=== PATIENT | female | born 1935 | race Caucasian/White ===

== ENCOUNTER 2016-04-11 17:29 | Emergency (ER) | payer OTHER ==
[~2016-04-11] VITALS: Ht 160 cm; Wt 100.0 kg
[~2016-04-11 17:29] MED LIST: DIGO0.122 PO; INSUINJ4 SQ; METO50TA7 PO; ONDA4TAB10 SL; PENI500T2 PO; PRAM0.256 PO; PRD150 PO; PREG100C PO; PRLSR20 PO; ROPI0.25 PO; SERT50TA PO; ZAFI1TAB10 PO
[2016-04-11 17:45] VITALS: TEMP 36.4; Ht 160 cm; Wt 100.0 kg
--- NOTE | 2016-04-11 18:15 | EMERGENCY ROOM VISIT NOTE ---
History Report prepared by Ji: Maverick Skinner Under the Supervision of: Dr. Jerry Vences M.D. First contact with patient: 17:52 Chief Complaint: ILLNESS Stated Complaint: SICK TO STOMACH History of Present Illness The patient is a 80 year old female who presents to the Emergency Room with complaints of diarrhea that she has been experiencing intermittently for the past several months. The patient states that she first began to experience her nausea and diarrhea in December. Her primary care physician gave her Zofran for this initial episode. She continued to use the Zofran for subsequent episodes and recently ran out of this prescription. The patient is also complaining of lower abdominal pain, but denies any vomiting secondary to her nausea. She has had a cough for the past week, and did note some burning with urination recently. Source of History: patient Onset: Several months [employer] Position: other (Gastrointestinal) Quality: other (Diarrhea) Timing: intermittent Associated Symptoms: + abdominal pain, + cough, + nausea, + urinary symptoms , No vomiting Review of Systems All systems have been listed, reviewed, and are negative other than those previously mentioned. Please see Additional Medical History Sheet. 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 (13) Nausea (14) Osteomyelitis (15) Pericardial effusion (16) Sciatica (17) Symptomatic anemia Family History Cancer Diabetes mellitus Gallbladder disease Hypertension Seizures Social History Smoking Status: Former Smoker Alcohol Use: none Drug Use: none Marital Status: Housing Status: lives alone Occupation Status: retired Current/Historical Medications Scheduled Dabigatran Elexilate (Pradaxa), 150 MG PO BID Digoxin (Digoxin), 0.125 MG PO DAILY Furosemide (Lasix), 40 MG PO DAILY Insulin Aspart (Novolog Flexpen), 35 UNITS SC AC Insulin Degludec (Tresiba Flextouch), 90 UNITS SC DAILY Metoprolol Succinate (Metoprolol Succinate ER), 100 MG PO DAILY Omeprazole (Prilosec), 20 MG PO QAM Penicillin V Potassium (Veetids), 500 MG PO TID Pramipexole Dihydrochloride (Pramipexole Dihydrochlori), 0.125 MG PO HS Pregabalin (Lyrica), 100 MG PO BID Sertraline (Zoloft), 50 MG PO DAILY Zafirlukast (Accolate), 20 MG PO BID Scheduled PRN Tramadol (Ultram), 50 MG PO Q6 PRN for Pain Allergies Coded Allergies: Carbamazepine (Verified Allergy, Intermediate, HIVES, 04/11/16) Physical Exam Vital Signs Date Time Temp Pulse Resp B/P Pulse Ox O2 Delivery O2 Flow Rate FiO2 04/11/16 21:13 101 18 159/90 94 Room Air 04/11/16 20:09 95 16 100/67 97 Room Air 04/11/16 19:15 90 04/11/16 19:08 96 16 149/98 94 Room Air 04/11/16 18:28 Room Air 04/11/16 17:45 36.4 101 18 145/80 97 Room Air Physical Exam GENERAL: Patient awake but disoriented to time. Oriented to person and place. Patient follows commands. Patient does not appear toxic. Patient is adequately hydrated and well-nourished. SKIN: No erythema, pallor, cyanosis or rash HEENT: Normal head, pupils equal, reactive to light and accommodation. Ears normal. Oral cavity and posterior pharynx appear normal. Neck: Without adenopathy, no neck vein distention. LUNGS: Clear to auscultation. No wheezes, no rales, no rhonchi. HEART: No murmurs. No gallops. No rubs ABDOMEN: Obese abdomen. Midline suprapubic scar. No masses, no rebound, no hepatomegaly or splenomegaly. EXTREMITIES: There is a 4 cm ulcer on the top of the right ankle. No signs of trauma. No pedal or pretibial edema. No calf or thigh tenderness. NEUROLOGIC: Cranial nerves II-XII within normal limits. No gross motor sensory function deficits. Medical Decision & Procedures ER Provider Diagnostic Interpretation: X ray results are stated below per my interpretation and the radiologist's interpretation. CHEST ONE VIEW PORTABLE CLINICAL HISTORY: fever cough dyspnea COMPARISON STUDY: 12/27/2015 FINDINGS: Moderate stable cardia megaly. Lungs are clear. Chronic elevation right hemidiaphragm. IMPRESSION: Moderate stable cardia megaly. The lungs are clear. Electronically signed by: Kirit Leblanc M.D. 04/11/2016 6:34 PM Dictated Date/Time: 04/11/2016 6:33 P Laboratory Results 04/11/16 18:40 Red Blood Count 3.92, Mean Corpuscular Volume 89.0, Mean Corpuscular Hemoglobin 30.1, Mean Corpuscular Hemoglobin Concent 33.8, Mean Platelet Volume 11.1, Neutrophils (%) (Auto) 74.1, Lymphocytes (%) (Auto) 14.6, Monocytes (%) (Auto) 8.7, Eosinophils (%) (Auto) 1.8, Basophils (%) (Auto) 0.3, Neutrophils # (Auto) 4.94, Lymphocytes # (Auto) 0.97, Monocytes # (Auto) 0.58, Eosinophils # (Auto) 0.12, Basophils # (Auto) 0.02 04/11/16 18:40 Test 04/11/16 18:30 04/11/16 18:40 Urine Color DK YELLOW Urine Appearance CLEAR (CLEAR) Urine pH 6.0 (4.5-7.5) Urine Specific [place] 1.021 (1.000-1.030) Urine Protein NEG (NEG) Urine Glucose (UA) 3+ (NEG) Urine Ketones TRACE (NEG) Urine Occult Blood NEG (NEG) Urine Nitrite NEG (NEG) Urine Bilirubin NEG (NEG) Urine Urobilinogen NEG (NEG) Urine Leukocyte Esterase NEG (NEG) White Blood Count 6.66 K/uL (4.8-10.8) Red Blood Count 3.92 M/uL (4.2-5.4) Hemoglobin 11.8 g/dL (12.0-16.0) Hematocrit 34.9 % (37-47) Mean Corpuscular Volume 89.0 fL (80-100) Mean Corpuscular Hemoglobin 30.1 pg (25-34) Mean Corpuscular Hemoglobin Concent 33.8 g/dl (32-36) Platelet Count 176 K/uL (130-400) Mean Platelet Volume 11.1 fL (7.4-10.4) Neutrophils (%) (Auto) 74.1 % Lymphocytes (%) (Auto) 14.6 % Monocytes (%) (Auto) 8.7 % Eosinophils (%) (Auto) 1.8 % Basophils (%) (Auto) 0.3 % Neutrophils # (Auto) 4.94 K/uL (1.4-6.5) Lymphocytes # (Auto) 0.97 K/uL (1.2-3.4) Monocytes # (Auto) 0.58 K/uL (0.11-0.59) Eosinophils # (Auto) 0.12 K/uL (0-0.5) Basophils # (Auto) 0.02 K/uL (0-0.2) RDW Standard Deviation 49.7 fL (36.4-46.3) RDW Coefficient of Variation 15.3 % (11.5-14.5) Immature Granulocyte % (Auto) 0.5 % Immature Granulocyte # (Auto) 0.03 K/uL (0.00-0.02) Prothrombin Time 11.7 SECONDS (9.0-12.0) Prothromb Time International Ratio 1.1 (0.9-1.1) Activated Partial Thromboplast Time 29.1 SECONDS (21.0-31.0) Partial Thromboplastin Ratio 1.1 Anion Gap 15.0 mmol/L (3-11) Est Creatinine Clear Calc Drug Dose 37.3 ml/min Estimated GFR () 41.6 Estimated GFR (Non- 35.9 BUN/Creatinine Ratio 15.6 (10-20) Calcium Level 9.6 mg/dl (8.5-10.1) Total Bilirubin 0.7 mg/dl (0.2-1) Aspartate Amino Transf (AST/SGOT) 48 U/L (15-37) Alanine Aminotransferase (ALT/SGPT) 43 U/L (12-78) Alkaline Phosphatase 81 U/L (45-117) Troponin I < 0.015 ng/ml (0-0.045) Total Protein 7.8 gm/dl (6.4-8.2) Albumin 3.7 gm/dl (3.4-5.0) Globulin 4.1 gm/dl (2.5-4.0) Albumin/Globulin Ratio 0.9 (0.9-2) Beta-Hydroxybutyric Acid 0.92 mg/dL (0.2-2.81) Laboratory results as stated above per my review. ECG Indication: chest pain, nausea Rate (beats per minute): 90 Rhythm: atrial fibrillation Findings: no acute ischemic change, other (Normal [place] ) Comparison ECG Date: 12/27/2015 Change: no significant change ED Course 1752: Past medical records reviewed. The patient was evaluated in room C11. A complete history and physical examination was performed. 1911: I checked on the patient at this time. Her nausea is improving. 2048: Upon reevaluation, the patient appeared to have improvement of her symptoms. I discussed today's findings with he. She verbalized agreement of the treatment plan. The patient was discharged home. Medical Decision Differential diagnosis: Etiologies such as urinary tract infection, pneumonia, altered mental status, metabolic disturbance, cardiac ischemia, aortic dissection, pulmonary embolism, pneumonia, pneumothorax, musculoskeletal, infections, pericarditis, myocarditis , esophageal rupture, gastrointestinal, as well as others were entertained. Multiple labs, EKG and imaging were obtained. Please see above. The patient was reevaluated. She no longer has any chest pain. Chest x-ray does not reveal failure. She does have chronic cardiomegaly. She has no EKG changes. Troponin is not elevated. Blood sugar is slightly elevated but she has high blood sugars in the past. White count is not elevated. The patient does not appear to have a urinary tract infection. The patient may have a viral infection. This point I do not believe she requires antibiotics or hospitalization. The patient is to follow-up at the diabetic clinic tomorrow. Impression Primary Impression: Viral illness Scribe Attestation The scribe's documentation has been prepared under my direction and personally reviewed by me in its entirety. I confirm that the note above accurately reflects all work, treatment, procedures, and medical decision making performed by me. Departure Information Dispostion Home / Self-Care Referrals No Doctor, Assigned (PCP) Patient Instructions My [facility] Additional Instructions Continue all of your current medications as prescribed. REST Drink extra liquids. Follow-up at the diabetic clinic tomorrow.
--- NOTE | 2016-04-11 18:35 | DIAGNOSTIC IMAGING REPORT ---
CHEST ONE VIEW PORTABLE CLINICAL HISTORY: fever cough dyspnea COMPARISON STUDY: 12/27/2015 FINDINGS: Moderate stable cardia megaly. Lungs are clear. Chronic elevation right hemidiaphragm. IMPRESSION: Moderate stable cardia megaly. The lungs are clear. Electronically signed by: Kirit Leblanc M.D. 04/11/2016 6:34 PM Dictated Date/Time: 04/11/2016 6:33 PM
[2016-04-11] MEDS ORDERED: LNX125 PO (18:39)
[2016-04-11] MEDS ORDERED: TPRSR/100 PO (18:39)
[2016-04-11] MEDS ORDERED: FRS/40 PO (18:39)
[2016-04-11] MEDS ORDERED: TRAM-10 PO (18:43)
[2016-04-11] MEDS ORDERED: INSDGIPEN SC (18:43)
[2016-04-11] MEDS ORDERED: INSU1INJ33 SC (18:43)
[2016-04-11] MEDS ORDERED: NVLGIPEN SC (18:43)
[2016-04-11 18:47] LABS: URINE APPEARANCE CLEAR (CLEAR); URINE BILIRUBIN NEG (NEG); URINE COLOR DK YELLOW; URINE NITRITE NEG (NEG); URINE SPECIFIC GRAVITY 1.021 (1.000-1.030); UROBILINOGEN NEG (NEG); ZZURINE CULT IF INDIC CATH NO
[2016-04-11 18:49] LABS: MANUAL MICROSCOPIC REQUIRED? NO; REVIEW REQ? NO
[2016-04-11 18:53] LABS: BASO % 0.3 %; BASO ABS # 0.02 K/uL (0-0.2); COMPLETE YES; EOS % 1.8 %; HEMATOCRIT 34.9 % (37-47); IG% 0.5 %; LYMPH % 14.6 %; LYMPH ABS # 0.97 K/uL (1.2-3.4); MEAN CORPUSCULAR HEMOGLOBIN 30.1 pg (25-34); MEAN CORPUSCULAR HGB CONC 33.8 g/dl (32-36); MEAN PLATELET VOLUME 11.1 fL (7.4-10.4); MONO % 8.7 %; NEUT % 74.1 %; PLATELET COUNT 176 K/uL (130-400); RED BLOOD COUNT 3.92 M/uL (4.2-5.4); WHITE BLOOD COUNT 6.66 K/uL (4.8-10.8)
[2016-04-11] MEDS ORDERED: PRAM0.129 PO (18:53)
[2016-04-11] MEDS ORDERED: PENI-82 PO ×2 (18:53→18:55)
[2016-04-11 19:04] LABS: INR 1.1 (0.9-1.1); PARTIAL THROMBOPLASTIN RATIO 1.1; PROTHROMBIN TIME (PATIENT) 11.7 SECONDS (9.0-12.0)
[2016-04-11 19:11] LABS: ALT/SGPT 43 U/L (12-78); BLOOD UREA NITROGEN 22 mg/dl (7-18); BUN/CREATININE RATIO 15.6 (10-20); CALCIUM 9.6 mg/dl (8.5-10.1); CARBON DIOXIDE 25 mmol/L (21-32); CHLORIDE 96 mmol/L (98-107); GLUCOSE 302 mg/dl (70-99); POTASSIUM 4.4 mmol/L (3.5-5.1); SODIUM 136 mmol/L (136-145)
[2016-04-11 19:14] LABS: ALB/GLOB RATIO 0.9 (0.9-2); AST/SGOT 48 U/L (15-37)
[2016-04-11 19:21] LABS: ALKALINE PHOSPHATASE 81 U/L (45-117); BETA-HYDROXYBUTYRATE 0.92 mg/dL (0.2-2.81)
[2016-04-11] MEDS ORDERED: OXYC-57 PO (21:09)
[2016-04-11 21:13] VITALS: BP 159/90; PULSE 101; O2SAT 94
[2016-06-26] MEDS ORDERED: AMOX500C3 PO (10:50)
[2016-09-13] MEDS ORDERED: FRS/40 PO (16:01)
== END 2016-04-11 21:13 | disposition home or self-care (01) ==
LOC: C.EDB 17:30 → C.EDC 21:13
DX: B34.9 Viral infection, unspecified (principal); D64.9 Anemia, unspecified; J45.909 Unspecified asthma, uncomplicated; I48.91 Unspecified atrial fibrillation; I10 Essential (primary) hypertension; F32.9 Major depressive disorder, single episode, unspecified; E11.9 Type 2 diabetes mellitus without complications; K21.9 Gastro-esophageal reflux disease without esophagitis; Z87.891 Personal history of nicotine dependence; Z90.710 Acquired absence of both cervix and uterus; Z79.4 Long term (current) use of insulin; Z83.3 Family history of diabetes mellitus; Z82.49 Family history of ischemic heart disease and other diseases of the circulatory system; Z82.0 Family history of epilepsy and other diseases of the nervous system; I51.7 Cardiomegaly

== ENCOUNTER → 2016-05-10 | Outpatient (CLI) | payer OTHER ==
[~2016-05-10] MED LIST changes: +AMOX500C3 PO; +CLB/200 PO; -DIGO0.122 PO; +DXY/100 PO; +FRS/40 PO; +INSDGIPEN SC; +INSU1INJ33 SC; -INSUINJ4 SQ; +LNX125 PO; -METO50TA7 PO; +NVLGIPEN SC; -ONDA4TAB10 SL; -PENI500T2 PO; -ROPI0.25 PO; +TPRSR/100 PO; +TRAM-10 PO
[2016-05-10 17:23] LABS: BASO % 0.5 %; BASO ABS # 0.04 K/uL (0-0.2); COMPLETE YES; EOS % 2.2 %; HEMATOCRIT 36.6 % (37-47); IG% 0.5 %; LYMPH % 13.9 %; LYMPH ABS # 1.08 K/uL (1.2-3.4); MEAN CELL VOLUME 93.1 fL (80-100); MEAN CORPUSCULAR HEMOGLOBIN 29.8 pg (25-34); MEAN PLATELET VOLUME 12.1 fL (7.4-10.4); MONO % 7.9 %; PLATELET COUNT 225 K/uL (130-400); RED BLOOD COUNT 3.93 M/uL (4.2-5.4); WHITE BLOOD COUNT 7.76 K/uL (4.8-10.8)
[2016-05-10 17:34] LABS: BLOOD UREA NITROGEN 21 mg/dl (7-18); BUN/CREATININE RATIO 15.1 (10-20); CALCIUM 9.4 mg/dl (8.5-10.1); CARBON DIOXIDE 28 mmol/L (21-32); CHLORIDE 101 mmol/L (98-107); GLUCOSE 209 mg/dl (70-99); MAGNESIUM 1.5 mg/dl (1.8-2.4); POTASSIUM 4.1 mmol/L (3.5-5.1); SODIUM 139 mmol/L (136-145)
[2016-05-10 17:38] LABS: FERRITIN 107.8 ng/ml (8.0-388.0); PHOSPHORUS 3.3 mg/dl (2.5-4.9); TOTAL IRON BINDING CAPACITY 434 mcg/dl (250-450)
[2016-05-10 17:41] LABS: URINE APPEARANCE CLEAR (CLEAR); URINE BILIRUBIN NEG (NEG); URINE COLOR YELLOW; URINE EPITHELIAL CELL AUTO >30 /lpf (0-5); URINE NITRITE NEG (NEG); URINE SPECIFIC GRAVITY 1.009 (1.000-1.030); UROBILINOGEN NEG (NEG); ZZUR CULT IF INDIC CLEAN CATCH NO
[2016-05-10 17:43] LABS: URINE PROTIEN/CREAT RATIO 0.3 (0-0.2); URINE TOTAL PROTEIN 5.9 mg/dl (0-11.9)
[2016-05-10 17:48] LABS: MANUAL MICROSCOPIC REQUIRED? NO; REVIEW REQ? NO
== END | disposition home or self-care (01) ==
LOC: C.LABBFT 14:10
PROVIDERS: ATTEND Internal Medicine Nephrology
DX: I50.32 Chronic diastolic (congestive) heart failure (principal); N18.3 Chronic kidney disease, stage 3 (moderate); E55.9 Vitamin D deficiency, unspecified; D64.9 Anemia, unspecified

== ENCOUNTER → 2016-07-08 | Outpatient (CLI) | payer OTHER ==
[2016-07-08 10:20] LABS: URINE APPEARANCE CLOUDY (CLEAR); URINE COLOR DK YELLOW; URINE EPITHELIAL CELL AUTO >30 /lpf (0-5); URINE NITRITE NEG (NEG); URINE SPECIFIC GRAVITY 1.023 (1.000-1.030); UROBILINOGEN NEG (NEG)
[2016-07-08 10:32] LABS: MANUAL MICROSCOPIC REQUIRED? NO; REVIEW REQ? YES; URINE BILIRUBIN NEG (NEG)
== END | disposition home or self-care (01) ==
LOC: C.LABSPEC 09:26
PROVIDERS: ATTEND Physician Assistant Medical
DX: N39.0 Urinary tract infection, site not specified (principal)

== ENCOUNTER → 2016-08-02 | Outpatient (CLI) | payer OTHER ==
--- NOTE | 2016-08-02 14:27 | DIAGNOSTIC IMAGING REPORT ---
NUCLEAR GASTRIC EMPTYING STUDY CLINICAL HISTORY: Diabetes. Gastroparesis. COMPARISON STUDY: Abdominal CT dated 12/01/2015. TECHNIQUE: Following the oral administration of 1.0 mCi of technetium 99m sulfur colloid in egg sandwich and 8 ounces of water, static abdominal images are obtained anteriorly and posteriorly at 0 minutes, 1 hour, 2 hour, and 4 hour time intervals. Gastric emptying was calculated utilizing the geometric mean method. FINDINGS: There is approximately 86% activity remaining at the 1 hour time interval, 63% remaining at the 2 hour time interval (normal is less than 60%), and 28% activity remaining at the 4 hour time interval (normal is less than 10%). IMPRESSION: Findings are consistent with delayed gastric emptying for solids. Electronically signed by: Espinoza Silverman M.D. 08/02/2016 2:26 PM Dictated Date/Time: 08/02/2016 2:25 PM
== END | disposition home or self-care (01) ==
LOC: C.NUCL 09:14
PROVIDERS: ATTEND Internal Medicine
DX: E11.49 Type 2 diabetes mellitus with other diabetic neurological complication (principal); E11.65 Type 2 diabetes mellitus with hyperglycemia; R11.0 Nausea

== ENCOUNTER → 2016-08-16 | Outpatient (CLI) | payer OTHER ==
--- NOTE | 2016-08-16 15:23 | DIAGNOSTIC IMAGING REPORT ---
RIGHT FOOT MIN 3 VIEWS ROUTINE CLINICAL HISTORY: 80 years-old Female presenting with PAIN, SWELLING, HISTORY OF OSTEOMYELYTIS Right. TECHNIQUE: Frontal, oblique, and lateral views of the right foot were obtained. COMPARISON: 03/31/2014. FINDINGS: Osteopenia. Heterogeneity of midfoot ossification with loss of joint space definition in the intertarsal midfoot articulations. An old screw track is noted through the calcaneus. No acute fracture. Lateral deviation of the second through fifth proximal phalanges may be positional. Scattered degenerative changes noted. Fusion of the ankle joints and hindfoot partially visualized and better seen on ankle radiographs. Diffuse soft tissue thickening. IMPRESSION: 1. Osteopenia with partial fusion of intertarsal mid foot articulations, which could be posttraumatic or postinfectious. Electronically signed by: Austin Almaraz M.D. 08/16/2016 3:22 PM Dictated Date/Time: 08/16/2016 3:15 PM
--- NOTE | 2016-08-16 18:27 | DIAGNOSTIC IMAGING REPORT ---
RIGHT ANKLE MIN 3 VIEWS ROUTINE CLINICAL HISTORY: 80 years-old Female presenting with PAIN, SWELLING, HISTORY OF OSTEOMYELYTIS Right. TECHNIQUE: Frontal, oblique, and lateral views of the right ankle were obtained. COMPARISON: CT from 06/10/2012. FINDINGS: Extensive deformity of the right ankle, at least in part posttraumatic. Multiple old screw tracks are evident. Osseous fusion of the tibiofibular articulation and across the ankle mortise. A single metallic fixation device remains in the hindfoot. A greater degree of thick periosteal reaction along the distal fibula and tibia is noted than expected for posttraumatic deformity. Osteopenia noted. Prominent bone spur at the inferior calcaneus. Osseous fragment superficial to the posterior malleolus may be a loose body or be contiguous ossification. No evidence of acute fracture. Diffuse thickening of superficial soft tissues. IMPRESSION: 1. Findings consistent with posttraumatic deformity with superimposed changes of chronic osteomyelitis. Osteopenia can be seen in the setting of acute osteomyelitis, which cannot be excluded. No acute osseous injury. Electronically signed by: Austin Almaraz M.D. 08/16/2016 6:26 PM Dictated Date/Time: 08/16/2016 3:11 PM
== END | disposition home or self-care (01) ==
LOC: C.RAD 14:46
PROVIDERS: ATTEND Emergency Medicine
DX: M79.671 Pain in right foot (principal); M79.89 Other specified soft tissue disorders

== ENCOUNTER 2016-09-10 21:31 | Inpatient (IN) | payer OTHER ==
[~2016-09-10] VITALS: Ht 165.1 cm; Wt 111.4 kg
[~2016-09-10 21:31] MED LIST changes: -CLB/200 PO; -DXY/100 PO; -INSDGIPEN SC
[2016-09-10] MEDS ORDERED: DXY/100 PO (21:50)
[2016-09-10] MEDS ORDERED: INSDGIPEN SC (21:50)
[2016-09-10] MEDS ORDERED: CLB/200 PO (21:50)
[2016-09-10 22:07] LABS: BASO % 0.2 %; BASO ABS # 0.01 K/uL (0-0.2); COMPLETE YES; EOS % 0.6 %; HEMATOCRIT 28.5 % (37-47); IG% 0.6 %; LYMPH % 7.8 %; LYMPH ABS # 0.49 K/uL (1.2-3.4); MEAN CORPUSCULAR HEMOGLOBIN 30.3 pg (25-34); MEAN CORPUSCULAR HGB CONC 31.6 g/dl (32-36); MEAN PLATELET VOLUME 11.6 fL (7.4-10.4); MONO % 8.5 %; NEUT % 82.3 %; PLATELET COUNT 123 K/uL (130-400); RED BLOOD COUNT 2.97 M/uL (4.2-5.4); WHITE BLOOD COUNT 6.27 K/uL (4.8-10.8)
[2016-09-10 22:30] LABS: BUN/CREATININE RATIO 13.7 (10-20); CREATININE 1.1 mg/dl (0.60-1.20); POTASSIUM 3.5 mmol/L (3.5-5.1)
[2016-09-10] MEDS ORDERED: MoRPHine SULFATE 4 MG/ML 1 ML CARP\\VIAL IV PRN (22:30)
[2016-09-10] MEDS ORDERED: MoRPHine SULFATE 2 MG/ML CARP ONE (22:35)
[2016-09-10] MEDS: ONDANSETRON INJ 2 MG/ML 2 ML VIAL IV PRN (22:36)
[2016-09-10 23:15] LABS: URINE APPEARANCE CLOUDY (CLEAR); URINE COLOR DK YELLOW; URINE EPITHELIAL CELL AUTO >30 /lpf (0-5); URINE NITRITE NEG (NEG); URINE SPECIFIC GRAVITY 1.024 (1.000-1.030); UROBILINOGEN NEG (NEG); ZZURINE CULT IF INDIC CATH YES
[2016-09-10 23:21] LABS: MANUAL MICROSCOPIC REQUIRED? NO; REVIEW REQ? NO
[2016-09-10 23:24] LABS: URINE BILIRUBIN NEG (NEG)
[2016-09-11] VITALS (9 sets, daily range): BP systolic 116–149; BP diastolic 57–78; PULSE 66–94; TEMP 36.4–36.8; O2SAT 92–96; BMI 41.1
[2016-09-11] MEDS ORDERED: FUROSEMIDE 40 MG/4 ML VIAL IV STA (00:06)
--- NOTE | 2016-09-11 00:17 | EMERGENCY ROOM VISIT NOTE ---
History Report prepared by Ji: Ginny Mitchell Under the Supervision of: Dr. Jerry Vences M.D. First contact with patient: 22:16 Chief Complaint: ABDOMINAL PAIN Stated Complaint: ABD PAIN Nursing Triage Summary: clifton schmid with resp, states "normal for her" c/o resp difficulty, had a [facility] prehospital, ems report pt hyperventilating, hx asthma, was not moving air on scene, rr 16-22 etco2 30-35 History of Present Illness The patient is a 80 year old female who presents to the Emergency Room with complaints of an episode of abdominal pain starting yesterday. The patient notes that she was diagnosed with gastric paresis and is on a diet to accommodate. The patient currently rates her pain as a 10/10 in severity. She complains of nausea, lack of appetite, and shortness of breath. She states it is very difficult to take a deep breath. The patient denies vomiting and being on O2 at home. She notes that she has a history of atrial fibrillation and CHF. She states that she didn't take her Lasix this morning. She notes she is on Pradaxa. Source of History: patient Onset: yesterday Position: abdomen Symptom Intensity: 10/10 Timing: other (episode) Modifying Factors (Worsening): breathing Associated Symptoms: + SOB, + nausea, No vomiting Note: The patient complains of lack of appetite. The patient denies being on O2 at home. Review of Systems All systems have been listed, reviewed, and are negative other than those previously mentioned. Please see Additional Medical History Sheet. 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 (19) Nausea (20) Osteomyelitis (21) Pericardial effusion (22) Sciatica (23) Shortness of breath (24) Symptomatic anemia Family History Cancer Diabetes mellitus Gallbladder disease Hypertension Seizures Social History Smoking Status: Former Smoker Alcohol Use: none Drug Use: none Marital Status: Housing Status: lives alone Occupation Status: retired Current/Historical Medications Scheduled Celecoxib (CeleBREX), 200 MG PO DAILY Dabigatran Elexilate (Pradaxa), 150 MG PO BID Doxycycline Hyclate (Doxycycline Hyclate), 100 MG PO BID Furosemide (Lasix), 40 MG PO DAILY Insulin Aspart (Novolog Flexpen), 56-60 UNITS SC DAILY Insulin Glargine (Lantus Solostar), 32-35 UNITS SC HS Metoprolol Succinate (Metoprolol Succinate ER), 100 MG PO DAILY Omeprazole (Prilosec), 20 MG PO QAM Pramipexole Dihydrochloride (Pramipexole Dihydrochlori), 0.125 MG PO HS Pregabalin (Lyrica), 100 MG PO BID Sertraline (Zoloft), 25 MG PO DAILY Zafirlukast (Accolate), 20 MG PO BID Allergies Coded Allergies: Carbamazepine (Verified Allergy, Intermediate, HIVES, 04/11/16) Physical Exam Vital Signs Date Time Temp Pulse Resp B/P (MAP) Pulse Ox O2 Delivery O2 Flow Rate FiO2 09/11/16 01:56 98 22 156/78 95 Room Air 09/11/16 01:05 92 09/11/16 00:00 89 22 134/58 94 Nasal Cannula 2.0 09/10/16 23:40 83 20 123/78 95 Nasal Cannula 2.0 09/10/16 22:37 90 16 181/81 96 Nasal Cannula 2.0 09/10/16 22:32 97 Nasal Cannula 2.0 09/10/16 22:12 22 128/56 97 Nasal Cannula 2.0 09/10/16 22:01 92 13 09/10/16 21:52 98 09/10/16 21:48 97 Nasal Cannula 09/10/16 21:48 97 Nasal Cannula 2.0 09/10/16 21:41 36.8 95 18 157/72 89 Room Air 09/10/16 21:40 22 157/72 96 Nasal Cannula 2.0 Physical Exam GENERAL: Patient awake, alert, oriented x 3. Patient follows commands. Patient does not appear toxic. Patient is adequately hydrated and well- nourished. SKIN: No erythema, pallor, cyanosis or rash HEENT: Normal head, pupils equal, reactive to light and accommodation. LUNGS: Clear to auscultation. No wheezes, no rales, no rhonchi. HEART: Irregularly irregular. No murmurs. No gallops. No rubs ABDOMEN: Has multiple ecchymosis areas from injections. Bowel sounds are present. No masses, no rebound, no hepatomegaly or splenomegaly. EXTREMITIES: Ulcer at the base of right leg. No acute edema. No signs of trauma. No pedal or pretibial edema. No calf or thigh tenderness. NEUROLOGIC: Cranial nerves II-XII within normal limits. No gross motor sensory function deficits. Medical Decision & Procedures ER Provider Diagnostic Interpretation: CHEST/ ABDOMEN Z-RAY: Findings: The results were interpreted by me. Cardiomegaly. Congestive heart failure. Nonspecific bowel gas patterns. Possible ileus. Laboratory Results Test 09/10/16 22:00 09/10/16 23:00 Immature Granulocyte % (Auto) 0.6 % White Blood Count 6.27 K/uL (4.8-10.8) Red Blood Count 2.97 M/uL (4.2-5.4) Hemoglobin 9.0 g/dL (12.0-16.0) Hematocrit 28.5 % (37-47) Mean Corpuscular Volume 96.0 fL (80-100) Mean Corpuscular Hemoglobin 30.3 pg (25-34) Mean Corpuscular Hemoglobin Concent 31.6 g/dl (32-36) Platelet Count 123 K/uL (130-400) Mean Platelet Volume 11.6 fL (7.4-10.4) Neutrophils (%) (Auto) 82.3 % Lymphocytes (%) (Auto) 7.8 % Monocytes (%) (Auto) 8.5 % Eosinophils (%) (Auto) 0.6 % Basophils (%) (Auto) 0.2 % Neutrophils # (Auto) 5.16 K/uL (1.4-6.5) Lymphocytes # (Auto) 0.49 K/uL (1.2-3.4) Monocytes # (Auto) 0.53 K/uL (0.11-0.59) Eosinophils # (Auto) 0.04 K/uL (0-0.5) Basophils # (Auto) 0.01 K/uL (0-0.2) Immature Granulocyte # (Auto) 0.04 K/uL (0.00-0.02) Total Bilirubin 1.1 mg/dl (0.2-1) Aspartate Amino Transf (AST/SGOT) 30 U/L (15-37) Alanine Aminotransferase (ALT/SGPT) 34 U/L (12-78) Alkaline Phosphatase 63 U/L (45-117) Total Protein 6.1 gm/dl (6.4-8.2) Albumin 3.0 gm/dl (3.4-5.0) Globulin 3.1 gm/dl (2.5-4.0) Albumin/Globulin Ratio 1.0 (0.9-2) Lipase 47 U/L (73-393) Urine Color DK YELLOW Urine Appearance CLOUDY (CLEAR) Urine pH 6.0 (4.5-7.5) Urine Specific [place] 1.024 (1.000-1.030) Urine Protein 1+ (NEG) Urine Glucose (UA) 1+ (NEG) Urine Ketones TRACE (NEG) Urine Occult Blood NEG (NEG) Urine Nitrite NEG (NEG) Urine Bilirubin NEG (NEG) Urine Urobilinogen NEG (NEG) Urine Leukocyte Esterase SMALL (NEG) Urine WBC (Auto) 10-30 /hpf (0-5) Urine RBC (Auto) 0-4 /hpf (0-4) Urine Hyaline Casts (Auto) 1-5 /lpf (0-5) Urine Epithelial Cells (Auto) >30 /lpf (0-5) Urine Bacteria (Auto) 2+ (NEG) Date/Time Source Procedure Growth Status 09/10/16 23:00 Urine,Catheterized Urine Culture - Final MORE THAN THREE TYPES OF ORGANISMS CO... Complete Laboratory results as stated above per my review. Medications Administered Medications (Trade) Dose Ordered Sig/Trista Route Start Time Stop Time Status Last Admin Dose Admin Ondansetron HCl (Zofran Inj) 4 mg Q1HWA PRN IV 09/10/16 22:30 09/12/16 07:30 DC 09/11/16 07:31 4 MG Morphine Sulfate (MoRPHine SULFATE INJ) 2 mg STK-MED ONCE .ROUTE 09/10/16 22:35 09/10/16 22:36 DC 09/10/16 22:37 2 MG Furosemide (Lasix Inj) 40 mg NOW STAT IV 09/11/16 00:06 09/11/16 00:11 DC 09/11/16 00:29 40 MG ECG Indication: abdominal pain Rate (beats per minute): 95 Rhythm: atrial fibrillation Findings: no acute ischemic change, other (normal axis, baseline artifact) ED Course 221: Past medical records reviewed. The patient was evaluated in room B11. A complete history and physical examination was performed. 2230: Ordered Zofran Inj 4 mg PRN IV nausea, Morphine Sulfate 2 mg PRN IV pain. 0006: Ordered Lasix Inj 40 mg IV. 0122: I reevaluated the patient and she states she feels fine. She states that she has no pain now and she is just waiting for CT. 0217: I reevaluated the patient. i turned her O2 off. She maintained O2 stats between 92% and 93%. 0220: Patient got up to go the bathroom and became very short of breath. Medical Decision Differential diagnoses include gastroparesis, gastritis, gastroenteritis, bowel obstruction, diverticulitis, pancreatitis. Multiple labs, EKG and imaging were obtained. Please see above. The patient remains in atrial fibrillation. Initial x-rays reveal congestive failure and increased upper abdominal gas and possible ileus. The patient was given 40 mg of IV Lasix which improved her breathing. CT was ordered to follow. The patient's pain in her abdomen decreased markedly. The patient developed some diarrhea while awaiting her CT. She became more short of breath when she got up. In light of her drop in hemoglobin compared to her last hemoglobin, atrial fibrillation and congestive failure. I believe she needs further evaluation in the hospital. CT is pending at the time of this dictation. I did discussed care with the patient, another family member and the hospitalist. Medication Reconcilliation Current Medication List: was personally reviewed by me Blood Pressure Screening Patient's blood pressure: Normal blood pressure Blood pressure disposition: Did not require urgent referral Impression Primary Impression: CHF (congestive heart failure) Additional Impressions: Abdominal pain Anemia Scribe Attestation The scribe's documentation has been prepared under my direction and personally reviewed by me in its entirety. I confirm that the note above accurately reflects all work, treatment, procedures, and medical decision making performed by me. Departure Information Prescriptions Furosemide (Lasix) 40 Mg Tab 40 MG PO DAILY, #5 TAB Prov: Marvin Szymanski D.O. 09/13/16 Referrals Uri Plascencia M.D. (PCP) Patient Instructions My [facility] Problem Qualifiers
[2016-09-11] MEDS ORDERED: OPTIRAY 320 IV PRN (00:30)
--- NOTE | 2016-09-11 02:59 | History and Physical ---
History & Physical Date & Time of Service: Sep 11, 2016 at 02:56 Chief Complaint: Abd Pain Primary Care Physician: Uri Plascencia M.D. History of Present Illness Source: patient, family Mrs Arnold is a 80 yo F with CHF (last EF 12/2015 55-60%), Atrial fibrillation (on Pradaxa), and T2DM who presents with altered mental status and feeling unwell. Hx primarily obtained from daughter, who reports she went to go check on her mom today and found her to be very confused. She asked her mom to check her blood sugar and she couldn't use the machine properly. Her breathing also seemed to have worsened, which concerned her daughter, who called the ambulance. The pt has a hx of diabetic gastroparesis and the daughter was concerned she may have a recurrence of that. The pt lives alone in [place] and her daughter is 30 minutes away. Past Medical/Surgical History Medical Problems: (1) Anemia Status: Resolved (2) Asthma Status: Chronic (3) Atrial fibrillation Status: Chronic (4) Benign hypertension Status: Chronic (5) Depression Status: Chronic (6) Diabetes mellitus type 2 Status: Chronic (7) Gastroesophageal reflux disease Status: Chronic (8) Hemorrhoidectomy Status: Resolved (9) Hysterectomy Status: Resolved (10) Osteomyelitis Status: Chronic (11) Sciatica Status: Chronic Family History Cancer Diabetes mellitus Gallbladder disease Hypertension Seizures Social History Smoking Status: Former Smoker Drug Use: none Marital Status: Housing status: lives alone Occupational Status: retired Immunizations History of Influenza Vaccine: N/A Influenza Vaccine Date: Nov 25, 2011 History of Tetanus Vaccine?: unknown History of Pneumococcal: Unknown Pneumococcal Date: June 24, 2008 History of Hepatitis B Vaccine: Unknown Multi-Drug Resistant Organisms History of MDRO: No Allergies Coded Allergies: Carbamazepine (Verified Allergy, Intermediate, HIVES, 04/11/16) Home Medications Scheduled Celecoxib (CeleBREX), 200 MG PO DAILY Dabigatran Elexilate (Pradaxa), 150 MG PO BID Doxycycline Hyclate (Doxycycline Hyclate), 100 MG PO BID Insulin Aspart (Novolog Flexpen), 56-60 UNITS SC DAILY Insulin Glargine (Lantus Solostar), 32-35 UNITS SC HS Metoprolol Succinate (Metoprolol Succinate ER), 100 MG PO DAILY Omeprazole (Prilosec), 20 MG PO QAM Pramipexole Dihydrochloride (Pramipexole Dihydrochlori), 0.125 MG PO HS Pregabalin (Lyrica), 100 MG PO BID Sertraline (Zoloft), 25 MG PO DAILY Zafirlukast (Accolate), 20 MG PO BID Review of Systems See HPI for pertinent positives & negatives. A total of 10 systems reviewed and were otherwise negative. Physical Exam Vital Signs Date Time Temp Pulse Resp B/P (MAP) Pulse Ox O2 Delivery O2 Flow Rate FiO2 09/11/16 01:56 98 22 156/78 95 Room Air 09/11/16 01:05 92 09/11/16 00:00 89 22 134/58 94 Nasal Cannula 2.0 09/10/16 23:40 83 20 123/78 95 Nasal Cannula 2.0 09/10/16 22:37 90 16 181/81 96 Nasal Cannula 2.0 09/10/16 22:32 97 Nasal Cannula 2.0 09/10/16 22:12 22 128/56 97 Nasal Cannula 2.0 09/10/16 22:01 92 13 09/10/16 21:52 98 09/10/16 21:48 97 Nasal Cannula 09/10/16 21:48 97 Nasal Cannula 2.0 09/10/16 21:41 36.8 95 18 157/72 89 Room Air 09/10/16 21:40 22 157/72 96 Nasal Cannula 2.0 General Appearance: WD/WN, + mild distress, + obese Head: normocephalic, atraumatic Eyes: normal inspection ENT: hearing grossly normal Neck: supple, no JVD Respiratory/Chest: lungs clear, normal breath sounds, no respiratory distress Cardiovascular: regular rate, rhythm, no murmur, normal peripheral pulses Abdomen/GI: soft, + tenderness (epigastric tenderness) Back: no CVA tenderness, no muscle spasm Extremities/Musculoskelatal: no calf tenderness, no pedal edema Neurologic/Psych: alert, normal mood/affect, oriented x 3 Skin: no rash Diagnostics Laboratory Results Results Past 24 Hours Test 09/10/16 22:00 09/10/16 23:00 Range/Units White Blood Count 6.27 4.8-10.8 K/uL Red Blood Count 2.97 4.2-5.4 M/uL Hemoglobin 9.0 12.0-16.0 g/dL Hematocrit 28.5 37-47 % Mean Corpuscular Volume 96.0 80-100 fL Mean Corpuscular Hemoglobin 30.3 25-34 pg Mean Corpuscular Hemoglobin Concent 31.6 32-36 g/dl Platelet Count 123 130-400 K/uL Mean Platelet Volume 11.6 7.4-10.4 fL Neutrophils (%) (Auto) 82.3 % Lymphocytes (%) (Auto) 7.8 % Monocytes (%) (Auto) 8.5 % Eosinophils (%) (Auto) 0.6 % Basophils (%) (Auto) 0.2 % Neutrophils # (Auto) 5.16 1.4-6.5 K/uL Lymphocytes # (Auto) 0.49 1.2-3.4 K/uL Monocytes # (Auto) 0.53 0.11-0.59 K/uL Eosinophils # (Auto) 0.04 0-0.5 K/uL Basophils # (Auto) 0.01 0-0.2 K/uL RDW Standard Deviation 56.1 36.4-46.3 fL RDW Coefficient of Variation 16.2 11.5-14.5 % Immature Granulocyte % (Auto) 0.6 % Immature Granulocyte # (Auto) 0.04 0.00-0.02 K/uL Sodium Level 144 136-145 mmol/L Potassium Level 3.5 3.5-5.1 mmol/L Chloride Level 110 98-107 mmol/L Carbon Dioxide Level 26 21-32 mmol/L Anion Gap 8.0 3-11 mmol/L Blood Urea Nitrogen 15 7-18 mg/dl Creatinine 1.10 0.60-1.20 mg/dl Est Creatinine Clear Calc Drug Dose 54.4 ml/min Estimated GFR () 55.7 Estimated GFR (Non- 48.1 BUN/Creatinine Ratio 13.7 10-20 Random Glucose 234 70-99 mg/dl Calcium Level 8.0 8.5-10.1 mg/dl Total Bilirubin 1.1 0.2-1 mg/dl Aspartate Amino Transf (AST/SGOT) 30 15-37 U/L Alanine Aminotransferase (ALT/SGPT) 34 12-78 U/L Alkaline Phosphatase 63 45-117 U/L Total Protein 6.1 6.4-8.2 gm/dl Albumin 3.0 3.4-5.0 gm/dl Globulin 3.1 2.5-4.0 gm/dl Albumin/Globulin Ratio 1.0 0.9-2 Lipase 47 73-393 U/L Urine Color DK YELLOW Urine Appearance CLOUDY CLEAR Urine pH 6.0 4.5-7.5 Urine Specific [place] 1.024 1.000-1.030 Urine Protein 1+ NEG Urine Glucose (UA) 1+ NEG Urine Ketones TRACE NEG Urine Occult Blood NEG NEG Urine Nitrite NEG NEG Urine Bilirubin NEG NEG Urine Urobilinogen NEG NEG Urine Leukocyte Esterase SMALL NEG Urine WBC (Auto) 10-30 0-5 /hpf Urine RBC (Auto) 0-4 0-4 /hpf Urine Hyaline Casts (Auto) 1-5 0-5 /lpf Urine Epithelial Cells (Auto) >30 0-5 /lpf Urine Bacteria (Auto) 2+ NEG Microbiology Results 09/10/16 Urine Culture, Received Pending CXR normal Normal EKG, No change from prior EKG Impression Assessment and Plan 80 yo F with CHF, Atrial fibrillation, and T2DM, found to have persistent shortness of breath despite lasix, and a new anemia (from 11 to 9.0 in 4 months) . Normocytic anemia - Will recheck another CBC in the AM - No indication for transfusion at this time - Will check iron / b12 levels Atrial fibrillation, rate controlled - Continue home Pradaxa and Toprol XL 100mg Shortness of breath w/background of CHF - Received Lasix in ED - Track I&Os - Daily weights Type 2 DM - Recheck A1c - Continue home Lantus dose, 32 units qHS - Novolog sliding scale with goal 140-180 Chronic foot ulcer - Continue doxycycline CODE STATUS: Level III (Does not want ventilation) VTE: Heparin DISPO: Tele Resident Physician Supervision Note: I was present with Dr. Garcia during the history and exam. I discussed the case with the resident and agree with the findings and plan as documented in the note. Any exceptions or clarifications are listed here: 80 y/o F DM, HTN, AF, foot wound, anemia - presenting with SOB and abdominal pain Pleural effusion and CHF present on initial imaging - no specific finding on abdominal imaging - pt has worsening anemia OE AAO x 3 S1,2 R Reduced air at bases Diffuse tender abdomen - guarding present No CCE P: Provided with lasix in ER - breathing improving - May need thora if SOB persists Narcotics provided for abd pain - ischemia suspected as this has occurred prior and no clear etiology determined - GI consulted Will trend Hb - has needed transfusions in past although Hb has been lower than current Above discussed with pt and resident Documented By: Michael Yo Level of Care Telemetry Resident Tracking Resident Involvement: Resident Care Provided Care Provided: Adult Hospital Medicine
[2016-09-11] MEDS ORDERED: MAGNESIUM HYDROXIDE SUSP 30 ML UDC PO PRN (03:00)
[2016-09-11] MEDS ORDERED: GLUCAGON FOR INJ 1 MG VIAL SQ PRN (03:00)
[2016-09-11] MEDS ORDERED: GLUCOSE 10 TABS/TUBE PO PRN (03:00)
[2016-09-11] MEDS ORDERED: DEXTROSE 50% 50 ML SYR IV PRN (03:00)
[2016-09-11] MEDS ORDERED: ACETAMINOPHEN 325 MG TAB PO PRN (03:00)
[2016-09-11] MEDS ORDERED: GLUCOSE 40% GEL 15 GM TUBE PO PRN (03:00)
[2016-09-11] MEDS ORDERED: NITROGLYCERIN 0.4 MG SL PER TAB CHARGE SL PRN (03:00)
[2016-09-11] MEDS ORDERED: ALUMINUM/MAGNESIUM/SIMETH (MAALOX MAX) 30 ML UDC PO PRN (03:00)
[2016-09-11] MEDS ORDERED: ONDANSETRON INJ 2 MG/ML 2 ML VIAL IV PRN (03:00)
[2016-09-11] MEDS ORDERED: HYDROmorphone INJ 0.5 MG/0.5 ML SYR IV STA (03:39)
[2016-09-11] MEDS ORDERED: HYDROmorphone INJ 0.5 MG/0.5 ML SYR IV PRN (03:45)
[2016-09-11] MEDS ORDERED: HEPARIN SOD 5000 UNIT/0.5 ML CARP SQ SCH (06:00)
--- NOTE | 2016-09-11 06:41 | DIAGNOSTIC IMAGING REPORT ---
ABDOMEN 2VIEW W/PA CHEST RTN HISTORY: 80 years-old Female abd pain COMPARISON: Chest radiograph 04/11/2016 TECHNIQUE: Frontal view of the chest with erect and supine views of the abdomen FINDINGS: Cardiac silhouette is again enlarged. There is no pneumothorax. There is blunting of bilateral costophrenic angles with mild pulmonary vascular congestion and hazy bibasilar opacities. Moderate degenerative changes are seen about the left shoulder. No pneumoperitoneum identified. There is minimal air-fluid level in within small bowel loops of the left mid abdomen. Mildly dilated air-filled loops of small bowel are seen within the midabdomen measuring up to 3.0 cm. No urolith or fracture is seen. Severe degenerative changes are noted within the right hip with subcortical cystic changes and/or AVN. IMPRESSION: 1. Mildly dilated air-filled loops of small bowel in the midabdomen with associated air-fluid levels may reflect enteritis or ileus, however a developing obstruction may have a similar appearance. Follow-up is recommended. 2. Cardiomegaly with mild pulmonary vascular congestion, trace pleural effusions and probable bibasilar atelectasis. The above report was generated using voice recognition software. It may contain grammatical, syntax or spelling errors. Electronically signed by: Fausto Hutson M.D. 09/11/2016 6:40 AM Dictated Date/Time: 09/11/2016 6:37 AM
--- NOTE | 2016-09-11 07:11 | DIAGNOSTIC IMAGING REPORT ---
CT OF THE ABDOMEN AND PELVIS WITH CONTRAST CLINICAL HISTORY: Abdominal pain. Abnormal abdominal radiographs. COMPARISON STUDY: CT of the abdomen and pelvis December 01, 2015 abdominal ultrasound December 28, 2015 and abdominal series September 10, 2016 TECHNIQUE: Following IV administration of 91 mL of Optiray-320, axial images of the abdomen and pelvis were obtained from the lung bases to the proximal femurs. Images were reviewed in the axial, sagittal, and coronal planes. IV contrast was administered without complication. A dose lowering technique was utilized adhering to the principles of ALARA. Oral contrast was administered. CT DOSE: 1434.23 mGy.cm FINDINGS: Small right and trace left pleural effusions are noted. There is a small pericardial effusion which is similar to CT of December 01, 2015. Fatty infiltration of the liver is noted. The spleen, adrenal glands and pancreas are unremarkable. There are are a few subcentimeter renal lesions which are too small to characterize. There is no hydronephrosis. There are several parapelvic cysts. There is no evidence for a bowel obstruction. Note is made of sigmoid diverticulosis without evidence for acute diver colitis. The appendix is not visualized but there is no right lower quadrant inflammation. There is no ascites. There is mild anasarca. Severe osteoarthritis of the right hip is noted. No peripancreatic or pericholecystic infiltration is present. IMPRESSION: 1. No acute process within the abdomen or pelvis. No bowel obstruction. 2. Small right and trace left pleural effusions which are new since CT of December 01, 2015. 3. Small pericardial effusion which is unchanged since prior exam of December 01, 2015. 4. Fatty liver. Electronically signed by: Asif Ballard M.D. 09/11/2016 7:10 AM Dictated Date/Time: 09/11/2016 7:02 AM
[2016-09-11] MEDS: ONDANSETRON INJ 2 MG/ML 2 ML VIAL IV PRN (07:31)
[2016-09-11] MEDS: PREGABALIN 100 MG CAP PO SCH ×2 (09:00→21:57)
--- NOTE | 2016-09-11 09:16 | DIAGNOSTIC IMAGING REPORT ---
CHEST 2 VIEWS ROUTINE CLINICAL HISTORY: Congestive heart failure. COMPARISON STUDY: Chest radiograph September 10, 2016. FINDINGS: Enlargement of the cardiac silhouette is unchanged. Small bilateral pleural effusions are noted. There is no pneumothorax. Interstitial thickening suggests mild pulmonary edema. IMPRESSION: 1. Mild pulmonary edema and small bilateral pleural effusions. 2. Stable enlargement of the cardiac silhouette. Electronically signed by: Asif Ballard M.D. 09/11/2016 9:15 AM Dictated Date/Time: 09/11/2016 9:13 AM
[2016-09-11] MEDS: INSULIN ASPART 100 UNITS/ML 3 ML PEN SC SCH ×4 (09:27→21:00)
[2016-09-11] MEDS: DABIGATRAN ELEXILATE 75 MG CAP PO SCH ×2 (12:29→22:00)
[2016-09-11] MEDS: SERTRALINE HCL 50 MG TAB PO SCH (12:30)
[2016-09-11] MEDS: CeleBREX 200 MG CAP PO SCH (12:31)
[2016-09-11] MEDS: DOXYCYCLINE HYCLATE 100 MG CAP PO SCH ×2 (12:31→22:01)
[2016-09-11] MEDS: PANTOprazole SOD 40 MG TAB PO SCH (12:31)
[2016-09-11] MEDS: METOPROLOL SUCC 50MG EXT REL TAB PO SCH (12:32)
[2016-09-11] MEDS ORDERED: GI COCKTAIL PO PRN (15:30)
[2016-09-11] MEDS ORDERED: ALUMINUM/MAGNESIUM SUSP 72 ML, LIDOCAINE HCL 2% VISCOUS SOLN 24 ML, BARCODE IDENTIFIER ... PO PRN ×2 (16:00)
[2016-09-11] MEDS: FAMOTIDINE IV INJ 20 MG in DEXTROSE 5% 100ML 100 ML IV SCH ×2 (17:53→19:22)
--- NOTE | 2016-09-11 18:20 | Family Medicine Progress Note ---
Progress Note Date of Service Sep 11, 2016. Subjective Pt evaluation today including: conversation w/ patient, physical exam, chart review, lab review Pt reports feeling unwell, and particularly in her abdomen. Pt reports 5/10 pain in epigastric area, and reports she has felt this way for a couple of weeks. Pt reports that nothing makes the pain better or worse, and is not associated with meals. Pt denies vomiting, but complains of nausea and decreased appetite. Pt reports that she has had a colonoscopy recently and that it was normal. Nurse reports that pt is incontinent of stool, and that the stool is brown in color. Constitutional: + sweats, No fever, No chills Respiratory: No cough, No sputum, No shortness of breath Abdomen: + pain, + nausea, + diarrhea, No vomiting Female : + dysuria Objective Physical Exam General Appearance: WD/WN, + obese Eyes: normal inspection, PERRL, EOMI Respiratory/Chest: chest non-tender, lungs clear, normal breath sounds Cardiovascular: regular rate, rhythm, no gallop, no JVD, + normal peripheral pulses Abdomen: normal bowel sounds, no organomegaly, + tenderness (exquisitely tender in epigastric area) Neurologic/Psychiatric: normal mood/affect, + pertinent finding (oriented to person and place, but not time. Pt has difficulty forming the words she wants to say, but says this is baseline for her.) Skin: normal color, warm/dry, no rash Assessment and Plan 80 yo F with CHF (last EF 12/2015 55-60%), Atrial fibrillation (on Pradaxa), and T2DM who presents with altered mental status and feeling unwell Altered Mental Status - pt brought to hospital by daughter who believed pt to be more confused than is normal - on interview, pt finds it hard to think of the words she would like to say, and her speech is somewhat slowed. Pt states that this is baseline for her. - will continue to monitor Abdominal pain - ?gastroenteritis vs PUD vs gastroparesis vs gut edema? - pt complains of achy pain in her epigastrium, 5/10 in severity, that has been going on for about 2 weeks now - pt denies vomiting, but complains of diarrhea that is brown in color. Pt denies association with meals. Nurse reports that pt is incontinent of stool. - CT negative - no acute process or bowel obstruction. Fatty liver noted. - pt states she had a colonoscopy recently and that it was normal. - Have ordered Pepcid and GI cocktail and clear liquid diet. If shows no improvement, will consult with GI for possibility of gastroparesis (which pt has history of). Normocytic anemia - Hgb was 11 in May, on admission is 9. - No indication for transfusion at this time - Will check iron / b12 levels Atrial fibrillation, rate controlled - Continue home Pradaxa and Toprol XL 100mg Shortness of breath w/background of CHF - Received Lasix in ED - Track I&Os - Daily weights Type 2 DM - Recheck A1c - Continue home Lantus dose, 32 units qHS - Novolog sliding scale with goal 140-180 Chronic foot ulcer - Continue doxycycline CODE STATUS: Level III (Does not want ventilation) VTE: Heparin DISPO: Tele Resident Physician Supervision Note: I interviewed and examined the patient. Discussed with Dr. Rahman and agree with findings and plan as documented in the note. Any exceptions or clarifications are listed here: None Documented By: Marvin Szymanski feeling 5/10 predominantly epigastric abdominal pain ongoing slwoly worsening for a few weeks. some sweats no f/c. nausea not really much vomiting. fecal incontinence at times seems random. pain/nausea don't seem affected by eating but she's also not been eating. notes w/u for gastroparesis and this feels vaguely like that but that was also months ago vitals noted fatigued nad breathing unlabored abd soft mod distended epigastric ttp diffuse elsewhere tender without guarding or rebound abdominal pain - PUD spectrum vs gastroparesis vs gastroenteritis - trial of H2 and GI cocktail to look for response, eval prior gastroparesis w/u, late finding of diarrhea begs question enteritis - Cdiff/WBC to be done. whole picture would fit w constipation but none noted even on review of CT
[2016-09-11] MEDS: PRAMIPEXOLE DIHYDROCHLORIDE 0.25MG TAB PO SCH (21:58)
[2016-09-11] MEDS: INSULIN GLARGINE SOLOSTAR 100 UNITS/ML 3 ML PEN SC SCH (22:01)
[2016-09-12] VITALS (14 sets, daily range): BP systolic 112–155; BP diastolic 59–82; PULSE 52–73; TEMP 36.3–36.7; O2SAT 88–96
[2016-09-12] MEDS: FAMOTIDINE IV INJ 20 MG in DEXTROSE 5% 100ML 100 ML IV SCH ×2 (06:30→17:52)
[2016-09-12] MEDS ORDERED: ALUMINUM/MAGNESIUM/SIMETH (MAALOX MAX) 30 ML UDC PO ONE (07:30)
--- NOTE | 2016-09-12 07:43 | Clinical Documentation Query ---
EUGENIE White : CLINICAL DOCUMENTATION QUERIES QUERY 1 OF 3 Patient is a 80 year old female admitted for evaluation and treatment of abdominal pain and shortness of breath. Documentation includes CHF, not otherwise specified. Last echocardiogram noted an LVEF of 55-60%. This cannot be assumed to be normal/not systolic HF by the professional psychology intern. As appropriate, consider clarification as suggested below. Thank you. In your clinical opinion is this patient being managed for: ( ) Acute on chronic diastolic/preserved EF heart failure ( ) Other explanation of clinical findings (Please Explain) ( ) Unable to determine (Please Define) ( ) Need to Discuss ( ) Not Agree The medical record reflects the following clinical findings, treatment, and risk factors. Clinical Indicators: As above Treatment: Telemetry, I/O, Lasix, daily weights Risk Factors: Age, hypertension, atrial fibrillation QUERY 2 OF 3 Estimated GFR range dating back to December 2015 of 36-48 ml/min. Historical EMR documentation includes a diagnosis of CKD stage 3. As appropriate, consider documentation as suggested below as their are significant DRG assignment implications serving to enhance severity of illness and predictors concerning risk of mortality. In your clinical opinion is this patient being managed for: ( ) Chronic kidney disease, stage 3 ( ) Other explanation of clinical findings (Please Explain) ( ) Unable to determine (Please Define) ( ) Need to Discuss ( ) Not Agree The medical record reflects the following clinical findings, treatment, and risk factors. Clinical Indicators: As above Treatment: Serial chemistries Risk Factors: Age, DM, hypertension, atrial fibrillation, medications QUERY 3 OF 3 H&P notes a "chronic foot ulcer" for which she is maintained on Doxycycline. As appropriate, please specify both the type/etiology of the ulcer and the laterality. Wound center progress notes from 08/21 included a diagnosis of diabetic ulcer of the right ankle in the setting of DM and associated neuropathy. In your clinical opinion is this patient being managed for: ( ) Diabetic ulcer of the right ankle ( ) Other explanation of clinical findings (Please Explain) ( ) Unable to determine (Please Define) ( ) Need to Discuss ( ) Not Agree The medical record reflects the following clinical findings, treatment, and risk factors. Clinical Indicators: As above Treatment: Doxycyline, orthotics Risk Factors: DM Please clarify and document your clinical opinion in the progress notes and discharge summary. Terms such as "probable", "suspected", "likely", "questionable", "possible", or "still to be ruled out" are acceptable. IF IN AGREEMENT, YOU MUST DOCUMENT ABOVE DIAGNOSTIC STATEMENT IN DAILY PROGRESS NOTES AND DISCHARGE SUMMARY. This document is not part of the patient's record. Thank You, Chris Milton RN [phone]
--- NOTE | 2016-09-12 07:48 | Clinical Documentation Query ---
STEPHEN Mcmanus : CLINICAL DOCUMENTATION QUERIES QUERY 1 OF 3 Patient is a 80 year old female admitted for evaluation and treatment of abdominal pain and shortness of breath. Documentation includes CHF, not otherwise specified. Last echocardiogram noted an LVEF of 55-60%. This cannot be assumed to be normal/not systolic HF by the professional alternative financing specialist. As appropriate, consider clarification as suggested below. Thank you. In your clinical opinion is this patient being managed for: ( X ) Acute on chronic diastolic/preserved EF heart failure ( ) Other explanation of clinical findings (Please Explain) ( ) Unable to determine (Please Define) ( ) Need to Discuss ( ) Not Agree The medical record reflects the following clinical findings, treatment, and risk factors. Clinical Indicators: As above Treatment: Telemetry, I/O, Lasix, daily weights Risk Factors: Age, hypertension, atrial fibrillation QUERY 2 OF 3 Estimated GFR range dating back to December 2015 of 36-48 ml/min. Historical EMR documentation includes a diagnosis of CKD stage 3. As appropriate, consider documentation as suggested below as their are significant DRG assignment implications serving to enhance severity of illness and predictors concerning risk of mortality. In your clinical opinion is this patient being managed for: (X ) Chronic kidney disease, stage 3 ( ) Other explanation of clinical findings (Please Explain) ( ) Unable to determine (Please Define) ( ) Need to Discuss ( ) Not Agree The medical record reflects the following clinical findings, treatment, and risk factors. Clinical Indicators: As above Treatment: Serial chemistries Risk Factors: Age, DM, hypertension, atrial fibrillation, medications QUERY 3 OF 3 H&P notes a "chronic foot ulcer" for which she is maintained on Doxycycline. As appropriate, please specify both the type/etiology of the ulcer and the laterality. Wound center progress notes from 08/21 included a diagnosis of diabetic ulcer of the right ankle in the setting of DM and associated neuropathy. In your clinical opinion is this patient being managed for: ( x ) Diabetic ulcer of the right ankle ( ) Other explanation of clinical findings (Please Explain) ( ) Unable to determine (Please Define) ( ) Need to Discuss ( ) Not Agree The medical record reflects the following clinical findings, treatment, and risk factors. Clinical Indicators: As above Treatment: Doxycyline, orthotics Risk Factors: DM Please clarify and document your clinical opinion in the progress notes and discharge summary. Terms such as "probable", "suspected", "likely", "questionable", "possible", or "still to be ruled out" are acceptable. IF IN AGREEMENT, YOU MUST DOCUMENT ABOVE DIAGNOSTIC STATEMENT IN DAILY PROGRESS NOTES AND DISCHARGE SUMMARY. This document is not part of the patient's record. Thank You, Chris Milton, SOLE [phone]
[2016-09-12] MEDS: CeleBREX 200 MG CAP PO SCH (08:08)
[2016-09-12] MEDS: PANTOprazole SOD 40 MG TAB PO SCH (08:08)
[2016-09-12] MEDS: DOXYCYCLINE HYCLATE 100 MG CAP PO SCH ×2 (08:08→21:11)
[2016-09-12] MEDS: METOPROLOL SUCC 50MG EXT REL TAB PO SCH (08:09)
[2016-09-12] MEDS: SERTRALINE HCL 50 MG TAB PO SCH (08:09)
[2016-09-12] MEDS: DABIGATRAN ELEXILATE 75 MG CAP PO SCH ×2 (08:09→21:11)
[2016-09-12 08:10] LABS: BUN/CREATININE RATIO 12.2 (10-20); CALCIUM 8.5 mg/dl (8.5-10.1); CREATININE 1.4 mg/dl (0.60-1.20); POTASSIUM 3.4 mmol/L (3.5-5.1)
[2016-09-12 08:13] LABS: CHOLESTEROL/HDL RATIO 3.2
[2016-09-12] MEDS: INSULIN ASPART 100 UNITS/ML 3 ML PEN SC SCH ×4 (08:14→21:15)
[2016-09-12] MEDS: PREGABALIN 100 MG CAP PO SCH ×2 (08:15→21:09)
[2016-09-12 08:30] LABS: HEMATOCRIT 29.3 % (37-47); MEAN CELL VOLUME 96.7 fL (80-100); MEAN CORPUSCULAR HGB CONC 31.1 g/dl (32-36); MEAN PLATELET VOLUME 11.8 fL (7.4-10.4); PLATELET COUNT 120 K/uL (130-400); RED BLOOD COUNT 3.03 M/uL (4.2-5.4); WHITE BLOOD COUNT 6.25 K/uL (4.8-10.8)
[2016-09-12 10:51] LABS: ESTIMATED AVERAGE GLUCOSE 220 mg/dl; HA1C FLAG Normal (Normal)
[2016-09-12] MEDS ORDERED: FUROSEMIDE 40 MG/4 ML VIAL IV STA (14:12)
[2016-09-12] MEDS ORDERED: FUROSEMIDE INJ 40 MG in SYRINGE 0 ML IV ONE (15:00)
--- NOTE | 2016-09-12 20:16 | Family Medicine Progress Note ---
Progress Note Date of Service Sep 12, 2016. Subjective Pt evaluation today including: conversation w/ patient, physical exam, chart review, lab review, review of studies Voiding: mills catheter in place Pt resting comfortably in chair. Pt is more alert today and is able to speak more clearly without so many pauses. Pt reports sleeping "like a baby" and less abdominal pain today. Pt says she does not have an appetite, but denies nausea. Pt states she is breathing better. Per nurse, pt was incontinent of stool once overnight. Constitutional: No fever, No chills Respiratory: + shortness of breath, + dyspnea on exertion Cardiovascular: + orthopnea, + edema, No chest pain Abdomen: + pain, No nausea, No vomiting, No constipation Objective Physical Exam General Appearance: WD/WN, no apparent distress Eyes: normal inspection, PERRL, EOMI Neck: supple, no JVD, trachea midline Respiratory/Chest: chest non-tender, no respiratory distress, + crackles Cardiovascular: no JVD, no murmur Abdomen: normal bowel sounds, soft, + tenderness (tender in epigastrium) Neurologic/Psychiatric: alert, normal mood/affect Skin: normal color, warm/dry, no rash Assessment and Plan 80 yo F with CHF (last EF 12/2015 55-60%), Atrial fibrillation (on Pradaxa), and T2DM who presents with altered mental status and feeling unwell Altered Mental Status - pt brought to hospital by daughter who believed pt to be more confused than is normal - mental status is improving. Will continue to monitor Abdominal pain - ?gastroenteritis vs PUD vs gastroparesis vs gut edema? - epigastric pain improving - only 1 loose stool overnight - CT negative - no acute process or bowel obstruction. Fatty liver noted. - pt states she had a colonoscopy recently and that it was normal. - Pt improved with Pepcid and GI cocktail and clear liquid diet. Normocytic anemia - Hgb was 11 in May, on admission is 9. - Vit B12 wnl 591. - No indication for transfusion at this time - Retic count elevated (4.4) pointing towards hemolytic anemia - will continue to monitor Atrial fibrillation, rate controlled - Continue home Pradaxa and Toprol XL 100mg Shortness of breath w/background of CHF - 93 on RA, 95 on 2L NC. Still dependent on supp O2. - Gave Lasix 40mg once today - Track I&Os - Daily weights Type 2 DM - Continue home Lantus dose, 32 units qHS - Novolog sliding scale with goal 140-180 - A1c 9.3. Will need re-check 3 months post DC. Chronic foot ulcer - Continue doxycycline CODE STATUS: Level III (Does not want ventilation) VTE: Heparin DISPO: Tele. Dr. Szymanski updated pt's son with pt's permission 09/12/16. Resident Physician Supervision Note: I interviewed and examined the patient. Discussed with Dr. Rahman and agree with findings and plan as documented in the note. Any exceptions or clarifications are listed here: None Documented By: Marvin Szymanski sob, bloating remain. notes that actually with hindsight this and the nausea alll came together. swelling worse too. not normally on O2 vitals noted nad breathing unlabored but has diminished bibasilar sob/nausea/hypoxia -likely all acute on chronic diastolic CHF w gut edema -trial of lasix -followup likely will need rehab Continued [facility] stay due to: voiding difficulties, multiple IV medications needed, home environment unsafe for pt Discharge planning: home with home health Resident Tracking Resident Involvement: Resident Care Provided Care Provided: Adult Hospital Medicine
[2016-09-12] MEDS: PRAMIPEXOLE DIHYDROCHLORIDE 0.25MG TAB PO SCH (21:10)
[2016-09-12] MEDS: INSULIN GLARGINE SOLOSTAR 100 UNITS/ML 3 ML PEN SC SCH (21:16)
[2016-09-13] VITALS (8 sets, daily range): BP systolic 111–127; BP diastolic 49–74; PULSE 54–86; TEMP 36.4–36.7; O2SAT 96–99; Ht 165.1 cm; Wt 111.4 kg
[2016-09-13] MEDS: FAMOTIDINE IV INJ 20 MG in DEXTROSE 5% 100ML 100 ML IV SCH ×2 (05:55→17:48)
--- NOTE | 2016-09-13 06:49 | Family Medicine Progress Note ---
Progress Note Date of Service Sep 13, 2016. Subjective Pt evaluation today including: conversation w/ patient, physical exam, chart review, lab review Voiding: mills catheter in place Assessment and Plan 80 yo F with CHF (last EF 12/2015 55-60%), Atrial fibrillation (on Pradaxa), and T2DM who presents with altered mental status and feeling unwell Altered Mental Status - pt brought to hospital by daughter who believed pt to be more confused than is normal - mental status is improving. Will continue to monitor Abdominal pain - ?gastroenteritis vs PUD vs gastroparesis vs gut edema? - epigastric pain improving - only 1 loose stool overnight - CT negative - no acute process or bowel obstruction. Fatty liver noted. - pt states she had a colonoscopy recently and that it was normal. - Pt improved with Pepcid and GI cocktail and clear liquid diet. Normocytic anemia - Hgb was 11 in May, on admission is 9. - Vit B12 wnl 591. - No indication for transfusion at this time - Retic count elevated (4.4) pointing towards hemolytic anemia - will continue to monitor Atrial fibrillation, rate controlled - Continue home Pradaxa and Toprol XL 100mg Shortness of breath w/background of CHF - 93 on RA, 95 on 2L NC. Still dependent on supp O2. - Gave Lasix 40mg once today - Track I&Os - Daily weights Type 2 DM - Continue home Lantus dose, 32 units qHS - Novolog sliding scale with goal 140-180 - A1c 9.3. Will need re-check 3 months post DC. Chronic foot ulcer - Continue doxycycline CODE STATUS: Level III (Does not want ventilation) VTE: Heparin DISPO: Tele. Dr. Szymanski updated pt's son with pt's permission 09/12/16. Resident Tracking Resident Involvement: Resident Care Provided Care Provided: Adult Hospital Medicine
[2016-09-13 07:01] LABS: HEMATOCRIT 29.8 % (37-47); MEAN CELL VOLUME 95.8 fL (80-100); MEAN CORPUSCULAR HEMOGLOBIN 29.6 pg (25-34); MEAN CORPUSCULAR HGB CONC 30.9 g/dl (32-36); PLATELET COUNT 126 K/uL (130-400); RED BLOOD COUNT 3.11 M/uL (4.2-5.4); WHITE BLOOD COUNT 5.83 K/uL (4.8-10.8)
[2016-09-13 07:27] LABS: BUN/CREATININE RATIO 12.6 (10-20); CALCIUM 8.2 mg/dl (8.5-10.1); CREATININE 1.6 mg/dl (0.60-1.20); POTASSIUM 3.3 mmol/L (3.5-5.1)
[2016-09-13] MEDS: METOPROLOL SUCC 50MG EXT REL TAB PO SCH (08:17)
[2016-09-13] MEDS: PANTOprazole SOD 40 MG TAB PO SCH (08:17)
[2016-09-13] MEDS: SERTRALINE HCL 50 MG TAB PO SCH (08:17)
[2016-09-13] MEDS: DABIGATRAN ELEXILATE 75 MG CAP PO SCH (08:18)
[2016-09-13] MEDS: CeleBREX 200 MG CAP PO SCH (08:18)
[2016-09-13] MEDS: INSULIN ASPART 100 UNITS/ML 3 ML PEN SC SCH ×3 (08:20→17:26)
[2016-09-13] MEDS: PREGABALIN 100 MG CAP PO SCH (08:21)
[2016-09-13] MEDS ORDERED: FUROSEMIDE 40 MG TAB PO ONE (11:45)
[2016-09-13] MEDS ORDERED: FRS/40 PO (16:01)
--- NOTE | 2016-09-13 16:07 | Discharge Instructions ---
Discharge Instructions Date of Service Sep 13, 2016. Admission Reason for Admission: Altered Mental Status,Anemia,Shortness Of Breath Discharge Discharge Diagnosis / Problem: acute on chronic diastolic CHF causing gut edema leading to nausea Discharge Goals Goal(s): Improve disease control, Diagnostic testing, Therapeutic intervention Activity Recommendations Activity Level: Assistance Required Therapies: Physical Therapy, Occupational Therapy . Additional Information Patient informed of condition: Yes Advance Directives: Yes DNR: No (full code except do not intubate) Level of Care: Acute Rehab Communicable Disease: No Prognosis: Improving Instructions / Follow-Up Instructions / Follow-Up CHF -presenting symptoms were both nausea and shortness of breath, making her initial situation diagnostically difficult - but after diuresis for the CHF she also showed improvement in her nausea and abdominal bloating making CHF w gut edema very likely as main dx -lasix 40mg daily for another 3-5 days based on breathing, weight, edema, nausea and BMP; after that fluid management hopefully just by sodium restriction , but ongoing lasix as clinically warranted -follow BMP every other day x 3 then as clinically warranted -continue to educate on low sodium diet (less than 2000mg daily, less than 400mg in any given serving) -required O2 until today - appearing predominantly stable on room air now, but may need 2L with exertion or possibly HS/etc - please continue to follow closely , low threshold to resume 2L and slowly wean Current Hospital Diet Patient's current hospital diet: AHA Diet (Heart Healthy), Diabetes Type 2 Diet , Clear Liquid Diet Discharge Diet Recommended Diet: Low Sodium Diet (2gm Na), Diabetes Type 2 Diet Pending Studies Studies pending at discharge: no Laboratory Results Hemoglobin A1c Test 09/12/16 07:12 Range/Units Estimated Average Glucose 220 mg/dl Hemoglobin A1c 9.3 H 4.5-5.6 % Lipid Panel Test 09/12/16 07:12 Range/Units Triglycerides Level 97 0-150 mg/dl Cholesterol Level 123 0-200 mg/dl HDL Cholesterol 39 mg/dl Cholesterol/HDL Ratio 3.2 LDL Cholesterol, Calculated 65 mg/dl Medical Emergencies . Who to Call and When: Medical Emergencies: If at any time you feel your situation is an emergency, please call 911 immediately. . Non-Emergent Contact Non-Emergency issues call your: Primary Care Provider . . "Provider Documentation" section prepared by Marvin Szymanski. . Core Measure Problem Core Measures: None
--- NOTE | 2016-09-13 16:08 | Discharge Instructions ---
Discharge Instructions Date of Service Sep 13, 2016. Admission Reason for Admission: Altered Mental Status,Anemia,Shortness Of Breath Discharge Discharge Diagnosis / Problem: acute on chronic diastolic CHF Discharge Goals Goal(s): Diagnostic testing, Therapeutic intervention Activity Recommendations Activity Limitations: as noted below (PT/OT as guided at [facility]) . Instructions / Follow-Up Instructions / Follow-Up Call your Primary Care doctor if any of the following symptoms or problems start or get worse: * Shortness of breath or difficulty breathing * Wake up at night short of breath * Chest pain * Cough * Swelling of your hands, feet, or legs * More fatigued or tired with your normal activity * Palpitations - sudden fast heart beats WEIGHT * Weigh yourself every morning after using the bathroom. * Use the same scale. * Wear the same amount of clothing. * Write your weight down on a chart. * Call your Primary Care doctor if you gain more than 2-3 pounds in 1-2 days. MEDICATIONS * Use this discharge instruction sheet for medication instructions. * Take your medications at the time your doctor ordered. * Do not skip a dose of your medicines. * If you miss a dose of medicine, take it as soon as possible, but DO NOT DOUBLE A DOSE. * Read your medicine information when you get home. * Know all of the side effects of your medicine. If in doubt, ask your pharmacist * Call your Primary Care doctor's office if you have any side effects. * Be sure all of your doctors know what medicine and herbs you take (including cold, flu, and herbal medicine). Take the following with you to your follow-up doctor appointments: * Weight Chart * Medication List * List of questions Do not drink excessive alcohol, beer or wine. Current Hospital Diet Patient's current hospital diet: AHA Diet (Heart Healthy), Diabetes Type 2 Diet , Clear Liquid Diet Discharge Diet Recommended Diet: Low Sodium Diet (2gm Na), Diabetes Type 2 Diet Pending Studies Studies pending at discharge: no Laboratory Results Hemoglobin A1c Test 09/12/16 07:12 Range/Units Estimated Average Glucose 220 mg/dl Hemoglobin A1c 9.3 H 4.5-5.6 % Lipid Panel Test 09/12/16 07:12 Range/Units Triglycerides Level 97 0-150 mg/dl Cholesterol Level 123 0-200 mg/dl HDL Cholesterol 39 mg/dl Cholesterol/HDL Ratio 3.2 LDL Cholesterol, Calculated 65 mg/dl Medical Emergencies . Who to Call and When: Call 911 or go to the Emergency Room if: * If at any time you feel your situation is an emergency * You have tightness or pain in your chest that does not go away with rest or Nitroglycerin * You are very short of breath even with rest . Non-Emergent Contact Non-Emergency issues call your: Primary Care Provider . . "Provider Documentation" section prepared by Marvin Szymanski. . VTE Core Measure Inpt VTE Proph given/why not?: Other Anticoagulation (pradaxa (chronic))
--- NOTE | 2016-09-13 18:08 | Discharge Summary ---
Discharge Summary Date of Service Sep 13, 2016. Discharge Summary Admission Date: Sep 11, 2016 at 03:05 Discharge Date: Sep 13, 2016 Discharge Disposition: Rehab Principal Diagnosis: Acute on chronic diastolic CHF Immunizations: Have You Had Influenza Vaccine: N/A Influenza Vaccine Date: Nov 25, 2011 History of Tetanus Vaccine?: unknown History of Pneumococcal: Unknown Pneumococcal Date: June 24, 2008 History of Hepatitis B Vaccine: Unknown Discharge Exam Review of Systems: Constitutional: No fever, No chills, No sweats Respiratory: No cough, No sputum, No wheezing Cardiovascular: + orthopnea, No chest pain, No palpitations Abdomen: No pain, No nausea, No vomiting, No constipation Genitourinary - Female: No dysuria, No urinary frequency, No urinary urgency Physical Exam: General Appearance: WD/WN, no apparent distress Eyes: normal inspection, PERRL, EOMI Neck: supple, no JVD, trachea midline Respiratory/Chest: chest non-tender, lungs clear, normal breath sounds, no respiratory distress Cardiovascular: regular rate, rhythm, no JVD, normal peripheral pulses Abdomen / GI: normal bowel sounds, soft, + tenderness (LUQ and epigastrium. Improved since admission.) Skin: normal color, warm/dry, no rash, + pertinent finding (chronic diabetic ulcer present on RLL. Bandage.) Hospital Course 80 yo F with chronic diastolic CHF (last EF 12/2015 55-60%), Atrial fibrillation (on Pradaxa), and T2DM who presented with altered mental status and feeling unwell Acute on chronic diastolic CHF - Shortness of breath w/background of CHF - 93 on RA, 95 on 2L NC. - Lasix 40 mg improved symptoms, likely due to gut edema - Tracked I&Os, mills was in place until day of DC. - Daily weights taken. Altered Mental Status/ metabolic encephalopathy - Pt brought to hospital by daughter who believed pt to be more confused than normal - Mental status improved with treatment of likely underlying causes (acute on chronic diastolic CHF). Abdominal pain - Vague presentation, with CT negative for acute process or bowel obstruction - Pt was incontinent of stool, loose x1 per day during stay. - Pt states she had a colonoscopy recently and that it was normal. - Improved with Pepcid and GI cocktail and clear liquid diet and Lasix. Likely gut edema. Normocytic anemia - Hgb was 11 in May, on admission is 9. - Vit B12 wnl 591. Retic count elevated (4.4) - Transfusion was not indicated. Recommend repeat CBC in 1 month. Atrial fibrillation, rate controlled - Continue home Pradaxa and Toprol XL 100mg Type 2 DM - Continue home Lantus dose, 32 units qHS - Administered Novolog sliding scale with goal BS of 140-180 - A1c 9.3. Recommend re-check 3 months post DC. Chronic Kidney Disease, stage 3 - maintained adequate hydration and dosing. 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 Discharge Instructions Please refer to the electronic Patient Visit Report (Discharge Instructions) for additional information. Resident Tracking Resident Involvement: Resident Care Provided Care Provided: Adult Hospital Medicine
[2016-09-14] MEDS ORDERED: FUROSEMIDE 40 MG TAB PO SCH (09:00)
== END 2016-09-13 18:48 | DRG 291 ==
LOC: EDBD 21:31 → C.EDB 21:32 → C.MED 09-11 03:05 → ENRESERV 09-11 03:32
PROVIDERS: ADMIT Internal Medicine; ATTEND Family Medicine
DX: I13.0 Hypertensive heart and chronic kidney disease with heart failure and stage 1 through stage 4 chronic kidney disease, or unspecified chronic kidney disease (principal); I50.33 Acute on chronic diastolic (congestive) heart failure; L97.319 Non-pressure chronic ulcer of right ankle with unspecified severity; I48.91 Unspecified atrial fibrillation; N18.3 Chronic kidney disease, stage 3 (moderate); D64.9 Anemia, unspecified; E11.9 Type 2 diabetes mellitus without complications; K21.9 Gastro-esophageal reflux disease without esophagitis; Z90.710 Acquired absence of both cervix and uterus; Z87.891 Personal history of nicotine dependence; Z80.9 Family history of malignant neoplasm, unspecified; Z83.3 Family history of diabetes mellitus; Z82.49 Family history of ischemic heart disease and other diseases of the circulatory system; Z82.0 Family history of epilepsy and other diseases of the nervous system; Z79.4 Long term (current) use of insulin

== ENCOUNTER → 2016-10-13 | Outpatient (CLI) | payer OTHER ==
[~2016-10-13] MED LIST changes: -AMOX500C3 PO; +CLB/200 PO; +DXY/100 PO; +INSDGIPEN SC; -INSU1INJ33 SC; -LNX125 PO; -TRAM-10 PO
[2016-10-13 19:50] LABS: BASO % 0.3 %; BASO ABS # 0.02 K/uL (0-0.2); COMPLETE YES; EOS % 2.9 %; IG% 0.5 %; LYMPH % 16.3 %; MEAN CELL VOLUME 94.4 fL (80-100); MEAN CORPUSCULAR HEMOGLOBIN 30.4 pg (25-34); MEAN CORPUSCULAR HGB CONC 32.2 g/dl (32-36); MEAN PLATELET VOLUME 11.6 fL (7.4-10.4); MONO % 8.8 %; NEUT % 71.2 %; PLATELET COUNT 148 K/uL (130-400); RED BLOOD COUNT 3.39 M/uL (4.2-5.4); WHITE BLOOD COUNT 6.15 K/uL (4.8-10.8)
[2016-10-13 20:09] LABS: BLOOD UREA NITROGEN 25 mg/dl (7-18); BUN/CREATININE RATIO 19.5 (10-20); CARBON DIOXIDE 29 mmol/L (21-32); CHLORIDE 107 mmol/L (98-107); GLUCOSE 99 mg/dl (70-99); SODIUM 142 mmol/L (136-145)
== END | disposition home or self-care (01) ==
LOC: C.LABSPEC 12:35
PROVIDERS: ATTEND Internal Medicine
DX: I50.32 Chronic diastolic (congestive) heart failure (principal)

== ENCOUNTER → 2016-11-08 | Outpatient (CLI) | payer OTHER ==
[2016-11-08 17:35] LABS: BASO % 0.4 %; BASO ABS # 0.02 K/uL (0-0.2); COMPLETE YES; HEMATOCRIT 29.5 % (37-47); IG% 0.6 %; LYMPH % 12.3 %; LYMPH ABS # 0.65 K/uL (1.2-3.4); MEAN CELL VOLUME 95.5 fL (80-100); MEAN CORPUSCULAR HEMOGLOBIN 29.8 pg (25-34); MEAN CORPUSCULAR HGB CONC 31.2 g/dl (32-36); MEAN PLATELET VOLUME 11.7 fL (7.4-10.4); NEUT % 75.7 %; PLATELET COUNT 147 K/uL (130-400); RED BLOOD COUNT 3.09 M/uL (4.2-5.4); WHITE BLOOD COUNT 5.27 K/uL (4.8-10.8)
[2016-11-08 17:44] LABS: URINE APPEARANCE CLEAR (CLEAR); URINE BILIRUBIN NEG (NEG); URINE COLOR YELLOW; URINE EPITHELIAL CELL AUTO 20-30 /lpf (0-5); URINE NITRITE NEG (NEG); URINE SPECIFIC GRAVITY 1.013 (1.000-1.030); UROBILINOGEN NEG (NEG); ZZUR CULT IF INDIC CLEAN CATCH NO
[2016-11-08 17:52] LABS: FERRITIN 54.1 ng/ml (8.0-388.0); MAGNESIUM 1.7 mg/dl (1.8-2.4); THYROID STIMULATING HORMONE 5.73 uIu/ml (0.300-4.500)
[2016-11-08 17:55] LABS: MANUAL MICROSCOPIC REQUIRED? NO; REVIEW REQ? NO
[2016-11-08 18:10] LABS: URINE TOTAL PROTEIN < 5.0 mg/dl (0-11.9)
[2016-11-09 13:56] LABS: BLOOD UREA NITROGEN 39 mg/dl (7-18); BUN/CREATININE RATIO 24.4 (10-20); CALCIUM 8.9 mg/dl (8.5-10.1); CHLORIDE 106 mmol/L (98-107); GLUCOSE 219 mg/dl (70-99); POTASSIUM 4.4 mmol/L (3.5-5.1); SODIUM 143 mmol/L (136-145)
== END | disposition home or self-care (01) ==
LOC: C.LABBFT 13:57
PROVIDERS: ATTEND Physician Assistant
DX: N18.3 Chronic kidney disease, stage 3 (moderate) (principal); E11.9 Type 2 diabetes mellitus without complications; D64.9 Anemia, unspecified

== ENCOUNTER → 2016-11-22 | Outpatient (CLI) | payer OTHER ==
[2016-11-22 16:01] LABS: BLOOD UREA NITROGEN 38 mg/dl (7-18); BUN/CREATININE RATIO 25.8 (10-20); CALCIUM 8.2 mg/dl (8.5-10.1); CARBON DIOXIDE 28 mmol/L (21-32); CHLORIDE 108 mmol/L (98-107); CREATININE 1.49 mg/dl (0.60-1.20); GLUCOSE 174 mg/dl (70-99); POTASSIUM 4.4 mmol/L (3.5-5.1); SODIUM 143 mmol/L (136-145)
[2016-11-22 16:12] LABS: PHOSPHORUS 2.9 mg/dl (2.5-4.9)
[2016-11-24 14:08] LABS: MICROSOMAL AB <1 IU/ML (<9)
== END | disposition home or self-care (01) ==
LOC: C.LAB1850 14:20
PROVIDERS: ATTEND Internal Medicine Nephrology
DX: R94.6 Abnormal results of thyroid function studies (principal); N18.3 Chronic kidney disease, stage 3 (moderate)

== ENCOUNTER → 2017-01-15 | Outpatient (CLI) | payer OTHER ==
[2017-01-15 17:50] LABS: BLOOD UREA NITROGEN 28 mg/dl (7-18); BUN/CREATININE RATIO 18.9 (10-20); CALCIUM 9.4 mg/dl (8.5-10.1); CARBON DIOXIDE 31 mmol/L (21-32); CHLORIDE 100 mmol/L (98-107); CREATININE 1.46 mg/dl (0.60-1.20); GLUCOSE 217 mg/dl (70-99); MAGNESIUM 1.7 mg/dl (1.8-2.4); POTASSIUM 4.1 mmol/L (3.5-5.1); SODIUM 136 mmol/L (136-145)
[2017-01-15 18:01] LABS: PHOSPHORUS 3.4 mg/dl (2.5-4.9)
== END | disposition home or self-care (01) ==
LOC: C.LABBFT 14:36
PROVIDERS: ATTEND Internal Medicine Nephrology
DX: E03.9 Hypothyroidism, unspecified (principal); N18.3 Chronic kidney disease, stage 3 (moderate)

== ENCOUNTER → 2017-03-19 | Outpatient (CLI) | payer OTHER ==
[~2017-03-19] MED LIST changes: +DABI150C3 PO; -DXY/100 PO; -FRS/40 PO; +LEVO100T PO; -PRAM0.256 PO; +PRAM0.259 PO; -PRD150 PO
[2017-03-19 17:56] LABS: ALBUMIN 3.5 gm/dl (3.4-5.0); BLOOD UREA NITROGEN 36 mg/dl (7-18); CALCIUM 8.8 mg/dl (8.5-10.1); CARBON DIOXIDE 30 mmol/L (21-32); CHOLESTEROL 140 mg/dl (0-200); CREATININE 1.72 mg/dl (0.60-1.20); GLUCOSE 131 mg/dl (70-99); POTASSIUM 3.6 mmol/L (3.5-5.1); SODIUM 137 mmol/L (136-145)
[2017-03-19 18:07] LABS: LDL CHOLESTEROL CALCULATED 65 mg/dl; PHOSPHORUS 3.9 mg/dl (2.5-4.9)
[2017-03-20 06:11] LABS: HEMOGLOBIN A1C 8.3 % (4.5-5.6)
== END | disposition home or self-care (01) ==
LOC: C.LABBFT 14:59
PROVIDERS: ATTEND Physician Assistant
DX: E11.22 Type 2 diabetes mellitus with diabetic chronic kidney disease (principal); N18.3 Chronic kidney disease, stage 3 (moderate); E78.5 Hyperlipidemia, unspecified; E03.9 Hypothyroidism, unspecified

== ENCOUNTER → 2017-05-09 | Outpatient (CLI) | payer OTHER ==
[~2017-05-09] MED LIST changes: +AMOX250C3 PO; +APIX1TAB PO; -DABI150C3 PO; +NF1420 PO
[2017-05-09 17:12] LABS: ALBUMIN 3.4 gm/dl (3.4-5.0); BLOOD UREA NITROGEN 32 mg/dl (7-18); CALCIUM 8.5 mg/dl (8.5-10.1); CARBON DIOXIDE 29 mmol/L (21-32); CREATININE 1.83 mg/dl (0.60-1.20); GLUCOSE 224 mg/dl (70-99); PHOSPHORUS 3.2 mg/dl (2.5-4.9); SODIUM 140 mmol/L (136-145)
== END | disposition home or self-care (01) ==
LOC: C.LABBFT 13:18
PROVIDERS: ATTEND Internal Medicine Nephrology
DX: E83.42 Hypomagnesemia (principal)

== ENCOUNTER → 2017-09-14 | Outpatient (CLI) | payer OTHER ==
[~2017-09-14] MED LIST changes: -AMOX250C3 PO; +AMOX875T PO; +CIPR-255 PO; -NF1420 PO
[2017-09-14 17:51] LABS: ALBUMIN 3.4 gm/dl (3.4-5.0); BLOOD UREA NITROGEN 48 mg/dl (7-18); CALCIUM 8.1 mg/dl (8.5-10.1); CARBON DIOXIDE 29 mmol/L (21-32); CREATININE 1.86 mg/dl (0.60-1.20); GLUCOSE 153 mg/dl (70-99); PHOSPHORUS 4.3 mg/dl (2.5-4.9); POTASSIUM 4.2 mmol/L (3.5-5.1); SODIUM 138 mmol/L (136-145)
== END | disposition home or self-care (01) ==
LOC: C.LABBFT 15:00
PROVIDERS: ATTEND Internal Medicine Nephrology
DX: E03.9 Hypothyroidism, unspecified (principal); N18.3 Chronic kidney disease, stage 3 (moderate)

== ENCOUNTER 2017-09-19 17:26 | Emergency (ER) | payer OTHER ==
[2017-09-19 17:32] VITALS: TEMP 36.9
--- NOTE | 2017-09-19 17:59 | EMERGENCY ROOM VISIT NOTE ---
History Report prepared by Ji: Mildred Post Under the Supervision of: Dr. Huber Dent M.D. First contact with patient: 17:48 Chief Complaint: ILLNESS Stated Complaint: ILLNESS, NAUSEA, WEAKNESS History of Present Illness The patient is a 81 year old white male with a past medical history of DM, gastroparesis, and CHF, who presents to the ED with a cc of waxing and waning nausea beginning yesterday. Positive diarrhea, dry cough, shortness of breath. Negative vomiting. She states that she has been on antibiotics for an open sore on her foot. She denies recent travel, tick bites, or being around anyone sick. The patient states that she normally does not wear Oxygen at home. She denies recent weight gain. She reports that her last bowel movement was this afternoon. Source of History: patient Onset: yesterday Position: abdomen Quality: other (nausea) Timing: waxes/wanes Associated Symptoms: + cough, + SOB, + diarrhea, No vomiting Review of Systems See HPI for pertinent positives and negatives. A total of ten systems were reviewed and were otherwise negative. 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 (19) Nausea (20) Osteomyelitis (21) Pericardial effusion (22) Sciatica (23) Shortness of breath (24) Symptomatic anemia Family History Cancer Diabetes mellitus Gallbladder disease Hypertension Seizures Social History Smoking Status: Former Smoker Alcohol Use: none Drug Use: none Marital Status: Housing Status: lives alone Occupation Status: retired Current/Historical Medications Scheduled Amoxicillin & Pot Clavulanate (Augmentin 875-125 mg), 875 MG PO BID Apixaban (Eliquis), 2.5 MG PO BID Celecoxib (CeleBREX), 200 MG PO DAILY Ciprofloxacin Hcl (Cipro), 500 MG PO BID Insulin Aspart (Novolog Flexpen), 56-60 UNITS SC DAILY Insulin Glargine (Lantus Solostar), 32-35 UNITS SC HS Levothyroxine Sodium (Synthroid), 1 TAB PO DAILY Metoprolol Succinate (Metoprolol Succinate ER), 100 MG PO DAILY Omeprazole (Prilosec), 20 MG PO QAM Pramipexole Dihydrochloride (Pramipexole Dihydrochlori), 0.125 MG PO HS Pregabalin (Lyrica), 100 MG PO BID Sertraline (Zoloft), 25 MG PO DAILY Zafirlukast (Accolate), 20 MG PO BID Allergies Coded Allergies: Carbamazepine (Verified Allergy, Intermediate, HIVES, 04/11/16) Physical Exam Vital Signs Date Time Temp Pulse Resp B/P (MAP) Pulse Ox O2 Delivery O2 Flow Rate FiO2 09/19/17 21:07 134/93 09/19/17 20:57 90 18 94 Room Air 09/19/17 20:20 116 118/75 09/19/17 20:20 108 18 118/75 91 Room Air 09/19/17 17:49 115 96 Nasal Cannula 2.0 09/19/17 17:32 36.9 118 20 145/61 92 Room Air Physical Exam GENERAL: Awake, alert, well-appearing, NAD, nasal cannula in place, wearing glasses HENT: Normocephalic, atraumatic. EYES: Normal conjunctiva. Sclera non-icteric. PERRL. No anisocoria. NECK: Supple. No nuchal rigidity. FROM. RESPIRATORY: CTAB, no rhonchi, wheezing, crackles CARDIAC: tachycardic, regular rhythm, no MRG ABDOMEN: Soft, positive right lower quadrant abdominal pain, ND, BS+ MSK: No chest wall TTP, no LE edema, bandage over right anterior ankle, incisional scar over right knee NEURO: GCS 15, CN 2-12 intact, moves all 4s on command SKIN: No rash or jaundice noted. Medical Decision & Procedures ER Provider Diagnostic Interpretation: Radiology results as stated below per my review and radiologist interpretation: CT OF THE ABDOMEN AND PELVIS WITH CONTRAST CLINICAL HISTORY: Right lower quadrant pain, nausea and vomiting. COMPARISON STUDY: CT of the abdomen and pelvis September 11, 2016 per TECHNIQUE: Following IV administration of 115 mL of Optiray-320, axial images of the abdomen and pelvis were obtained from the lung bases to the proximal femurs. Images were reviewed in the axial, sagittal, and coronal planes. IV contrast was administered without complication. A dose lowering technique was utilized adhering to the principles of ALARA. CT DOSE: 1522.68 mGy.cm FINDINGS: Heart is moderately enlarged. No pneumatosis, free air or portal venous gas is present. Fatty infiltration of the liver is noted. There is subtle nodularity of the liver surface. Borderline splenomegaly is noted. The adrenal glands and pancreas are normal. Subcentimeter bilateral renal lesions likely reflect cysts. There is no hydronephrosis. The appendix is not visualized. There is sigmoid diverticulosis without evidence for acute diverticulitis. Prominent bilateral iliac lymph nodes are unchanged and contain fatty hilum. These are benign. There is no evidence for a bowel obstruction. No suspicious osseous lesions are present. End-stage osteoarthritis of the right hip is noted. IMPRESSION: 1. No acute process within the abdomen or pelvis. 2. No bowel obstruction. 3. Fatty liver. Slight nodularity of the liver surface raises the possibility of early cirrhosis. 4. Sigmoid diverticulosis without evidence for acute diverticulitis. Electronically signed by: Asif Ballard M.D. 09/19/2017 7:58 PM Dictated Date/Time: 09/19/2017 7:46 PM Laboratory Results 09/19/17 18:18 Red Blood Count 3.69, Mean Corpuscular Volume 91.1, Mean Corpuscular Hemoglobin 29.3, Mean Corpuscular Hemoglobin Concent 32.1, Mean Platelet Volume 11.6, Neutrophils (%) (Auto) 69.3, Lymphocytes (%) (Auto) 20.5, Monocytes (%) (Auto) 7.7, Eosinophils (%) (Auto) 2.0, Basophils (%) (Auto) 0.2, Neutrophils # (Auto) 4.12, Lymphocytes # (Auto) 1.22, Monocytes # (Auto) 0.46, Eosinophils # (Auto) 0.12, Basophils # (Auto) 0.01 09/19/17 18:18 Test 09/19/17 18:18 09/19/17 18:24 White Blood Count 5.95 K/uL (4.8-10.8) Red Blood Count 3.69 M/uL (4.2-5.4) Hemoglobin 10.8 g/dL (12.0-16.0) Hematocrit 33.6 % (37-47) Mean Corpuscular Volume 91.1 fL (80-100) Mean Corpuscular Hemoglobin 29.3 pg (25-34) Mean Corpuscular Hemoglobin Concent 32.1 g/dl (32-36) Platelet Count 159 K/uL (130-400) Mean Platelet Volume 11.6 fL (7.4-10.4) Neutrophils (%) (Auto) 69.3 % Lymphocytes (%) (Auto) 20.5 % Monocytes (%) (Auto) 7.7 % Eosinophils (%) (Auto) 2.0 % Basophils (%) (Auto) 0.2 % Neutrophils # (Auto) 4.12 K/uL (1.4-6.5) Lymphocytes # (Auto) 1.22 K/uL (1.2-3.4) Monocytes # (Auto) 0.46 K/uL (0.11-0.59) Eosinophils # (Auto) 0.12 K/uL (0-0.5) Basophils # (Auto) 0.01 K/uL (0-0.2) RDW Standard Deviation 50.4 fL (36.4-46.3) RDW Coefficient of Variation 15.0 % (11.5-14.5) Immature Granulocyte % (Auto) 0.3 % Immature Granulocyte # (Auto) 0.02 K/uL (0.00-0.02) Estimated GFR () 39.3 Estimated GFR (Non- 33.9 BUN/Creatinine Ratio 15.4 (10-20) Calcium Level 9.1 mg/dl (8.5-10.1) Total Bilirubin 0.3 mg/dl (0.2-1) Direct Bilirubin 0.1 mg/dl (0-0.2) Aspartate Amino Transf (AST/SGOT) 27 U/L (15-37) Alanine Aminotransferase (ALT/SGPT) 29 U/L (12-78) Alkaline Phosphatase 81 U/L (45-117) Troponin I < 0.015 ng/ml (0-0.045) Pro-B-Type Natriuretic Peptide 2070 pg/ml (0-1800) Total Protein 7.2 gm/dl (6.4-8.2) Albumin 3.4 gm/dl (3.4-5.0) Lipase 180 U/L (73-393) Bedside Hemoglobin 10.9 g/dl (12.0-16.0) Bedside Hematocrit 32 % (37-47) Bedside Sodium 142 mEq/L (135-144) Bedside Potassium 3.9 mEq/L (3.3-5.0) Bedside Chloride 101 mEq/L (101-112) Bedside Total CO2 29 mEq/l (24-31) Anion Gap 17.0 mmol/L (16-25) Bedside Blood Urea Nitrogen 23 mg/dl (7-18) Bedside Creatinine 1.4 mg/dl (0.6-1.3) Bedside Glucose (other) 242 mg/dl (70-99) Bedside Ionized Calcium (Randell) 1.15 mmol/l (1.12-1.32) Laboratory results reviewed by me Medications Administered Medications (Trade) Dose Ordered Sig/Trista Route Start Time Stop Time Status Last Admin Dose Admin Sodium Chloride 500 ml @ 500 mls/hr Q1H STAT IV 09/19/17 18:03 09/19/17 19:02 DC 09/19/17 18:33 500 MLS/HR Morphine Sulfate (MoRPHine SULFATE INJ) 4 mg NOW STAT IV 09/19/17 18:03 09/19/17 18:06 DC 09/19/17 18:33 4 MG Metoclopramide HCl (Reglan Inj) 10 mg NOW STAT IV. 09/19/17 18:03 09/19/17 18:06 DC 09/19/17 18:33 10 MG Metoprolol Tartrate (Lopressor Iv) 5 mg NOW STAT IV 09/19/17 19:51 09/19/17 19:52 DC 09/19/17 20:20 5 MG Metoprolol Tartrate (Lopressor Tab) 25 mg ONE STAT PO 09/19/17 19:51 09/19/17 19:52 DC 09/19/17 20:38 25 MG ECG Per My Interpretation Indication: weakness Rate (beats per minute): 116 Rhythm: atrial fibrillation Findings: other (t-wave flattening in V2) Comparison ECG Date: same rhythm, rate changed, is now more tachycardic compared to 09/21 ED Course 1751: The patient was evaluated in room B5. A complete history and physical exam was performed. 1944: I checked on the patient. We took off her Oxygen and she feels fine. Medical Decision The patient is a 81 year old white male with a past medical history of DM, gastroparesis, and CHF, who presents to the ED with a cc of waxing and waning nausea beginning yesterday. Nursing notes reviewed. Ancillary studies and prior records reviewed. Differential diagnosis: Etiologies such as appendicitis, diverticulitis, PUD, biliary pathology, UTI, pancreatitis, obstruction, mesenteric ischemia, aortic pathology, infections, inflammatory bowel disease, renal colic, as well as others were entertained. Patient was seen and evaluated the bedside. Patient is complaining some abdominal discomfort does have some right lower quadrant discomfort at the bedside. The patient is tachycardic and does have a known history of A. fib and is already on anticoagulant Patient did blood work completed along with a CT abdomen pelvis IV fluids and medications for symptom control. Upon reassessment the patient was feeling improved. Patient was still somewhat tachycardic so the patient was given some IV and p.o. beta-luh as she does take Toprol-XL at home 100 mg daily. The patient was intermittently borderline hypoxic I believe this is somewhat related to obesity hypoventilation as well as atelectasis. When I would have the patient does take big deep breaths the patient was satting quite well without any acute issues. Patient CT the abdomen pelvis did show that she has diverticulosis. Did show that she had some liver nodularity but no other acute issues. The patient has a normal white blood cell count normal LFTs lipase and improved kidney function. Patient does have a known history of CKD. Patient's BNP is mildly elevated however her CT abdomen pelvis does not show large pleural effusions in her bases. Patient clinically does not look very volume overloaded. Patient's EKG is nonischemic but did show A. fib and again this may be related somewhat to rate control probably improved after she was given both IV and p.o. medications. Patient does not have an elevated troponin. The patient is looking and feeling well I did discuss follow-up and return precautions with the patient. I did monitor her oxygen status and she did not have any acute issues. I did arrange for a follow-up call tomorrow to assess how the patient was doing. Of note the patient does have a follow-up appointment on Sunday with her primary care physician. Patient was given strict follow-up, discharge , and return precautions. All questions were answered. Patient was deemed suitable for outpatient follow-up at this time. Patient agreed with the plan of care and was safely discharged home. Medication Reconcilliation Current Medication List: was personally reviewed by me Blood Pressure Screening Patient's blood pressure: Elevated blood pressure Blood pressure disposition: Referred to PCP Impression Primary Impression: Abdominal pain Additional Impressions: Anemia Chronic shortness of breath Atrial fibrillation with RVR Critical Care I have personally spent greater than 35 minutes of critical care time in the direct management of this patient. This includes bedside care, interpretation of diagnostic studies, and testing, discussion with consultants, patient, and family members, and other required patient management activities. This 35 minutes is in excess of all separately billable procedures. Scribe Attestation The scribe's documentation has been prepared under my direction and personally reviewed by me in its entirety. I confirm that the note above accurately reflects all work, treatment, procedures, and medical decision making performed by me. Departure Information Dispostion Home / Self-Care Referrals Uri Plascencia M.D. (PCP) Patient Instructions Abdominal Pain, Atrial Fibrillation Id, [facility] Additional Instructions Please return to the emergency department if you have worsening or recurrent symptoms not amenable to at-home treatment. Please call for a follow-up appointment with her primary care physician. Please take your medications as prescribed. If you have other concerns and/or complaints please feel free to also call your primary care physician's office or return the ED for further evaluation, management, and treatment. You were found to have an elevated blood pressure today (>120 sytolic or >90 diastolic). Per medicare guidelines, you need to follow up with this blood pressure screening with your Primary Care Physician (PCP). For a new PCP call [phone]. You received narcotic or benzodiazepene medication while in the emergency room today. This is an addictive medication that may cause drowziness as well as constipation. Do not drive, operate heavy machinery, or drink alcohol under the influence of this medication. Take your medications as prescribed. Your liver did have some nodularity. Please follow-up with your primary care as an outpatient for further evaluation and treatment. You have been examined and treated today on an emergency basis only. This is not a substitute for, or an effort to provide, complete comprehensive medical care. It is impossible to recognize and treat all injuries or illnesses in a single emergency department visit. It is therefore important that you follow up closely with [facility], your PCP, and/or your specialist(s). Call as soon as possible for an appointment. Thank you for your time and consideration. I look forward to speaking with you again soon. Please don't hesitate to call us if you have any questions. Problem Qualifiers Primary Impression: Abdominal pain Abdominal location: right lower quadrant Qualified Codes: R10.31 - Right lower quadrant pain Additional Impressions: Anemia Anemia type: unspecified type Qualified Codes: D64.9 - Anemia, unspecified
[2017-09-19] MEDS ORDERED: METOCLOPRAMIDE HCL INJ 5 MG/ML 2 ML VIAL IV. STA (18:03)
[2017-09-19] MEDS ORDERED: MoRPHine SULFATE 4 MG/ML 1 ML CARP\\VIAL IV STA (18:03)
[2017-09-19] MEDS ORDERED: SODIUM CHLORIDE 0.9% 500ML 500 ML IV STA (18:03)
[2017-09-19] MEDS ORDERED: OPTIRAY 320 IV PRN (18:15)
[2017-09-19 18:37] LABS: ISTAT CREATININE 1.4 mg/dl (0.6-1.3); ISTAT IONIZED CALCIUM 1.15 mmol/l (1.12-1.32); ISTAT POTASSIUM 3.9 mEq/L (3.3-5.0)
[2017-09-19 18:39] LABS: BASO % 0.2 %; BASO ABS # 0.01 K/uL (0-0.2); EOS ABS # 0.12 K/uL (0-0.5); HEMATOCRIT 33.6 % (37-47); HEMOGLOBIN 10.8 g/dL (12.0-16.0); IG# 0.02 K/uL (0.00-0.02); LYMPH % 20.5 %; LYMPH ABS # 1.22 K/uL (1.2-3.4); MEAN CELL VOLUME 91.1 fL (80-100); MEAN CORPUSCULAR HEMOGLOBIN 29.3 pg (25-34); MEAN CORPUSCULAR HGB CONC 32.1 g/dl (32-36); MEAN PLATELET VOLUME 11.6 fL (7.4-10.4); MONO % 7.7 %; MONO ABS # 0.46 K/uL (0.11-0.59); NEUT % 69.3 %; NEUT ABS # 4.12 K/uL (1.4-6.5); PLATELET COUNT 159 K/uL (130-400); RED CELL DISTRIBUTION WIDTH SD 50.4 fL (36.4-46.3); WHITE BLOOD COUNT 5.95 K/uL (4.8-10.8)
[2017-09-19 19:03] LABS: ALBUMIN 3.4 gm/dl (3.4-5.0); ALKALINE PHOSPHATASE 81 U/L (45-117); ALT/SGPT 29 U/L (12-78); AST/SGOT 27 U/L (15-37); BLOOD UREA NITROGEN 23 mg/dl (7-18); CALCIUM 9.1 mg/dl (8.5-10.1); CARBON DIOXIDE 29 mmol/L (21-32); CREATININE 1.46 mg/dl (0.60-1.20); GLUCOSE 223 mg/dl (70-99); LIPASE 180 U/L (73-393); POTASSIUM 3.9 mmol/L (3.5-5.1); SODIUM 141 mmol/L (136-145); TOTAL PROTEIN 7.2 gm/dl (6.4-8.2)
[2017-09-19] MEDS ORDERED: METOPROLOL TARTRATE 25 MG TAB PO STA (19:51)
[2017-09-19] MEDS ORDERED: METOPROLOL TARTRATE 1 MG/ML VIAL IV STA (19:51)
--- NOTE | 2017-09-19 20:00 | DIAGNOSTIC IMAGING REPORT ---
CT OF THE ABDOMEN AND PELVIS WITH CONTRAST CLINICAL HISTORY: Right lower quadrant pain, nausea and vomiting. COMPARISON STUDY: CT of the abdomen and pelvis September 11, 2016 per TECHNIQUE: Following IV administration of 115 mL of Optiray-320, axial images of the abdomen and pelvis were obtained from the lung bases to the proximal femurs. Images were reviewed in the axial, sagittal, and coronal planes. IV contrast was administered without complication. A dose lowering technique was utilized adhering to the principles of ALARA. CT DOSE: 1522.68 mGy.cm FINDINGS: Heart is moderately enlarged. No pneumatosis, free air or portal venous gas is present. Fatty infiltration of the liver is noted. There is subtle nodularity of the liver surface. Borderline splenomegaly is noted. The adrenal glands and pancreas are normal. Subcentimeter bilateral renal lesions likely reflect cysts. There is no hydronephrosis. The appendix is not visualized. There is sigmoid diverticulosis without evidence for acute diverticulitis. Prominent bilateral iliac lymph nodes are unchanged and contain fatty hilum. These are benign. There is no evidence for a bowel obstruction. No suspicious osseous lesions are present. End-stage osteoarthritis of the right hip is noted. IMPRESSION: 1. No acute process within the abdomen or pelvis. 2. No bowel obstruction. 3. Fatty liver. Slight nodularity of the liver surface raises the possibility of early cirrhosis. 4. Sigmoid diverticulosis without evidence for acute diverticulitis. Electronically signed by: Asif Ballard M.D. 09/19/2017 7:58 PM Dictated Date/Time: 09/19/2017 7:46 PM
[2017-09-19] MEDS ORDERED: METOPROLOL SUCC 50MG EXT REL TAB ONE (20:27)
[2017-09-19 20:57] VITALS: PULSE 90; O2SAT 94
[2017-09-19 21:07] VITALS: BP 134/93
== END 2017-09-19 21:08 | disposition home or self-care (01) ==
LOC: C.EDB 17:29
DX: R10.31 Right lower quadrant pain (principal); R06.02 Shortness of breath; D64.9 Anemia, unspecified; I48.91 Unspecified atrial fibrillation; K76.89 Other specified diseases of liver; I10 Essential (primary) hypertension; Z79.02 Long term (current) use of antithrombotics/antiplatelets; E11.40 Type 2 diabetes mellitus with diabetic neuropathy, unspecified; E11.69 Type 2 diabetes mellitus with other specified complication; M86.9 Osteomyelitis, unspecified; Z79.4 Long term (current) use of insulin; K21.9 Gastro-esophageal reflux disease without esophagitis; F32.9 Major depressive disorder, single episode, unspecified; J45.909 Unspecified asthma, uncomplicated; Z87.891 Personal history of nicotine dependence; Z87.448 Personal history of other diseases of urinary system

== ENCOUNTER 2018-02-07 13:39 | Inpatient (IN) ==
[2018-02-07 16:48] LABS: Base Excess VBG 4.1 mEq/L; HCO3 VBG 29 mmol/L; PCO2 VBG 45 mmHg (38-50); PO2 VBG 32 mmHg; pH VBG 7.43 (7.36-7.41)
[2018-02-07 16:48] LABS: Influenza A virus by PCR Neg for Influ A (Neg); Influenza B virus by PCR Neg for Influ B (Neg)
[2018-02-07 16:49] LABS: Basophils # (auto) 0.01 K/uL (0-0.2); Basophils % (auto) 0.2 %; Eosinophils # (auto) 0.12 K/uL (0-0.5); Eosinophils % (auto) 2.1 %; Hematocrit (blood only) 31.6 % (37-47); Hemoglobin 9.6 g/dL (12.0-16.0); Immature Granulocytes # (auto) 0.03 K/uL (0.00-0.02); Immature Granulocytes % (auto) 0.5 %; Lymphocytes # (auto) 0.89 K/uL (1.2-3.4); Lymphocytes % (auto) 15.5 %; Mean Corpuscular Hgb Conc 30.4 g/dL (32-36); Mean Corpuscular Volume 93.2 fL (80-100); Mean Platelet Volume 10.8 fL (7.4-10.4); Monocytes # (auto) 0.37 K/uL (0.11-0.59); Monocytes % (auto) 6.4 %; Neutrophils # (auto) 4.32 K/uL (1.4-6.5); Neutrophils % (auto) 75.3 %; Platelet Count 144 K/uL (130-400); RDW Coefficient of Variation 16.7 % (11.5-14.5); RDW Standard Deviation 56.1 fL (36.4-46.3); Red Blood Count 3.39 M/uL (4.2-5.4); White Blood Count 5.74 K/uL (4.8-10.8)
[2018-02-07 17:00] LABS: Oxygen Saturation VBG < 60.0 %
[2018-02-07 17:02] LABS: INR 1.1 (0.9-1.1); Partial Thromboplastin Time 25.7 Seconds (21.0-31.0); Prothrombin Time 10.8 Seconds (9.0-12.0)
[2018-02-07 17:05] LABS: Alanine Aminotransferase 34 U/L (12-78); Albumin Level 3.8 gm/dl (3.4-5.0); Aspartate Aminotransferase 31 U/L (15-37); BUN Creatinine Ratio 7.4 (10-20); Blood Urea Nitrogen 10 mg/dl (7-18); Calcium 9.2 mg/dl (8.5-10.1); Carbon Dioxide 27 mmol/L (21-32); Chloride 103 mmol/L (98-107); Est GFR (African American) 44.5; Est GFR (Non-African American) 38.4; Glucose 167 mg/dl (70-99); Magnesium 1.8 mg/dl (1.8-2.4); Potassium 3.7 mmol/L (3.5-5.1); Sodium 139 mmol/L (136-145)
[2018-02-07 17:10] LABS: Albumin Globulin Ratio 1.1 (0.9-2); Alkaline Phosphatase 93 U/L (45-117); Bilirubin,Total 0.9 mg/dl (0.2-1); Globulin 3.5 gm/dl (2.5-4.0); NT Pro B Type Natriuretic Pept 2497 pg/ml (0-1800); Total Protein 7.3 gm/dl (6.4-8.2); Troponin I < 0.015 ng/ml (0-0.045)
--- NOTE | 2018-02-07 17:10 | CT Scan Report ---
CT head/brain wo con CT DOSE: 1809.73 mGycm HISTORY: Mental status change ams TECHNIQUE: Multiaxial CT images of the head were performed without the use of intravenous contrast. A dose lowering technique was utilized adhering to the principles of ALARA. Comparison: 07/06/2015 Findings: The paranasal sinuses and mastoid air cells are clear. The calvarium and skull base are int act. The ventricles and sulci are within normal limits. There is no mass, hematoma, midline shift, or acute infarct. Impression: No acute intracranial abnormality. The above report was generated using voice recognition software. It may contain grammatical, syntax or spelling errors. Electronically signed by: Kirit Leblanc M.D. 02/07/2018 5:09 PM
[2018-02-07 17:53] LABS: Appearance Urine Clear (Clear); Color Urine Yellow; Glucose Urine UA Negative (Negative); Ketones Urine Negative (Negative); Leukocyte Esterase Urine Trace (Negative); Nitrite Urine Negative (Negative); Urobilinogen Urine Negative (Negative); pH Urine 7.5 (4.5-7.5)
[2018-02-07 17:56] LABS: Protein Urine 1+ (Negative)
[2018-02-07 17:57] LABS: Bilirubin Urine Negative (Negative); Ictotest Urine Negative (Negative)
--- NOTE | 2018-02-07 18:11 | XRay Report ---
XR abdomen 2V w PA chest CLINICAL HISTORY: nausea COMPARISON STUDY: 09/10/2016 FINDINGS: Moderate cardiomegaly. Prominent pulmonary vasculature. Diaphragms are smooth. IMPRESSION: Mild congestive heart failure. The above report was generated using voice recognition software. It may contain grammatical, syntax or spelling errors. Electronically signed by: Kirit eLblanc M.D. 02/07/2018 6:09 PM
[2018-02-07] MEDS ORDERED: FUROSEMIDE 40 MG/4 ML VIAL IV STA (18:13)
[2018-02-07 18:14] LABS: Bacteria Urine Negative (Negative); RBC Urine 0-4 /hpf (0-4)
--- NOTE | 2018-02-07 19:35 | History & Physical Report ---
Date of Service February 07, 2018 Assessment & Plan (1) CHF exacerbation: 82 y/o F Hx diastolic CHF, DM II, chronic AF - Apixaban, chronic anemia, morbid obesity, CKD III. Pt presents with progressive SOB since 2 days prior as a primary complaint. She also developed nausea and had an episode of vomiting today. Family had reported episodes of disorientation or confusion, although she is fully oriented on admission. She denies a productive cough, CP or fevers. It is noted that she was admitted with identical cpmlp Additionally, the pt has a nonhealing ulcer on the dorsum of her R foot which has been present for 8 years. There was some concern on a recent visit to her wound clinic that this was worsening as she was told that there was a foul odor emanating from it. 1) Acute CHF exacerbation - placed on IV Lasix - 40mg TID, I/O daily weight, 02 , KCL. 2) Nausea and vomiting - improved - occurred with last admission for CHF - would consider additional workup if recurs - full liquid diet. 3) Dm II - placed on a SS 4) AF - rate control with Metoprolol, anticoag with Apixaban - she is mildly tachy, although this is likely compensatory and we will avoid additional rate meds until she is diuresed. 5) CKD III - baseline 6) Anemia - Hb at baseline Full code - Apixaban prophylaxis Total time for this admit including review of labs, meds, imaging, records - discussion with pt and ER attending - 38 min Present on Admission?: Yes History of Present Illness Chief Complaint: Short of breath, N/V, confusion reported at home Primary Care Provider: Uri Plascencia III, 82 y/o F Hx diastolic CHF, DM II, chronic AF - Apixaban, chronic anemia, morbid obesity, CKD III. Pt presents with progressive SOB since 2 days prior as a primary complaint. She also developed nausea and had an episode of vomiting today. Family had reported episodes of disorientation or confusion, although she is fully oriented on admission. She denies a productive cough, CP or fevers. It is noted that she was admitted with identical cpmlp Additionally, the pt has a nonhealing ulcer on the dorsum of her R foot which has been present for 8 years. There was some concern on a recent visit to her wound clinic that this was worsening as she was told that there was a foul odor emanating from it. PMH: 1) Nonhealing ulcer on dorsum of R foot x 8 years - follows at wound clinic regularly. She states this occured after surgery on the R foot which required hardware placement. 2) Chronic, diastolic CHF 3) DM II 4) Morbidly obese 5) CKD III 6) Chronic AF 7) R pleural effusion - resolved 8) Chronic anemia - baseline Hb 9-10 Surgical: 1) surgery on R foot with hardware placement 2) Appendectomy 3) Hysterectomy Family: Mother - breast CA Father - CHF Social: Quit smoking 1980s Does not drink alcohol Maintains independence Allergies Allergy/AdvReac Type Severity Reaction Status Date / Time carbamazepine Allergy Intermediate HIVES Verified 01/21/18 11:23 external allergies Allergy Unknown Uncoded 01/21/18 11:23 Home Medications Home Medications Medication Instructions Recorded Confirmed Type celecoxib 200 mg capsule 200 mg PO BID 10/05/17 02/07/18 History insulin aspart U-100 100 unit/mL See Label Instructions SQ DAILY ml 10/05/17 02/07/18 History subcutaneous pen metoprolol succinate ER 100 mg 100 mg PO DAILY 10/05/17 02/07/18 History capsule sprinkle, ext. release 24 hr pramipexole 0.125 mg tablet 0.125 mg PO .q hs tab 10/05/17 02/07/18 History pregabalin 100 mg capsule 100 mg PO BID 10/05/17 02/07/18 History zafirlukast 20 mg tablet 20 mg PO BID tab 10/05/17 02/07/18 History ondansetron HCl 4 mg tablet 4 mg PO QID PRN 10/12/17 02/07/18 History apixaban [Eliquis] 5 mg PO BID 02/07/18 02/07/18 History docusate sodium 100 mg PO BID 02/07/18 02/07/18 History ergocalciferol (vitamin D2) 50,000 unit PO WK 02/07/18 02/07/18 History [Vitamin D2] furosemide [Lasix] 40 mg PO BID 02/07/18 02/07/18 History insulin degludec [Tresiba 150 unit SUBCUT DAILY 02/07/18 02/07/18 History FlexTouch U-200] levothyroxine [Synthroid] 50 mcg PO DAILY 02/07/18 02/07/18 History omeprazole 20 mg PO DAILY 02/07/18 02/07/18 History sertraline [Zoloft] 50 mg PO DAILY 02/07/18 02/07/18 History tramadol 50 mg PO Q6H PRN 02/07/18 02/07/18 History Past Med/Surg History Medical History Surgical wound, non healing (Acute) Confusion and disorientation Memory loss due to medical condition Symptomatic anemia Hemorrhoidectomy (Resolved 06/06/12) Osteomyelitis (Chronic 06/06/12) CHF (congestive heart failure) Anemia (Resolved) Diarrhea Nausea Pericardial effusion Loss of sensation Diabetic foot ulcer Diabetic peripheral neuropathy associated with type 2 diabetes mellitus Altered mental status Shortness of breath Gastroparesis Altered mental status (Chronic) Asthma (Chronic) Atrial fibrillation, chronic (Chronic) Benign hypertension (Chronic) CHF (congestive heart failure) (Chronic) DM II (diabetes mellitus, type II), controlled (Chronic) Depression (Chronic) Diabetic foot ulcer (Chronic) Diabetic peripheral neuropathy (Chronic) Diarrhea (Chronic) GERD (gastroesophageal reflux disease) (Chronic) Loss of sensation (Chronic) 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) Nausea (Chronic) Osteomyelitis (Chronic) Pericardial effusion (Chronic) Sciatica (Chronic) Shortness of breath (Chronic) Symptomatic anemia (Chronic) Family History Other Family history non-contributory Social History marital status: / current occupational status: retired Feels Safe at Home: Yes Smoking Status: Former smoker Preferred Language: German Review of Systems General: Denies fevers, night sweats, weight loss, weight gain ENT: Denies throat pain, nasal congestion Eyes: Denies acute visual impairment, eye pain Cardiovascular: Denies CP, palpitations - orthopnea is present Respiratory: Progressive SOB as above GI: Nausea an vomiting x 1 day : Denies dysuria, hesitancy, frequency, hematuria Neuro: Denies headache, lightheadedness, syncope, unilateral weakness, acute loss of balance, memory loss Endocrine: Denies polydypsia, polyuria Heme: Denies unexplained bruising Skin: Chronic ulcer which may be worsening Physical Exam 2 Vital Signs (Past 24 Hours): Last Vital Signs Temp 37.1 C 02/07/18 14:11 Pulse 107 H 02/07/18 18:28 Resp 22 02/07/18 18:28 BP 157/102 H 02/07/18 18:28 Pulse Ox 93 02/07/18 18:28 Physical Exam: General: Very pleasant, overweight eldelry F, AAO x 3, no distress ENT: No erythema or exudates, no thrush Eyes: LUZ MARINA, EOMI Head and neck: Normocephalic, atraumatic - cannot assess JVD Chest/heart: Nontender, S1,2, RRR, no murmurs, no gallops Lungs: Poor air movement - reduced air entry L base - no clear crackles Abdomen: Nontender, nondistended, BS+ Neuro: AAO x 3, speech is clear, no unilateral weakness or loss of sensation, coordination intact Musculoskeletal: Edema of the RLE Skin: Stage 3-4 ulcer on R foot dorsally, clean margins, exudate present, foul odor, 1-2cm Extremities: No clubbing, cyanosis - + edema R > L - chronic per pt Results & Data Diagnostic Findings CXR: Mild congestive heart failure. EKG: AF - borderline tachy @ 100, low voltage, flattened Ts anterior leads - no significant change from a prior EKG _ (1) CHF exacerbation Heart failure type: unspecified Qualified Code(s): I50.9 - Heart failure, unspecified
--- NOTE | 2018-02-07 20:22 | Emergency Department Note ---
Entered by Ginny Mitchell acting as a scribe for Brandon Sanchez History of Present Illness General Chief complaint: GI Assessment Stated complaint: NAUSEA,BREATHING Time Seen by Provider: 02/07/18 15:44 Source: patient History of Present Illness Onset (ago): day(s) 3 Location: abdomen Pain Consistency: + other (persistent) Quality: + other (nausea) Associated symptoms: + denies other symptoms (dysuria), + confusion, + shortness of breath and + other (diarrhea); no chest pain and no nausea/ vomiting (vomiting) The patient is an 82 year old female who presents to the Emergency Room with complaints of persistent nausea starting 3 days ago. The patient�s daughter in law states that she has a history of gastroaparesis. She states that when it acts up she gets nauseous, has diarrhea, and tends to become confused. The patient complains of intermittent shortness of breath that is worse when lying flat. She notes that she thinks she has pink eye. The patient�s daughter in law states that the patient was at the PCP this morning and they recommended she come to the ED. The patient denies vomiting, chest pain, and dysuria. Home Medications Home Medications Medication Instructions Recorded Confirmed Type celecoxib 200 mg capsule 200 mg PO BID 10/05/17 02/07/18 History insulin aspart U-100 100 unit/mL See Label Instructions SQ DAILY ml 10/05/17 02/07/18 History subcutaneous pen metoprolol succinate ER 100 mg 100 mg PO DAILY 10/05/17 02/07/18 History capsule sprinkle, ext. release 24 hr pramipexole 0.125 mg tablet 0.125 mg PO .q hs tab 10/05/17 02/07/18 History pregabalin 100 mg capsule 100 mg PO BID 10/05/17 02/07/18 History zafirlukast 20 mg tablet 20 mg PO BID tab 10/05/17 02/07/18 History ondansetron HCl 4 mg tablet 4 mg PO QID PRN 10/12/17 02/07/18 History apixaban [Eliquis] 5 mg PO BID 02/07/18 02/07/18 History docusate sodium 100 mg PO BID 02/07/18 02/07/18 History ergocalciferol (vitamin D2) 50,000 unit PO WK 02/07/18 02/07/18 History [Vitamin D2] furosemide [Lasix] 40 mg PO BID 02/07/18 02/07/18 History insulin degludec [Tresiba 150 unit SUBCUT DAILY 02/07/18 02/07/18 History FlexTouch U-200] levothyroxine [Synthroid] 50 mcg PO DAILY 02/07/18 02/07/18 History omeprazole 20 mg PO DAILY 02/07/18 02/07/18 History sertraline [Zoloft] 50 mg PO DAILY 02/07/18 02/07/18 History tramadol 50 mg PO Q6H PRN 02/07/18 02/07/18 History Allergies Allergy/AdvReac Type Severity Reaction Status Date / Time carbamazepine Allergy Intermediate HIVES Verified 01/21/18 11:23 external allergies Allergy Unknown Uncoded 01/21/18 11:23 Past Med/Surg History Medical History Surgical wound, non healing (Acute) Confusion and disorientation Memory loss due to medical condition Symptomatic anemia Hemorrhoidectomy (Resolved 06/06/12) Osteomyelitis (Chronic 06/06/12) CHF (congestive heart failure) Anemia (Resolved) Diarrhea Nausea Pericardial effusion Loss of sensation Diabetic foot ulcer Diabetic peripheral neuropathy associated with type 2 diabetes mellitus Altered mental status Shortness of breath Gastroparesis Altered mental status (Chronic) Asthma (Chronic) Atrial fibrillation, chronic (Chronic) Benign hypertension (Chronic) CHF (congestive heart failure) (Chronic) DM II (diabetes mellitus, type II), controlled (Chronic) Depression (Chronic) Diabetic foot ulcer (Chronic) Diabetic peripheral neuropathy (Chronic) Diarrhea (Chronic) GERD (gastroesophageal reflux disease) (Chronic) Loss of sensation (Chronic) 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 and A total of 10 systems reviewed and were otherwise negative Physical Exam Vital Signs Vital Signs - 24 hr 02/07/18 14:11 02/07/18 16:03 02/07/18 16:22 Temperature 37.1 C Temperature Source Oral Sepsis Recent Fever Within 48 Hours No Sepsis New/Unexplained Change in Mental Status No Sepsis Action Taken by Nursing No Action Required Pulse Rate 109 H Pulse Rate [Apical] 104 H Respiratory Rate 22 22 Respiratory Effort / Characteristics Non-Labored Spontaneous Respiratory Depth Normal Respiratory Pattern Regular Blood Pressure [Left Arm] 170/75 H Blood Pressure Mean [Left Arm] 106 Pulse Oximetry 96 94 Oxygen Delivery Method Room Air Room Air Room Air 02/07/18 18:28 Temperature Temperature Source Sepsis Recent Fever Within 48 Hours Sepsis New/Unexplained Change in Mental Status Sepsis Action Taken by Nursing Pulse Rate Pulse Rate [Apical] 107 H Respiratory Rate 22 Respiratory Effort / Characteristics Respiratory Depth Respiratory Pattern Blood Pressure [Left Arm] 157/102 H Blood Pressure Mean [Left Arm] 120 Pulse Oximetry 93 Oxygen Delivery Method Room Air Physical Exam GENERAL: She is oriented to person, place, and time. She appears well- developed and well-nourished. She does not appear distressed. HENT: Exam performed. -Head: Normocephalic and atraumatic. -Right Ear: External ear normal. No mastoid tenderness. -Left Ear: External ear normal. No mastoid tenderness. -Mouth/Throat: The oropharynx is clear and moist. No trismus in the jaw. No dental abscesses or uvula swelling. No oropharyngeal exudate or tonsillar abscesses. EYES: Conjunctivae and EOM are normal. Pupils are equal, round, and reactive to light. Right eye exhibits no discharge. Left eye exhibits no discharge. No scleral icterus. NECK: Normal range of motion. Neck supple. No JVD present. No spinous process tenderness present. No carotid bruit present. No rigidity. No tracheal deviation and normal range of motion present. No Brudzinski's sign and no Kernig 's sign noted. CV: Regular rate, irregular rhythm, normal heart sounds and intact distal pulses. There is 1+ pitting edema of the bilateral lower extremity. Palpable radial pulses bue. PULM/CHEST: Rales at the bases bilaterally. -Chest Wall: She exhibits no tenderness. ABD: The abdomen is soft and obese. Bowel sounds are normal. She has no distension. No mass is present. There is no tenderness. There is no rebound, no guarding, no Velez's sign and no tenderness at McBurney's point. Rovsig negative MUSC/SKEL: Normal range of motion. There is 1+ pitting edema of the bilateral lower extremity. There is no tenderness or deformity. LYMPH: No cervical adenopathy. NEURO: She is alert and oriented x2. She has normal strength. No cranial nerve deficit or sensory deficit. Coordination and gait normal. GCS eye subscore is 4. GCS verbal subscore is 5. GCS motor subscore is 6. Cerebellar tests wnl. SKIN: Skin is warm and dry. She is not diaphoretic. PSYCH: She has a normal mood and affect. Behavior is normal. Judgment and thought content normal. Course 1545: Past medical records reviewed. The patient was evaluated in room A9B, and a complete history and physical examination were performed. 1816: I reevaluated the patient and her vital signs are stable. Her chest x-ray shows cardiomegaly with cephalization. Her Pro BNP is elevated. The patient's family states that the patient is not usually this confused or short of breath. I discussed the patient's case with Dr. Pappas. She agrees to further evaluate the patient. The patient will receive 40 mg of Lasix IV. Consultations Consultation #1: I discussed the patient's case with Dr. Pappas. She agrees to further evaluate the patient. Time: 18:17 Administered Medications Discontinued Medications Furosemide (Lasix) 40 mg IV NOW STA Stop: 02/07/18 18:14 Last Admin: 02/07/18 18:29 Dose: 40 mg Medical Decision Making Medical Records Attestation: I reviewed the patient's medical records. Home Medications Current Medication List: was personally reviewed by me Laboratory Data Attestation: I reviewed the patient's lab results. Result diagrams: 02/07/18 16:20 02/07/18 16:20 Lab Results 02/07/18 02/07/18 02/07/18 Range/Units 16:00 16:20 16:20 WBC 5.74 (4.8-10.8) K/uL RBC 3.39 L (4.2-5.4) M/uL Hgb 9.6 L (12.0-16.0) g/dL Hct 31.6 L (37-47) % MCV 93.2 (80-100) fL MCH 28.3 (25-34) pg MCHC 30.4 L (32-36) g/dL RDW Std Deviation 56.1 H (36.4-46.3) fL RDW Coeff of Quirino 16.7 H (11.5-14.5) % Plt Count 144 (130-400) K/uL MPV 10.8 H (7.4-10.4) fL Immature Gran % (Auto) 0.5 % Neut % (Auto) 75.3 % Lymph % (Auto) 15.5 % Hill % (Auto) 6.4 % Eos % (Auto) 2.1 % Baso % (Auto) 0.2 % Immature Gran # (Auto) 0.03 H (0.00-0.02) K/uL Neut # (Auto) 4.32 (1.4-6.5) K/uL Lymph # (Auto) 0.89 L (1.2-3.4) K/uL Hill # (Auto) 0.37 (0.11-0.59) K/uL Eos # (Auto) 0.12 (0-0.5) K/uL Baso # (Auto) 0.01 (0-0.2) K/uL PT (9.0-12.0) Seconds INR (0.9-1.1) APTT (21.0-31.0) Seconds PTT Ratio VBG pH (7.36-7.41) VBG pCO2 (38-50) mmHg VBG pO2 mmHg VBG HCO3 mmol/L VBG O2 Saturation % VBG Base Excess mEq/L Barometric Pressure mm/Hg Sodium (136-145) mmol/L Potassium (3.5-5.1) mmol/L Chloride (98-107) mmol/L Carbon Dioxide (21-32) mmol/L Anion Gap (3-11) BUN (7-18) mg/dl Creatinine (0.6-1.2) mg/dl Est Cr Clr Drug Dosing Est GFR ( Amer) Est GFR (Non-Af Amer) BUN/Creatinine Ratio (10-20) Glucose (70-99) mg/dl Lactate (0.4-2.0) mmol/L Calcium (8.5-10.1) mg/dl Magnesium (1.8-2.4) mg/dl Total Bilirubin (0.2-1) mg/dl AST (15-37) U/L ALT (12-78) U/L Alkaline Phosphatase (45-117) U/L Ammonia < 10.0 L (11-32) umol/L Troponin I (0-0.045) ng/ml NT-Pro-B Natriuret Pep (0-1800) pg/ml Total Protein (6.4-8.2) gm/dl Albumin (3.4-5.0) gm/dl Globulin (2.5-4.0) gm/dl Albumin/Globulin Ratio (0.9-2) Lipase (73-393) U/L Urine Color Urine Appearance (Clear) Urine pH (4.5-7.5) Ur Specific [place] (1.000-1.030) Urine Protein (Negative) Urine Glucose (UA) (Negative) Urine Ketones (Negative) Urine Blood (Negative) Urine Nitrite (Negative) Urine Bilirubin (Negative) Urine Urobilinogen (Negative) Ur Leukocyte Esterase (Negative) Urine RBC (0-4) /hpf Urine WBC (0-5) /hpf Ur Epithelial Cells (0-5) /lpf Urine Bacteria (Negative) Influenza Type A (PCR) Neg for Influ A (Neg) Influenza Type B (PCR) Neg for Influ B (Neg) 02/07/18 02/07/18 02/07/18 Range/Units 16:20 16:20 16:20 WBC (4.8-10.8) K/uL RBC (4.2-5.4) M/uL Hgb (12.0-16.0) g/dL Hct (37-47) % MCV (80-100) fL MCH (25-34) pg MCHC (32-36) g/dL RDW Std Deviation (36.4-46.3) fL RDW Coeff of Quirino (11.5-14.5) % Plt Count (130-400) K/uL MPV (7.4-10.4) fL Immature Gran % (Auto) % Neut % (Auto) % Lymph % (Auto) % Hill % (Auto) % Eos % (Auto) % Baso % (Auto) % Immature Gran # (Auto) (0.00-0.02) K/uL Neut # (Auto) (1.4-6.5) K/uL Lymph # (Auto) (1.2-3.4) K/uL Hill # (Auto) (0.11-0.59) K/uL Eos # (Auto) (0-0.5) K/uL Baso # (Auto) (0-0.2) K/uL PT 10.8 (9.0-12.0) Seconds INR 1.1 (0.9-1.1) APTT 25.7 (21.0-31.0) Seconds PTT Ratio 1.0 VBG pH (7.36-7.41) VBG pCO2 (38-50) mmHg VBG pO2 mmHg VBG HCO3 mmol/L VBG O2 Saturation % VBG Base Excess mEq/L Barometric Pressure mm/Hg Sodium 139 (136-145) mmol/L Potassium 3.7 (3.5-5.1) mmol/L Chloride 103 (98-107) mmol/L Carbon Dioxide 27 (21-32) mmol/L Anion Gap 9.0 (3-11) BUN 10 (7-18) mg/dl Creatinine 1.31 H (0.6-1.2) mg/dl Est Cr Clr Drug Dosing Not Reportable Est GFR ( Amer) 44.5 Est GFR (Non-Af Amer) 38.4 BUN/Creatinine Ratio 7.4 L (10-20) Glucose 167 H (70-99) mg/dl Lactate 1.2 (0.4-2.0) mmol/L Calcium 9.2 (8.5-10.1) mg/dl Magnesium 1.8 (1.8-2.4) mg/dl Total Bilirubin 0.9 (0.2-1) mg/dl AST 31 (15-37) U/L ALT 34 (12-78) U/L Alkaline Phosphatase 93 (45-117) U/L Ammonia (11-32) umol/L Troponin I < 0.015 (0-0.045) ng/ml NT-Pro-B Natriuret Pep 2497 H (0-1800) pg/ml Total Protein 7.3 (6.4-8.2) gm/dl Albumin 3.8 (3.4-5.0) gm/dl Globulin 3.5 (2.5-4.0) gm/dl Albumin/Globulin Ratio 1.1 (0.9-2) Lipase 51 L (73-393) U/L Urine Color Urine Appearance (Clear) Urine pH (4.5-7.5) Ur Specific [place] (1.000-1.030) Urine Protein (Negative) Urine Glucose (UA) (Negative) Urine Ketones (Negative) Urine Blood (Negative) Urine Nitrite (Negative) Urine Bilirubin (Negative) Urine Urobilinogen (Negative) Ur Leukocyte Esterase (Negative) Urine RBC (0-4) /hpf Urine WBC (0-5) /hpf Ur Epithelial Cells (0-5) /lpf Urine Bacteria (Negative) Influenza Type A (PCR) (Neg) Influenza Type B (PCR) (Neg) 02/07/18 02/07/18 Range/Units 16:26 17:41 WBC (4.8-10.8) K/uL RBC (4.2-5.4) M/uL Hgb (12.0-16.0) g/dL Hct (37-47) % MCV (80-100) fL MCH (25-34) pg MCHC (32-36) g/dL RDW Std Deviation (36.4-46.3) fL RDW Coeff of Quirino (11.5-14.5) % Plt Count (130-400) K/uL MPV (7.4-10.4) fL Immature Gran % (Auto) % Neut % (Auto) % Lymph % (Auto) % Hill % (Auto) % Eos % (Auto) % Baso % (Auto) % Immature Gran # (Auto) (0.00-0.02) K/uL Neut # (Auto) (1.4-6.5) K/uL Lymph # (Auto) (1.2-3.4) K/uL Hill # (Auto) (0.11-0.59) K/uL Eos # (Auto) (0-0.5) K/uL Baso # (Auto) (0-0.2) K/uL PT (9.0-12.0) Seconds INR (0.9-1.1) APTT (21.0-31.0) Seconds PTT Ratio VBG pH 7.43 H (7.36-7.41) VBG pCO2 45 (38-50) mmHg VBG pO2 32 mmHg VBG HCO3 29 mmol/L VBG O2 Saturation < 60.0 % VBG Base Excess 4.1 mEq/L Barometric Pressure 731.4 mm/Hg Sodium (136-145) mmol/L Potassium (3.5-5.1) mmol/L Chloride (98-107) mmol/L Carbon Dioxide (21-32) mmol/L Anion Gap (3-11) BUN (7-18) mg/dl Creatinine (0.6-1.2) mg/dl Est Cr Clr Drug Dosing Est GFR ( Amer) Est GFR (Non-Af Amer) BUN/Creatinine Ratio (10-20) Glucose (70-99) mg/dl Lactate (0.4-2.0) mmol/L Calcium (8.5-10.1) mg/dl Magnesium (1.8-2.4) mg/dl Total Bilirubin (0.2-1) mg/dl AST (15-37) U/L ALT (12-78) U/L Alkaline Phosphatase (45-117) U/L Ammonia (11-32) umol/L Troponin I (0-0.045) ng/ml NT-Pro-B Natriuret Pep (0-1800) pg/ml Total Protein (6.4-8.2) gm/dl Albumin (3.4-5.0) gm/dl Globulin (2.5-4.0) gm/dl Albumin/Globulin Ratio (0.9-2) Lipase (73-393) U/L Urine Color Yellow Urine Appearance Clear (Clear) Urine pH 7.5 (4.5-7.5) Ur Specific [place] 1.020 (1.000-1.030) Urine Protein 1+ H (Negative) Urine Glucose (UA) Negative (Negative) Urine Ketones Negative (Negative) Urine Blood Negative (Negative) Urine Nitrite Negative (Negative) Urine Bilirubin Negative (Negative) Urine Urobilinogen Negative (Negative) Ur Leukocyte Esterase Trace H (Negative) Urine RBC 0-4 (0-4) /hpf Urine WBC 10-30 H (0-5) /hpf Ur Epithelial Cells >30 H (0-5) /lpf Urine Bacteria Negative (Negative) Influenza Type A (PCR) (Neg) Influenza Type B (PCR) (Neg) Imaging Data Radiologist's Impression: Radiology results as stated below per my review and the radiologist's interpretation: XR abdomen 2V w PA chest CLINICAL HISTORY: nausea COMPARISON STUDY: 09/10/2016 FINDINGS: Moderate cardiomegaly. Prominent pulmonary vasculature. Diaphragms are smooth. IMPRESSION: Mild congestive heart failure. The above report was generated using voice recognition software. It may contain grammatical, syntax or spelling errors. Electronically signed by: Kirit Leblanc M.D. 02/07/2018 6:[address] head/brain wo con CT DOSE: 1809.73 mGycm HISTORY: Mental status change ams TECHNIQUE: Multiaxial CT images of the head were performed without the use of intravenous contrast. A dose lowering technique was utilized adhering to the principles of ALARA. Comparison: 07/06/2015 Findings: The paranasal sinuses and mastoid air cells are clear. The calvarium and skull base are intact. The ventricles and sulci are within normal limits. There is no mass, hematoma, midline shift, or acute infarct. Impression: No acute intracranial abnormality. The above report was generated using voice recognition software. It may contain grammatical, syntax or spelling errors. Electronically signed by: Kirit Leblanc M.D. 02/07/2018 5:09 PM ECG Data Attestation: I personally reviewed and interpreted this ECG as follows: Indication: SOB/dyspnea Rate (beats per minute): 106 Rhythm: atrial fibrillation Findings: + other (QRS and QT-c intervals are within normal limits) Blood Pressure Blood Pressure Findings: Elevated blood pressure Blood Pressure Disposition: further management by hospitalist MDM Narrative vital signs are stable. Her chest x-ray shows cardiomegaly with cephalization. Her Pro BNP is elevated. The patient's family states that the patient is not usually this confused or short of breath. I discussed the patient's case with Dr. Pappas. She agrees to further evaluate the patient. The patient will receive 40 mg of Lasix IV. Impression & Plan CHF exacerbation, Altered mental status Discharge Plan Visit Data Chief Complaint: GI Assessment Stated Complaint: NAUSEA,BREATHING ED Provider: Brandon Sanchez Discharge Problem: CHF exacerbation, Altered mental status Patient Disposition: Being Evaluated by Hospitalist Forms Stand Alone Forms: [facility] Prescriptions Prescriptions: No Action celecoxib [Celebrex] 200 mg capsule 200 mg PO BID RF: 0 insulin aspart U-100 [Novolog Flexpen U-100 Insulin] 100 unit/mL insulin pen See Patient Comments SQ DAILY RF: 0 metoprolol succinate 100 mg capsule,sprinkle,ER 24hr 100 mg PO DAILY RF: 0 pramipexole 0.125 mg tablet 0.125 mg PO .q hs RF: 0 pregabalin [Lyrica] 100 mg capsule 100 mg PO BID RF: 0 zafirlukast [Accolate] 20 mg tablet 20 mg PO BID RF: 0 ondansetron HCl [Zofran] 4 mg tablet 4 mg PO QID PRN (Reason: nausea and vomiting) RF: 0 furosemide [Lasix] 40 mg Tablet 40 mg PO BID RF: 0 apixaban [Eliquis] 5 mg tablet 5 mg PO BID RF: 0 insulin degludec [Tresiba FlexTouch U-200] 200 unit/mL (3 mL) insulin pen 150 unit subcut DAILY RF: 0 levothyroxine [Synthroid] 50 mcg tablet 50 mcg PO DAILY RF: 0 omeprazole 20 mg capsule,delayed release(DR/EC) 20 mg PO DAILY RF: 0 sertraline [Zoloft] 50 mg tablet 50 mg PO DAILY RF: 0 tramadol 50 mg Tablet 50 mg PO Q6H PRN (Reason: Pain) RF: 0 docusate sodium 100 mg Capsule 100 mg PO BID RF: 0 ergocalciferol (vitamin D2) [Vitamin D2] 50,000 unit Capsule 50,000 unit PO WK RF: 0 Referrals Referrals: Uri Plascencia III, MD [Primary Care Provider] - The scribe's documentation has been prepared under my direction and personally reviewed by me in its entirety. I confirm that the note above accurately reflects all work, treatment, procedures, and medical decision making performed by me.
[2018-02-07] MEDS ORDERED: ONDANSETRON INJ 2 MG/ML 2 ML VIAL IV PRN (21:44)
[2018-02-07] MEDS ORDERED: MAGNESIUM HYDROXIDE SUSP 30 ML UDC PO PRN (21:44)
[2018-02-07] MEDS ORDERED: POLYETHYLENE (MIRALAX) 17 GM PACK PO PRN (21:44)
[2018-02-07] MEDS ORDERED: ACETAMINOPHEN 325 MG TAB PO PRN (21:44)
[2018-02-07] MEDS ORDERED: NITROGLYCERIN SL 0.4 MG/TAB TAB SL PRN (21:44)
[2018-02-07] MEDS ORDERED: ALUMINUM/MAGNESIUM SUSP 30 ML UDC PO PRN (21:44)
[2018-02-07] MEDS ORDERED: MoRPHine SULFATE 2 MG/ML CARP IV PRN (21:44)
[2018-02-07] MEDS ORDERED: NITROGLYCERIN 2% OINTMENT 30GM TUBE EXT ONE (21:44)
[2018-02-07] MEDS ORDERED: TRAMADOL HCL 50 MG TABLET PO PRN (21:44)
[2018-02-07] MEDS: POTASSIUM CHLORIDE 10 MEQ TABCR PO SCH (23:21)
[2018-02-07] MEDS: DOCUSATE SODIUM 100 MG CAP PO SCH (23:21)
[2018-02-07] MEDS: APIXABAN 5 MG TABLET PO SCH (23:23)
[2018-02-07] MEDS: PRAMIPEXOLE DIHYDROCHLO 0.25 MG TAB PO SCH (23:23)
[2018-02-07] MEDS: PREGABALIN 100 MG CAP PO SCH (23:28)
[2018-02-07] MEDS ORDERED: INFLUENZA ADMINISTRATION CHARGE ONE (23:45)
[2018-02-07] MEDS ORDERED: INFLUENZA VACCINE HIGH DOSE 65+ 0.5 ML SYR IM ONE (23:45)
[2018-02-08] MEDS: LEVOTHYROXINE SODIUM 50 MCG TABLET PO SCH (05:43)
[2018-02-08 07:08] LABS: Basophils # (auto) 0.03 K/uL (0-0.2); Basophils % (auto) 0.5 %; Eosinophils # (auto) 0.24 K/uL (0-0.5); Eosinophils % (auto) 3.9 %; Hematocrit (blood only) 32.9 % (37-47); Hemoglobin 10.2 g/dL (12.0-16.0); Immature Granulocytes # (auto) 0.03 K/uL (0.00-0.02); Immature Granulocytes % (auto) 0.5 %; Lymphocytes # (auto) 0.94 K/uL (1.2-3.4); Lymphocytes % (auto) 15.1 %; Mean Corpuscular Volume 93.2 fL (80-100); Mean Platelet Volume 10.5 fL (7.4-10.4); Monocytes # (auto) 0.49 K/uL (0.11-0.59); Monocytes % (auto) 7.9 %; Neutrophils # (auto) 4.48 K/uL (1.4-6.5); Neutrophils % (auto) 72.1 %; Platelet Count 162 K/uL (130-400); RDW Coefficient of Variation 16.8 % (11.5-14.5); RDW Standard Deviation 57.2 fL (36.4-46.3); Red Blood Count 3.53 M/uL (4.2-5.4); White Blood Count 6.21 K/uL (4.8-10.8)
[2018-02-08 07:38] LABS: BUN Creatinine Ratio 7.8 (10-20); Calcium 8.9 mg/dl (8.5-10.1); Creatinine Clr Calc Pharmacy 37.3 ml/min; Est GFR (African American) 37.4; Est GFR (Non-African American) 32.3; Magnesium 1.7 mg/dl (1.8-2.4); Potassium 3.4 mmol/L (3.5-5.1)
[2018-02-08] MEDS: POTASSIUM CHLORIDE 10 MEQ TABCR PO SCH ×3 (07:57→20:38)
[2018-02-08] MEDS: APIXABAN 5 MG TABLET PO SCH ×2 (07:57→20:38)
[2018-02-08] MEDS: DOCUSATE SODIUM 100 MG CAP PO SCH ×2 (07:57→20:38)
[2018-02-08] MEDS: PANTOprazole 40 MG TAB PO SCH (07:57)
[2018-02-08] MEDS: PREGABALIN 100 MG CAP PO SCH ×2 (07:57→20:38)
[2018-02-08] MEDS: SERTRALINE HCL 50 MG TABLET PO SCH (07:58)
[2018-02-08] MEDS: METOPROLOL SUCC 50MG EXT REL TAB PO SCH (07:58)
[2018-02-08] MEDS ORDERED: FUROSEMIDE 40 MG in SYRINGE 0 ML IV SCH (08:00)
[2018-02-08] MEDS ORDERED: FUROSEMIDE 40 MG/4 ML VIAL IV SCH (08:00)
[2018-02-08] MEDS ORDERED: POTASSIUM CHLORIDE 20 MEQ TABCR PO STA (08:45)
[2018-02-08] MEDS: MAGNESIUM SULFATE / D5W 1 GM/100 ML BAG IV SCH ×2 (10:26→11:33)
[2018-02-08] MEDS: FUROSEMIDE 40 MG in SYRINGE 0 ML IV SCH (16:50)
[2018-02-08] MEDS: PRAMIPEXOLE DIHYDROCHLO 0.25 MG TAB PO SCH (20:38)
[2018-02-08] MEDS ORDERED: VANCOMYCIN CONSULT ACTIVE PRN (20:57)
[2018-02-08] MEDS ORDERED: VANCOMYCIN HCL 1,000 MG in SODIUM CHLORIDE 0.9% 250 ML IV SCH (21:00)
[2018-02-08] MEDS ORDERED: GLUCAGON FOR INJ 1 MG VIAL SQ PRN (21:06)
[2018-02-08] MEDS ORDERED: GLUCOSE 10 TABS/TUBE PO PRN (21:06)
[2018-02-08] MEDS ORDERED: GLUCOSE 40% GEL 15 GM TUBE PO PRN (21:06)
[2018-02-08] MEDS ORDERED: CARBOHYDRATES FOR HYPOGLYCEMIA PO PRN (21:06)
[2018-02-08] MEDS ORDERED: DEXTROSE 50% 50 ML SYRINGE IV PRN (21:06)
--- NOTE | 2018-02-08 21:16 | Hospitalist Progress Note ---
Date of Service February 08, 2018 Assessment & Plan (1) CHF exacerbation: This patient is an 82 y/o F Hx chronic diastolic CHF, DM II, chronic AF - Apixaban, chronic anemia, morbid obesity, CKD III. Pt presents with progressive SOB since 2 days prior as a primary complaint. She also developed nausea and had an episode of vomiting today, as well as diarrhea. Family had reported episodes of disorientation or confusion, although she is fully oriented on admission. She denies a productive cough, CP or fevers. Patient reports similar episodes with exacerbations of her gastroparesis. Additionally, the pt has a nonhealing ulcer on the dorsum of her R foot which has been present for 8 years. There was some concern on a recent visit to her wound clinic that this was worsening as she was told that there was a foul odor emanating from it. Acute on chronic diastolic CHF exacerbation - placed on IV Lasix - 40mg IV TID and has already diuresed 1.6 kg of body weight with improvement in her symptoms. Had mild rise in creatinine today to 1.51 -Decrease Lasix to 40 mill grams IV twice daily -Continue I/Os, daily weight - will likely convert back to p.o. Lasix tomorrow -Follow BMP (2) Anemia: Normocytic, likely anemia of chronic disease. Hemoglobin at baseline at 10.2 -Consider iron studies, B12, folate (3) Diarrhea: Consistent with her history of gastroparesis -Check C. difficile if persists given multiple but not recent use of antibiotics (4) Diabetic foot ulcer: Wound culture was collected upon admission is growing gram-positive cocci. It does not appear overtly infected at this time when comparing to previous pictures She has had this ulcer for 8 years. She has been followed by infectious disease and been on antibiotics many times in the past. -Placed on vancomycin IV for now and consult infectious disease for further opinion No systemic symptoms consistent with sepsis or infection. (5) Diabetic peripheral neuropathy associated with type 2 diabetes mellitus: Glucose here is fairly well controlled but with some hyperglycemia. Her insulin did not get ordered on admission. She is on extremely high doses of insulin as an outpatient with Tresiba 150 units every night and NovoLog 40 units for breakfast and 35 units for lunch. -Continue Lantus but reduce at 10 units twice daily for now as has had poor p.o. intake until now -Insulin sliding scale ordered with NovoLog -We will likely need to increase insulin regimen tomorrow -Continue Lyrica 100 mg twice daily (6) Chronic atrial fibrillation: Fairly well rate controlled with Metoprolol, anticoag with Apixaban -Follow on telemetry (7) Hypomagnesemia: Replace with IV magnesium, secondary to recent GI losses (8) Hypokalemia: Secondary to IV Lasix and GI losses -Replace with potassium today -Follow BMP in the morning (9) Acute metabolic encephalopathy: Secondary to nausea and vomiting, gastroparesis exacerbation as per patient, frequent occurrence in the past -Now resolved (10) CKD (chronic kidney disease) stage 3, GFR 30-59 ml/min: Creatinine around baseline of 1.3 but today is slightly up due to IV diuresis -Follow BMP -Avoid nephrotoxins -Renally dose all medications when necessary (11) Gastroparesis: As per patient report, has seen GI in the past, normally does okay, is not on Reglan. -Follow -Advance diet to diabetic heart healthy today (12) Hypothyroidism: No recent TSH in our system -Check TSH -Continue home levothyroxine 50 mcg daily (13) Hyperlipidemia: Noted in chart but not on medication for this (14) Restless leg syndrome: To new Mirapex (15) Depression: Continue home sertraline (16) DVT prophylaxis: Eliquis Disposition-remain on telemetry If doing very well by tomorrow, can be discharged home Subjective Patient reports feeling well today, she is not short of breath. She denies chest pain. She denies any further nausea or abdominal pain. She still has loose stools. The nurse reports the patient slept most of the day. Patient reports this is a chronic pattern for her of nausea, fatigue, and diarrhea whenever she has an exacerbation of her gastroparesis. She is tolerating full liquids diet today and is hungry for regular food. Telemetry with atrial fibrillation with rates in the 80s-130s at times but now more controlled in the 80s-90s Review of Systems All systems reviewed & are unremarkable except as noted in HPI & below Physical Exam 2 Vital Signs (Past 24 Hours): Last Vital Signs Temp 36.5 C 02/08/18 20:06 Pulse 87 02/08/18 20:06 Resp 20 02/08/18 20:06 BP 145/80 H 02/08/18 20:06 Pulse Ox 92 02/08/18 20:06 Constitutional: WD/WN, vitals as above + morbidly obese Eyes: PERRL, conjunctivae normal, anicteric sclerae ENMT: external ear and nose normal, oropharynx normal Neck: trachea midline, no thyromegaly Respiratory: normal respiratory effort, lungs clear to auscultation Cardiovascular: Rate/Rhythm: regular rate; + abnormal rhythm (Irregularly irregular) Heart Sounds: no murmur Extremities: no edema Gastrointestinal (Abdomen): normal bowel sounds, soft, nontender, no hepatosplenomegaly Musculoskeletal: Extremities: extremities normal to inspection; no cyanosis and no clubbing Skin: no rashes, warm and dry Neurologic: moves all extremities and awake; no focal motor deficits Psychiatric: A+Ox3, euthymic affect Results & Data Laboratory Results 02/09/18 02/08/18 02/08/18 Range/Units 06:02 20:56 06:30 Sodium 139 (136-145) mmol/L Potassium 3.4 L (3.5-5.1) mmol/L Chloride 103 (98-107) mmol/L Carbon Dioxide 28 (21-32) mmol/L Anion Gap 8.0 (3-11) BUN 12 (7-18) mg/dl Creatinine 1.51 H (0.6-1.2) mg/dl Est Cr Clr Drug Dosing 37.3 ml/min Est GFR ( Amer) 37.4 Est GFR (Non-Af Amer) 32.3 BUN/Creatinine Ratio 7.8 L (10-20) Glucose 135 H (70-99) mg/dl POC Glucose 208 H (70-99) Estimat Average Glucose Pending Hemoglobin A1c Pending Calcium 8.9 (8.5-10.1) mg/dl Magnesium 1.7 L (1.8-2.4) mg/dl _ (1) CHF exacerbation Heart failure type: unspecified Qualified Code(s): I50.9 - Heart failure, unspecified (2) Diabetic foot ulcer Diabetic foot ulcer location: other Diabetes mellitus type: type 2 Laterality: right Non-pressure ulcer stage: limited to breakdown of skin Qualified Code(s): E11.621 - Type 2 diabetes mellitus with foot ulcer; L97.511 - Non-pressure chronic ulcer of other part of right foot limited to breakdown of skin
[2018-02-08] MEDS ORDERED: VANCOMYCIN HCL 2,750 MG in SODIUM CHLORIDE 0.9% 500 ML IV ONE (21:45)
[2018-02-08] MEDS: INSULIN ASPART 100 UNITS/ML 3 ML PEN SC SCH (22:10)
[2018-02-08] MEDS: CeleBREX 200 MG CAP PO SCH (22:10)
[2018-02-08] MEDS: INSULIN GLARGINE SOLOSTAR 100 UNITS/ML 3 ML PEN SC SCH (22:11)
[2018-02-09] MEDS: LEVOTHYROXINE SODIUM 50 MCG TABLET PO SCH (06:20)
[2018-02-09 07:27] LABS: Estimated Average Glucose 189 mg/dl
[2018-02-09 08:11] LABS: BUN Creatinine Ratio 9.8 (10-20); Calcium 8.7 mg/dl (8.5-10.1); Creatinine Clr Calc Pharmacy 34.8 ml/min; Est GFR (African American) 34.4; Est GFR (Non-African American) 29.7; Potassium 3.6 mmol/L (3.5-5.1)
[2018-02-09] MEDS: METOPROLOL SUCC 50MG EXT REL TAB PO SCH (08:20)
[2018-02-09] MEDS: PANTOprazole 40 MG TAB PO SCH (08:20)
[2018-02-09] MEDS: PREGABALIN 100 MG CAP PO SCH ×2 (08:20→20:31)
[2018-02-09] MEDS: POTASSIUM CHLORIDE 10 MEQ TABCR PO SCH ×3 (08:20→20:31)
[2018-02-09] MEDS: DOCUSATE SODIUM 100 MG CAP PO SCH ×2 (08:20→20:32)
[2018-02-09] MEDS: APIXABAN 5 MG TABLET PO SCH (08:21)
[2018-02-09] MEDS: FUROSEMIDE 40 MG in SYRINGE 0 ML IV SCH (08:21)
[2018-02-09] MEDS: SERTRALINE HCL 50 MG TABLET PO SCH (08:22)
[2018-02-09] MEDS: INSULIN GLARGINE SOLOSTAR 100 UNITS/ML 3 ML PEN SC SCH ×2 (08:24→20:57)
[2018-02-09] MEDS: INSULIN ASPART 100 UNITS/ML 3 ML PEN SC SCH ×4 (08:24→20:58)
[2018-02-09] MEDS: CeleBREX 200 MG CAP PO SCH ×2 (09:04→20:31)
[2018-02-09] MEDS ORDERED: FUROSEMIDE 40 MG TAB PO SCH (17:00)
--- NOTE | 2018-02-09 18:59 | Hospitalist Progress Note ---
Date of Service February 09, 2018 Assessment & Plan (1) CHF exacerbation: This patient is an 82 y/o F Hx chronic diastolic CHF, DM II, chronic AF - Apixaban, chronic anemia, morbid obesity, CKD III. Pt presents with progressive SOB since 2 days prior as a primary complaint. She also developed nausea and had an episode of vomiting today, as well as diarrhea. Family had reported episodes of disorientation or confusion, although she is fully oriented on admission. She denies a productive cough, CP or fevers. Patient reports similar episodes with exacerbations of her gastroparesis. Additionally, the pt has a nonhealing ulcer on the dorsum of her R foot which has been present for 8 years. There was some concern on a recent visit to her wound clinic that this was worsening as she was told that there was a foul odor emanating from it. Acute on chronic diastolic CHF exacerbation - placed on IV Lasix - 40mg IV TID initially and then down to 40mg IV bid - diuresed 1.4 kg of body weight with improvement in her symptoms. Had another rise in creatinine today to 1.61 -convert back to po lasix 40mg bid -Continue I/Os, daily weight -Follow BMP (2) Anemia: Normocytic, likely anemia of chronic disease. Hemoglobin at baseline at 10.2 -check iron studies, B12, folate, Hemoccult stool -follow CBC in AM (3) Diarrhea: Consistently occurs with her history of gastroparesis flare ups. Now resolved (4) Diabetic foot ulcer: Wound culture was collected upon admission is growing Staph species. It does not appear overtly infected at this time when comparing to previous pictures She has had this ulcer for 8 years. She has been followed by infectious disease and been on antibiotics many times in the past. -Placed on vancomycin IV for now and consult infectious disease for further opinion about if should continue on abx or not-consult pending still No systemic symptoms consistent with sepsis or infection. (5) Diabetic peripheral neuropathy associated with type 2 diabetes mellitus: Glucose here is fairly well controlled but with some hyperglycemia. Her insulin did not get ordered on admission. She is on extremely high doses of insulin as an outpatient with Tresiba 150 units every night and NovoLog 40 units for breakfast and 35 units for lunch. -Continue Lantus but increase today to 18 units twice daily -Insulin sliding scale ordered with NovoLog-tightened down a bit today -Continue Lyrica 100 mg twice daily (6) Chronic atrial fibrillation: Fairly well rate controlled with Metoprolol, anticoag with Apixaban -Follow on telemetry (7) Hypomagnesemia: Replaced with IV magnesium, secondary to recent GI losses (8) Hypokalemia: Secondary to IV Lasix and GI losses now resolved -Follow BMP in the morning (9) Acute metabolic encephalopathy: Secondary to nausea and vomiting, gastroparesis exacerbation as per patient, frequent occurrence in the past -Now resolved (10) CKD (chronic kidney disease) stage 3, GFR 30-59 ml/min: Creatinine around baseline of 1.3 but today is slightly up again due to IV diuresis -Follow BMP -Avoid nephrotoxins -Renally dose all medications when necessary -dcd IV lasix and returned to po lasix as is now asymptomatic (11) Gastroparesis: As per patient report, has seen GI in the past, normally does okay, is not on Reglan. tolerating ADA diet (12) Hypothyroidism: No recent TSH in our system -Continue home levothyroxine 50 mcg daily -check TSH in AM (13) Hyperlipidemia: Noted in chart but not on medication for this (14) Restless leg syndrome: Continue Mirapex (15) Depression: Continue home sertraline (16) Acute respiratory failure with hypoxia: POx down to 87-89% on RA at times. Could be from CHF, underlying chronic lung diease, JAMAL indiagnosed? 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 She is tolerating a regular diet, no N/V, no more diarrhea, energy level improved. Denies SOB. She was noted to be low on her O2 levels early this AM. She reports she used to have nocturnal O2 but stopped it because it made her room "too warm." Review of Systems All systems reviewed & are unremarkable except as noted in HPI & below Physical Exam 2 Vital Signs (Past 24 Hours): Last Vital Signs Temp 36.8 C 02/09/18 15:37 Pulse 82 02/09/18 15:37 Resp 20 02/09/18 15:37 BP 92/50 L 02/09/18 15:37 Pulse Ox 94 02/09/18 15:37 Constitutional: WD/WN, vitals as above + morbidly obese Eyes: PERRL, conjunctivae normal, anicteric sclerae ENMT: external ear and nose normal, oropharynx normal Neck: trachea midline, no thyromegaly Respiratory: normal respiratory effort, lungs clear to auscultation Cardiovascular: Rate/Rhythm: regular rate; + abnormal rhythm (Irregularly irregular) Heart Sounds: no murmur Extremities: no edema Gastrointestinal (Abdomen): normal bowel sounds, soft, nontender, no hepatosplenomegaly Musculoskeletal: Extremities: extremities normal to inspection; no cyanosis and no clubbing Skin: no rashes, warm and dry Neurologic: moves all extremities and awake; no focal motor deficits Psychiatric: A+Ox3, euthymic affect Results & Data Laboratory Results 02/09/18 02/09/18 02/09/18 Range/Units 20:45 16:13 11:57 Sodium (136-145) mmol/L Potassium (3.5-5.1) mmol/L Chloride (98-107) mmol/L Carbon Dioxide (21-32) mmol/L Anion Gap (3-11) BUN (7-18) mg/dl Creatinine (0.6-1.2) mg/dl Est Cr Clr Drug Dosing ml/min Est GFR ( Amer) Est GFR (Non-Af Amer) BUN/Creatinine Ratio (10-20) Glucose (70-99) mg/dl POC Glucose 165 H 180 H 228 H (70-99) Estimat Average Glucose mg/dl Hemoglobin A1c (4.5-5.6) % Calcium (8.5-10.1) mg/dl 02/09/18 02/09/18 02/09/18 Range/Units 08:02 06:03 06:02 Sodium 139 (136-145) mmol/L Potassium 3.6 (3.5-5.1) mmol/L Chloride 103 (98-107) mmol/L Carbon Dioxide 29 (21-32) mmol/L Anion Gap 7.0 (3-11) BUN 16 (7-18) mg/dl Creatinine 1.62 H (0.6-1.2) mg/dl Est Cr Clr Drug Dosing 34.8 ml/min Est GFR ( Amer) 34.4 Est GFR (Non-Af Amer) 29.7 BUN/Creatinine Ratio 9.8 L (10-20) Glucose 153 H (70-99) mg/dl POC Glucose 174 H (70-99) Estimat Average Glucose 189 mg/dl Hemoglobin A1c 8.2 H (4.5-5.6) % Calcium 8.7 (8.5-10.1) mg/dl _ (1) CHF exacerbation Heart failure type: unspecified Qualified Code(s): I50.9 - Heart failure, unspecified (2) Diabetic foot ulcer Diabetes mellitus type: type 2 Diabetic foot ulcer location: other Laterality: right Non-pressure ulcer stage: limited to breakdown of skin Qualified Code(s): E11.621 - Type 2 diabetes mellitus with foot ulcer; L97.511 - Non-pressure chronic ulcer of other part of right foot limited to breakdown of skin (3) Hypothyroidism Hypothyroidism type: acquired Qualified Code(s): E03.9 - Hypothyroidism, unspecified
[2018-02-09] MEDS: PRAMIPEXOLE DIHYDROCHLO 0.25 MG TAB PO SCH (20:31)
[2018-02-09] MEDS: APIXABAN 2.5 MG TAB PO SCH (20:31)
[2018-02-09] MEDS ORDERED: VANCOMYCIN HCL 1,500 MG in SODIUM CHLORIDE 0.9% 500 ML IV SCH (22:00)
[2018-02-10 06:31] LABS: Basophils # (auto) 0.02 K/uL (0-0.2); Basophils % (auto) 0.4 %; Eosinophils # (auto) 0.24 K/uL (0-0.5); Eosinophils % (auto) 4.3 %; Hematocrit (blood only) 32.6 % (37-47); Hemoglobin 10.1 g/dL (12.0-16.0); Immature Granulocytes # (auto) 0.03 K/uL (0.00-0.02); Immature Granulocytes % (auto) 0.5 %; Lymphocytes # (auto) 1.08 K/uL (1.2-3.4); Lymphocytes % (auto) 19.5 %; Mean Corpuscular Volume 92.1 fL (80-100); Mean Platelet Volume 11.2 fL (7.4-10.4); Monocytes # (auto) 0.48 K/uL (0.11-0.59); Monocytes % (auto) 8.7 %; Neutrophils # (auto) 3.69 K/uL (1.4-6.5); Neutrophils % (auto) 66.6 %; Platelet Count 156 K/uL (130-400); RDW Coefficient of Variation 16.9 % (11.5-14.5); RDW Standard Deviation 56.5 fL (36.4-46.3); Red Blood Count 3.54 M/uL (4.2-5.4); White Blood Count 5.54 K/uL (4.8-10.8)
[2018-02-10] MEDS: LEVOTHYROXINE SODIUM 50 MCG TABLET PO SCH (06:55)
[2018-02-10 06:59] LABS: BUN Creatinine Ratio 14.9 (10-20); Calcium 8.2 mg/dl (8.5-10.1); Creatinine Clr Calc Pharmacy 29.1 ml/min; Est GFR (African American) 27.3; Est GFR (Non-African American) 23.6; Magnesium 1.8 mg/dl (1.8-2.4); Potassium 3.9 mmol/L (3.5-5.1)
[2018-02-10 07:12] LABS: Ferritin 31.9 ng/ml (8-388)
[2018-02-10] MEDS: PREGABALIN 100 MG CAP PO SCH ×2 (08:13→20:23)
[2018-02-10] MEDS: METOPROLOL SUCC 50MG EXT REL TAB PO SCH (08:14)
[2018-02-10] MEDS: PANTOprazole 40 MG TAB PO SCH (08:14)
[2018-02-10] MEDS: SERTRALINE HCL 50 MG TABLET PO SCH (08:14)
[2018-02-10] MEDS: DOCUSATE SODIUM 100 MG CAP PO SCH ×2 (08:14→20:22)
[2018-02-10] MEDS: POTASSIUM CHLORIDE 10 MEQ TABCR PO SCH ×3 (08:15→20:23)
[2018-02-10] MEDS: APIXABAN 2.5 MG TAB PO SCH ×2 (08:16→20:23)
[2018-02-10] MEDS: INSULIN ASPART 100 UNITS/ML 3 ML PEN SC SCH ×4 (08:22→20:26)
[2018-02-10] MEDS: INSULIN GLARGINE SOLOSTAR 100 UNITS/ML 3 ML PEN SC SCH ×3 (08:24→21:07)
[2018-02-10 08:45] LABS: Folate (Folic Acid) 8.2 ng/ml (>5.38)
[2018-02-10 14:30] LABS: BUN Creatinine Ratio 12.5 (10-20); Calcium 8.4 mg/dl (8.5-10.1); Creatinine Clr Calc Pharmacy 24.9 ml/min; Est GFR (African American) 22.6; Est GFR (Non-African American) 19.5; Potassium 4.9 mmol/L (3.5-5.1)
--- NOTE | 2018-02-10 14:49 | Hospitalist Progress Note ---
Date of Service February 10, 2018 Assessment & Plan (1) CHF exacerbation: This patient is an 82 y/o F Hx chronic diastolic CHF, DM II, chronic AF - Apixaban, chronic anemia, morbid obesity, CKD III. Pt presents with progressive SOB since 2 days prior as a primary complaint. She also developed nausea and had an episode of vomiting, as well as diarrhea. Family had reported episodes of disorientation or confusion, although she is fully oriented on admission. She denies a productive cough, CP or fevers. Patient reports similar episodes with exacerbations of her gastroparesis. Additionally, the pt has a nonhealing ulcer on the dorsum of her R foot which has been present for 8 years. There was some concern on a recent visit to her wound clinic that this was worsening as she was told that there was a foul odor emanating from it. Acute on chronic diastolic CHF exacerbation - placed on IV Lasix - 40mg IV TID initially and then down to 40mg IV bid, but with rising creatinine, was converted back to p.o. Lasix She initially had diuresed 1.4 kg of body weight with improvement in her symptoms. But now today since stopping Lasix, her weight is back up higher actually than her admission weight and her net I's and O's are positive. -Continue I/Os, daily weight -Follow BMP -Holding p.o. Lasix due to worsening rising creatinine -Fortunately, she is improved symptomatically from admission, but remains with CARDONA (2) Anemia: Normocytic, likely anemia of chronic disease. Does have very borderline iron deficiency anemia, but B12 is 451, folate normal 8.2, TSH normal at 1.78. Ferritin is low normal at 31, transferrin saturation is low at 10%, serum iron is low normal at 45 and TIBC is high normal at 410 Hemoglobin at baseline at 10.1 -Awaiting Hemoccult stool -Will not treat with supplemental iron at this time as this may exacerbate her GI issues (3) Diarrhea: Consistently occurs with her history of gastroparesis flare ups which seems odd but is what she reports. Now resolved (4) Diabetic foot ulcer: Wound culture was collected upon admission is growing coagulase-negative staph It does not appear overtly infected at this time when comparing to previous pictures, there is no surrounding cellulitis She has had this ulcer for 8 years. She has been followed by infectious disease and been on antibiotics many times in the past. -Was initially placed on vancomycin IV I discussed the case with infectious disease who knows her very well for further opinion about if should continue on abx-Dr. Reed is okay with a short course of doxycycline No systemic symptoms consistent with sepsis or infection. -Continue doxycycline 100 mg p.o. twice daily x4 more days. (5) Diabetic peripheral neuropathy associated with type 2 diabetes mellitus: Glucose here is fairly well controlled but still with some hyperglycemia. She is on extremely high doses of insulin as an outpatient with Tresiba 150 units every night and NovoLog 40 units for breakfast and 35 units for lunch. Patient reports that she eats a lot of "junk" at home. -Continue Lantus but increase again today to 22 units twice daily -Insulin sliding scale ordered with NovoLog-tightened down again today -Continue Lyrica 100 mg twice daily (6) Chronic atrial fibrillation: Fairly well rate controlled with Metoprolol, anticoag with Apixaban but lower the dose to 2.5 mg p.o. twice daily for renal dosing -Follow on telemetry (7) Hypomagnesemia: Replaced and now resolved (8) Hypokalemia: Secondary to IV Lasix and GI losses now resolved -Follow BMP in the morning -Will discontinue her potassium supplement due to acute kidney injury and also Lasix is on hold (9) Acute metabolic encephalopathy: Secondary to nausea and vomiting, gastroparesis exacerbation as per patient, frequent occurrence in the past Also could be due to intermittent hypoxia as she was found to have nocturnal hypoxia and goes down to 89% with wheeling her wheelchair around -Home O2 will be ordered -Now resolved (10) FLAVIO (acute kidney injury): With creatinine now rising again today to 2.29 this afternoon, potassium up to 4.9, likely secondary to IV Lasix use. She is making urine -Hold all Lasix at this time -Holding Celebrex -Holding potassium supplement -Consult her molding manager, Dr. Mcdermott, for further evaluation and recommendations (11) CKD (chronic kidney disease) stage 3, GFR 30-59 ml/min: Creatinine around baseline of 1.3 but today continues to climb with FLAVIO as above -Follow BMP -Avoid nephrotoxins -Renally dose all medications when necessary (12) Gastroparesis: As per patient report, has seen GI in the past, normally does okay, is not on Reglan. tolerating ADA diet (13) Hypothyroidism: TSH here is normal at 1.78 -Continue home levothyroxine 50 mcg daily (14) Hyperlipidemia: Noted in chart but not on medication for this (15) Restless leg syndrome: Continue Mirapex (16) Depression: Continue home sertraline (17) Acute respiratory failure with hypoxia: POx down to 87-89% on RA at times. Could be from CHF, underlying chronic lung diease, JAMAL With overnight oximetry with longest consecutive time less than 88% was about 22 minutes. She does qualify for nocturnal O2 and should be worn at 2 L nasal cannula every night A two-step respiratory 6-minute wheelchair test today with the patient rolling her own wheelchair showed the lowest she dropped was 89%, she does not qualify for daytime oxygen at this time -Case management is aware and arrangements will be made for home O2 to be delivered to her house for nocturnal use -It is recommended that she have formal sleep study as an outpatient, however patient is declining as she states that she would never use a CPAP machine due to severe claustrophobia (18) DVT prophylaxis: Eliquis Disposition-remain on telemetry Discharge canceled for today due to worsening renal function Subjective Patient does complain of dyspnea with exertion. She did a two-step today with respiratory therapy well pushing her own wheelchair and it and the lowest she dropped was to 89% on room air. She did however fail her overnight oximetry test last night. We discussed that she probably has sleep apnea and should have a formal sleep study as an outpatient, however patient reports she would never be able to wear a CPAP mask as she has severe claustrophobia. Patient's son at the bedside reports that she is intermittently confused and she reports this as well. They are now wondering if it is due to intermittent hypoxia did JAMAL. Patient denies chest pain or nausea, no vomiting. She has no other concerns. I discussed her case on the phone with infectious disease who recommends short course of doxycycline for her foot ulcer Review of Systems All systems reviewed & are unremarkable except as noted in HPI & below Physical Exam 2 Vital Signs (Past 24 Hours): Last Vital Signs Temp 36.6 C 02/10/18 12:17 Pulse 77 02/10/18 14:15 Resp 20 02/10/18 14:15 BP 139/84 02/10/18 12:17 Pulse Ox 96 02/10/18 14:15 Constitutional: WD/WN, vitals as above + morbidly obese Eyes: PERRL, conjunctivae normal, anicteric sclerae ENMT: external ear and nose normal, oropharynx normal Neck: trachea midline, no thyromegaly Respiratory: normal respiratory effort, lungs clear to auscultation Cardiovascular: Rate/Rhythm: regular rate; + abnormal rhythm (Irregularly irregular) Heart Sounds: no murmur Extremities: + edema (Has 1+ pitting edema in the right leg and trace pitting edema in the left leg) Gastrointestinal (Abdomen): normal bowel sounds, soft, nontender, no hepatosplenomegaly Musculoskeletal: Extremities: extremities normal to inspection; no cyanosis and no clubbing Skin: + ulcer (On right foot-dressed and not removed today) Neurologic: moves all extremities and awake; no focal motor deficits Psychiatric: A+Ox3, euthymic affect Results & Data Laboratory Results 02/10/18 02/10/18 02/10/18 Range/Units 16:23 13:51 11:34 WBC (4.8-10.8) K/uL RBC (4.2-5.4) M/uL Hgb (12.0-16.0) g/dL Hct (37-47) % MCV (80-100) fL MCH (25-34) pg MCHC (32-36) g/dL RDW Std Deviation (36.4-46.3) fL RDW Coeff of Quirino (11.5-14.5) % Plt Count (130-400) K/uL MPV (7.4-10.4) fL Immature Gran % (Auto) % Neut % (Auto) % Lymph % (Auto) % [place] % (Auto) % Eos % (Auto) % Baso % (Auto) % Immature Gran # (Auto) (0.00-0.02) K/uL Neut # (Auto) (1.4-6.5) K/uL Lymph # (Auto) (1.2-3.4) K/uL [place] # (Auto) (0.11-0.59) K/uL Eos # (Auto) (0-0.5) K/uL Baso # (Auto) (0-0.2) K/uL Sodium 135 L (136-145) mmol/L Potassium 4.9 D (3.5-5.1) mmol/L Chloride 102 (98-107) mmol/L Carbon Dioxide 27 (21-32) mmol/L Anion Gap 6.0 (3-11) BUN 29 H (7-18) mg/dl Creatinine 2.29 H D (0.6-1.2) mg/dl Est Cr Clr Drug Dosing 24.9 ml/min Est GFR ( Amer) 22.6 Est GFR (Non-Af Amer) 19.5 BUN/Creatinine Ratio 12.5 (10-20) Glucose 230 H (70-99) mg/dl POC Glucose 218 H 218 H (70-99) Calcium 8.4 L (8.5-10.1) mg/dl Magnesium (1.8-2.4) mg/dl Iron (35-150) mcg/dl TIBC (250-450) mcg/dl Transferrin (200-360) mg/dl Transferrin % Sat (15-50) % Ferritin (8-388) ng/ml Vitamin B12 (211-911) pg/ml Folate (>5.38) ng/ml TSH (0.300-4.500) uIu/ml Stool Occult Bld Scrn (Negative) 02/10/18 02/10/18 02/10/18 Range/Units 10:30 07:33 05:58 WBC (4.8-10.8) K/uL RBC (4.2-5.4) M/uL Hgb (12.0-16.0) g/dL Hct (37-47) % MCV (80-100) fL MCH (25-34) pg MCHC (32-36) g/dL RDW Std Deviation (36.4-46.3) fL RDW Coeff of Quirino (11.5-14.5) % Plt Count (130-400) K/uL MPV (7.4-10.4) fL Immature Gran % (Auto) % Neut % (Auto) % Lymph % (Auto) % [place] % (Auto) % Eos % (Auto) % Baso % (Auto) % Immature Gran # (Auto) (0.00-0.02) K/uL Neut # (Auto) (1.4-6.5) K/uL Lymph # (Auto) (1.2-3.4) K/uL [place] # (Auto) (0.11-0.59) K/uL Eos # (Auto) (0-0.5) K/uL Baso # (Auto) (0-0.2) K/uL Sodium (136-145) mmol/L Potassium (3.5-5.1) mmol/L Chloride (98-107) mmol/L Carbon Dioxide (21-32) mmol/L Anion Gap (3-11) BUN (7-18) mg/dl Creatinine (0.6-1.2) mg/dl Est Cr Clr Drug Dosing ml/min Est GFR ( Amer) Est GFR (Non-Af Amer) BUN/Creatinine Ratio (10-20) Glucose (70-99) mg/dl POC Glucose 153 H (70-99) Calcium (8.5-10.1) mg/dl Magnesium (1.8-2.4) mg/dl Iron (35-150) mcg/dl TIBC (250-450) mcg/dl Transferrin (200-360) mg/dl Transferrin % Sat (15-50) % Ferritin (8-388) ng/ml Vitamin B12 451 (211-911) pg/ml Folate 8.20 (>5.38) ng/ml TSH (0.300-4.500) uIu/ml Stool Occult Bld Scrn Negative (Negative) 02/10/18 02/10/18 02/09/18 Range/Units 05:58 05:58 20:45 WBC 5.54 (4.8-10.8) K/uL RBC 3.54 L (4.2-5.4) M/uL Hgb 10.1 L (12.0-16.0) g/dL Hct 32.6 L (37-47) % MCV 92.1 (80-100) fL MCH 28.5 (25-34) pg MCHC 31.0 L (32-36) g/dL RDW Std Deviation 56.5 H (36.4-46.3) fL RDW Coeff of Quirino 16.9 H (11.5-14.5) % Plt Count 156 (130-400) K/uL MPV 11.2 H (7.4-10.4) fL Immature Gran % (Auto) 0.5 % Neut % (Auto) 66.6 % Lymph % (Auto) 19.5 % [place] % (Auto) 8.7 % Eos % (Auto) 4.3 % Baso % (Auto) 0.4 % Immature Gran # (Auto) 0.03 H (0.00-0.02) K/uL Neut # (Auto) 3.69 (1.4-6.5) K/uL Lymph # (Auto) 1.08 L (1.2-3.4) K/uL [place] # (Auto) 0.48 (0.11-0.59) K/uL Eos # (Auto) 0.24 (0-0.5) K/uL Baso # (Auto) 0.02 (0-0.2) K/uL Sodium 136 (136-145) mmol/L Potassium 3.9 (3.5-5.1) mmol/L Chloride 102 (98-107) mmol/L Carbon Dioxide 28 (21-32) mmol/L Anion Gap 6.0 (3-11) BUN 29 H D (7-18) mg/dl Creatinine 1.96 H D (0.6-1.2) mg/dl Est Cr Clr Drug Dosing 29.1 ml/min Est GFR ( Amer) 27.3 Est GFR (Non-Af Amer) 23.6 BUN/Creatinine Ratio 14.9 (10-20) Glucose 165 H (70-99) mg/dl POC Glucose 165 H (70-99) Calcium 8.2 L (8.5-10.1) mg/dl Magnesium 1.8 (1.8-2.4) mg/dl Iron 45 (35-150) mcg/dl TIBC 405 (250-450) mcg/dl Transferrin 312 (200-360) mg/dl Transferrin % Sat 10 L (15-50) % Ferritin 31.9 (8-388) ng/ml Vitamin B12 (211-911) pg/ml Folate (>5.38) ng/ml TSH 1.780 (0.300-4.500) uIu/ml Stool Occult Bld Scrn (Negative) _ (1) CHF exacerbation Heart failure type: unspecified Qualified Code(s): I50.9 - Heart failure, unspecified (2) Diabetic foot ulcer Diabetes mellitus type: type 2 Diabetic foot ulcer location: other Laterality: right Non-pressure ulcer stage: limited to breakdown of skin Qualified Code(s): E11.621 - Type 2 diabetes mellitus with foot ulcer; L97.511 - Non-pressure chronic ulcer of other part of right foot limited to breakdown of skin (3) Anemia Anemia type: iron deficiency Iron deficiency anemia type: unspecified iron deficiency Qualified Code(s): D50.9 - Iron deficiency anemia, unspecified (4) Diarrhea Diarrhea type: functional diarrhea Qualified Code(s): K59.1 - Functional diarrhea (5) Hyperlipidemia Hyperlipidemia type: unspecified Qualified Code(s): E78.5 - Hyperlipidemia, unspecified (6) Hypothyroidism Hypothyroidism type: acquired Qualified Code(s): E03.9 - Hypothyroidism, unspecified
[2018-02-10] MEDS: PRAMIPEXOLE DIHYDROCHLO 0.25 MG TAB PO SCH (20:22)
[2018-02-10] MEDS: DOXYCYCLINE HYCLATE 100 MG CAP PO SCH (22:05)
[2018-02-11] MEDS ORDERED: VANCOMYCIN TROUGH ONE (03:30)
[2018-02-11] MEDS: LEVOTHYROXINE SODIUM 50 MCG TABLET PO SCH (06:09)
[2018-02-11 07:02] LABS: BUN Creatinine Ratio 15.2 (10-20); Calcium 8.5 mg/dl (8.5-10.1); Creatinine Clr Calc Pharmacy 29.4 ml/min; Est GFR (African American) 27.7; Est GFR (Non-African American) 23.9; Potassium 4.4 mmol/L (3.5-5.1)
[2018-02-11] MEDS: PANTOprazole 40 MG TAB PO SCH (08:19)
[2018-02-11] MEDS: METOPROLOL SUCC 50MG EXT REL TAB PO SCH (08:19)
[2018-02-11] MEDS: DOCUSATE SODIUM 100 MG CAP PO SCH (08:19)
[2018-02-11] MEDS: APIXABAN 2.5 MG TAB PO SCH (08:19)
[2018-02-11] MEDS: INSULIN GLARGINE SOLOSTAR 100 UNITS/ML 3 ML PEN SC SCH (08:20)
[2018-02-11] MEDS: DOXYCYCLINE HYCLATE 100 MG CAP PO SCH (08:20)
[2018-02-11] MEDS: SERTRALINE HCL 50 MG TABLET PO SCH (08:20)
[2018-02-11] MEDS: INSULIN ASPART 100 UNITS/ML 3 ML PEN SC SCH ×2 (08:21→12:31)
[2018-02-11] MEDS: PREGABALIN 100 MG CAP PO SCH (08:25)
[2018-02-11] MEDS ORDERED: POTASSIUM CHLORIDE 10 MEQ TABCR PO SCH (09:00)
--- NOTE | 2018-02-11 10:58 | Nephrology Consultation ---
Date of Consultation February 11, 2018 Assessment & Plan (1) FLAVIO (acute kidney injury): -- FLAVIO likely related to intravascular volume contraction. Creatinine is back to baseline after holding diuretic -- Volume status and electrolyte balance are acceptable at this time. Will monitor -- Urinalysis is negative for blood or protein. Urine sediment is acellular -- Consider renal US only if kidney function worsens -- Recommend holding Furosemide today then resume Furosemide 40 mg two tablets po each morning (outpatient regimen) -- If discharge is anticipated please schedule follow up evaluation w/ Dr. Mcdermott in the next 7 - 10 days (2) CKD (chronic kidney disease) stage 3, GFR 30-59 ml/min: -- Patient has CKD stage III/IV. Baseline creatinine has been 1.5 - 2.0 depending upon volume status. Her CKD is due to combination of cardiorenal syndrome, AODM, HTN (3) Anemia: -- Stable chronic anemia w/ baseline Hgb ~ 10. No acute indication for SALOMON at this time (4) Nocturnal hypoxemia: -- Newly diagnosis nocturnal hypoxemia. Patient to be discharged w/ nighttime O2 (5) Gastroparesis: History of Present Illness Reason for Consultation: FLAVIO on CKD Attending Physician: Annamarie Burciaga MD History of Present Illness Ms. Arnold is an 82 year old white female who is seen at the request of Dr. Burciaga for evaluation of FLAVIO on CKD. Medical records in the hospital EMR were reviewed today and are summarized as follows: Ms. Arnold has advanced CKD w/ baseline creatinine 1.5 - 2.0 (EGFR 25 - 32 cc/min) depending on her volume status. Her renal impairment is attributed to DM, HTN and cardiorenal syndrome. Her Senior Brand Manager is Dr. Mcdermott. Ms. Arnold's medical history is also significant for diastolic CHF, chronic atrial fibrillation on Eliquis therapy and obesity. She has a chronic nonhealing ulcer on the dorsum of her R foot. Ms. Arnold was admitted from her PCP's office 02/07/18 for evaluation of confusion, dyspnea on exertion and nausea related to diabetic gastroparesis. Furosemide was increased from 80 mg po qam as outpatient to 40 mg IV TID. Creatinine paul from 1.3 to 2.2. Diuretics are now being held. Patient is 1L volume positive since admission. Creatinine has improved to 1.9 today. Urine sediment is acellular. Renal imaging has not been performed yet this hospitalization. Ms. Arnold reports that she frequently has nausea due to diabetic gastroparesis. Her nausea and diarrhea have resolved. She was diagnosed w/ nocturnal hypoxemia and will need to wear O2 at bedtime each night. Allergies Allergy/AdvReac Type Severity Reaction Status Date / Time carbamazepine Allergy Intermediate HIVES Verified 01/21/18 11:23 external allergies Allergy Unknown Uncoded 01/21/18 11:23 Home Medications Home Medications Medication Instructions Recorded Confirmed Type celecoxib 200 mg capsule 200 mg PO BID 10/05/17 02/07/18 History insulin aspart U-100 100 unit/mL See Label Instructions SQ DAILY ml 10/05/17 02/07/18 History subcutaneous pen metoprolol succinate ER 100 mg 100 mg PO DAILY 10/05/17 02/07/18 History capsule sprinkle, ext. release 24 hr pramipexole 0.125 mg tablet 0.125 mg PO .q hs tab 10/05/17 02/07/18 History pregabalin 100 mg capsule 100 mg PO BID 10/05/17 02/07/18 History zafirlukast 20 mg tablet 20 mg PO BID tab 10/05/17 02/07/18 History ondansetron HCl 4 mg tablet 4 mg PO QID PRN 10/12/17 02/07/18 History apixaban [Eliquis] 5 mg PO BID 02/07/18 02/07/18 History docusate sodium 100 mg PO BID 02/07/18 02/07/18 History ergocalciferol (vitamin D2) 50,000 unit PO WK 02/07/18 02/07/18 History [Vitamin D2] furosemide [Lasix] 40 mg PO BID 02/07/18 02/07/18 History insulin degludec [Tresiba 150 unit SUBCUT DAILY 02/07/18 02/07/18 History FlexTouch U-200] levothyroxine [Synthroid] 50 mcg PO DAILY 02/07/18 02/07/18 History omeprazole 20 mg PO DAILY 02/07/18 02/07/18 History sertraline [Zoloft] 50 mg PO DAILY 02/07/18 02/07/18 History tramadol 50 mg PO Q6H PRN 02/07/18 02/07/18 History Patient History Medical History CKD (chronic kidney disease) stage 3, GFR 30-59 ml/min Chronic atrial fibrillation CHF exacerbation (Acute) Surgical wound, non healing (Acute) Confusion and disorientation Memory loss due to medical condition Symptomatic anemia Hemorrhoidectomy (Resolved 06/06/12) Osteomyelitis (Chronic 06/06/12) CHF (congestive heart failure) Anemia (Resolved) Diarrhea Nausea Pericardial effusion Loss of sensation Diabetic foot ulcer Diabetic peripheral neuropathy associated with type 2 diabetes mellitus Altered mental status Shortness of breath Gastroparesis Altered mental status (Chronic) Asthma (Chronic) Atrial fibrillation, chronic (Chronic) Benign hypertension (Chronic) CHF (congestive heart failure) (Chronic) DM II (diabetes mellitus, type II), controlled (Chronic) Depression (Chronic) Diabetic foot ulcer (Chronic) Diabetic peripheral neuropathy (Chronic) Diarrhea (Chronic) GERD (gastroesophageal reflux disease) (Chronic) Loss of sensation (Chronic) 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) Nausea (Chronic) Osteomyelitis (Chronic) Pericardial effusion (Chronic) Sciatica (Chronic) Shortness of breath (Chronic) Symptomatic anemia (Chronic) Family History Other Family history non-contributory Social History marital status: / Current Living Situation: Alone current occupational status: retired Other Information That Helps Us Care for You: No Feels Safe at Home: Yes Safety Concerns: Feels Safe At This Time Smoking Status: Former smoker Hx Substance Use: No Beliefs That Will Affect Care: None Communication Ability: Effective Review of Systems Constitutional: no fever Respiratory: no cough and no chest congestion Cardiovascular: no chest pain Gastrointestinal: no nausea, no vomiting and no diarrhea/loose stools Genitourinary (Female): no dysuria Integumentary: + skin ulcer nonhealing ulcer on dorsum of R foot Physical Exam 2 Vital Signs (Past 24 Hours): Last Vital Signs Temp 36.8 C 02/11/18 04:52 Pulse 88 02/11/18 08:00 Resp 20 02/11/18 04:52 BP 124/75 02/11/18 04:52 Pulse Ox 97 02/11/18 04:52 Constitutional: + obese Eyes: PERRL, conjunctivae normal, anicteric sclerae Neck: trachea midline, no thyromegaly Respiratory: normal respiratory effort, lungs clear to auscultation Cardiovascular: Rate/Rhythm: + tachycardic Extremities: + edema (trace pretibial pitting edema bilaterally) Gastrointestinal (Abdomen): normal bowel sounds, soft, nontender, no hepatosplenomegaly Skin: + ulcer (nonhealing ulcer dorsum R foot) Results & Data Laboratory Results Laboratory Tests 02/07/18 02/10/18 02/11/18 17:41 05:58 06:13 WBC 5.54 Hgb 10.1 L Hct 32.6 L Plt Count 156 Sodium 138 Potassium 4.4 Chloride 105 Carbon Dioxide 27 BUN 29 H Creatinine 1.94 H D Glucose 163 H Calcium 8.5 Magnesium 2.0 Urine Color Yellow Urine Appearance Clear Urine pH 7.5 Ur Specific [place] 1.020 Urine Protein 1+ H Urine Glucose (UA) Negative Urine Ketones Negative Urine Blood Negative Urine Nitrite Negative Urine Bilirubin Negative Urine Urobilinogen Negative _ (1) Anemia Anemia type: iron deficiency Iron deficiency anemia type: unspecified iron deficiency Vitamin B12 deficiency anemia type: Folate deficiency anemia type : Bone marrow failure anemia type: Hemolytic anemia type: Other causes of anemia: Chronic kidney disease stage: Qualified Code(s): D50.9 - Iron deficiency anemia, unspecified
--- NOTE | 2018-02-11 12:11 | Discharge Summary ---
Date of Service February 11, 2018 Admission HPI Per Admitting Provider 82 y/o F Hx diastolic CHF, DM II, chronic AF - Apixaban, chronic anemia, morbid obesity, CKD III. Pt presents with progressive SOB since 2 days prior as a primary complaint. She also developed nausea and had an episode of vomiting today. Family had reported episodes of disorientation or confusion, although she is fully oriented on admission. She denies a productive cough, CP or fevers. It is noted that she was admitted with identical symptoms Additionally, the pt has a nonhealing ulcer on the dorsum of her R foot which has been present for 8 years. There was some concern on a recent visit to her wound clinic that this was worsening as she was told that there was a foul odor emanating from it. PMH: 1) Nonhealing ulcer on dorsum of R foot x 8 years - follows at wound clinic regularly. She states this occured after surgery on the R foot which required hardware placement. 2) Chronic, diastolic CHF 3) DM II 4) Morbidly obese 5) CKD III 6) Chronic AF 7) R pleural effusion - resolved 8) Chronic anemia - baseline Hb 9-10 Surgical: 1) surgery on R foot with hardware placement 2) Appendectomy 3) Hysterectomy Family: Mother - breast CA Father - CHF Social: Quit smoking 1980s Does not drink alcohol Maintains independence Principal Diagnosis Acute on chronic diastolic CHF Discharge Exam Constitutional WD/WN, vitals as above + morbidly obese Eyes PERRL, conjunctivae normal, anicteric sclerae ENMT external ear and nose normal, oropharynx normal Neck trachea midline, no thyromegaly Respiratory normal respiratory effort, lungs clear to auscultation Cardiovascular Rate/Rhythm: regular rate; + abnormal rhythm (Irregularly irregular) Heart Sounds: no murmur Extremities: + edema (Has 1+ pitting edema in the right leg and trace pitting edema in the left leg) Gastrointestinal (Abdomen) normal bowel sounds, soft, nontender, no hepatosplenomegaly Musculoskeletal Extremities: extremities normal to inspection; no cyanosis and no clubbing Skin + ulcer (On right foot-,+granulation tissue, no surrounding erythema, scant drainage) Neurologic moves all extremities and awake; no focal motor deficits Psychiatric A+Ox3, euthymic affect Discharge Data Allergies Allergy/AdvReac Type Severity Reaction Status Date / Time carbamazepine Allergy Intermediate HIVES Verified 02/15/18 16:05 external allergies Allergy Unknown Unknown Uncoded 02/15/18 16:05 Consultations Nephrology Ordered Studies 02/07/18 15:54 CT head/brain wo con Stat CXR/Abdomen xray Hospital Course (1) CHF exacerbation: This patient is an 82 y/o F Hx chronic diastolic CHF, DM II, chronic AF - Apixaban, chronic anemia, morbid obesity, CKD III. Pt presents with progressive SOB since 2 days prior as a primary complaint. She also developed nausea and had an episode of vomiting, as well as diarrhea. Family had reported episodes of disorientation or confusion, although she is fully oriented on admission. She denies a productive cough, CP or fevers. Patient reports similar episodes with exacerbations of her gastroparesis. Additionally, the pt has a nonhealing ulcer on the dorsum of her R foot which has been present for 8 years. There was some concern on a recent visit to her wound clinic that this was worsening as she was told that there was a foul odor emanating from it. Acute on chronic diastolic CHF exacerbation - placed on IV Lasix - 40mg IV TID initially and then down to 40mg IV bid, but with rising creatinine, was converted back to p.o. Lasix She initially had diuresed 1.4 kg of body weight with improvement in her symptoms. But then since stopping Lasix, her weight is back up higher actually than her admission weight and her net I's and O's are positive. Overall symptomatically improved on day of discharge -Continue daily weights at home -restart p.o. Lasix after being held for rising access specialist (2) Anemia: Normocytic, likely anemia of chronic disease. Does have very borderline iron deficiency anemia, but B12 is 451, folate normal 8.2, TSH normal at 1.78. Ferritin is low normal at 31, transferrin saturation is low at 10%, serum iron is low normal at 45 and TIBC is high normal at 410 Hemoglobin at baseline at 10.1 -Awaiting Hemoccult stool-no sample given prior to dc -Will not treat with supplemental iron at this time as this may exacerbate her GI issues (3) Diarrhea: Consistently occurs with her history of gastroparesis flare ups which seems odd but is what she reports. Now resolved (4) Diabetic foot ulcer: Wound culture was collected upon admission is growing coagulase-negative staph It does not appear overtly infected at this time when comparing to previous pictures, there is no surrounding cellulitis She has had this ulcer for 8 years. She has been followed by infectious disease and been on antibiotics many times in the past. -Was initially placed on vancomycin IV I discussed the case with infectious disease who knows her very well for further opinion about if should continue on abx-Dr. Reed is okay with a short course of doxycycline to finish after discharge No systemic symptoms consistent with sepsis or infection. -Continue doxycycline 100 mg p.o. twice daily x3 more days. (5) Diabetic peripheral neuropathy associated with type 2 diabetes mellitus: Glucose here is fairly well controlled but still with some hyperglycemia. She is on extremely high doses of insulin as an outpatient with Tresiba 150 units every night and NovoLog 40 units for breakfast and 35 units for lunch. Patient reports that she eats a lot of "junk" at home. -received SIGNIFICANTLY lower doses of insulin while hospitalized (less than half her home dose)--> advised to restart home insulin at half the dose on the day of discharge and slowly increase every 2 days as needed for AM glucose rising and to call Endocrine for advice after discharge -Continue Lyrica 100 mg twice daily (6) Hypomagnesemia: Replaced and now resolved (7) Hypokalemia: Secondary to IV Lasix and GI losses now resolved (8) Acute metabolic encephalopathy: Secondary to nausea and vomiting, gastroparesis exacerbation as per patient, frequent occurrence in the past Also could be due to intermittent hypoxia as she was found to have nocturnal hypoxia and goes down to 89% with wheeling her wheelchair around -Home O2 will be ordered -Now resolved (9) FLAVIO (acute kidney injury): With creatinine peaking at 2.29, likely secondary to IV Lasix use. Then improved to 1.9 on day of dc She is making urine -held Lasix but ok to restart on dc -held Celebrex -Holding potassium supplement -Consult her steel handler, Dr. Mcdermott, for further evaluation and recommendations- appreciated--> f/u as outpt (10) CKD (chronic kidney disease) stage 3, GFR 30-59 ml/min: Creatinine around baseline of 1.3 -Avoid nephrotoxins -Renally dose all medications when necessary -avoid NSAIDs if possible-she says she must have her Celebrex but would be best if she did not take this (11) Gastroparesis: As per patient report, has seen GI in the past, normally does okay, is not on Reglan. tolerating ADA diet (12) Hypothyroidism: TSH here is normal at 1.78 -Continue home levothyroxine 50 mcg daily (13) Hyperlipidemia: Noted in chart but not on medication for this (14) Restless leg syndrome: Continue Mirapex (15) Depression: Continue home sertraline (16) Acute respiratory failure with hypoxia: POx down to 87-89% on RA at times but then improved by day of discharge. Could be from CHF, underlying chronic lung disease, JAMAL With overnight oximetry with longest consecutive time less than 88% was about 22 minutes. She does qualify for nocturnal O2 and should be worn at 2 L nasal cannula every night A two-step respiratory 6-minute wheelchair test performed here with the patient rolling her own wheelchair showed the lowest she dropped was 89%, she does not qualify for daytime oxygen at this time -Case management is aware and arrangements will be made for home O2 to be delivered to her house for nocturnal use -It is recommended that she have formal sleep study as an outpatient, however patient is declining as she states that she would never use a CPAP machine due to severe claustrophobia (17) Persistent atrial fibrillation: Fairly well rate controlled with Metoprolol, anticoag with Apixaban but lowered the dose to 2.5 mg p.o. twice daily for renal dosing given access specialist>1.5 and age = 82 (18) DVT prophylaxis: Eliquis Disposition-stable for dc to home Total Time Total Time Spent Total Time Spent (In Minutes): >30 min Total Time Includes: Examination of the Patient, Discharge Planning, Medication Reconciliation and Communication With Other Providers (Nephrology) Discharge Plan Discharge Items Patient Disposition: Home - Home Health Services Reason For Visit: SOB,N/V Discharge Diagnosis: Nausea/vomiting/Diarrhea, Acute on chronic diastolic CHF, Sleep apnea Condition: Good Discharge Goals: Diagnostic testing, Improve disease control, Prevent disease and Therapeutic intervention Activity: Resume your previous activity Lifting: Gradually increase as tolerated Bathing: No limitations Exercise/Sports: Gradually increase as tolerated Non-emergency contact: Primary Care Provider and Veterinary Surgeon Call non-emergency contact if: you have any medication questions, your symptoms worsen, your temperature is above 101, your wound has increased redness, your wound has increased drainage and your wound pain has increased Follow-up/Referrals: Uri Plascencia III, MD [Primary Care Provider] - 02/20/18 1:50 pm (Please, follow up with Dr. Plascencia on SundayFebruary 20 at 1:50 pm. *If you need to change this appointment, call the office at [phone].) Chuck Mcdermott, [Physician] - 02/12/18 2:45 pm (Please, follow up at [facility] Nephrology Office with Dr. Mcdermott on SundayFebruary 12 at 2:45 pm. *If you need to change this appointment, call the office at [phone].) Diet: Carb Consistent or DM2 and Heart Healthy Addtl Provider Instructions: You were admitted with nause/vomiting/diarrhea and confusion. You were also teated for congestive heart failure. Your GI symptoms resolved and you were tolerating regular food. You were given IV lasix and lost fluid weight, but then your kidney function worsened slightly. It was better on the day of discharge. Please follow upwith your Veterinary Surgeon as scheduled for you. You required MUCH LESS insulin while you were in the hospital due to eating a low carbohydrate diet. When you go home, please only take Tresiba 50 units tonight (02/11/18) and then tomorrow you can increase the dose slowly each day until your blood glucose is controlled. Please call your Endocrinology office for further instructions on how to increase your insulin doses. Please take 3 more days of doxycycline as an antibiotic for your foot ulcer and follow up with the Wound Care clinic. You were also found to have low oxygen levels when you sleep and home oxygen for nighttime use was ordered/delivered to your home. Please use 2 liters via nasal cannula every night and with naps during the daytime to prevent you from having low oxygen levels. Please follow up with your PCP within 1-2 weeks as scheduled for you. Prescriptions: New doxycycline hyclate 100 mg Capsule 100 mg PO BID Qty: 6 RF: 0 Continue celecoxib [Celebrex] 200 mg capsule 200 mg PO BID RF: 0 insulin aspart U-100 [Novolog Flexpen U-100 Insulin] 100 unit/mL insulin pen See Patient Comments SQ DAILY RF: 0 metoprolol succinate 100 mg capsule,sprinkle,ER 24hr 100 mg PO DAILY RF: 0 pramipexole 0.125 mg tablet 0.125 mg PO HS RF: 0 pregabalin [Lyrica] 100 mg capsule 100 mg PO BID RF: 0 zafirlukast [Accolate] 20 mg tablet 20 mg PO BID RF: 0 ondansetron HCl [Zofran] 4 mg tablet 4 mg PO QID PRN (Reason: nausea and vomiting) RF: 0 levothyroxine [Synthroid] 50 mcg tablet 50 mcg PO DAILY RF: 0 omeprazole 20 mg capsule,delayed release(DR/EC) 20 mg PO DAILY RF: 0 sertraline [Zoloft] 50 mg tablet 50 mg PO DAILY RF: 0 tramadol 50 mg Tablet 50 mg PO Q6H PRN (Reason: Pain) RF: 0 docusate sodium 100 mg Capsule 100 mg PO BID RF: 0 ergocalciferol (vitamin D2) [Vitamin D2] 50,000 unit Capsule 50,000 unit PO WK RF: 0 Changed furosemide [Lasix] 40 mg Tablet 80 mg PO QAM Qty: 0 RF: 0 apixaban [Eliquis] 5 mg tablet 2.5 mg PO BID Qty: 0 RF: 0 insulin degludec [Tresiba FlexTouch U-200] 200 unit/mL (3 mL) insulin pen 50 units subcut HS Qty: 0 RF: 0 No Action metoclopramide HCl [Reglan] 10 mg tablet 10 mg PO BID PRN (Reason: Nausea) Qty: 12 RF: 0 Stand-Alone Forms: [facility] Discharge Orders: Discharge Order (Routine); Ordered 02/11/18 Ordered By: Annamarie Burciaga Admission Data Admit Date/Time: 02/08/18 21:03 Attending Provider: Annamarie Burciaga Admit Provider: Michael Yo Primary Care Provider: Uri Plascencia III Other Providers: Preston Oneil Service: Telemetry Other Interventions: Discharge Summary Assessment (RN) Last Done: 02/11/18 12:13 DC Date/Time DO NOT enter until pt leaves facility: 02/11/18 15:56
== END 2018-02-11 15:56 | disposition home health service (06) ==
LOC: 2N 13:39 → ED 13:39 → SUATTDRO 20:11 → 2N 21:34

== ENCOUNTER 2018-07-05 12:07 | Inpatient (IN) ==
--- NOTE | 2018-07-05 12:50 | XRay Report ---
XR chest 1V portable CLINICAL HISTORY: Chest Pain dyspnea COMPARISON STUDY: 06/09/2018 FINDINGS: Moderate cardiomegaly. Diaphragms are smooth. Slight prominence of pulmonary vasculature wi th Baseline reticular nodular changes bilaterally. IMPRESSION: Cardiomegaly with findings of early congestive failure. The above report was generated using voice recognition software. It may contain grammatical, syntax or spelling errors. Electronically signed by: Kirit Leblanc M.D. 07/05/2018 12:49 PM
[2018-07-05 13:36] LABS: Alanine Aminotransferase 32 U/L (12-78); Albumin Level 3.4 gm/dl (3.4-5.0); Aspartate Aminotransferase 35 U/L (15-37); BUN Creatinine Ratio 28.2 (10-20); Blood Urea Nitrogen 54 mg/dl (7-18); Calcium 8.6 mg/dl (8.5-10.1); Carbon Dioxide 26 mmol/L (21-32); Chloride 104 mmol/L (98-107); Creatinine Clr Calc Pharmacy 28.9 ml/min; Est GFR (African American) 28.2; Est GFR (Non-African American) 24.3; Glucose 43 mg/dl (70-99); Magnesium 2.1 mg/dl (1.8-2.4); Phosphorus 4.2 mg/dl (2.5-4.9); Potassium 4.3 mmol/L (3.5-5.1); Sodium 139 mmol/L (136-145)
[2018-07-05 13:37] LABS: Albumin Globulin Ratio 0.8 (0.9-2); Alkaline Phosphatase 86 U/L (45-117); Bilirubin,Total 0.6 mg/dl (0.2-1); NT Pro B Type Natriuretic Pept 2847 pg/ml (0-1800); Total Protein 7.4 gm/dl (6.4-8.2); Troponin I < 0.015 ng/ml (0-0.045)
[2018-07-05 13:44] LABS: Basophils # (auto) 0.01 K/uL (0-0.2); Basophils % (auto) 0.2 %; Eosinophils # (auto) 0.11 K/uL (0-0.5); Eosinophils % (auto) 2.2 %; Hematocrit (blood only) 28.6 % (37-47); Hemoglobin 8.7 g/dL (12.0-16.0); Immature Granulocytes # (auto) 0.03 K/uL (0.00-0.02); Immature Granulocytes % (auto) 0.6 %; Lymphocytes # (auto) 0.79 K/uL (1.2-3.4); Mean Corpuscular Hgb Conc 30.4 g/dL (32-36); Mean Corpuscular Volume 89.1 fL (80-100); Mean Platelet Volume 12.1 fL (7.4-10.4); Monocytes % (auto) 6.1 %; Neutrophils % (auto) 74.9 %; Ovalocytes 1+; Platelet Count 108 K/uL (130-400); Platelet Estimate Decreased (Normal); Polychromasia 1+; RDW Coefficient of Variation 18.7 % (11.5-14.5); RDW Standard Deviation 59.7 fL (36.4-46.3); Red Blood Count 3.21 M/uL (4.2-5.4); White Blood Count 4.94 K/uL (4.8-10.8)
[2018-07-05] MEDS ORDERED: FUROSEMIDE 80 MG in SYRINGE 0 ML IV STA (14:27)
[2018-07-05] MEDS ORDERED: FUROSEMIDE 40 MG/4 ML VIAL IV ONE (14:44)
[2018-07-05] MEDS ORDERED: ONDANSETRON INJ 2 MG/ML 2 ML VIAL IV PRN (17:20)
[2018-07-05] MEDS ORDERED: METOCLOPRAMIDE HCL 10 MG TABLET PO PRN (17:20)
[2018-07-05] MEDS: INSULIN ASPART 100 UNITS/ML 3 ML PEN SC SCH ×2 (17:44→20:14)
--- NOTE | 2018-07-05 18:48 | Emergency Department Note ---
Entered by Rosaura Lockett acting as a scribe for History of Present Illness General Chief complaint: Referred by Doctor Stated complaint: BREATHING IS BAD, LIPS TURNED BLUE Time Seen by Provider: 07/05/18 12:36 Source: patient Mode of arrival: ambulatory Limitations: no limitations History of Present Illness Provider complaint: Weight gain Onset (ago): week(s) (about a week ago) Pain Consistency: + other (worsening) Quality: + other (weight gain) Relieved By: + none Associated symptoms: + cough, + shortness of breath and + other (Additional symptoms: hypoxia. Denies: congestion); no chest pain and no fever/chills Treatments prior to arrival: none The patient is an 82 year old female with a history of diabetes, CHF, GERD, atrial fibrillation, hypertension, asthma, and gastroparesis who presents to the Emergency Room with complaints of worsening weight gain starting about a week ago. The patient reports that she was at the wound clinic for her right foot ulcer when her doctor expressed concern for her 15 lb weight gain over the past week. She states that this 15 lb is presumably water weight. She notes that she has been taking her Lasix as prescribed but concedes that has not been following a low-salt diet. The patient further complains of a cough and shortness of breath. She notes that she usually only wears oxygen at night but has had to use it during the day today because her manager trade marketing noticed some blue coloration around her lips. She denies any chest pain, fevers, chills, and congestion. She states that her right leg swelling is secondary to her foot ulcer. Home Medications Home Medications Medication Instructions Recorded Confirmed Type celecoxib 200 mg capsule 200 mg PO BID 10/05/17 07/05/18 History insulin aspart (U-100) 100 unit/mL 30 unit SQ TIDM ml 10/05/17 07/05/18 History (3 mL) subcutaneous pen metoprolol succinate ER 100 mg 100 mg PO QAM 10/05/17 07/05/18 History capsule sprinkle, ext. release 24 hr pramipexole 0.125 mg tablet 0.125 mg PO HS tab 10/05/17 07/05/18 History pregabalin 100 mg capsule 100 mg PO BID 10/05/17 07/05/18 History zafirlukast 20 mg tablet 20 mg PO BID tab 10/05/17 07/05/18 History ondansetron HCl 4 mg tablet 4 mg PO QID PRN 10/12/17 07/05/18 History docusate sodium 100 mg PO BID 02/07/18 07/05/18 History sertraline [Zoloft] 50 mg PO QAM 02/07/18 07/05/18 History tramadol 50 mg PO Q6H PRN 02/07/18 07/05/18 History apixaban [Eliquis] 2.5 mg PO BID #0 tab 02/11/18 07/05/18 Rx furosemide [Lasix] 80 mg PO QAM #0 tab 02/11/18 07/05/18 Rx insulin degludec [Tresiba 50 units SUBCUT HS #0 ml 02/11/18 07/05/18 Rx FlexTouch U-200] metoclopramide HCl [Reglan] 10 mg PO BID PRN #12 tab 02/15/18 07/05/18 Rx levothyroxine 75 mcg PO QAM 07/05/18 07/05/18 History Allergies Allergy/AdvReac Type Severity Reaction Status Date / Time carbamazepine Allergy Intermediate HIVES Verified 07/05/18 13:37 external allergies Allergy Unknown Unknown Uncoded 07/05/18 13:37 Past Med/Surg History Medical History Shortness of breath (Chronic) Altered mental status (Chronic) 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) Symptomatic anemia (Chronic) Sciatica (Chronic) GERD (gastroesophageal reflux disease) (Chronic) DM II (diabetes mellitus, type II), controlled (Chronic) Atrial fibrillation, chronic (Chronic) Osteomyelitis (Chronic) CHF (congestive heart failure) (Chronic) Benign hypertension (Chronic) Depression (Chronic) Asthma (Chronic) Nausea (Chronic) CKD (chronic kidney disease) stage 3, GFR 30-59 ml/min Chronic atrial fibrillation CHF exacerbation (Acute) Surgical wound, non healing (Acute) Confusion and disorientation Memory loss due to medical condition Symptomatic anemia Hemorrhoidectomy (Resolved 06/06/12) Osteomyelitis (Chronic 06/06/12) CHF (congestive heart failure) Anemia (Resolved) Diarrhea Nausea Pericardial effusion Loss of sensation Diabetic foot ulcer (Acute) Diabetic peripheral neuropathy associated with type 2 diabetes mellitus Altered mental status Shortness of breath Diabetic foot ulcer (Chronic) Diabetic peripheral neuropathy (Chronic) Diarrhea (Chronic) Loss of sensation (Chronic) Pericardial effusion (Chronic) Gastroparesis Family History Other Diabetes Dyslipidemia Hypertension Social History Preferred Language: Sinhala Communication Ability: Effective Visual Impairment: No Limitations Hearing Ability: Normal 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 and A total of 10 systems reviewed and were otherwise negative Physical Exam Vital Signs Vital Signs - 24 hr 07/05/18 12:15 07/05/18 12:42 07/05/18 12:49 Temperature 36.4 C L Temperature Source Oral Sepsis Recent Fever Within 48 Hours No Sepsis Action Taken by Nursing No Action Required Pulse Rate 96 H 80 Pulse Rate [Apical] Pulse Rate from SpO2 Sensor 84 Pulse Rhythm [Apical] Pulse Strength [Apical] Respiratory Rate 22 14 Respiratory Effort / Characteristics Non-Labored Spontaneous Respiratory Depth Normal Respiratory Pattern Blood Pressure 133/72 123/73 Blood Pressure [Left Arm] Blood Pressure Mean 92 89 Blood Pressure Mean [Left Arm] Blood Pressure Position Sitting Pulse Oximetry 92 95 97 Oxygen Delivery Method Room Air Nasal Cannula Nasal Cannula Oxygen Flow Rate 2 2 07/05/18 12:50 07/05/18 13:00 07/05/18 13:10 Temperature Temperature Source Sepsis Recent Fever Within 48 Hours Sepsis Action Taken by Nursing Pulse Rate 82 89 Pulse Rate [Apical] Pulse Rate from SpO2 Sensor 80 83 Pulse Rhythm [Apical] Pulse Strength [Apical] Respiratory Rate 14 15 Respiratory Effort / Characteristics Respiratory Depth Respiratory Pattern Blood Pressure 112/83 Blood Pressure [Left Arm] Blood Pressure Mean 92 Blood Pressure Mean [Left Arm] Blood Pressure Position Pulse Oximetry 96 91 97 Oxygen Delivery Method Nasal Cannula Oxygen Flow Rate 2 07/05/18 13:20 07/05/18 13:30 07/05/18 13:31 Temperature Temperature Source Sepsis Recent Fever Within 48 Hours Sepsis Action Taken by Nursing Pulse Rate 90 77 77 Pulse Rate [Apical] Pulse Rate from SpO2 Sensor 89 79 77 Pulse Rhythm [Apical] Pulse Strength [Apical] Respiratory Rate 17 17 22 Respiratory Effort / Characteristics Respiratory Depth Respiratory Pattern Blood Pressure 178/88 H Blood Pressure [Left Arm] Blood Pressure Mean 118 Blood Pressure Mean [Left Arm] Blood Pressure Position Pulse Oximetry 98 96 96 Oxygen Delivery Method Oxygen Flow Rate 07/05/18 13:40 07/05/18 13:50 07/05/18 14:00 Temperature Temperature Source Sepsis Recent Fever Within 48 Hours Sepsis Action Taken by Nursing Pulse Rate 76 87 101 H Pulse Rate [Apical] Pulse Rate from SpO2 Sensor 79 88 95 H Pulse Rhythm [Apical] Pulse Strength [Apical] Respiratory Rate 20 16 16 Respiratory Effort / Characteristics Respiratory Depth Respiratory Pattern Blood Pressure Blood Pressure [Left Arm] Blood Pressure Mean Blood Pressure Mean [Left Arm] Blood Pressure Position Pulse Oximetry 94 97 100 Oxygen Delivery Method Oxygen Flow Rate 07/05/18 14:07 07/05/18 14:10 07/05/18 14:20 Temperature Temperature Source Sepsis Recent Fever Within 48 Hours Sepsis Action Taken by Nursing Pulse Rate 91 H 91 H Pulse Rate [Apical] 85 Pulse Rate from SpO2 Sensor 88 88 Pulse Rhythm [Apical] Pulse Strength [Apical] Respiratory Rate 16 18 24 Respiratory Effort / Characteristics Respiratory Depth Respiratory Pattern Blood Pressure Blood Pressure [Left Arm] 112/86 Blood Pressure Mean Blood Pressure Mean [Left Arm] 94 Blood Pressure Position Pulse Oximetry 98 94 100 Oxygen Delivery Method Nasal Cannula Oxygen Flow Rate 2 07/05/18 14:30 07/05/18 14:31 07/05/18 14:40 Temperature Temperature Source Sepsis Recent Fever Within 48 Hours Sepsis Action Taken by Nursing Pulse Rate 90 Pulse Rate [Apical] Pulse Rate from SpO2 Sensor 93 H 91 H 94 H Pulse Rhythm [Apical] Pulse Strength [Apical] Respiratory Rate 18 17 18 Respiratory Effort / Characteristics Respiratory Depth Respiratory Pattern Blood Pressure 112/86 Blood Pressure [Left Arm] Blood Pressure Mean 94 Blood Pressure Mean [Left Arm] Blood Pressure Position Pulse Oximetry 99 100 100 Oxygen Delivery Method Oxygen Flow Rate 07/05/18 14:50 07/05/18 14:55 07/05/18 15:00 Temperature Temperature Source Sepsis Recent Fever Within 48 Hours Sepsis Action Taken by Nursing Pulse Rate 89 91 H Pulse Rate [Apical] Pulse Rate from SpO2 Sensor 83 92 H 94 H Pulse Rhythm [Apical] Pulse Strength [Apical] Respiratory Rate 15 20 13 Respiratory Effort / Characteristics Respiratory Depth Respiratory Pattern Blood Pressure 132/80 Blood Pressure [Left Arm] Blood Pressure Mean 97 Blood Pressure Mean [Left Arm] Blood Pressure Position Pulse Oximetry 94 99 99 Oxygen Delivery Method Oxygen Flow Rate 07/05/18 15:01 07/05/18 15:19 07/05/18 15:20 Temperature Temperature Source Sepsis Recent Fever Within 48 Hours Sepsis Action Taken by Nursing Pulse Rate 88 94 H 95 H Pulse Rate [Apical] Pulse Rate from SpO2 Sensor 87 97 H 99 H Pulse Rhythm [Apical] Pulse Strength [Apical] Respiratory Rate 17 24 15 Respiratory Effort / Characteristics Respiratory Depth Respiratory Pattern Blood Pressure 156/78 H Blood Pressure [Left Arm] Blood Pressure Mean 104 Blood Pressure Mean [Left Arm] Blood Pressure Position Pulse Oximetry 100 92 91 Oxygen Delivery Method Oxygen Flow Rate 07/05/18 15:30 07/05/18 15:32 07/05/18 15:40 Temperature Temperature Source Sepsis Recent Fever Within 48 Hours Sepsis Action Taken by Nursing Pulse Rate 87 87 85 Pulse Rate [Apical] Pulse Rate from SpO2 Sensor 81 93 H 88 Pulse Rhythm [Apical] Pulse Strength [Apical] Respiratory Rate 15 15 14 Respiratory Effort / Characteristics Respiratory Depth Respiratory Pattern Blood Pressure 102/60 Blood Pressure [Left Arm] Blood Pressure Mean 74 Blood Pressure Mean [Left Arm] Blood Pressure Position Pulse Oximetry 100 90 99 Oxygen Delivery Method Oxygen Flow Rate 07/05/18 15:44 07/05/18 15:50 Temperature 36.6 C Temperature Source Oral Sepsis Recent Fever Within 48 Hours Sepsis Action Taken by Nursing Pulse Rate 99 H Pulse Rate [Apical] 82 Pulse Rate from SpO2 Sensor 91 H Pulse Rhythm [Apical] Irregular Pulse Strength [Apical] Normal Respiratory Rate 18 18 Respiratory Effort / Characteristics Non-Labored Spontaneous Respiratory Depth Normal Respiratory Pattern Regular Blood Pressure Blood Pressure [Left Arm] Blood Pressure Mean Blood Pressure Mean [Left Arm] Blood Pressure Position Pulse Oximetry 96 91 Oxygen Delivery Method Nasal Cannula Oxygen Flow Rate 2 GENERAL: Awake, alert, chronically ill-appearing, in no distress. BMI is 45.3 kg/m^2. HENT: Normocephalic, atraumatic. Oropharynx unremarkable. EYES: Normal conjunctiva. Sclera non-icteric. NECK: Supple. No nuchal rigidity. FROM. No JVD. RESPIRATORY: Diminished breath sounds throughout. CARDIAC: Regular rate, normal rhythm. Extremities warm and well perfused. Pulses equal. ABDOMEN: Soft, non-distended. No tenderness to palpation. No rebound or guarding. No masses. RECTAL: Deferred. MUSCULOSKELETAL: Chest examination reveals no tenderness. The back is symmetrical on inspection without obvious abnormality. There is no CVA tenderness to palpation. No joint edema. LOWER EXTREMITIES: Calves are equal size bilaterally and non-tender. No discoloration. 3+ bilateral lower extremity pitting edema. NEURO: Normal sensorium. No sensory or motor deficits noted. SKIN: No rash or jaundice noted. Course 1238: The patient was evaluated in room B2, and a complete history and physical examination were performed. 1533: I reviewed the patient's case with Dr. Ni - Miriam, Senia Holman . Dr. Ni will evaluate the patient for further management. Consultations Consultation #1: I reviewed the patient's case with Dr. Ni - Miriam, Senia Holman. Dr. Ni will evaluate the patient for further management. Time: 15:33 Administered Medications Apixaban (Eliquis) 2.5 mg PO BID ANTONIO Stop: 08/04/18 20:59 Last Admin: 07/05/18 20:14 Dose: 2.5 mg Documented by: [id number] Docusate Sodium (Colace) 100 mg PO BID ANTONIO Stop: 08/04/18 20:59 Last Admin: 07/05/18 20:13 Dose: 100 mg Documented by: [id number] Insulin Aspart (Novolog Flexpen) 0 units SC ACHS ANTONIO Stop: 08/04/18 17:19 Last Admin: 07/05/18 20:14 Dose: Not Given Documented by: [id number] Cosigned by: [id number] Admin: 07/05/18 17:44 Dose: Not Given Documented by: [id number] Cosigned by: [id number] Miscellaneous (Order Awaiting Action) 1 ea N/A QS ANTONIO Stop: 08/05/18 00:00 Last Admin: 07/06/18 00:15 Dose: Not Given Documented by: [id number] Pramipexole Dihydrochloride (Mirapex) 0.125 mg PO HS ANTONIO Stop: 08/04/18 20:59 Last Admin: 07/05/18 20:14 Dose: 0.125 mg Documented by: [id number] Pregabalin (Lyrica) 100 mg PO BID ANTONIO Stop: 08/04/18 20:59 Last Admin: 07/05/18 20:19 Dose: 100 mg Documented by: [id number] Discontinued Medications Furosemide (Lasix) Confirm Administered Dose 80 mg IV .STK-MED ONE Stop: 07/05/18 14:45 Last Admin: 07/05/18 14:49 Dose: 80 mg Documented by: [id number] Furosemide 80 mg/ Syringe 8 mls @ 4 mls/min IV NOW STA Stop: 07/05/18 14:28 Last Admin: 07/05/18 14:51 Dose: 4 mls/min Documented by: [id number] Medical Decision Making Differential Diagnosis Differential diagnosis: Etiologies such as infections, reactive airway disease, pneumonia, pneumothorax, COPD, CHF, cardiac ischemia, pulmonary embolism, musculoskeletal, gastrointestinal, as well as others were entertained. Medical Records Attestation: I reviewed the patient's medical records. Home Medications Current Medication List: was personally reviewed by me Laboratory Data Attestation: I reviewed the patient's lab results. Result diagrams: 07/05/18 12:57 07/05/18 12:57 Lab Results 07/05/18 07/05/18 07/05/18 Range/Units 12:57 12:57 14:14 WBC 4.94 (4.8-10.8) K/uL RBC 3.21 L (4.2-5.4) M/uL Hgb 8.7 L (12.0-16.0) g/dL Hct 28.6 L (37-47) % MCV 89.1 (80-100) fL MCH 27.1 (25-34) pg MCHC 30.4 L (32-36) g/dL RDW Std Deviation 59.7 H (36.4-46.3) fL RDW Coeff of Quirino 18.7 H (11.5-14.5) % Plt Count 108 L (130-400) K/uL MPV 12.1 H (7.4-10.4) fL Immature Gran % (Auto) 0.6 % Neut % (Auto) 74.9 % Lymph % (Auto) 16.0 % [place] % (Auto) 6.1 % Eos % (Auto) 2.2 % Baso % (Auto) 0.2 % Immature Gran # (Auto) 0.03 H (0.00-0.02) K/uL Neut # (Auto) 3.70 (1.4-6.5) K/uL Lymph # (Auto) 0.79 L (1.2-3.4) K/uL [place] # (Auto) 0.30 (0.11-0.59) K/uL Eos # (Auto) 0.11 (0-0.5) K/uL Baso # (Auto) 0.01 (0-0.2) K/uL Platelet Estimate Decreased L (Normal) Polychromasia 1+ Ovalocytes 1+ Sodium 139 (136-145) mmol/L Potassium 4.3 (3.5-5.1) mmol/L Chloride 104 (98-107) mmol/L Carbon Dioxide 26 (21-32) mmol/L Anion Gap 10.0 (3-11) BUN 54 H (7-18) mg/dl Creatinine 1.91 H (0.6-1.2) mg/dl Est Cr Clr Drug Dosing 28.9 ml/min Est GFR ( Amer) 28.2 Est GFR (Non-Af Amer) 24.3 BUN/Creatinine Ratio 28.2 H (10-20) Glucose 43 L* (70-99) mg/dl POC Glucose 94 (70-99) Calcium 8.6 (8.5-10.1) mg/dl Phosphorus 4.2 (2.5-4.9) mg/dl Magnesium 2.1 (1.8-2.4) mg/dl Total Bilirubin 0.6 (0.2-1) mg/dl AST 35 (15-37) U/L ALT 32 (12-78) U/L Alkaline Phosphatase 86 (45-117) U/L Troponin I < 0.015 (0-0.045) ng/ml NT-Pro-B Natriuret Pep 2847 H (0-1800) pg/ml Total Protein 7.4 (6.4-8.2) gm/dl Albumin 3.4 (3.4-5.0) gm/dl Globulin 4.0 (2.5-4.0) gm/dl Albumin/Globulin Ratio 0.8 L (0.9-2) Lipase 64 L (73-393) U/L Imaging Data Radiologist's Impression: Radiology results as stated below per my review and th e radiologist's interpretation: XR chest 1V portable CLINICAL HISTORY: Chest Pain dyspnea COMPARISON STUDY: 06/09/2018 FINDINGS: Moderate cardiomegaly. Diaphragms are smooth. Slight prominence of pulmonary vasculature with Baseline reticular nodular changes bilaterally. IMPRESSION: Cardiomegaly with findings of early congestive failure. The above report was generated using voice recognition software. It may contain grammatical, syntax or spelling errors. Electronically signed by: Kirit Leblanc M.D. 07/05/2018 12:49 PM ECG Data Attestation: I personally reviewed and interpreted this ECG as follows: Indication: other (weight gain) Rate (beats per minute): 92 Rhythm: atrial fibrillation Findings: + other (normal axis); no acute ischemic change Comparison ECG Date: from (June 2018) Change: no significant change Blood Pressure Blood Pressure Findings: Normal blood pressure MDM Narrative The patient is a 82 y/o woman with a pmhx of CHF, CKD, afib on Eliquis who presents to the emergency department with SOB and associated 15lb weight gain over the past week per HPI. Patient was seen at wound clinic today for chronic right dorasol foot wound and was sent to ED for evaluation given weight gain and sob. Patient admits to not maintain and low salt diet. On arrival the patient is in NAD, AFVSS. Patient appears fluid overloaded with diminished BS and 2+ BLE edema. EKG shows afib similar to prior. CXR with early CHF. WBC wnl. H/H and platelets approximate recent values. Cr. 1.9 within patient's recent range of values in setting of CKD. Glucose 43 improved to 90s after juice. Chemistry without acidosis. LFTs unremarkable. Troponin negative. BNP 2800 increased from normal range in February. Given the patient's significant fluid overload with 15lbs of weight reasonble to admit patient for continue IV diureses. Case d/w Dr. Ni, [facility] hospitalist, who will evaluate the patient for admission. Impression & Plan CHF exacerbation Discharge Plan Visit Data *Final* Discharge Date/Time: 07/05/18 16:18 Chief Complaint: Referred by Doctor Stated Complaint: BREATHING IS BAD, LIPS TURNED BLUE ED Provider: Elio Desouza Discharge Problem: CHF exacerbation Patient Disposition: Admitted As Inpatient Discharge Instructions Interventions: ED Discharge Assessment Last Done: 07/05/18 16:18 Discharge Problem: CHF exacerbation Qualifiers: Heart failure type: unspecified Qualified Code(s): I50.9 - Heart failure, unspecified The scribe's documentation has been prepared under my direction and personally reviewed by me in its entirety. I confirm that the note above accurately reflects all work, treatment, procedures, and medical decision making performed by me.
[2018-07-05] MEDS: DOCUSATE SODIUM 100 MG CAP PO SCH (20:13)
[2018-07-05] MEDS: PRAMIPEXOLE DIHYDROCHLO 0.25 MG TAB PO SCH (20:14)
[2018-07-05] MEDS: APIXABAN 2.5 MG TAB PO SCH (20:14)
[2018-07-05] MEDS: PREGABALIN 100 MG CAP PO SCH (20:19)
--- NOTE | 2018-07-05 22:11 | History & Physical Report ---
Date of Service July 05, 2018 Assessment & Plan (1) Acute on chronic heart failure: documented history of diastolic heart failure however, will check echocardiogram to determine if this is diastolic vs systolic vs heart failure with preserved EF per patient she is 15 lbs heavy, will aggressively diurese with Lasix 80mg IV q12, received first dose in the ED place mills for accurate UO as she cannot get up easily due to hip daily weights low sodium diet, fluid restriction to 1500mL repeat BMP in the AM (2) Shortness of breath: mostly dyspnea on exertion, not hypoxia this is due to heart failure and pulmonary edema will treat heart failure (3) DM II (diabetes mellitus, type II), controlled: with some hypoglycemia here in the ED, no symptoms will only place on Novolog SS for time being takes Tresiba 50 units bedtime, hold on this for time being if sugars high tomorrow AM then could add some Lantus (4) Atrial fibrillation, chronic: continue Eliquis for AC continue Toprol for rate control (5) Benign hypertension: BP stable continue on Toprol (6) Hyperlipidemia: no medications listed (7) Hypothyroidism: continue Synthroid (8) Gastroparesis: due to DM takes Reglan chronically (9) CKD (chronic kidney disease) stage 3, GFR 30-59 ml/min: Cr ranges from 1.4 to 1.9 it is 1.9 today watch closely with plans for aggressive diuresis check Cr and electrolytes in the AM mills placed for accurate UO measurement History of Present Illness Chief Complaint: I was feeling short of breath Primary Care Provider: Uri Plascencia MD 82 yo female with history of chronic diastolic heart failure, chronic atrial fibrillation, insulin dependent diabetes and severe osteoarthritis of the right hip, presents today due to increase shortness of breath over the past 2 weeks. She reports that she noticed she was getting a little more winded when transferring from bed to wheelchair. She reports that she is non ambulatory due to severe arthritis in right hip. Cannot get a hip replacement due to chronic open wound on right foot. So her activity level is quite low at baseline. That being said, she normally is not short of breath with transfers. She has progressed to the point now that she is extremely short of breath with transfers. She denies dyspnea at rest but does admit to orthopnea, there is no way she can lay flat, so short of breath. She denies any ongoing angina symptoms. She does admit that she drinks a lot of coffee, 4-5 twelve oz cups and then drinks some water, occasional soda during the day. She does not read how much salt is in her food, eats canned soups, lunch meats, rarely cooks fresh foods. She says that she steps on the scale most days but not every day. Today when she stepped on the scale she could not believe that she was 250 lbs. She says she should be 235 lbs. She says she weighed that a few weeks ago. In the ED her vitals were stable. EKG without ischemic changes. CXR showed some evidence of heart failure. She was given Lasix 80mg IV, she normally takes 80mg PO daily and she reports that she did take it this morning. She says she is compliant with all her medications. She says that she feels her sugars are well controlled at home. Reviewed chart, prior cardiology notes were from 2016 and they would not be brought up. An echo report could not be viewed either. However, in the record it clearly states she had diastolic dysfunction. She thinks it has been some time since her last echocardiogram. Allergies Allergy/AdvReac Type Severity Reaction Status Date / Time carbamazepine Allergy Intermediate HIVES Verified 07/05/18 13:37 external allergies Allergy Unknown Unknown Uncoded 07/05/18 13:37 Home Medications Home Medications Medication Instructions Recorded Confirmed Type celecoxib 200 mg capsule 200 mg PO BID 10/05/17 07/05/18 History insulin aspart (U-100) 100 unit/mL 30 unit SQ TIDM ml 10/05/17 07/05/18 History (3 mL) subcutaneous pen metoprolol succinate ER 100 mg 100 mg PO QAM 10/05/17 07/05/18 History capsule sprinkle, ext. release 24 hr pramipexole 0.125 mg tablet 0.125 mg PO HS tab 10/05/17 07/05/18 History pregabalin 100 mg capsule 100 mg PO BID 10/05/17 07/05/18 History zafirlukast 20 mg tablet 20 mg PO BID tab 10/05/17 07/05/18 History ondansetron HCl 4 mg tablet 4 mg PO QID PRN 10/12/17 07/05/18 History docusate sodium 100 mg PO BID 02/07/18 07/05/18 History sertraline [Zoloft] 50 mg PO QAM 02/07/18 07/05/18 History tramadol 50 mg PO Q6H PRN 02/07/18 07/05/18 History apixaban [Eliquis] 2.5 mg PO BID #0 tab 02/11/18 07/05/18 Rx furosemide [Lasix] 80 mg PO QAM #0 tab 02/11/18 07/05/18 Rx insulin degludec [Tresiba 50 units SUBCUT HS #0 ml 02/11/18 07/05/18 Rx FlexTouch U-200] metoclopramide HCl [Reglan] 10 mg PO BID PRN #12 tab 02/15/18 07/05/18 Rx levothyroxine 75 mcg PO QAM 07/05/18 07/05/18 History Past Med/Surg History Medical History Shortness of breath (Chronic) Altered mental status (Chronic) 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) Symptomatic anemia (Chronic) Sciatica (Chronic) GERD (gastroesophageal reflux disease) (Chronic) DM II (diabetes mellitus, type II), controlled (Chronic) Atrial fibrillation, chronic (Chronic) Osteomyelitis (Chronic) CHF (congestive heart failure) (Chronic) Benign hypertension (Chronic) Depression (Chronic) Asthma (Chronic) Nausea (Chronic) CKD (chronic kidney disease) stage 3, GFR 30-59 ml/min Chronic atrial fibrillation CHF exacerbation (Acute) Surgical wound, non healing (Acute) Confusion and disorientation Memory loss due to medical condition Symptomatic anemia Hemorrhoidectomy (Resolved 06/06/12) Osteomyelitis (Chronic 06/06/12) CHF (congestive heart failure) Anemia (Resolved) Diarrhea Nausea Pericardial effusion Loss of sensation Diabetic foot ulcer (Acute) Diabetic peripheral neuropathy associated with type 2 diabetes mellitus Altered mental status Shortness of breath Diabetic foot ulcer (Chronic) Diabetic peripheral neuropathy (Chronic) Diarrhea (Chronic) Loss of sensation (Chronic) Pericardial effusion (Chronic) Gastroparesis Family History Other Diabetes Dyslipidemia Hypertension Social History Preferred Language: Romansh Communication Ability: Effective Visual Impairment: No Limitations Hearing Ability: Normal Store Planner Required: No Beliefs That Will Affect Care: None marital status: / Current Living Situation: Alone current occupational status: retired Other Information That Helps Us Care for You: No Feels Safe at Home: Yes Safety Concerns: Feels Safe At This Time Smoking Status: Former smoker Do You Dip or Chew Tobacco: No Second Hand Exposure: No Tobacco Cessation Education Requested by Patient: No Hx Alcohol Use: No Hx Substance Use: No Review of Systems 2 Review of Systems: All systems reviewed & are unremarkable except as noted in HPI & below Constitutional: + fatigue and + weakness; no fever, no chills and no sweats Respiratory: + dyspnea and + dyspnea on exertion; no cough, no sputum production and no wheezing Cardiovascular: + dyspnea, + dyspnea on exertion, + orthopnea and + edema; no chest pain, no chest pain at rest, no dyspnea at rest, no palpitations and no syncope Gastrointestinal: + diarrhea/loose stools; no abdominal pain, no nausea, no vomiting and no constipation Genitourinary: no dysuria and no difficulty urinating Integumentary: no rash Physical Exam Constitutional: WD/WN, vitals as above + morbidly obese Eyes: PERRL, conjunctivae normal, anicteric sclerae ENMT: external ear and nose normal, oropharynx normal Neck: trachea midline, no thyromegaly Respiratory: normal respiratory effort; no respiratory distress and no cough Auscultation: + rales (bibasilar); no crackles, no rhonchi and no wheezes Cardiovascular: Rate/Rhythm: regular rate; + abnormal rhythm (irregular irregular) Heart Sounds: normal S1 and normal S2; no murmur Palpation: no thrill Vessels: normal peripheral pulses and normal carotid upstroke; no JVD Extremities: + edema (greater on the right side) Gastrointestinal (Abdomen): normal bowel sounds, soft, nontender, no hepatosplenomegaly Musculoskeletal: no cyanosis or clubbing, extremities motor strength 5/5 Skin: no rashes, warm and dry Neurologic: patellar DTR's 2+ bilat, sensation intact and PERRL, EOMI, accommodation nl, no face palsy, no dysarthria Psychiatric: A+Ox3, euthymic affect Lymphatic: no cervical or axillary lymphadenopathy Results & Data Vital Signs (Past 12 Hours) Vital Signs Temp Pulse Pulse Resp BP BP Pulse Ox 07/05/18 19:13 36.4 C L 83 15 122/76 100 07/05/18 17:20 36.6 C 96 H 18 164/85 H 96 07/05/18 16:10 88 18 94 07/05/18 16:02 81 17 99 07/05/18 16:01 87 19 95/64 L 07/05/18 16:00 87 18 07/05/18 15:50 99 H 18 91 07/05/18 15:44 36.6 C 82 18 96 07/05/18 15:40 85 14 99 07/05/18 15:32 87 15 102/60 90 07/05/18 15:30 87 15 100 07/05/18 15:20 95 H 15 91 07/05/18 15:19 94 H 24 92 07/05/18 15:01 88 17 156/78 H 100 07/05/18 15:00 91 H 13 99 07/05/18 14:55 20 132/80 99 07/05/18 14:50 89 15 94 07/05/18 14:40 18 100 07/05/18 14:31 90 17 112/86 100 07/05/18 14:30 18 99 07/05/18 14:20 91 H 24 100 07/05/18 14:10 91 H 18 94 07/05/18 14:07 85 16 112/86 98 07/05/18 14:00 101 H 16 100 07/05/18 13:50 87 16 97 07/05/18 13:40 76 20 94 07/05/18 13:31 77 22 178/88 H 96 07/05/18 13:30 77 17 96 07/05/18 13:20 90 17 98 07/05/18 13:10 89 15 97 07/05/18 13:00 82 14 112/83 91 07/05/18 12:50 96 07/05/18 12:49 80 14 123/73 97 07/05/18 12:42 95 07/05/18 12:15 36.4 C L 96 H 22 133/72 92 Pulse Ox 07/05/18 19:13 07/05/18 17:20 96 07/05/18 16:10 07/05/18 16:02 07/05/18 16:01 07/05/18 16:00 07/05/18 15:50 07/05/18 15:44 07/05/18 15:40 07/05/18 15:32 07/05/18 15:30 07/05/18 15:20 07/05/18 15:19 07/05/18 15:01 07/05/18 15:00 07/05/18 14:55 07/05/18 14:50 07/05/18 14:40 07/05/18 14:31 07/05/18 14:30 07/05/18 14:20 07/05/18 14:10 07/05/18 14:07 07/05/18 14:00 07/05/18 13:50 07/05/18 13:40 07/05/18 13:31 07/05/18 13:30 07/05/18 13:20 07/05/18 13:10 07/05/18 13:00 07/05/18 12:50 07/05/18 12:49 07/05/18 12:42 07/05/18 12:15 Laboratory Results Laboratory Results - last 24 hr 07/05/18 07/05/18 07/05/18 12:57 12:57 14:14 WBC 4.94 RBC 3.21 L Hgb 8.7 L Hct 28.6 L MCV 89.1 MCH 27.1 MCHC 30.4 L RDW Std Deviation 59.7 H RDW Coeff of Quirino 18.7 H Plt Count 108 L MPV 12.1 H Immature Gran % (Auto) 0.6 Neut % (Auto) 74.9 Lymph % (Auto) 16.0 [place] % (Auto) 6.1 Eos % (Auto) 2.2 Baso % (Auto) 0.2 Immature Gran # (Auto) 0.03 H Neut # (Auto) 3.70 Lymph # (Auto) 0.79 L [place] # (Auto) 0.30 Eos # (Auto) 0.11 Baso # (Auto) 0.01 Platelet Estimate Decreased L Polychromasia 1+ Ovalocytes 1+ Sodium 139 Potassium 4.3 Chloride 104 Carbon Dioxide 26 Anion Gap 10.0 BUN 54 H Creatinine 1.91 H Est Cr Clr Drug Dosing 28.9 Est GFR ( Amer) 28.2 Est GFR (Non-Af Amer) 24.3 BUN/Creatinine Ratio 28.2 H Glucose 43 L* POC Glucose 94 Calcium 8.6 Phosphorus 4.2 Magnesium 2.1 Total Bilirubin 0.6 AST 35 ALT 32 Alkaline Phosphatase 86 Troponin I < 0.015 NT-Pro-B Natriuret Pep 2847 H Total Protein 7.4 Albumin 3.4 Globulin 4.0 Albumin/Globulin Ratio 0.8 L Lipase 64 L 07/05/18 07/05/18 16:59 19:56 WBC RBC Hgb Hct MCV MCH MCHC RDW Std Deviation RDW Coeff of Quirino Plt Count MPV Immature Gran % (Auto) Neut % (Auto) Lymph % (Auto) [place] % (Auto) Eos % (Auto) Baso % (Auto) Immature Gran # (Auto) Neut # (Auto) Lymph # (Auto) [place] # (Auto) Eos # (Auto) Baso # (Auto) Platelet Estimate Polychromasia Ovalocytes Sodium Potassium Chloride Carbon Dioxide Anion Gap BUN Creatinine Est Cr Clr Drug Dosing Est GFR ( Amer) Est GFR (Non-Af Amer) BUN/Creatinine Ratio Glucose POC Glucose 94 73 Calcium Phosphorus Magnesium Total Bilirubin AST ALT Alkaline Phosphatase Troponin I NT-Pro-B Natriuret Pep Total Protein Albumin Globulin Albumin/Globulin Ratio Lipase Diagnostic Findings XR chest 1V portable CLINICAL HISTORY: Chest Pain dyspnea COMPARISON STUDY: 06/09/2018 FINDINGS: Moderate cardiomegaly. Diaphragms are smooth. Slight prominence of pulmonary vasculature with Baseline reticular nodular changes bilaterally. IMPRESSION: Cardiomegaly with findings of early congestive failure. Code Status & VTE Plan Code Status full code VTE Prophylaxis Plan VTE Prophylaxis will be ordered: Yes (1) Hyperlipidemia Hyperlipidemia type: unspecified Qualified Code(s): E78.5 - Hyperlipidemia, unspecified (2) Hypothyroidism Hypothyroidism type: acquired Qualified Code(s): E03.9 - Hypothyroidism, unspecified
[2018-07-06] MEDS ORDERED: LEVOTHYROXINE SODIUM 75 MCG TABLET PO SCH (06:30)
[2018-07-06 07:34] LABS: Hematocrit (blood only) 27.8 % (37-47); Hemoglobin 8.2 g/dL (12.0-16.0); Mean Corpuscular Hgb Conc 29.5 g/dL (32-36); Mean Corpuscular Volume 89.4 fL (80-100); RDW Coefficient of Variation 18.7 % (11.5-14.5); Red Blood Count 3.11 M/uL (4.2-5.4); White Blood Count 4.78 K/uL (4.8-10.8)
[2018-07-06 07:41] LABS: Mean Platelet Volume 11.2 fL (7.4-10.4); Platelet Count 90 K/uL (130-400)
[2018-07-06] MEDS: PREGABALIN 100 MG CAP PO SCH ×2 (07:43→21:49)
[2018-07-06] MEDS: DOCUSATE SODIUM 100 MG CAP PO SCH ×2 (07:43→21:49)
[2018-07-06] MEDS: METOPROLOL SUCC 50MG EXT REL TAB PO SCH (07:43)
[2018-07-06] MEDS: APIXABAN 2.5 MG TAB PO SCH ×2 (07:44→21:49)
[2018-07-06] MEDS: SERTRALINE HCL 50 MG TABLET PO SCH (07:44)
[2018-07-06 08:11] LABS: BUN Creatinine Ratio 28.1 (10-20); Calcium 8.5 mg/dl (8.5-10.1); Creatinine Clr Calc Pharmacy 29.7 ml/min; Est GFR (African American) 30.9; Est GFR (Non-African American) 26.7; Potassium 4.2 mmol/L (3.5-5.1)
[2018-07-06 08:19] LABS: Basophils # (auto) 0.01 K/uL (0-0.2); Basophils % (auto) 0.2 %; Eosinophils # (auto) 0.07 K/uL (0-0.5); Eosinophils % (auto) 1.5 %; Immature Granulocytes # (auto) 0.03 K/uL (0.00-0.02); Immature Granulocytes % (auto) 0.6 %; Lymphocytes # (auto) 0.57 K/uL (1.2-3.4); Lymphocytes % (auto) 11.9 %; Monocytes # (auto) 0.29 K/uL (0.11-0.59); Monocytes % (auto) 6.1 %; Neutrophils # (auto) 3.81 K/uL (1.4-6.5); Neutrophils % (auto) 79.7 %
[2018-07-06] MEDS: INSULIN ASPART 100 UNITS/ML 3 ML PEN SC SCH ×4 (08:20→21:00)
[2018-07-06] MEDS ORDERED: PERFLUTREN LIPID MICROSPHERE (DEFINITY) IV ONE (08:30)
[2018-07-06 09:02] LABS: Reticulocytes # 0.15 10^6/uL (0.02-0.10)
[2018-07-06 09:35] LABS: Folate (Folic Acid) 10.36 ng/ml (>5.38)
[2018-07-06 09:39] LABS: Ferritin 24.1 ng/ml (8-388)
[2018-07-06] MEDS: CYANOCOBALAMIN 500 MCG TABLET (VITAMIN B-12) PO SCH (10:40)
[2018-07-06] MEDS: FERROUS SULFATE 325 MG TAB PO SCH ×2 (10:40→16:37)
[2018-07-06] MEDS: TRAMADOL HCL 50 MG TABLET PO PRN ×2 (12:39→21:50)
[2018-07-06] MEDS ORDERED: SODIUM CHLORIDE 0.9% 250 ML IV PRN (15:25)
[2018-07-06 15:40] LABS: Hematocrit (blood only) 26.7 % (37-47); Mean Corpuscular Volume 89.6 fL (80-100); RDW Coefficient of Variation 18.6 % (11.5-14.5); RDW Standard Deviation 60.4 fL (36.4-46.3); Red Blood Count 2.98 M/uL (4.2-5.4); White Blood Count 4.07 K/uL (4.8-10.8)
[2018-07-06 15:45] LABS: Platelet Count 89 K/uL (130-400)
[2018-07-06 16:07] LABS: Basophilic Stippling Occasional; Basophils # (auto) 0.01 K/uL (0-0.2); Basophils % (auto) 0.2 %; Eosinophils % (auto) 2.5 %; Immature Granulocytes # (auto) 0.02 K/uL (0.00-0.02); Immature Granulocytes % (auto) 0.5 %; Lymphocytes # (auto) 0.59 K/uL (1.2-3.4); Lymphocytes % (auto) 14.5 %; Monocytes # (auto) 0.27 K/uL (0.11-0.59); Monocytes % (auto) 6.6 %; Neutrophils # (auto) 3.08 K/uL (1.4-6.5); Neutrophils % (auto) 75.7 %; Ovalocytes 1+; Polychromasia 1+
[2018-07-06] MEDS: FUROSEMIDE 80 MG in SYRINGE 0 ML IV SCH (17:54)
--- NOTE | 2018-07-06 19:52 | Hospitalist Progress Note ---
Date of Service July 06, 2018 Assessment & Plan (1) Acute respiratory failure with hypoxia: 2nd to acute/chronic systolic CHF -- improving. requiring small amount of o2 at this point. distress, sats all improved. continue diuresis. Present on Admission?: Yes (2) Acute on chronic systolic heart failure: ECHO with low normal EF and RV systolic dysfunction as well. Latter 2nd to sleep-disordered breathing? Cont IV lasix. BMP in am. Continue toprol xl 100mg daily. Not good candidate for CLAUDETTE or ARB due to CKD. Present on Admission?: Yes (3) Persistent atrial fibrillation: Rates modestly uncontrolled. Could be driving her decompensated CHF. If rates remain uncontrolled then titrate her beta luh. Continue eliquis BID. Eliquis dosing is correct given her age of 82 and Cr >1.5. If Cr were to become <1.5 consistently then dose should be increased to 5mg BID. Present on Admission?: Yes (4) Restless leg syndrome: Cont pramipexole. Likely worsened by significant iron deficiency. Replace low iron. Present on Admission?: Yes (5) Hyperlipidemia: not currently on statin. (6) Hypothyroidism: last several TSH checks have been modestly elevated. will increase synthroid from 75mcg to 88mcg. repeat TSH 6 weeks. Present on Admission?: Yes (7) Gastroparesis: 2nd to long-standing DM. cont reglan prn Present on Admission?: Yes (8) DM II (diabetes mellitus, type II), controlled: hemoglobin a1c 6.9% April 2018. nearly all BSGs since admission have been normal (some lows seen as well). requiring tiny amounts of insulin relative to what she takes at home. this would suggest dietary habits are much different at home relative to here. her basal insulin has been held due to lows. continue loose sliding scale. reinstitute basal insulin if needed. Present on Admission?: Yes (9) Diabetic foot ulcer: right foot. followed by wound clinic. s/p recent placement of skin graft to dorsum right foot and recent debridement. see their notes in [facility]. dressings NOT removed by this board writer. wound care consult. Present on Admission?: Yes (10) Pancytopenia: etiology? b12/folate largely normal. TSH minimally elevated. retic count 5%. consider peripheral smear. consider SPEP/UPEP. if any worsening consider hematology consult. some of the anemia could be 2nd to iron def but that would not explain the low wbc count and low platelet count. CBC am. Present on Admission?: Yes (11) Iron deficiency: presumed occult GI blood loss until proven otherwise. fecal occult blood test ordered. start ferrous sulfate 325mg BID. will need endoscopic evaluation in future. celebrex put on hold. if stool is heme + then would hold eliquis for now. If CBC tomorrow shows Hb <8 --- in light of CHF --- would transfuse 1 unit PRBCs (type/cross performed today). Present on Admission?: Yes (12) Morbid obesity with BMI of 40.0-44.9, adult: BMI 41 (13) Chronic kidney disease, stage IV (severe): baseline Cr seems to be about 1.4/1.5. daily BMP. (14) DVT prophylaxis: eliquis BID will need PT, OT Subjective patient's dyspnea and orthopnea are improved. in fact, during the visit, she was laying flat without difficulty. tele - a. fib, rates low 100s most times. when asked about blood in stool she mentions she occasionally sees dark stool. has had anemia for some time - doesn't recall having egd/colonoscopy at any point for such. Review of Systems Constitutional: no fever and no anorexia Respiratory: + dyspnea on exertion; no cough, no pain on inspiration and no wheezing Cardiovascular: + edema; no chest pain, no orthopnea and no paroxysmal nocturnal dyspnea Integumentary: chronic wound, RLE, s/p recent cadaver skin graft Physical Exam Constitutional: + morbidly obese; no acute distress and no altered mental status ENMT: external ear and nose normal, oropharynx normal Respiratory: Auscultation: + diminished lung sounds (bases); no crackles and no wheezes Cardiovascular: Rate/Rhythm: regular rate and + irregularly irregular Heart Sounds: normal S1 and normal S2; no murmur Vessels: posterior tibial pulses present and dorsalis pedis pulses present; no JVD Gastrointestinal (Abdomen): normal bowel sounds, soft, nontender, no hepatosplenomegaly Skin: dressings intact to right foot Psychiatric: A+Ox3, euthymic affect Results & Data Vital Signs (Past 12 Hours) Vital Signs Temp Pulse Resp BP BP Pulse Ox 07/06/18 19:30 36.6 C 98 H 22 130/80 96 06/01/19 15:01 36.4 C L 88 18 115/77 97 07/06/18 10:44 36.3 C L 86 22 137/79 97 Laboratory Results Laboratory Results - last 24 hr 07/06/18 07/06/18 07/06/18 06:52 06:52 07:28 WBC 4.78 L RBC 3.11 L Hgb 8.2 L Hct 27.8 L MCV 89.4 MCH 26.4 MCHC 29.5 L RDW Std Deviation 61.0 H RDW Coeff of Quirino 18.7 H Plt Count 90 L MPV 11.2 H Immature Gran % (Auto) 0.6 Neut % (Auto) 79.7 Lymph % (Auto) 11.9 [place] % (Auto) 6.1 Eos % (Auto) 1.5 Baso % (Auto) 0.2 Reticulocyte % (Auto) Immature Gran # (Auto) 0.03 H Neut # (Auto) 3.81 Lymph # (Auto) 0.57 L [place] # (Auto) 0.29 Eos # (Auto) 0.07 Baso # (Auto) 0.01 Reticulocyte # Polychromasia Basophilic Stippling Ovalocytes Sodium 142 Potassium 4.2 Chloride 104 Carbon Dioxide 30 Anion Gap 8.0 BUN 50 H Creatinine 1.77 H Est Cr Clr Drug Dosing 29.7 Est GFR ( Amer) 30.9 Est GFR (Non-Af Amer) 26.7 BUN/Creatinine Ratio 28.1 H Glucose 64 L POC Glucose 75 Calcium 8.5 Iron Transferrin Transferrin % Sat Ferritin Vitamin B12 Folate Blood Type Antibody Screen Crossmatch 07/06/18 07/06/18 07/06/18 08:44 08:44 08:44 WBC RBC Hgb Hct MCV MCH MCHC RDW Std Deviation RDW Coeff of Quirino Plt Count MPV Immature Gran % (Auto) Neut % (Auto) Lymph % (Auto) [place] % (Auto) Eos % (Auto) Baso % (Auto) Reticulocyte % (Auto) 5.0 H Immature Gran # (Auto) Neut # (Auto) Lymph # (Auto) [place] # (Auto) Eos # (Auto) Baso # (Auto) Reticulocyte # 0.15 H Polychromasia Basophilic Stippling Ovalocytes Sodium Potassium Chloride Carbon Dioxide Anion Gap BUN Creatinine Est Cr Clr Drug Dosing Est GFR ( Amer) Est GFR (Non-Af Amer) BUN/Creatinine Ratio Glucose POC Glucose Calcium Iron 34 L Transferrin 367 H Transferrin % Sat 7 L Ferritin 24.1 Vitamin B12 392 Folate 10.36 Blood Type Antibody Screen Crossmatch 07/06/18 07/06/18 07/06/18 11:03 15:34 15:34 WBC 4.07 L RBC 2.98 L Hgb 8.0 L Hct 26.7 L MCV 89.6 MCH 26.8 MCHC 30.0 L RDW Std Deviation 60.4 H RDW Coeff of Quirino 18.6 H Plt Count 89 L MPV 11.0 H Immature Gran % (Auto) 0.5 Neut % (Auto) 75.7 Lymph % (Auto) 14.5 [place] % (Auto) 6.6 Eos % (Auto) 2.5 Baso % (Auto) 0.2 Reticulocyte % (Auto) Immature Gran # (Auto) 0.02 Neut # (Auto) 3.08 Lymph # (Auto) 0.59 L [place] # (Auto) 0.27 Eos # (Auto) 0.10 Baso # (Auto) 0.01 Reticulocyte # Polychromasia 1+ Basophilic Stippling Occasional Ovalocytes 1+ Sodium Potassium Chloride Carbon Dioxide Anion Gap BUN Creatinine Est Cr Clr Drug Dosing Est GFR ( Amer) Est GFR (Non-Af Amer) BUN/Creatinine Ratio Glucose POC Glucose 163 H Calcium Iron Transferrin Transferrin % Sat Ferritin Vitamin B12 Folate Blood Type O Positive Antibody Screen NEGATIVE Crossmatch See Detail 07/06/18 07/06/18 07/07/18 15:54 20:06 02:02 WBC RBC Hgb Hct MCV MCH MCHC RDW Std Deviation RDW Coeff of Quirino Plt Count MPV Immature Gran % (Auto) Neut % (Auto) Lymph % (Auto) [place] % (Auto) Eos % (Auto) Baso % (Auto) Reticulocyte % (Auto) Immature Gran # (Auto) Neut # (Auto) Lymph # (Auto) [place] # (Auto) Eos # (Auto) Baso # (Auto) Reticulocyte # Polychromasia Basophilic Stippling Ovalocytes Sodium Potassium Chloride Carbon Dioxide Anion Gap BUN Creatinine Est Cr Clr Drug Dosing Est GFR ( Amer) Est GFR (Non-Af Amer) BUN/Creatinine Ratio Glucose POC Glucose 103 H 115 H 108 H Calcium Iron Transferrin Transferrin % Sat Ferritin Vitamin B12 Folate Blood Type Antibody Screen Crossmatch (1) Hyperlipidemia Hyperlipidemia type: unspecified Qualified Code(s): E78.5 - Hyperlipidemia, unspecified (2) Hypothyroidism Hypothyroidism type: acquired Qualified Code(s): E03.9 - Hypothyroidism, unspecified (3) DM II (diabetes mellitus, type II), controlled Diabetes mellitus residential insulin use: with extermination inspector use Diabetes mellitus complication status: with kidney complications Diabetes mellitus complication detail: with chronic kidney disease Chronic kidney disease stage: stage 4 (severe) Qualified Code(s): E11.22 - Type 2 diabetes mellitus with diabetic chronic kidney disease; N18.4 - Chronic kidney disease, stage 4 (severe); Z79.4 - [facility] (current) use of insulin (4) Diabetic foot ulcer Diabetic foot ulcer location: other Diabetes mellitus type: type 2 Laterality: right Non-pressure ulcer stage: limited to breakdown of skin Qualified Code(s): E11.621 - Type 2 diabetes mellitus with foot ulcer; L97.511 - Non-pressure chronic ulcer of other part of right foot limited to breakdown of skin
[2018-07-06] MEDS: PRAMIPEXOLE DIHYDROCHLO 0.25 MG TAB PO SCH (21:49)
[2018-07-07] MEDS: ACETAMINOPHEN 325 MG TAB PO PRN (02:08)
[2018-07-07 05:52] LABS: Basophils # (auto) 0.02 K/uL (0-0.2); Basophils % (auto) 0.5 %; Eosinophils # (auto) 0.19 K/uL (0-0.5); Eosinophils % (auto) 4.5 %; Hematocrit (blood only) 27.9 % (37-47); Hemoglobin 8.1 g/dL (12.0-16.0); Immature Granulocytes # (auto) 0.03 K/uL (0.00-0.02); Immature Granulocytes % (auto) 0.7 %; Lymphocytes # (auto) 0.75 K/uL (1.2-3.4); Lymphocytes % (auto) 17.9 %; Mean Corpuscular Volume 90.3 fL (80-100); Mean Platelet Volume 11.7 fL (7.4-10.4); Monocytes # (auto) 0.37 K/uL (0.11-0.59); Monocytes % (auto) 8.8 %; Neutrophils # (auto) 2.83 K/uL (1.4-6.5); Neutrophils % (auto) 67.6 %; Platelet Count 106 K/uL (130-400); RDW Coefficient of Variation 18.7 % (11.5-14.5); RDW Standard Deviation 60.9 fL (36.4-46.3); Red Blood Count 3.09 M/uL (4.2-5.4); White Blood Count 4.19 K/uL (4.8-10.8)
[2018-07-07] MEDS: FUROSEMIDE 80 MG in SYRINGE 0 ML IV SCH (06:25)
[2018-07-07] MEDS: LEVOTHYROXINE SODIUM 88 MCG TABLET PO SCH (06:25)
[2018-07-07 06:26] LABS: BUN Creatinine Ratio 29.3 (10-20); Calcium 8.1 mg/dl (8.5-10.1); Creatinine Clr Calc Pharmacy 32.1 ml/min; Est GFR (African American) 30.1; Est GFR (Non-African American) 25.9; Potassium 4.1 mmol/L (3.5-5.1)
[2018-07-07] MEDS: INSULIN ASPART 100 UNITS/ML 3 ML PEN SC SCH ×4 (08:29→20:46)
[2018-07-07] MEDS: TRAMADOL HCL 50 MG TABLET PO PRN (08:29)
[2018-07-07] MEDS: DOCUSATE SODIUM 100 MG CAP PO SCH ×2 (08:30→20:46)
[2018-07-07] MEDS: METOPROLOL SUCC 50MG EXT REL TAB PO SCH (08:30)
[2018-07-07] MEDS: APIXABAN 2.5 MG TAB PO SCH ×2 (08:31→20:43)
[2018-07-07] MEDS: FERROUS SULFATE 325 MG TAB PO SCH ×2 (08:31→17:31)
[2018-07-07] MEDS: SERTRALINE HCL 50 MG TABLET PO SCH (08:31)
[2018-07-07] MEDS: CYANOCOBALAMIN 500 MCG TABLET (VITAMIN B-12) PO SCH (08:31)
[2018-07-07] MEDS: PREGABALIN 100 MG CAP PO SCH ×2 (08:34→20:43)
[2018-07-07] MEDS: CYANOCOBALAMIN 1000 MCG/ML VIAL IM SCH (10:45)
--- NOTE | 2018-07-07 11:52 | Hospitalist Progress Note ---
Date of Service July 07, 2018 Assessment & Plan (1) Acute respiratory failure with hypoxia: 2nd to acute/chronic systolic CHF -- improving. requiring small amount of o2 at this point. distress, sats all improved. continue diuresis but change to po lasix as below. (2) Acute on chronic systolic heart failure: ECHO with low normal EF and RV systolic dysfunction as well. Latter 2nd to sleep-disordered breathing? Contact Lens Inspector increased today--> change to po lasix BMP in am. Continue toprol xl 100mg daily. Not good candidate for CLAUDETTE or ARB due to CKD. (3) Persistent atrial fibrillation: Rates controlled now but previously elevated Could be driving her decompensated CHF. Continue eliquis BID. Eliquis dosing is correct given her age of 82 and Cr >1.5. If Cr were to become <1.5 consistently then dose should be increased to 5mg BID. (4) Restless leg syndrome: Cont pramipexole. Likely worsened by significant iron deficiency. Replace low iron. (5) Hyperlipidemia: not currently on statin. (6) Hypothyroidism: last several TSH checks have been modestly elevated. will increase synthroid from 75mcg to 88mcg. repeat TSH 6 weeks. (7) Gastroparesis: 2nd to long-standing DM. cont reglan prn (8) DM II (diabetes mellitus, type II), controlled: hemoglobin a1c 6.9% April 2018. nearly all BSGs since admission have been normal (some lows seen as well). requiring tiny amounts of insulin relative to what she takes at home. this would suggest dietary habits are much different at home relative to here. her basal insulin has been held due to lows. continue loose sliding scale. reinstitute basal insulin if needed. (9) Diabetic foot ulcer: right foot. followed by wound clinic. s/p recent placement of skin graft to dorsum right foot and recent debridement. see their notes in [facility]. dressings NOT removed by this continuity writer. wound care consult. (10) Pancytopenia: etiology? b12/folate largely normal. TSH minimally elevated. retic count 5%. Improving today--> unclear why? DOes have low normal B12 at 342 consider SPEP/UPEP. if any worsening consider hematology consult. some of the anemia could be 2nd to iron def but that would not explain the low wbc count and low platelet count. -replace with IM B12 1000mcg daily x 7 days then once weekly CBC am. (11) Iron deficiency: presumed occult GI blood loss until proven otherwise. fecal occult blood test negative here -continue ferrous sulfate 325mg BID. will need endoscopic evaluation in future. celebrex put on hold. If CBC tomorrow shows Hb <8 --- in light of CHF --- would transfuse 1 unit PRBCs (12) Morbid obesity with BMI of 40.0-44.9, adult: BMI 41 (13) Chronic kidney disease, stage IV (severe): baseline Cr seems to be about 1.4/1.5. daily BMP. With FLAVIO today with Contact Lens Inspector up to 1.81 -switching to po lasix and f/u BMP in AM (14) DVT prophylaxis: eliquis BID Dispo -PT, OT consults recommend return home Hopefully home tomorrow if renal function improving and weight does not continue to go up Subjective Feeling better but still SOB. Feels tired. Is proud that she has been ambulating to the bathroom here which she hasn't done in years No ches tpain Tele with Afib rates in the 80s-90s Review of Systems Review of Systems: All systems reviewed & are unremarkable except as noted in HPI & below Physical Exam Constitutional: WD/WN, vitals as above + obese Eyes: PERRL, conjunctivae normal, anicteric sclerae Neck: trachea midline, no thyromegaly Respiratory: normal respiratory effort, lungs clear to auscultation Cardiovascular: Rate/Rhythm: regular rate and + irregularly irregular Heart Sounds: no murmur Extremities: + edema (trace pitting edema) Gastrointestinal (Abdomen): normal bowel sounds, soft, nontender, no hepatosplenomegaly Musculoskeletal: Extremities: extremities normal to inspection; no cyanosis and no clubbing Skin: no rashes, warm and dry Neurologic: moves all extremities and awake; no focal motor deficits Psychiatric: A+Ox3, euthymic affect Results & Data Vital Signs (Past 12 Hours) Vital Signs Temp Pulse Resp BP BP Pulse Ox 07/07/18 08:00 36.6 C 86 18 112/72 94 07/07/18 03:27 36.6 C 88 14 121/67 96 Laboratory Results 07/08/18 07/08/18 07/08/18 Range/Units 07:12 05:38 05:38 WBC 4.31 L (4.8-10.8) K/uL RBC 3.08 L (4.2-5.4) M/uL Hgb 8.1 L (12.0-16.0) g/dL Hct 27.7 L (37-47) % MCV 89.9 (80-100) fL MCH 26.3 (25-34) pg MCHC 29.2 L (32-36) g/dL RDW Std Deviation 60.7 H (36.4-46.3) fL RDW Coeff of Quirino 18.7 H (11.5-14.5) % Plt Count 102 L (130-400) K/uL MPV 11.8 H (7.4-10.4) fL Immature Gran % (Auto) 1.2 % Neut % (Auto) 71.5 % Lymph % (Auto) 13.9 % [place] % (Auto) 9.5 % Eos % (Auto) 3.7 % Baso % (Auto) 0.2 % Immature Gran # (Auto) 0.05 H (0.00-0.02) K/uL Neut # (Auto) 3.08 (1.4-6.5) K/uL Lymph # (Auto) 0.60 L (1.2-3.4) K/uL [place] # (Auto) 0.41 (0.11-0.59) K/uL Eos # (Auto) 0.16 (0-0.5) K/uL Baso # (Auto) 0.01 (0-0.2) K/uL Absolute Nucleated RBC 0.03 H (0-0) K/uL Nucleated RBC % (auto) 0.8 % Sodium 139 (136-145) mmol/L Potassium 3.8 (3.5-5.1) mmol/L Chloride 101 (98-107) mmol/L Carbon Dioxide 31 (21-32) mmol/L Anion Gap 7.0 (3-11) BUN 56 H (7-18) mg/dl Creatinine 1.88 H (0.6-1.2) mg/dl Est Cr Clr Drug Dosing 31.1 ml/min Est GFR ( Amer) 28.7 Est GFR (Non-Af Amer) 24.8 BUN/Creatinine Ratio 30.0 H (10-20) Glucose 91 (70-99) mg/dl POC Glucose 91 (70-99) Calcium 8.8 (8.5-10.1) mg/dl 07/07/18 07/07/18 07/07/18 Range/Units 20:10 16:08 11:23 WBC (4.8-10.8) K/uL RBC (4.2-5.4) M/uL Hgb (12.0-16.0) g/dL Hct (37-47) % MCV (80-100) fL MCH (25-34) pg MCHC (32-36) g/dL RDW Std Deviation (36.4-46.3) fL RDW Coeff of Quirino (11.5-14.5) % Plt Count (130-400) K/uL MPV (7.4-10.4) fL Immature Gran % (Auto) % Neut % (Auto) % Lymph % (Auto) % [place] % (Auto) % Eos % (Auto) % Baso % (Auto) % Immature Gran # (Auto) (0.00-0.02) K/uL Neut # (Auto) (1.4-6.5) K/uL Lymph # (Auto) (1.2-3.4) K/uL [place] # (Auto) (0.11-0.59) K/uL Eos # (Auto) (0-0.5) K/uL Baso # (Auto) (0-0.2) K/uL Absolute Nucleated RBC (0-0) K/uL Nucleated RBC % (auto) % Sodium (136-145) mmol/L Potassium (3.5-5.1) mmol/L Chloride (98-107) mmol/L Carbon Dioxide (21-32) mmol/L Anion Gap (3-11) BUN (7-18) mg/dl Creatinine (0.6-1.2) mg/dl Est Cr Clr Drug Dosing ml/min Est GFR ( Amer) Est GFR (Non-Af Amer) BUN/Creatinine Ratio (10-20) Glucose (70-99) mg/dl POC Glucose 120 H 90 86 (70-99) Calcium (8.5-10.1) mg/dl (1) Diabetic foot ulcer Diabetes mellitus type: type 2 Diabetic foot ulcer location: other Laterality: right Non-pressure ulcer stage: limited to breakdown of skin Qualified Code(s): E11.621 - Type 2 diabetes mellitus with foot ulcer; L97.511 - Non-pressure chronic ulcer of other part of right foot limited to breakdown of skin (2) Hyperlipidemia Hyperlipidemia type: unspecified Qualified Code(s): E78.5 - Hyperlipidemia, unspecified (3) Hypothyroidism Hypothyroidism type: acquired Qualified Code(s): E03.9 - Hypothyroidism, unspecified (4) DM II (diabetes mellitus, type II), controlled Chronic kidney disease stage: stage 4 (severe) Diabetes mellitus complication detail: with chronic kidney disease Diabetes mellitus complication status: with kidney complications Diabetes mellitus car repossessor insulin use: with car repossessor use Qualified Code(s): E11.22 - Type 2 diabetes mellitus with diabetic chronic kidney disease; N18.4 - Chronic kidney disease, stage 4 (severe); Z79.4 - skein winding operator (current) use of insulin
[2018-07-07] MEDS: FUROSEMIDE 80 MG TAB PO SCH (17:31)
[2018-07-07] MEDS: PRAMIPEXOLE DIHYDROCHLO 0.25 MG TAB PO SCH (20:43)
[2018-07-07] MEDS ORDERED: CALCIUM CARBONATE 500 MG CHEWABLE TAB PO PRN (21:42)
[2018-07-08] MEDS: LEVOTHYROXINE SODIUM 88 MCG TABLET PO SCH (04:13)
[2018-07-08 05:52] LABS: Basophils # (auto) 0.01 K/uL (0-0.2); Basophils % (auto) 0.2 %; Eosinophils # (auto) 0.16 K/uL (0-0.5); Eosinophils % (auto) 3.7 %; Hematocrit (blood only) 27.7 % (37-47); Hemoglobin 8.1 g/dL (12.0-16.0); Immature Granulocytes # (auto) 0.05 K/uL (0.00-0.02); Immature Granulocytes % (auto) 1.2 %; Lymphocytes % (auto) 13.9 %; Mean Corpuscular Hgb Conc 29.2 g/dL (32-36); Mean Corpuscular Volume 89.9 fL (80-100); Mean Platelet Volume 11.8 fL (7.4-10.4); Monocytes # (auto) 0.41 K/uL (0.11-0.59); Monocytes % (auto) 9.5 %; Neutrophils # (auto) 3.08 K/uL (1.4-6.5); Neutrophils % (auto) 71.5 %; Nucleated RBC # (auto) 0.03 K/uL (0-0); Nucleated RBC % (auto) 0.8 %; Platelet Count 102 K/uL (130-400); RDW Coefficient of Variation 18.7 % (11.5-14.5); RDW Standard Deviation 60.7 fL (36.4-46.3); Red Blood Count 3.08 M/uL (4.2-5.4); White Blood Count 4.31 K/uL (4.8-10.8)
[2018-07-08 06:28] LABS: Calcium 8.8 mg/dl (8.5-10.1); Creatinine Clr Calc Pharmacy 31.1 ml/min; Est GFR (African American) 28.7; Est GFR (Non-African American) 24.8; Potassium 3.8 mmol/L (3.5-5.1)
[2018-07-08] MEDS: INSULIN ASPART 100 UNITS/ML 3 ML PEN SC SCH ×4 (08:05→21:55)
[2018-07-08] MEDS: FERROUS SULFATE 325 MG TAB PO SCH ×2 (08:16→17:06)
[2018-07-08] MEDS: FUROSEMIDE 80 MG TAB PO SCH ×2 (08:19→17:05)
[2018-07-08] MEDS: APIXABAN 2.5 MG TAB PO SCH ×2 (08:19→20:01)
[2018-07-08] MEDS: DOCUSATE SODIUM 100 MG CAP PO SCH ×2 (08:19→20:01)
[2018-07-08] MEDS: SERTRALINE HCL 50 MG TABLET PO SCH (08:20)
[2018-07-08] MEDS: METOPROLOL SUCC 50MG EXT REL TAB PO SCH (08:20)
[2018-07-08] MEDS: PREGABALIN 100 MG CAP PO SCH ×2 (08:20→20:01)
[2018-07-08] MEDS: CYANOCOBALAMIN 1000 MCG/ML VIAL IM SCH (08:35)
[2018-07-08] MEDS: CYANOCOBALAMIN 500 MCG TABLET (VITAMIN B-12) PO SCH (08:36)
--- NOTE | 2018-07-08 10:51 | Nephrology Consultation ---
Date of Consultation July 08, 2018 Assessment & Plan (1) Chronic kidney disease, stage IV (severe): -- Stable kidney function. Electrolyte balance is acceptable. Will monitor (2) Acute on chronic systolic heart failure: -- Will request consultation w/ dietitian for education on low sodium diet -- Continue IV Furosemide therapy -- When transitioning to oral diuretic consider Torsemide 40 mg po each morning (improved bioavailability compared to Furosemide) (3) Anemia: -- Will order iron studies and FOBT History of Present Illness Reason for Consultation: CKD Attending Physician: Annamarie Burciaga MD History of Present Illness Ms. Arnold is an 82 year old white female who is seen at the request of Dr. Burciaga for evaluation of CKD. Medical records in the hospital EMR were reviewed today and are summarized as follows: Ms. Arnold has advanced CKD w/ baseline creatinine 1.5 - 2.0 (EGFR 25 - 32 cc/min) depending on her volume status. Her renal impairment is attributed to DM, HTN and cardiorenal syndrome. She has nocturnal hypoxemia and wears O2 at bedtime each night. She is nonambulatory due to severe OA of the R hip. Ms. Arnold's medical history is also significant for diastolic CHF, chronic atrial fibrillation on Eliquis therapy and obesity. She has a chronic nonhealing ulcer on the dorsum of her R foot. Ms. Manzo's Basket Hand Weaver is Dr. Mcdermott. Her volume status has been managed w/ Furosemide 80 mg each morning. Ms. Arnold reports that she has not been limiting her sodium or free water intake. She eats a lot of prepackaged foods. Her baseline weight had been 235 lbs. Ms. Arnold presented to the ED for evaluation of progressive dyspnea, abdominal distention and LE swelling associated w/ a 15 lb weight gain. She has been admitted by the hospitalist service and started on IV Furosemide therapy. She is diuresing well and creatinine is relatively stable at 1.8. Allergies Allergy/AdvReac Type Severity Reaction Status Date / Time carbamazepine Allergy Intermediate HIVES Verified 07/05/18 13:37 Home Medications Home Medications Medication Instructions Recorded Confirmed Type celecoxib 200 mg capsule 200 mg PO BID 10/05/17 07/05/18 History insulin aspart (U-100) 100 unit/mL 30 unit SQ TIDM ml 10/05/17 07/05/18 History (3 mL) subcutaneous pen metoprolol succinate ER 100 mg 100 mg PO QAM 10/05/17 07/05/18 History capsule sprinkle, ext. release 24 hr pramipexole 0.125 mg tablet 0.125 mg PO HS tab 10/05/17 07/05/18 History pregabalin 100 mg capsule 100 mg PO BID 10/05/17 07/05/18 History zafirlukast 20 mg tablet 20 mg PO BID tab 10/05/17 07/05/18 History ondansetron HCl 4 mg tablet 4 mg PO QID PRN 10/12/17 07/05/18 History docusate sodium 100 mg PO BID 02/07/18 07/05/18 History sertraline [Zoloft] 50 mg PO QAM 02/07/18 07/05/18 History tramadol 50 mg PO Q6H PRN 02/07/18 07/05/18 History apixaban [Eliquis] 2.5 mg PO BID #0 tab 02/11/18 07/05/18 Rx furosemide [Lasix] 80 mg PO QAM #0 tab 02/11/18 07/05/18 Rx insulin degludec [Tresiba 50 units SUBCUT HS #0 ml 02/11/18 07/05/18 Rx FlexTouch U-200] metoclopramide HCl [Reglan] 10 mg PO BID PRN #12 tab 02/15/18 07/05/18 Rx levothyroxine 75 mcg PO QAM 07/05/18 07/05/18 History Patient History Medical History Shortness of breath (Chronic) Altered mental status (Chronic) 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) Symptomatic anemia (Chronic) Sciatica (Chronic) GERD (gastroesophageal reflux disease) (Chronic) DM II (diabetes mellitus, type II), controlled (Chronic) Atrial fibrillation, chronic (Chronic) Osteomyelitis (Chronic) CHF (congestive heart failure) (Chronic) Benign hypertension (Chronic) Depression (Chronic) Asthma (Chronic) Nausea (Chronic) CKD (chronic kidney disease) stage 3, GFR 30-59 ml/min Chronic atrial fibrillation CHF exacerbation (Acute) Surgical wound, non healing (Acute) Confusion and disorientation Memory loss due to medical condition Symptomatic anemia Hemorrhoidectomy (Resolved 06/06/12) Osteomyelitis (Chronic 06/06/12) CHF (congestive heart failure) Anemia (Resolved) Diarrhea Nausea Pericardial effusion Loss of sensation Diabetic foot ulcer (Acute) Diabetic peripheral neuropathy associated with type 2 diabetes mellitus Altered mental status Shortness of breath Diabetic foot ulcer (Chronic) Diabetic peripheral neuropathy (Chronic) Diarrhea (Chronic) Loss of sensation (Chronic) Pericardial effusion (Chronic) Gastroparesis Family History Other Diabetes Dyslipidemia Hypertension Social History Preferred Language: Mongolian Communication Ability: Effective Visual Impairment: No Limitations Hearing Ability: Normal Cook Frozen Dessert Required: No Beliefs That Will Affect Care: None marital status: / Current Living Situation: Alone current occupational status: retired Other Information That Helps Us Care for You: No Feels Safe at Home: Yes Safety Concerns: Feels Safe At This Time Smoking Status: Former smoker Do You Dip or Chew Tobacco: No Second Hand Exposure: No Tobacco Cessation Education Requested by Patient: No Hx Alcohol Use: No Hx Substance Use: No Review of Systems Constitutional: no fever Respiratory: + dyspnea on exertion Cardiovascular: no chest pain and no palpitations Gastrointestinal: no abdominal pain, no vomiting, no constipation and no diarrhea/loose stools Physical Exam Constitutional: + obese Eyes: PERRL, conjunctivae normal, anicteric sclerae ENMT: external ear and nose normal, oropharynx normal Neck: trachea midline, no thyromegaly Respiratory: normal respiratory effort, lungs clear to auscultation no respiratory distress Results & Data Vital Signs (Past 12 Hours) Vital Signs Temp Pulse Pulse Resp BP BP Pulse Ox 07/08/18 07:14 36.6 C 89 17 135/75 94 07/08/18 02:56 36.8 C 86 16 138/70 94 07/08/18 00:00 92 H 07/07/18 23:00 36.4 C L 99 H 18 134/84 90 Laboratory Results Laboratory Tests 07/08/18 07/08/18 05:38 05:38 WBC 4.31 L Hgb 8.1 L Hct 27.7 L Plt Count 102 L Sodium 139 Potassium 3.8 Chloride 101 Carbon Dioxide 31 BUN 56 H Creatinine 1.88 H Glucose 91 Diagnostic Findings CXR 07/05/18: Moderate cardiomegaly. Diaphragms are smooth. Slight prominence of pulmonary vasculature with Baseline reticular nodular changes bilaterally. (1) Anemia Anemia type: iron deficiency Iron deficiency anemia type: unspecified iron deficiency Qualified Code(s): D50.9 - Iron deficiency anemia, unspecified
[2018-07-08] MEDS: TRAMADOL HCL 50 MG TABLET PO PRN (20:01)
[2018-07-08] MEDS: PRAMIPEXOLE DIHYDROCHLO 0.25 MG TAB PO SCH (20:02)
--- NOTE | 2018-07-08 20:24 | Hospitalist Progress Note ---
Date of Service July 08, 2018 Assessment & Plan (1) Acute respiratory failure with hypoxia: Secondary to acute/chronic systolic CHF --not improved Still requiring supplemental oxygen but has this at home -Continue diuresis as below (2) Acute on chronic systolic heart failure: ECHO with low normal EF and RV systolic dysfunction as well. Latter 2nd to sleep-disordered breathing? Vp Ancillary increased slightly again today to 1.88 despite changing to oral Lasix yesterday Her weight continues to increase and is significantly elevated from previous admissions-although patient was weighed in the bed today in a standing scale yesterday -Wrote order for standing scale weights only If weight continues to increase tomorrow, will restart IV Lasix -Appreciate nephrology consultation-recommends switching to torsemide 40 mg daily for oral diuretics after discharge -Follow BMP in am. -Continue toprol xl 100mg daily. -Not good candidate for CLAUDETTE or ARB due to CKD. (3) Persistent atrial fibrillation: Rates controlled now but previously elevated Previous tachycardia may have been driving her decompensated CHF. Continue eliquis BID at the renal dose (4) Restless leg syndrome: Cont pramipexole. Likely worsened by significant iron deficiency. Replacing low iron. (5) Hyperlipidemia: not currently on statin. (6) Hypothyroidism: last several TSH checks have been modestly elevated. will increase synthroid from 75mcg to 88mcg. repeat TSH 6 weeks. (7) Gastroparesis: Secondary to long-standing DM. cont reglan prn (8) DM II (diabetes mellitus, type II), controlled: hemoglobin a1c 6.9% April 2018. nearly all BSGs since admission have been normal (some lows seen as well). -Still requiring tiny amounts of insulin relative to what she takes at home. this would suggest dietary habits are much different at home relative to here. -Basal insulin has been held due to lows and will continue to do so. -Will continue loose sliding scale. -Reinstitute basal insulin if needed. (9) Diabetic foot ulcer: right foot. followed by wound clinic. s/p recent placement of skin graft to dorsum right foot and recent debridement. see their notes in [facility]. dressings NOT removed here wound care consult appreciated. (10) Pancytopenia: Unclear etiology b12/folate largely normal although B12 is low normal at 342. TSH minimally elevated. retic count 5%. -some of the anemia could be 2nd to iron def but that would not explain the low wbc count and low platelet count. Improving to stable -Replacing B12 with IM -Consider outpatient hematology referral -Follow CBC (11) Iron deficiency: presumed occult GI blood loss until proven otherwise. fecal occult blood test negative here -continue ferrous sulfate 325mg BID. will need endoscopic evaluation in future. celebrex put on hold for now. If CBC tomorrow shows Hb <8 --- in light of CHF --- would transfuse 1 unit PRBCs (12) Morbid obesity with BMI of 40.0-44.9, adult: BMI 41 (13) Chronic kidney disease, stage IV (severe): With acute kidney injury in the setting of CKD stage III Baseline Cr seems to be about 1.4/1.5. Creatinine up further to 1.88 today after receiving IV Lasix up until 07/07 -Appreciate nephrology consultation -Follow BMP in the morning -Avoid nephrotoxins -Renally dose medications (14) DVT prophylaxis: Eliquis BID Dispo -PT, OT consults recommend return home Continued stay for diuresis Subjective Patient feeling very tired but has not been getting any sleep at all. Her daughter finally brought in her melatonin from home she is hoping to get rest tonight. Feels her breathing is still quite dyspneic with any exertion. Her abdomen feels bloated. She did have a bowel movement today. Telemetry with atrial fibrillation with rates in the 80s to 90s Review of Systems Review of Systems: All systems reviewed & are unremarkable except as noted in HPI & below Physical Exam Constitutional: WD/WN, vitals as above + obese Eyes: PERRL, conjunctivae normal, anicteric sclerae Neck: trachea midline, no thyromegaly Respiratory: normal respiratory effort, lungs clear to auscultation Cardiovascular: Rate/Rhythm: regular rate and + irregularly irregular Heart Sounds: no murmur Extremities: + edema (trace pitting edema) Gastrointestinal (Abdomen): normal bowel sounds, soft, nontender, no hepatosplenomegaly Inspection/Auscultation: + abdomen distended (But soft) Musculoskeletal: Extremities: extremities normal to inspection; no cyanosis and no clubbing Skin: no rashes, warm and dry Neurologic: moves all extremities and awake; no focal motor deficits Psychiatric: A+Ox3, euthymic affect Results & Data Vital Signs (Past 12 Hours) Vital Signs Temp Pulse Resp BP BP Pulse Ox 07/08/18 19:34 36.8 C 96 H 20 129/64 95 07/08/18 15:07 36.7 C 87 19 101/67 95 07/08/18 11:37 37.4 C 81 19 115/72 93 Laboratory Results 07/08/18 07/08/18 07/08/18 Range/Units 20:07 16:09 11:07 WBC (4.8-10.8) K/uL RBC (4.2-5.4) M/uL Hgb (12.0-16.0) g/dL Hct (37-47) % MCV (80-100) fL MCH (25-34) pg MCHC (32-36) g/dL RDW Std Deviation (36.4-46.3) fL RDW Coeff of Quirino (11.5-14.5) % Plt Count (130-400) K/uL MPV (7.4-10.4) fL Immature Gran % (Auto) % Neut % (Auto) % Lymph % (Auto) % [place] % (Auto) % Eos % (Auto) % Baso % (Auto) % Immature Gran # (Auto) (0.00-0.02) K/uL Neut # (Auto) (1.4-6.5) K/uL Lymph # (Auto) (1.2-3.4) K/uL [place] # (Auto) (0.11-0.59) K/uL Eos # (Auto) (0-0.5) K/uL Baso # (Auto) (0-0.2) K/uL Absolute Nucleated RBC (0-0) K/uL Nucleated RBC % (auto) % Sodium (136-145) mmol/L Potassium (3.5-5.1) mmol/L Chloride (98-107) mmol/L Carbon Dioxide (21-32) mmol/L Anion Gap (3-11) BUN (7-18) mg/dl Creatinine (0.6-1.2) mg/dl Est Cr Clr Drug Dosing ml/min Est GFR ( Amer) Est GFR (Non-Af Amer) BUN/Creatinine Ratio (10-20) Glucose (70-99) mg/dl POC Glucose 143 H 148 H 97 (70-99) Calcium (8.5-10.1) mg/dl 07/08/18 07/08/18 07/08/18 Range/Units 07:12 05:38 05:38 WBC 4.31 L (4.8-10.8) K/uL RBC 3.08 L (4.2-5.4) M/uL Hgb 8.1 L (12.0-16.0) g/dL Hct 27.7 L (37-47) % MCV 89.9 (80-100) fL MCH 26.3 (25-34) pg MCHC 29.2 L (32-36) g/dL RDW Std Deviation 60.7 H (36.4-46.3) fL RDW Coeff of Quirino 18.7 H (11.5-14.5) % Plt Count 102 L (130-400) K/uL MPV 11.8 H (7.4-10.4) fL Immature Gran % (Auto) 1.2 % Neut % (Auto) 71.5 % Lymph % (Auto) 13.9 % [place] % (Auto) 9.5 % Eos % (Auto) 3.7 % Baso % (Auto) 0.2 % Immature Gran # (Auto) 0.05 H (0.00-0.02) K/uL Neut # (Auto) 3.08 (1.4-6.5) K/uL Lymph # (Auto) 0.60 L (1.2-3.4) K/uL [place] # (Auto) 0.41 (0.11-0.59) K/uL Eos # (Auto) 0.16 (0-0.5) K/uL Baso # (Auto) 0.01 (0-0.2) K/uL Absolute Nucleated RBC 0.03 H (0-0) K/uL Nucleated RBC % (auto) 0.8 % Sodium 139 (136-145) mmol/L Potassium 3.8 (3.5-5.1) mmol/L Chloride 101 (98-107) mmol/L Carbon Dioxide 31 (21-32) mmol/L Anion Gap 7.0 (3-11) BUN 56 H (7-18) mg/dl Creatinine 1.88 H (0.6-1.2) mg/dl Est Cr Clr Drug Dosing 31.1 ml/min Est GFR ( Amer) 28.7 Est GFR (Non-Af Amer) 24.8 BUN/Creatinine Ratio 30.0 H (10-20) Glucose 91 (70-99) mg/dl POC Glucose 91 (70-99) Calcium 8.8 (8.5-10.1) mg/dl (1) Hyperlipidemia Hyperlipidemia type: unspecified Qualified Code(s): E78.5 - Hyperlipidemia, unspecified (2) Hypothyroidism Hypothyroidism type: acquired Qualified Code(s): E03.9 - Hypothyroidism, unspecified (3) DM II (diabetes mellitus, type II), controlled Diabetes mellitus fpc insulin use: with assistant terminal manager use Diabetes mellitus complication status: with kidney complications Diabetes mellitus complication detail: with chronic kidney disease Chronic kidney disease stage: stage 4 (severe) Qualified Code(s): E11.22 - Type 2 diabetes mellitus with diabetic chronic kidney disease; N18.4 - Chronic kidney disease, stage 4 (severe); Z79.4 - senior care (current) use of insulin (4) Diabetic foot ulcer Diabetic foot ulcer location: other Diabetes mellitus type: type 2 Laterality: right Non-pressure ulcer stage: limited to breakdown of skin Qualified Code(s): E11.621 - Type 2 diabetes mellitus with foot ulcer; L97.511 - Non-pressure chronic ulcer of other part of right foot limited to breakdown of skin
[2018-07-08] MEDS: ACETAMINOPHEN 325 MG TAB PO PRN (20:56)
[2018-07-08] MEDS ORDERED: TRAMADOL HCL 50 MG TABLET PO STA (22:15)
[2018-07-09] MEDS: LEVOTHYROXINE SODIUM 88 MCG TABLET PO SCH (05:51)
[2018-07-09] MEDS: INSULIN ASPART 100 UNITS/ML 3 ML PEN SC SCH ×5 (07:55→21:29)
[2018-07-09 07:58] LABS: Hematocrit (blood only) 29.8 % (37-47); Hemoglobin 8.7 g/dL (12.0-16.0); Mean Corpuscular Hgb Conc 29.2 g/dL (32-36); Mean Corpuscular Volume 90.9 fL (80-100); Mean Platelet Volume 11.8 fL (7.4-10.4); Platelet Count 105 K/uL (130-400); RDW Coefficient of Variation 18.8 % (11.5-14.5); RDW Standard Deviation 61.4 fL (36.4-46.3); Red Blood Count 3.28 M/uL (4.2-5.4)
[2018-07-09] MEDS: DOCUSATE SODIUM 100 MG CAP PO SCH ×2 (07:59→20:05)
[2018-07-09] MEDS: CYANOCOBALAMIN 1000 MCG/ML VIAL IM SCH (07:59)
[2018-07-09] MEDS: FERROUS SULFATE 325 MG TAB PO SCH ×2 (07:59→16:53)
[2018-07-09] MEDS: APIXABAN 2.5 MG TAB PO SCH ×2 (07:59→20:05)
[2018-07-09] MEDS: METOPROLOL SUCC 50MG EXT REL TAB PO SCH (07:59)
[2018-07-09] MEDS: SERTRALINE HCL 50 MG TABLET PO SCH (08:00)
[2018-07-09] MEDS: PREGABALIN 100 MG CAP PO SCH ×2 (08:02→20:11)
[2018-07-09 08:28] LABS: Platelet Estimate Decreased (Normal)
[2018-07-09 08:33] LABS: BUN Creatinine Ratio 32.2 (10-20); Calcium 8.8 mg/dl (8.5-10.1); Creatinine Clr Calc Pharmacy 31.5 ml/min; Est GFR (African American) 29.3; Est GFR (Non-African American) 25.3; Potassium 3.7 mmol/L (3.5-5.1)
--- NOTE | 2018-07-09 09:29 | XRay Report ---
XR chest 1V portable HISTORY: 82 years-old Female CHF acute shortness of breath COMPARISON: Chest radiograph 07/05/2018 TECHNIQUE: Portable AP view of the chest FINDINGS: Cardiac silhouette is enlarged, unchanged. Pulmonary vascular congestion with interstitial coarsening . No pneumothorax. There is mild blunting of the costophrenic angles without large pleural effusion. Degenerative changes of the shoulders and spine. IMPRESSION: Cardiomegaly with mild pulmonary edema. The above report was generated using voice recognition software. It may contain grammatical, syntax o r spelling errors. Electronically signed by: Fausto Hutson M.D. 07/09/2018 9:28 AM
--- NOTE | 2018-07-09 09:36 | Nephrology Progress Note ---
Date of Service July 09, 2018 Assessment & Plan (1) Chronic kidney disease, stage IV (severe): -- CKD w/ baseline creatinine 1.5 - 2.0 depending upon volume status -- Stable kidney function. Electrolyte balance is acceptable. Will monitor (2) Acute on chronic systolic heart failure: -- Dietitian has met w/ patient and provided education on 1500 mg / day NaCl restricted diet -- Cumulative I&O's show net 3 L UO but weight has risen from 116 to 126 kg. Suspect that weights are inaccurate. CXR this am shows mild CHF. SaO2 is 98% on 2 L NC. Will provide one dose Furosemide 80 mg IV x one today and then consider transitioning to Torsemide 40 mg po qAM (3) Anemia: -- Iron sat is < 20 % w/ ferritin < 200. Will start Venofer 200 mg IV daily x 5 doses -- Await results of FOBT Subjective Ms. Arnold was seen & examined in her hospital room this morning. She reports that she is breathing comfortably on O2 at 2 L / min NC. Review of Systems Constitutional: no fever Respiratory: + dyspnea on exertion Cardiovascular: no chest pain Physical Exam Constitutional: + obese Eyes: PERRL, conjunctivae normal, anicteric sclerae ENMT: external ear and nose normal, oropharynx normal Neck: trachea midline, no thyromegaly Respiratory: normal respiratory effort, lungs clear to auscultation no respiratory distress Cardiovascular: Rate/Rhythm: + irregularly irregular Extremities: + edema (trace LE edema) Gastrointestinal (Abdomen): normal bowel sounds, soft, nontender, no hepatosplenomegaly Results & Data Vital Signs (Past 12 Hours) Vital Signs Temp Pulse Resp BP Pulse Ox 07/09/18 06:56 36.3 C L 77 16 150/87 H 98 07/09/18 03:15 36.3 C L 70 18 140/88 94 07/08/18 23:12 36.6 C 90 18 97/63 L 98 Laboratory Results Laboratory Tests 07/09/18 07/09/18 07:07 07:07 WBC 4.20 L Hgb 8.7 L Hct 29.8 L Plt Count 105 L Sodium 141 Potassium 3.7 Chloride 103 Carbon Dioxide 32 BUN 60 H Creatinine 1.85 H Laboratory Tests 07/06/18 07/09/18 08:44 07:07 Transferrin % Sat 8 L Ferritin 24.1 Diagnostic Findings CXR 07/08/18: Cardiac silhouette is enlarged, unchanged. Pulmonary vascular congestion with interstitial coarsening. No pneumothorax. There is mild blunting of the costophrenic angles without large pleural effusion. Degenerative changes of the shoulders and spine. (1) Anemia Anemia type: iron deficiency Iron deficiency anemia type: unspecified iron deficiency Qualified Code(s): D50.9 - Iron deficiency anemia, unspecified
[2018-07-09] MEDS ORDERED: FUROSEMIDE 80 MG in SYRINGE 0 ML IV ONE (10:00)
[2018-07-09] MEDS: IRON SUCROSE 200 MG in 0.9 % SODIUM CHLORIDE 100 ML IV SCH (10:16)
--- NOTE | 2018-07-09 13:39 | Hospitalist Progress Note ---
Date of Service July 09, 2018 Assessment & Plan (1) Acute on chronic systolic heart failure: Presented with weight gain of 15 lbs and dyspnea with minimal exertion. ECHO with low normal EF and RV systolic dysfunction as well. Latter 2nd to sleep-disordered breathing? [employer] stable today at 1.85 Her weight initially continued to increase and is significantly elevated from previous admissions-today weight is finally decreased slightly by 0.8kg -continue standing scale weights only -restarted one time dose of IV Lasix 40mg today -Appreciate nephrology consultation-recommends switching to torsemide 40 mg daily for oral diuretics possibly tomorrow -Follow BMP in am. -Continue toprol xl 100mg daily. -Not good candidate for CLAUDETTE or ARB due to CKD. (2) Persistent atrial fibrillation: Rates controlled now but previously elevated Previous tachycardia may have been driving her decompensated CHF. Continue eliquis BID at the renal dose -continue Toprol (3) Restless leg syndrome: Cont pramipexole. Likely worsened by significant iron deficiency. Replacing low iron po and now with IV iron (4) Hyperlipidemia: not currently on statin. (5) Hypothyroidism: last several TSH checks have been modestly elevated. will increase synthroid from 75mcg to 88mcg. repeat TSH 6 weeks. (6) Gastroparesis: Secondary to long-standing DM. cont reglan prn (7) DM II (diabetes mellitus, type II), controlled: hemoglobin a1c 6.9% April 2018. nearly all BSGs since admission have been normal (some lows seen as well). -Still requiring tiny amounts of insulin relative to what she takes at home. this would suggest dietary habits are much different at home relative to here. -Basal insulin has been held due to lows and will continue to do so. -Will continue loose sliding scale. -Reinstitute basal insulin if needed. (8) Diabetic foot ulcer: right foot. followed by wound clinic. s/p recent placement of skin graft to dorsum right foot and recent debridement. see their notes in [facility]. dressings NOT removed here wound care consult appreciated-I reviewed the Wound RN pictures taken today (9) Pancytopenia: Unclear etiology, but slightly improved today. Hgb up to 8.7, WBC count 4.2, and plts up to 105 b12/folate largely normal although B12 is low normal at 342. TSH minimally elevated. retic count 5%. -some of the anemia could be 2nd to iron def but that would not explain the low wbc count and low platelet count. -Replacing B12 with IM -Consider outpatient hematology referral -Follow CBC -awaiting Hemoccult stool -IV iron started today (10) Iron deficiency: presumed occult GI blood loss until proven otherwise. fecal occult blood test negative here in 02/2018, repeat this admission is pending -continue ferrous sulfate 325mg BID but then started on IV Venofer today by Nephrology will need endoscopic evaluation in future. celebrex put on hold for now. -transfuse PRBCs if hgb<8 (11) Chronic respiratory failure with hypoxia: remains on home O2 amount Secondary to CHF (12) Chronic kidney disease, stage IV (severe): With acute kidney injury in the setting of CKD stage III-IV Baseline Cr seems to be about 1.4/1.5. Creatinine up but stable from yesterday at 1.85 secondary to previous IV diuresis -Appreciate nephrology consultation -Follow BMP in the morning -Avoid nephrotoxins -Renally dose medications (13) Morbid obesity with BMI of 45.0-49.9, adult: BMI 49.6, some of which is fluid weight -admits to eating a lot of carbs when at home as evidenced by the significantly elevated insulin doses she takes at home compared to while here (14) Hip pain: chronic, from OA -dcd Celebrex here due to anemia and concern for GI Bleeding -continue tramadol prn (15) DVT prophylaxis: Eliquis BID Dispo -PT, OT consults recommend return home Continued stay for diuresis Subjective Pt feeling better today, making a lot of urine. Feels SOB is improved. Jalen po. Still having a lot of trouble sleeping in the bed but when she sits in the recliner, she falls right to sleep. Tele with Afib, rates 80s, PVCs Review of Systems Review of Systems: All systems reviewed & are unremarkable except as noted in HPI & below Physical Exam Constitutional: WD/WN, vitals as above + obese Eyes: PERRL, conjunctivae normal, anicteric sclerae Neck: trachea midline, no thyromegaly Respiratory: normal respiratory effort, lungs clear to auscultation Cardiovascular: Rate/Rhythm: regular rate and + irregularly irregular Heart Sounds: no murmur Extremities: + edema (trace pitting edema) Gastrointestinal (Abdomen): normal bowel sounds, soft, nontender, no hepatosplenomegaly Musculoskeletal: Extremities: extremities normal to inspection; no cyanosis and no clubbing Skin: no rashes, warm and dry + lesion (right anterior dital leg with dressing in place not removed) Neurologic: moves all extremities and awake; no focal motor deficits Psychiatric: A+Ox3, euthymic affect Results & Data Vital Signs (Past 12 Hours) Vital Signs Temp Pulse Resp BP Pulse Ox 07/09/18 11:03 36.4 C L 77 18 117/76 95 07/09/18 06:56 36.3 C L 77 16 150/87 H 98 07/09/18 03:15 36.3 C L 70 18 140/88 94 Laboratory Results 07/09/18 07/09/18 07/09/18 Range/Units 20:27 16:06 11:01 WBC (4.8-10.8) K/uL RBC (4.2-5.4) M/uL Hgb (12.0-16.0) g/dL Hct (37-47) % MCV (80-100) fL MCH (25-34) pg MCHC (32-36) g/dL RDW Std Deviation (36.4-46.3) fL RDW Coeff of Quirino (11.5-14.5) % Plt Count (130-400) K/uL MPV (7.4-10.4) fL Platelet Estimate (Normal) Sodium (136-145) mmol/L Potassium (3.5-5.1) mmol/L Chloride (98-107) mmol/L Carbon Dioxide (21-32) mmol/L Anion Gap (3-11) BUN (7-18) mg/dl Creatinine (0.6-1.2) mg/dl Est Cr Clr Drug Dosing ml/min Est GFR ( Amer) Est GFR (Non-Af Amer) BUN/Creatinine Ratio (10-20) Glucose (70-99) mg/dl POC Glucose 119 H 136 H 135 H (70-99) Calcium (8.5-10.1) mg/dl Iron (35-150) mcg/dl Transferrin (200-360) mg/dl Transferrin % Sat (15-50) % Crossmatch 07/09/18 07/09/18 07/09/18 Range/Units 07:07 07:07 06:59 WBC 4.20 L (4.8-10.8) K/uL RBC 3.28 L (4.2-5.4) M/uL Hgb 8.7 L (12.0-16.0) g/dL Hct 29.8 L (37-47) % MCV 90.9 (80-100) fL MCH 26.5 (25-34) pg MCHC 29.2 L (32-36) g/dL RDW Std Deviation 61.4 H (36.4-46.3) fL RDW Coeff of Quirino 18.8 H (11.5-14.5) % Plt Count 105 L (130-400) K/uL MPV 11.8 H (7.4-10.4) fL Platelet Estimate Decreased L (Normal) Sodium 141 (136-145) mmol/L Potassium 3.7 (3.5-5.1) mmol/L Chloride 103 (98-107) mmol/L Carbon Dioxide 32 (21-32) mmol/L Anion Gap 7.0 (3-11) BUN 60 H (7-18) mg/dl Creatinine 1.85 H (0.6-1.2) mg/dl Est Cr Clr Drug Dosing 31.5 ml/min Est GFR ( Amer) 29.3 Est GFR (Non-Af Amer) 25.3 BUN/Creatinine Ratio 32.2 H (10-20) Glucose 67 L (70-99) mg/dl POC Glucose 84 (70-99) Calcium 8.8 (8.5-10.1) mg/dl Iron 43 (35-150) mcg/dl Transferrin 364 H (200-360) mg/dl Transferrin % Sat 8 L (15-50) % Crossmatch 07/09/18 07/06/18 Range/Units 00:03 15:34 WBC (4.8-10.8) K/uL RBC (4.2-5.4) M/uL Hgb (12.0-16.0) g/dL Hct (37-47) % MCV (80-100) fL MCH (25-34) pg MCHC (32-36) g/dL RDW Std Deviation (36.4-46.3) fL RDW Coeff of Quirino (11.5-14.5) % Plt Count (130-400) K/uL MPV (7.4-10.4) fL Platelet Estimate (Normal) Sodium (136-145) mmol/L Potassium (3.5-5.1) mmol/L Chloride (98-107) mmol/L Carbon Dioxide (21-32) mmol/L Anion Gap (3-11) BUN (7-18) mg/dl Creatinine (0.6-1.2) mg/dl Est Cr Clr Drug Dosing ml/min Est GFR ( Amer) Est GFR (Non-Af Amer) BUN/Creatinine Ratio (10-20) Glucose (70-99) mg/dl POC Glucose 138 H (70-99) Calcium (8.5-10.1) mg/dl Iron (35-150) mcg/dl Transferrin (200-360) mg/dl Transferrin % Sat (15-50) % Crossmatch See Detail (1) Diabetic foot ulcer Diabetes mellitus type: type 2 Diabetic foot ulcer location: other L aterality: right Non-pressure ulcer stage: limited to breakdown of skin Qualified Code(s): E11.621 - Type 2 diabetes mellitus with foot ulcer; L97.511 - Non-pressure chronic ulcer of other part of right foot limited to breakdown of skin (2) Hyperlipidemia Hyperlipidemia type: unspecified Qualified Code(s): E78.5 - Hyperlipidemia, unspecified (3) Hypothyroidism Hypothyroidism type: acquired Qualified Code(s): E03.9 - Hypothyroidism, unspecified (4) DM II (diabetes mellitus, type II), controlled Chronic kidney disease stage: stage 4 (severe) Diabetes mellitus complication detail: with chronic kidney disease Diabetes mellitus complication status: with kidney complications Diabetes mellitus [facility] 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
[2018-07-09] MEDS: TRAMADOL HCL 50 MG TABLET PO PRN (16:58)
[2018-07-09] MEDS ORDERED: FUROSEMIDE 80 MG in SYRINGE 0 ML IV SCH (17:00)
[2018-07-09] MEDS: PRAMIPEXOLE DIHYDROCHLO 0.25 MG TAB PO SCH (20:04)
[2018-07-09] MEDS: ACETAMINOPHEN 325 MG TAB PO PRN (20:11)
[2018-07-10] MEDS: LEVOTHYROXINE SODIUM 88 MCG TABLET PO SCH (06:21)
[2018-07-10 07:04] LABS: Hemoglobin 8.5 g/dL (12.0-16.0); Mean Corpuscular Hgb Conc 29.3 g/dL (32-36); Mean Corpuscular Volume 90.6 fL (80-100); Mean Platelet Volume 11.6 fL (7.4-10.4); Platelet Count 109 K/uL (130-400); RDW Standard Deviation 61.8 fL (36.4-46.3); White Blood Count 4.83 K/uL (4.8-10.8)
[2018-07-10 07:38] LABS: Platelet Estimate Decreased (Normal)
[2018-07-10 07:43] LABS: BUN Creatinine Ratio 33.6 (10-20); Calcium 8.5 mg/dl (8.5-10.1); Creatinine Clr Calc Pharmacy 32.8 ml/min; Est GFR (African American) 30.7; Est GFR (Non-African American) 26.5; Potassium 3.5 mmol/L (3.5-5.1)
[2018-07-10] MEDS: INSULIN ASPART 100 UNITS/ML 3 ML PEN SC SCH ×4 (07:49→20:18)
[2018-07-10] MEDS: FERROUS SULFATE 325 MG TAB PO SCH ×2 (07:50→16:34)
[2018-07-10] MEDS: METOPROLOL SUCC 50MG EXT REL TAB PO SCH (07:50)
[2018-07-10] MEDS: DOCUSATE SODIUM 100 MG CAP PO SCH ×2 (07:50→20:10)
[2018-07-10] MEDS: PREGABALIN 100 MG CAP PO SCH ×2 (07:50→20:14)
[2018-07-10] MEDS: IRON SUCROSE 200 MG in 0.9 % SODIUM CHLORIDE 100 ML IV SCH (07:50)
[2018-07-10] MEDS: SERTRALINE HCL 50 MG TABLET PO SCH (07:51)
[2018-07-10] MEDS: CYANOCOBALAMIN 1000 MCG/ML VIAL IM SCH (07:51)
[2018-07-10] MEDS: APIXABAN 2.5 MG TAB PO SCH ×2 (08:29→20:10)
--- NOTE | 2018-07-10 09:22 | Nephrology Progress Note ---
Date of Service July 10, 2018 Assessment & Plan (1) Chronic kidney disease, stage IV (severe): -- CKD w/ baseline creatinine 1.5 - 2.0 depending upon volume status -- Stable kidney function. Electrolyte balance is acceptable. Will monitor (2) Acute on chronic systolic heart failure: -- Dietitian has provided education on 1500 mg / day NaCl restricted diet -- Cumulative I&O's show net 3.8 L UO but weight has risen from 116 to 126 kg. Suspect that weights are inaccurate. SaO2 is 98% on 2 L NC. Will transition to Torsemide 40 mg po qAM starting today (3) Anemia: -- Iron sat is < 20 % w/ ferritin < 200. Day #2 of 5 IV Venofer -- FOBT negative x 1 Subjective Ms. Arnold was seen & examined in her hospital room this morning. She reports that she is breathing comfortably. SaO2 is 98% on O2 at 2 L/ min NC Review of Systems Constitutional: no fever Respiratory: no dyspnea Cardiovascular: no chest pain and no palpitations Gastrointestinal: + abdominal pain; no vomiting and no diarrhea/loose stools Physical Exam Constitutional: + obese Eyes: PERRL, conjunctivae normal, anicteric sclerae ENMT: external ear and nose normal, oropharynx normal Neck: trachea midline, no thyromegaly Respiratory: normal respiratory effort, lungs clear to auscultation no respiratory distress Cardiovascular: Rate/Rhythm: + irregularly irregular Extremities: + edema (trace LE edema) Gastrointestinal (Abdomen): normal bowel sounds, soft, nontender, no hepatosplenomegaly Results & Data Vital Signs (Past 12 Hours) Vital Signs Temp Pulse Pulse Resp BP Pulse Ox 07/10/18 06:49 36.5 C 80 19 116/75 98 07/10/18 03:51 36.7 C 96 H 18 138/67 95 07/09/18 23:44 36.6 C 96 H 24 117/80 94 Laboratory Results Laboratory Tests 07/10/18 07/10/18 06:35 06:35 WBC 4.83 Hgb 8.5 L Hct 29.0 L Plt Count 109 L Sodium 138 Potassium 3.5 Chloride 102 Carbon Dioxide 31 BUN 60 H Creatinine 1.78 H Glucose 68 L Calcium 8.5 (1) Anemia Anemia type: iron deficiency Iron deficiency anemia type: unspecified iron deficiency Qualified Code(s): D50.9 - Iron deficiency anemia, unspecified
[2018-07-10] MEDS: TORSEMIDE 10 MG TAB PO SCH (11:00)
[2018-07-10] MEDS: TRAMADOL HCL 50 MG TABLET PO PRN (12:39)
--- NOTE | 2018-07-10 14:28 | Hospitalist Progress Note ---
Date of Service July 10, 2018 Assessment & Plan (1) Acute on chronic systolic heart failure: Presented with weight gain of 15 lbs and dyspnea with minimal exertion. ECHO with low normal EF and RV systolic dysfunction as well. Latter 2nd to sleep-disordered breathing? Has been treated this admission intermittently with IV Lasix but converted to p.o. 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 -Continue toprol xl 100mg daily. -Not good candidate for CLAUDETTE or ARB due to CKD. (2) Persistent atrial fibrillation: Rates controlled for many days Previous tachycardia may have been driving her decompensated CHF. Continue eliquis BID at the renal dose -continue Toprol (3) Restless leg syndrome: Cont pramipexole. Likely worsened by significant iron deficiency. Replacing low iron po and now with IV iron (4) Hyperlipidemia: not currently on statin. (5) Hypothyroidism: last several TSH checks have been modestly elevated. will increase synthroid from 75mcg to 88mcg. repeat TSH 6 weeks. (6) Gastroparesis: Secondary to long-standing DM. cont reglan prn (7) DM II (diabetes mellitus, type II), controlled: hemoglobin a1c 6.9% April 2018. nearly all BSGs since admission have been normal (some lows seen as well). -Still requiring tiny amounts of insulin relative to what she takes at home. this would suggest dietary habits are much different at home relative to here. -Basal insulin has been held due to lows and will continue to do so. -Will continue loose sliding scale. -Reinstitute basal insulin if needed. (8) Diabetic foot ulcer: right foot. followed by wound clinic. s/p recent placement of skin graft to dorsum right foot and recent debridement. see their notes in [facility]. dressings NOT removed here wound care consult appreciated-I reviewed the Wound RN pictures taken today (9) Pancytopenia: Unclear etiology, but slightly improved to stable today. Hgb up to 8.5, WBC count 4.8, and plts up to 109 b12/folate largely normal although B12 is low normal at 342. TSH minimally elevated. retic count 5%. -some of the anemia could be secondary to iron def as well as chronic renal disease, but that would not explain the low wbc count and low platelet count. -Replacing B12 with IM -Consider outpatient hematology referral -Follow CBC -awaiting Hemoccult stool -IV iron-day #2 (10) Iron deficiency: presumed occult GI blood loss until proven otherwise. fecal occult blood test negative here in 02/2018, repeat this admission is pending -continue ferrous sulfate 325mg BID but then started on IV Venofer by Nephrology as above will need endoscopic evaluation in future if she desires, but has declined in the past. celebrex put on hold for now. -transfuse PRBCs if hgb<8 -This is likely contributing to her fatigue (11) Chronic respiratory failure with hypoxia: remains on home O2 amount Secondary to CHF (12) Chronic kidney disease, stage IV (severe): With acute kidney injury in the setting of CKD stage III-IV Baseline Cr seems to be about 1.4/1.5. Creatinine improved from yesterday at 1.78 and FLAVIO was secondary to previous IV diuresis -Appreciate nephrology consultation -Follow BMP in the morning -Avoid nephrotoxins -Renally dose medications (13) Morbid obesity with BMI of 45.0-49.9, adult: BMI 49.6, some of which is fluid weight -admits to eating a lot of carbs when at home as evidenced by the significantly elevated insulin doses she takes at home compared to while here (14) Hip pain: chronic, from OA -dcd Celebrex here due to anemia and concern for GI Bleeding -continue tramadol prn (15) DVT prophylaxis: Eliquis BID Dispo -PT, OT consults recommend return home Continued stay for diuresis to ensure continues with switching to oral diuretics today -Discharged home tomorrow with home health Stable for transfer to medical floor today Subjective Patient feeling much better today, less dyspneic with exertion. She is ambulating to the bathroom and back without difficulty. Feels more energy today. She reports she did have a colonoscopy she thinks in the recent past and was told she would never have to have another one. Review of GI consultation from 2016 reports that at that time, she was evaluated for her anemia and refused EGD and colonoscopy. Telemetry with atrial fibrillation with rates in the 80s to 90s, rate controlled for many days I discussed the case with nephrology on the phone Patient reports she is urinating quite a bit today Review of Systems Review of Systems: All systems reviewed & are unremarkable except as noted in HPI & below Physical Exam Constitutional: WD/WN, vitals as above + obese Eyes: PERRL, conjunctivae normal, anicteric sclerae Neck: trachea midline, no thyromegaly Respiratory: normal respiratory effort, lungs clear to auscultation Cardiovascular: Rate/Rhythm: regular rate and + irregularly irregular Heart Sounds: no murmur Extremities: + edema (trace pitting edema) Gastrointestinal (Abdomen): normal bowel sounds, soft, nontender, no hepatosplenomegaly Musculoskeletal: Extremities: extremities normal to inspection; no cyanosis and no clubbing Skin: + lesion (right anterior dital leg with dressing in place not removed) Neurologic: moves all extremities and awake; no focal motor deficits Psychiatric: A+Ox3, euthymic affect Results & Data Vital Signs (Past 12 Hours) Vital Signs Temp Pulse Resp BP Pulse Ox 07/10/18 11:09 36.6 C 89 18 111/71 99 07/10/18 06:49 36.5 C 80 19 116/75 98 07/10/18 03:51 36.7 C 96 H 18 138/67 95 Laboratory Results 07/10/18 07/10/18 07/10/18 Range/Units 11:10 07:02 06:35 WBC (4.8-10.8) K/uL RBC (4.2-5.4) M/uL Hgb (12.0-16.0) g/dL Hct (37-47) % MCV (80-100) fL MCH (25-34) pg MCHC (32-36) g/dL RDW Std Deviation (36.4-46.3) fL RDW Coeff of Quirino (11.5-14.5) % Plt Count (130-400) K/uL MPV (7.4-10.4) fL Platelet Estimate (Normal) Sodium 138 (136-145) mmol/L Potassium 3.5 (3.5-5.1) mmol/L Chloride 102 (98-107) mmol/L Carbon Dioxide 31 (21-32) mmol/L Anion Gap 5.0 (3-11) BUN 60 H (7-18) mg/dl Creatinine 1.78 H (0.6-1.2) mg/dl Est Cr Clr Drug Dosing 32.8 ml/min Est GFR ( Amer) 30.7 Est GFR (Non-Af Amer) 26.5 BUN/Creatinine Ratio 33.6 H (10-20) Glucose 68 L (70-99) mg/dl POC Glucose 204 H 84 (70-99) Calcium 8.5 (8.5-10.1) mg/dl Stool Occult Bld Scrn (Negative) Crossmatch 07/10/18 07/09/18 07/09/18 Range/Units 06:35 23:45 20:27 WBC 4.83 (4.8-10.8) K/uL RBC 3.20 L (4.2-5.4) M/uL Hgb 8.5 L (12.0-16.0) g/dL Hct 29.0 L (37-47) % MCV 90.6 (80-100) fL MCH 26.6 (25-34) pg MCHC 29.3 L (32-36) g/dL RDW Std Deviation 61.8 H (36.4-46.3) fL RDW Coeff of Quirino 19.0 H (11.5-14.5) % Plt Count 109 L (130-400) K/uL MPV 11.6 H (7.4-10.4) fL Platelet Estimate Decreased L (Normal) Sodium (136-145) mmol/L Potassium (3.5-5.1) mmol/L Chloride (98-107) mmol/L Carbon Dioxide (21-32) mmol/L Anion Gap (3-11) BUN (7-18) mg/dl Creatinine (0.6-1.2) mg/dl Est Cr Clr Drug Dosing ml/min Est GFR ( Amer) Est GFR (Non-Af Amer) BUN/Creatinine Ratio (10-20) Glucose (70-99) mg/dl POC Glucose 119 H (70-99) Calcium (8.5-10.1) mg/dl Stool Occult Bld Scrn Negative (Negative) Crossmatch 06/04/19 06/01/19 Range/Units 16:06 15:34 WBC (4.8-10.8) K/uL RBC (4.2-5.4) M/uL Hgb (12.0-16.0) g/dL Hct (37-47) % MCV (80-100) fL MCH (25-34) pg MCHC (32-36) g/dL RDW Std Deviation (36.4-46.3) fL RDW Coeff of Quirino (11.5-14.5) % Plt Count (130-400) K/uL MPV (7.4-10.4) fL Platelet Estimate (Normal) Sodium (136-145) mmol/L Potassium (3.5-5.1) mmol/L Chloride (98-107) mmol/L Carbon Dioxide (21-32) mmol/L Anion Gap (3-11) BUN (7-18) mg/dl Creatinine (0.6-1.2) mg/dl Est Cr Clr Drug Dosing ml/min Est GFR ( Amer) Est GFR (Non-Af Amer) BUN/Creatinine Ratio (10-20) Glucose (70-99) mg/dl POC Glucose 136 H (70-99) Calcium (8.5-10.1) mg/dl Stool Occult Bld Scrn (Negative) Crossmatch See Detail (1) Hyperlipidemia Hyperlipidemia type: unspecified Qualified Code(s): E78.5 - Hyperlipidemia, unspecified (2) Hypothyroidism Hypothyroidism type: acquired Qualified Code(s): E03.9 - Hypothyroidism, unspecified (3) DM II (diabetes mellitus, type II), controlled Diabetes mellitus 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 Diabetes mellitus complication status: with kidney complications Diabetes mellitus complication detail: with chronic kidney disease Chronic kidney disease stage: stage 4 (severe) Qualified Code(s): E11.22 - Type 2 diabetes mellitus with diabetic chronic kidney disease; N18.4 - Chronic kidney disease, stage 4 (severe); Z79.4 - nursing home (current) use of insulin (4) Diabetic foot ulcer Diabetic foot ulcer location: other Diabetes mellitus type: type 2 Laterality: right Non-pressure ulcer stage: limited to breakdown of skin Qualified Code(s): E11.621 - Type 2 diabetes mellitus with foot ulcer; L97.511 - Non-pressure chronic ulcer of other part of right foot limited to breakdown of skin
[2018-07-10] MEDS: PRAMIPEXOLE DIHYDROCHLO 0.25 MG TAB PO SCH (20:10)
[2018-07-10] MEDS: MELATONIN 1 MG PO SCH (22:23)
[2018-07-11] MEDS: LEVOTHYROXINE SODIUM 88 MCG TABLET PO SCH (05:32)
[2018-07-11 07:44] LABS: Hematocrit (blood only) 27.5 % (37-47); Hemoglobin 8.4 g/dL (12.0-16.0); Mean Corpuscular Hgb Conc 30.5 g/dL (32-36); Mean Corpuscular Volume 90.5 fL (80-100); Mean Platelet Volume 11.5 fL (7.4-10.4); Platelet Count 103 K/uL (130-400); RDW Coefficient of Variation 19.6 % (11.5-14.5); RDW Standard Deviation 61.9 fL (36.4-46.3); Red Blood Count 3.04 M/uL (4.2-5.4); White Blood Count 5.37 K/uL (4.8-10.8)
[2018-07-11] MEDS: SERTRALINE HCL 50 MG TABLET PO SCH (08:12)
[2018-07-11] MEDS: METOPROLOL SUCC 50MG EXT REL TAB PO SCH (08:13)
[2018-07-11] MEDS: TORSEMIDE 10 MG TAB PO SCH (08:13)
[2018-07-11] MEDS: DOCUSATE SODIUM 100 MG CAP PO SCH ×2 (08:13→20:06)
[2018-07-11] MEDS: FERROUS SULFATE 325 MG TAB PO SCH ×2 (08:13→17:18)
[2018-07-11] MEDS: INSULIN ASPART 100 UNITS/ML 3 ML PEN SC SCH ×4 (08:14→21:43)
[2018-07-11 08:16] LABS: BUN Creatinine Ratio 34.6 (10-20); Calcium 8.9 mg/dl (8.5-10.1); Creatinine Clr Calc Pharmacy 34.4 ml/min; Est GFR (African American) 32.4; Potassium 3.1 mmol/L (3.5-5.1)
[2018-07-11] MEDS: PREGABALIN 100 MG CAP PO SCH ×2 (08:19→23:29)
[2018-07-11] MEDS: APIXABAN 2.5 MG TAB PO SCH ×2 (08:19→20:06)
[2018-07-11] MEDS: CYANOCOBALAMIN 1000 MCG/ML VIAL IM SCH (08:20)
[2018-07-11] MEDS: IRON SUCROSE 200 MG in 0.9 % SODIUM CHLORIDE 100 ML IV SCH (08:20)
[2018-07-11] MEDS: TRAMADOL HCL 50 MG TABLET PO PRN (08:48)
[2018-07-11] MEDS ORDERED: POTASSIUM CHLORIDE 20 MEQ TABCR PO STA (08:53)
--- NOTE | 2018-07-11 09:56 | Nephrology Progress Note ---
Date of Service July 11, 2018 Assessment & Plan (1) Chronic kidney disease, stage IV (severe): -- CKD w/ baseline creatinine 1.5 - 2.0 depending upon volume status -- Stable kidney function. Electrolyte balance is acceptable -- I have placed order in [employer] to schedule outpatient Nephrology follow up w/ Dr. Mcdermott in 7 - 14 days. Order also placed for nonfasting blood work to be completed 24 hours prior to OV (2) Acute on chronic systolic heart failure: -- Dietitian has provided education on 1500 mg / day NaCl restricted diet -- I&O's matched overnight. Patient is now on oral Torsemide -- RT note reviewed: SaO2 > 88% w/ exercise. Oxygen was not needed during testing (3) Anemia: -- Iron sat is < 20 % w/ ferritin < 200. Day #3 of 5 IV Venofer -- FOBT negative x 1 Subjective Mrs. Arnold was seen & examined in her hospital room this morning. She is currently breathing comfortably flat in bed on O2 at 2 L / min NC. She voices no new medical concerns Review of Systems Constitutional: no fever Respiratory: no dyspnea Cardiovascular: no chest pain Gastrointestinal: no abdominal pain, no vomiting and no diarrhea/loose stools Physical Exam Constitutional: + obese Eyes: PERRL, conjunctivae normal, anicteric sclerae ENMT: external ear and nose normal, oropharynx normal Neck: trachea midline, no thyromegaly Respiratory: normal respiratory effort, lungs clear to auscultation no respiratory distress Cardiovascular: Rate/Rhythm: + irregularly irregular Extremities: + edema (trace LE edema) Gastrointestinal (Abdomen): normal bowel sounds, soft, nontender, no hepatosplenomegaly Results & Data Vital Signs (Past 12 Hours) Vital Signs Temp Pulse Resp BP Pulse Ox 07/11/18 07:15 36.7 C 89 20 104/66 90 07/10/18 23:44 36.8 C 81 18 109/65 90 Laboratory Results Laboratory Tests 07/11/18 07/11/18 07:18 07:18 WBC 5.37 Hgb 8.4 L Hct 27.5 L Plt Count 103 L Sodium 141 Potassium 3.1 L Chloride 103 Carbon Dioxide 31 BUN 59 H Creatinine 1.70 H Glucose 83 (1) Anemia Anemia type: iron deficiency Iron deficiency anemia type: unspecified iron deficiency Qualified Code(s): D50.9 - Iron deficiency anemia, unspecified
--- NOTE | 2018-07-11 16:38 | Discharge Summary ---
Date of Service July 11, 2018 Admission HPI Per Admitting Provider 82 yo female with history of chronic diastolic heart failure, chronic atrial fibrillation, insulin dependent diabetes and severe osteoarthritis of the right hip, presents today due to increase shortness of breath over the past 2 weeks. She reports that she noticed she was getting a little more winded when transferring from bed to wheelchair. She reports that she is non ambulatory due to severe arthritis in right hip. Cannot get a hip replacement due to chronic open wound on right foot. So her activity level is quite low at baseline. That being said, she normally is not short of breath with transfers. She has progressed to the point now that she is extremely short of breath with transfers. She denies dyspnea at rest but does admit to orthopnea, there is no way she can lay flat, so short of breath. She denies any ongoing angina symptoms. She does admit that she drinks a lot of coffee, 4-5 twelve oz cups and then drinks some water, occasional soda during the day. She does not read how much salt is in her food, eats canned soups, lunch meats, rarely cooks fresh foods. She says that she steps on the scale most days but not every day. Today when she stepped on the scale she could not believe that she was 250 lbs. She says she should be 235 lbs. She says she weighed that a few weeks ago. In the ED her vitals were stable. EKG without ischemic changes. CXR showed some evidence of heart failure. She was given Lasix 80mg IV, she normally takes 80mg PO daily and she reports that she did take it this morning. She says she is compliant with all her medications. She says that she feels her sugars are well controlled at home. Reviewed chart, prior cardiology notes were from 2016 and they would not be brought up. An echo report could not be viewed either. However, in the record it clearly states she had diastolic dysfunction. She thinks it has been some time since her last echocardiogram. Principal Diagnosis Acute on chronic diastolic CHF Discharge Exam Constitutional WD/WN, vitals as above + obese Eyes PERRL, conjunctivae normal, anicteric sclerae Neck trachea midline, no thyromegaly Respiratory normal respiratory effort, lungs clear to auscultation Cardiovascular Rate/Rhythm: regular rate and + irregularly irregular Heart Sounds: no murmur Extremities: + edema (trace pitting edema) Gastrointestinal (Abdomen) normal bowel sounds, soft, nontender, no hepatosplenomegaly Inspection/Auscultation: + abdomen distended (But soft) Musculoskeletal Extremities: extremities normal to inspection; no cyanosis and no clubbing Skin no rashes, warm and dry + lesion (right anterior dital leg with dressing in place not removed) Neurologic moves all extremities and awake; no focal motor deficits Psychiatric A+Ox3, euthymic affect Discharge Data Allergies Allergy/AdvReac Type Severity Reaction Status Date / Time carbamazepine Allergy Intermediate HIVES Verified 07/16/18 10:41 Consultations 07/05/18 15:25 ED Decision to Admit Stat 07/05/18 17:20 Consult Case Management - Discharge Planning Routine 07/08/18 08:51 Consult Nephrology Routine Ordered Studies CXR x 2 Hospital Course (1) Acute on chronic diastolic heart failure: Presented with weight gain of 15 lbs and dyspnea with minimal exertion. ECHO with low normal EF and RV systolic dysfunction as well. Latter 2nd to sleep-disordered breathing? Has been treated this admission intermittently with IV Lasix but converted to p.o. 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 Continue eliquis BID at the renal dose -continue Toprol (3) Restless leg syndrome: Cont pramipexole. Likely worsened by significant iron deficiency. Replacing low iron po and then with IV iron a few doses during this admission (4) Hyperlipidemia: not currently on statin. (5) Hypothyroidism: last several TSH checks have been modestly elevated. will increase synthroid from 75mcg to 88mcg. repeat TSH 6 weeks. (6) Gastroparesis: Secondary to long-standing DM. cont reglan prn -She had no episodes of vomiting while here and minimal nausea due to small portions of meals relative to home meals (7) DM II (diabetes mellitus, type II), controlled: hemoglobin a1c 6.9% April 2018. nearly all BSGs since admission have been normal (some lows seen as well). -Still requiring tiny amounts of insulin relative to what she takes at home. this would suggest dietary habits are much different at home relative to here. -Basal insulin discontinued here and upon discharge at least temporarily Of note, she was taking Tresiba 150 units at home and Novolog 30 units tid. Here, she has been requiring Novolog ONLY approx 3-5 units with meals, and maintaining blood glucose checks in the 80s-140s consistently. Advised her to NOT take Tresiba upon discharge, and to use Novolog 5 units with meals for now. If glucose trends to >200 in the AM, advised to call her ENdocrine office for further instructions on what dose of Tresiba to restart. (8) Diabetic foot ulcer: right foot. followed by wound clinic. s/p recent placement of skin graft to dorsum right foot and recent debridement. see their notes in [facility]. dressings NOT removed here wound care consult appreciated-I reviewed the Wound RN pictures taken today (9) Pancytopenia: Unclear etiology, but slightly improved to stable here. Hgb up to 8.5, WBC count 4.8, and plts up to 109 b12/folate largely normal although B12 is low normal at 342. TSH minimally elevated. retic count 5%. Hemoccult stool here was negative -some of the anemia could be secondary to iron def as well as chronic renal disease, but that would not explain the low wbc count and low platelet count. -Replacing B12 with IM while here and revert to po upon discharge -gave IV iron and revert to po iron on discharge -Consider outpatient hematology referral -Follow CBC (10) Iron deficiency: Hemoccult stool here negative fecal occult blood test negative here in 02/2018 -continue ferrous sulfate 325mg BID but then started on IV Venofer by Nephrology as above will need endoscopic evaluation in future if she desires, but has declined in the past. celebrex put on hold for now. -This is likely contributing to her fatigue -follow CBC as outpt -could be absorption issue -may need repeat IV iron as outpt in future (11) Chronic respiratory failure with hypoxia: remains on home O2 amount Secondary to CHF (12) Chronic kidney disease, stage IV (severe): With acute kidney injury in the setting of CKD stage III-IV Baseline Cr seems to be about 1.4/1.5. Creatinine improved from yesterday at 1.69 and FLAVIO was secondary to previous IV diuresis -Appreciate nephrology consultation -Follow BMP as an outpt -Avoid nephrotoxins -Renally dose medications (13) Morbid obesity with BMI of 45.0-49.9, adult: BMI 49.6, some of which is fluid weight -admits to eating a lot of carbs when at home as evidenced by the significantly elevated insulin doses she takes at home compared to while here (14) Hip pain: chronic, from OA -dcd Celebrex here due to anemia and concern for occult GI Bleeding, also with CKD -continue tramadol prn (15) DVT prophylaxis: Eliquis BID Dispo -PT, OT consults recommend return home -Discharged home today with home health Total Time Total Time Spent Total Time Spent (In Minutes): >30 min Total Time Includes: Examination of the Patient, Discharge Planning, Medication Reconciliation and Communication With Other Providers (Nephrology) Discharge Plan Discharge Items Patient Disposition: Home - Home Health Services Reason For Visit: ACUTE ON CHRONIC HEART FAILURE, DYSPNEA Discharge Diagnosis: Acute on chronic diastolic CHF Condition: Fair Discharge Goals: Diagnostic testing, Improve disease control, Learn about illness and Therapeutic intervention Activity: As commented below Lifting: Gradually increase as tolerated Bathing: No limitations Exercise/Sports: As tolerated Non-emergency contact: Primary Care Provider and Coal Trimmer Call non-emergency contact if: you have any medication questions and your symptoms worsen Follow-up/Referrals: Uri Plascencia III, MD [Primary Care Provider] - (Dr. Plascencia's office will call you with your appointment date and time.) Chuck Mcdermott DO [Physician Tool Radial Drill Press Set Up Operator] - 07/26/18 1:10 pm Telma Mendenhall PA-C [Physician Tool Radial Drill Press Set Up Operator] - 07/23/18 10:30 am (Congestive heart failure clinic- with the PA Ms. Telma Mendenhall ) Diet: Carb Consistent or DM2 and Low Sodium (2gm) Fluids: 1800ml (7 cups) Addtl Provider Instructions: Your lasix was changed over to a new water pill called torsemide that may work better for you. You also need to take potassium pills twice a day as the torsemide makes your potassium low. Call your Primary Care doctor if any of the following symptoms or problems start or get worse: * Shortness of breath or difficulty breathing * Wake up at night short of breath * Chest pain * Cough * Swelling of your hands, feet, or legs * More fatigued or tired with your normal activity * Palpitations - sudden fast heart beats WEIGHT * Weigh yourself every morning after using the bathroom. * Use the same scale. * Wear the same amount of clothing. * Write your weight down on a chart. * Call your Primary Care doctor if you gain more than 2-3 pounds in 1-2 days. MEDICATIONS * Use this discharge instruction sheet for medication instructions. * Take your medications at the time your doctor ordered. * Do not skip a dose of your medicines. * If you miss a dose of medicine, take it as soon as possible, but DO NOT DOUBLE A DOSE. * Read your medicine information when you get home. * Know all of the side effects of your medicine. If in doubt, ask your pharmacist * Call your Primary Care doctor's office if you have any side effects. * Be sure all of your doctors know what medicine and herbs you take (including cold, flu, and herbal medicine). Take the following with you to your follow-up doctor appointments: * Weight Chart * Medication List * List of questions Do not drink excessive alcohol, beer or wine. ALSO, your blood sugar was very well controlled here and was even low at times. We did not give you ANY Lantus or Tresiba the whole time you were here. You also only required very low doses of Novolog. I would suggest you NOT TAKE YOUR Tresiba for now, and ONLY take Novolog 5 units with each meal. If your morning blood glucose goes over 200, then please start taking Tresiba 10 units at bedtime and call your [employer]. Please continue to eat a healthy diet, and not eat bread products. Eat small meals at a time so your gastroparesis doesn't act up. If your blood glucose goes up into the 200s, then please call your [employer] for advice on how much Tresiba to start taking again. You now need to wear Oxygen all the time at 2 L and 3L with walking. Your levothyroxine dose was increased to 88 mcg daily (up from 75mcg) and you should have your thyroid blood work repeated in 4-6 weeks. You were started on iron tablets for your anemia and should follow up with a GI doctor if you desire to have upper endoscopy and colonoscopy to look for a reason why you are anemic. Please follow up with your PCP as well as your white blood cell count and your platelets have also been low. Please follow up with your PCP within 1-2 weeks. Prescriptions: New ferrous sulfate 325 mg (65 mg iron) Tablet,Delayed Release (Dr/Ec) 325 mg PO BIDM Qty: 60 RF: 0 acetaminophen [Mapap (acetaminophen)] 325 mg Tablet 650 mg PO Q4H PRN (Reason: pain) Qty: 30 RF: 0 torsemide 20 mg tablet 40 mg PO DAILY Qty: 60 RF: 0 levothyroxine [Synthroid] 88 mcg Tablet 88 mcg PO DAILYBB Qty: 30 RF: 0 potassium chloride 20 mEq tablet,ER particles/crystals 20 meq PO BID Qty: 60 RF: 0 Continued metoprolol succinate 100 mg capsule,sprinkle,ER 24hr 100 mg PO QAM RF: 0 pramipexole 0.125 mg tablet 0.125 mg PO HS RF: 0 pregabalin [Lyrica] 100 mg capsule 100 mg PO BID RF: 0 zafirlukast [Accolate] 20 mg tablet 20 mg PO BID RF: 0 ondansetron HCl [Zofran] 4 mg tablet 4 mg PO QID PRN (Reason: nausea and vomiting) RF: 0 sertraline [Zoloft] 50 mg tablet 50 mg PO QAM RF: 0 tramadol 50 mg Tablet 50 mg PO Q6H PRN (Reason: Pain) RF: 0 docusate sodium 100 mg Capsule 100 mg PO BID RF: 0 Eliquis 5 mg tablet 2.5 mg PO BID Qty: 0 RF: 0 metoclopramide HCl [Reglan] 10 mg tablet 10 mg PO BID PRN (Reason: Nausea) Qty: 12 RF: 0 Changed Novolog Flexpen U-100 Insulin 100 unit/mL insulin pen 5 unit SQ TIDM Qty: 0 RF: 0 Discontinued celecoxib [Celebrex] 200 mg capsule 200 mg PO BID RF: 0 furosemide [Lasix] 40 mg Tablet 80 mg PO QAM Qty: 0 RF: 0 Tresiba FlexTouch U-200 200 unit/mL (3 mL) insulin pen 50 units subcut HS Qty: 0 RF: 0 levothyroxine 75 mcg tablet 75 mcg PO QAM RF: 0 Stand-Alone Forms: [facility] Discharge Orders: Discharge Order (Routine); Ordered 07/11/18 Ordered By: Annamarie Burciaga Admission Data Admit Date/Time: 07/05/18 15:53 Attending Provider: Annamarie Burciaga Admit Provider: Martín Ni Primary Care Provider: Uri Plascencia III Other Providers: Preston Oneil Service: Medical Other Interventions: Discharge Summary Assessment (RN) Last Done: 07/12/18 14:52 Pending Studies at Discharge: No DC Date/Time DO NOT enter until pt leaves facility: 07/12/18 15:27
[2018-07-11] MEDS: MELATONIN 1 MG PO SCH (20:05)
[2018-07-11] MEDS: PRAMIPEXOLE DIHYDROCHLO 0.25 MG TAB PO SCH (20:05)
--- NOTE | 2018-07-11 23:19 | Hospitalist Progress Note ---
Date of Service July 11, 2018 Assessment & Plan (1) Acute on chronic systolic heart failure: Presented with weight gain of 15 lbs and dyspnea with minimal exertion. ECHO with low normal EF and RV systolic dysfunction as well. Latter 2nd to sleep-disordered breathing? Has been treated this admission intermittently with IV Lasix but then converted to p.o. 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 -Continue toprol xl 100mg daily. -Not good candidate for CLAUDETTE or ARB due to CKD. (2) Persistent atrial fibrillation: Rates controlled for many days Previous tachycardia may have been driving her decompensated CHF. Continue eliquis BID at the renal dose -continue Toprol (3) Restless leg syndrome: Cont pramipexole. Likely worsened by significant iron deficiency. Replacing low iron po and now with IV iron (4) Hyperlipidemia: not currently on statin. (5) Hypothyroidism: last several TSH checks have been modestly elevated. will increase synthroid from 75mcg to 88mcg. repeat TSH 6 weeks. (6) Gastroparesis: Secondary to long-standing DM. cont reglan prn (7) DM II (diabetes mellitus, type II), controlled: hemoglobin a1c 6.9% April 2018. nearly all BSGs since admission have been normal (some lows seen as well). -Still requiring tiny amounts of insulin relative to what she takes at home. this would suggest dietary habits are much different at home relative to here. -Basal insulin has been held due to lows and will continue to do so. -Will continue loose sliding scale. -Reinstitute basal insulin if needed. (8) Diabetic foot ulcer: right foot. followed by wound clinic. s/p recent placement of skin graft to dorsum right foot and recent debridement. see their notes in [facility]. dressings NOT removed here wound care consult appreciated-I reviewed the Wound RN pictures taken (9) Pancytopenia: Unclear etiology, but slightly improved to stable today. Hgb up to 8.5, WBC count 4.8, and plts up to 109 b12/folate largely normal although B12 is low normal at 342. TSH minimally elevated. retic count 5%. -some of the anemia could be secondary to iron def as well as chronic renal disease, but that would not explain the low wbc count and low platelet count. -Replacing B12 with IM -Consider outpatient hematology referral -Follow CBC -awaiting Hemoccult stool -IV iron-day #3 (10) Iron deficiency: presumed occult GI blood loss until proven otherwise. fecal occult blood test negative here in 02/2018, repeat this admission is pending -continue ferrous sulfate 325mg BID but then started on IV Venofer by Nephrology as above will need endoscopic evaluation in future if she desires, but has declined in the past. celebrex put on hold for now. -transfuse PRBCs if hgb<8 -This is likely contributing to her fatigue (11) Chronic respiratory failure with hypoxia: remains on home O2 amount Secondary to CHF (12) Chronic kidney disease, stage IV (severe): With acute kidney injury in the setting of CKD stage III-IV Baseline Cr seems to be about 1.4/1.5. Creatinine improved from yesterday at 1.70 and FLAVIO was secondary to previous IV diuresis -Appreciate nephrology consultation -Follow BMP in the morning -Avoid nephrotoxins -Renally dose medications (13) Morbid obesity with BMI of 45.0-49.9, adult: BMI 49.6, some of which is fluid weight -admits to eating a lot of carbs when at home as evidenced by the significantly elevated insulin doses she takes at home compared to while here (14) Hip pain: chronic, from OA -dcd Celebrex here due to anemia and concern for GI Bleeding -continue tramadol prn (15) DVT prophylaxis: Eliquis BID Dispo -PT, OT consults recommend return home Continued stay for diuresis to ensure continues with switching to oral diuretics -Discharge to home tomorrow with home health if can arrange portable O2 prior to discharge Subjective Feeling SOB todya. No SOB, no nausea, is bao po. Weight is slightly up from previous Was going to discharge, but POx dropped to 79% with minimal ambulation today on RA. Will keep overnight and get portable O2 tank for tomorrow Review of Systems Review of Systems: All systems reviewed & are unremarkable except as noted in HPI & below Physical Exam Constitutional: WD/WN, vitals as above + obese Eyes: PERRL, conjunctivae normal, anicteric sclerae Neck: trachea midline, no thyromegaly Respiratory: normal respiratory effort, lungs clear to auscultation Cardiovascular: Rate/Rhythm: regular rate and + irregularly irregular Heart Sounds: no murmur Extremities: + edema (trace pitting edema) Gastrointestinal (Abdomen): normal bowel sounds, soft, nontender, no hepatosplenomegaly Inspection/Auscultation: + abdomen distended (But soft) Musculoskeletal: Extremities: extremities normal to inspection; no cyanosis and no clubbing Skin: no rashes, warm and dry + lesion (right anterior dital leg with dressing in place not removed) Neurologic: moves all extremities and awake; no focal motor deficits Psychiatric: A+Ox3, euthymic affect Results & Data Vital Signs (Past 12 Hours) Vital Signs Temp Pulse Pulse Pulse Pulse Pulse Pulse 07/11/18 20:00 37.0 C 81 07/11/18 16:41 90 96 H 90 92 H 77 Resp Resp Resp Resp Resp Resp BP 07/11/18 20:00 16 122/69 07/11/18 16:41 22 22 22 18 16 Pulse Ox Pulse Ox Pulse Ox Pulse Ox Pulse Ox Pulse Ox 07/11/18 20:00 94 07/11/18 16:41 85 L 90 79 L 96 90 Laboratory Results 07/11/18 07/11/18 07/11/18 Range/Units 21:06 16:29 11:31 WBC (4.8-10.8) K/uL RBC (4.2-5.4) M/uL Hgb (12.0-16.0) g/dL Hct (37-47) % MCV (80-100) fL MCH (25-34) pg MCHC (32-36) g/dL RDW Std Deviation (36.4-46.3) fL RDW Coeff of Quirino (11.5-14.5) % Plt Count (130-400) K/uL MPV (7.4-10.4) fL Sodium (136-145) mmol/L Potassium (3.5-5.1) mmol/L Chloride (98-107) mmol/L Carbon Dioxide (21-32) mmol/L Anion Gap (3-11) BUN (7-18) mg/dl Creatinine (0.6-1.2) mg/dl Est Cr Clr Drug Dosing ml/min Est GFR ( Amer) Est GFR (Non-Af Amer) BUN/Creatinine Ratio (10-20) Glucose (70-99) mg/dl POC Glucose 153 H 92 147 H (70-99) Calcium (8.5-10.1) mg/dl 07/11/18 07/11/18 07/11/18 Range/Units 08:10 07:18 07:18 WBC 5.37 (4.8-10.8) K/uL RBC 3.04 L (4.2-5.4) M/uL Hgb 8.4 L (12.0-16.0) g/dL Hct 27.5 L (37-47) % MCV 90.5 (80-100) fL MCH 27.6 (25-34) pg MCHC 30.5 L (32-36) g/dL RDW Std Deviation 61.9 H (36.4-46.3) fL RDW Coeff of Quirino 19.6 H (11.5-14.5) % Plt Count 103 L (130-400) K/uL MPV 11.5 H (7.4-10.4) fL Sodium 141 (136-145) mmol/L Potassium 3.1 L (3.5-5.1) mmol/L Chloride 103 (98-107) mmol/L Carbon Dioxide 31 (21-32) mmol/L Anion Gap 7.0 (3-11) BUN 59 H (7-18) mg/dl Creatinine 1.70 H (0.6-1.2) mg/dl Est Cr Clr Drug Dosing 34.4 ml/min Est GFR ( Amer) 32.4 Est GFR (Non-Af Amer) 28.0 BUN/Creatinine Ratio 34.6 H (10-20) Glucose 83 (70-99) mg/dl POC Glucose 93 (70-99) Calcium 8.9 (8.5-10.1) mg/dl (1) Hyperlipidemia Hyperlipidemia type: unspecified Qualified Code(s): E78.5 - Hyperlipidemia, unspecified (2) Hypothyroidism Hypothyroidism type: acquired Qualified Code(s): E03.9 - Hypothyroidism, unspecified (3) DM II (diabetes mellitus, type II), controlled Diabetes mellitus longterm insulin 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 Diabetes mellitus complication status: with kidney complications Diabetes mellitus complication detail: with chronic kidney disease Chronic kidney disease stage: stage 4 (severe) Qualified Code(s): E11.22 - Type 2 diabetes mellitus with diabetic chronic kidney disease; N18.4 - Chronic kidney disease, stage 4 (severe); 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
[2018-07-12] MEDS: LEVOTHYROXINE SODIUM 88 MCG TABLET PO SCH (06:14)
[2018-07-12 07:24] LABS: BUN Creatinine Ratio 32.6 (10-20); Calcium 8.7 mg/dl (8.5-10.1); Creatinine Clr Calc Pharmacy 34.8 ml/min; Est GFR (African American) 33.1; Est GFR (Non-African American) 28.6; Potassium 3.2 mmol/L (3.5-5.1)
[2018-07-12] MEDS: FERROUS SULFATE 325 MG TAB PO SCH (08:05)
[2018-07-12] MEDS: SERTRALINE HCL 50 MG TABLET PO SCH (08:05)
[2018-07-12] MEDS: METOPROLOL SUCC 50MG EXT REL TAB PO SCH (08:05)
[2018-07-12] MEDS: TORSEMIDE 10 MG TAB PO SCH (08:05)
[2018-07-12] MEDS: INSULIN ASPART 100 UNITS/ML 3 ML PEN SC SCH ×2 (08:06→12:23)
[2018-07-12] MEDS: CYANOCOBALAMIN 1000 MCG/ML VIAL IM SCH (08:06)
[2018-07-12] MEDS: APIXABAN 2.5 MG TAB PO SCH (08:07)
[2018-07-12] MEDS: PREGABALIN 100 MG CAP PO SCH (08:12)
[2018-07-12] MEDS: IRON SUCROSE 200 MG in 0.9 % SODIUM CHLORIDE 100 ML IV SCH (08:17)
[2018-07-12] MEDS: DOCUSATE SODIUM 100 MG CAP PO SCH (09:22)
[2018-07-12] MEDS ORDERED: POTASSIUM CHLORIDE 20 MEQ TABCR PO STA (09:46)
--- NOTE | 2018-07-12 10:49 | Nephrology Progress Note ---
Date of Service July 12, 2018 Assessment & Plan (1) Chronic kidney disease, stage IV (severe): -- CKD w/ baseline creatinine 1.5 - 2.0 depending upon volume status -- Stable kidney function. Electrolyte balance is acceptable -- In anticipation of discharge, I have asked my office staff to schedule outpatient follow up visit w/ Dr. Mcdermott in 7 - 14 days. I have also placed an order for nonfasting blood work to be completed 24 hours prior to OV. Patient reports that she has been contacted by my staff and has the visit scheduled (2) Acute on chronic systolic heart failure: -- Dietitian has provided education on 1500 mg / day NaCl restricted diet -- I&O's matched overnight. Patient is now on oral Torsemide 40 mg daily -- RT note reviewed: SaO2 > 88% w/ exercise. Oxygen was not needed during testing (3) Anemia: -- Iron sat is < 20 % w/ ferritin < 200. Day #4 of 5 IV Venofer -- FOBT negative x 1 Subjective Mrs. Arnold was seen & examined in her hospital room this morning. She is currently breathing comfortably flat in bed on O2 at 2 L / min NC. She voices no new medical concerns. She hopes to return home soon. Review of Systems Constitutional: no fever Respiratory: no dyspnea Cardiovascular: no chest pain Gastrointestinal: no abdominal pain, no vomiting and no diarrhea/loose stools Physical Exam Constitutional: + obese Eyes: PERRL, conjunctivae normal, anicteric sclerae ENMT: external ear and nose normal, oropharynx normal Neck: trachea midline, no thyromegaly Respiratory: normal respiratory effort, lungs clear to auscultation no respiratory distress Cardiovascular: Rate/Rhythm: + irregularly irregular Extremities: + edema (trace LE edema) Gastrointestinal (Abdomen): normal bowel sounds, soft, nontender, no hepatosplenomegaly Results & Data Vital Signs (Past 12 Hours) Vital Signs Temp Pulse Resp BP BP Pulse Ox 07/12/18 07:27 36.8 C 80 20 120/69 96 07/11/18 23:00 36.6 C 63 21 112/61 97 Laboratory Results Laboratory Tests 07/12/18 06:31 Sodium 143 Potassium 3.2 L Chloride 105 Carbon Dioxide 32 BUN 55 H Creatinine 1.67 H Glucose 87 (1) Anemia Anemia type: iron deficiency Iron deficiency anemia type: unspecified iron deficiency Qualified Code(s): D50.9 - Iron deficiency anemia, unspecified
[2018-07-12 14:52] VITALS: BP 125/73; PULSE 96; TEMP 97.5; O2SAT 93
--- NOTE | 2018-07-17 11:42 | Coding Query ---
CONGESTIVE HEART FAILURE To Promote full compliance with coding requirements relating to patient care, physician participation is requested in all cases of licensed plumber uncertainty. Please assist us with the following questions. A diagnosis of Congestive Heart Failure is documented in the patient's medical record. SYSTOLIC and DIASTOLIC are both documented separately. To accurately code this diagnosis and to compare patient severity, we ask that you specify the type of heart failure by placing an X within the parenthesis (x). SYSTOLIC HEART FAILURE ( ) Acute ( ) Chronic ( ) Acute on Chronic ( ) Rheumatic ( ) Unknown DIASTOLIC HEART FAILURE ( ) Acute ( ) Chronic ( x) Acute on Chronic ( ) Rheumatic ( ) Unknown COMBINED SYSTOLIC AND DIASTOLIC HEART FAILURE ( ) Acute ( ) Chronic ( ) Acute on Chronic ( ) Rheumatic ( ) Unknown Was the CHF Present On Admission? Please check the appropriate box: (x ) Present on Admission ( ) Not Present On Admission ( ) Clinically undetermined Thank you Chloe CRUMP
== END 2018-07-12 15:27 | disposition home health service (06) | DRG 291 ==
LOC: ED 12:07 → 2S 15:53 → SUATTDRO 15:53 → 2S 16:18 → 2W 07-10 14:42

== ENCOUNTER 2020-05-21 11:20 | Inpatient (IN) ==
[2020-05-21] MEDS ORDERED: cefTRIAXone SODIUM 2,000 MG/70 ML BAG IV STA (11:41)
[2020-05-21] MEDS ORDERED: SODIUM CHLORIDE 0.9% 1000ML 1,000 ML IV SCH (11:45)
--- NOTE | 2020-05-21 11:49 | Emergency Department Note ---
ED Visit Note I have seen and evaluated the patient. I have discussed the case with Dr. Desouza and agree with his plan as documented. Edwin Pappas MD PGY-2 . Resident Activity Tracking Resident Involvement: Resident Care Provided Care Provided: Adult ED
[2020-05-21] MEDS ORDERED: VANCOMYCIN HCL 2,750 MG in SODIUM CHLORIDE 0.9% 500 ML IV ONE (11:51)
[2020-05-21] MEDS ORDERED: VANCOMYCIN CONSULT ACTIVE PRN (11:51)
--- NOTE | 2020-05-21 12:17 | XRay Report ---
XR foot LT 2V CLINICAL HISTORY: pain, swelling, cellulitis COMPARISON: Left foot radiographs August 19, 2019. FINDINGS: Lateral view demonstrates marked dorsal soft tissue swelling of the left foot. No acute fr acture is identified. Moderate mid foot osteoarthritis is noted. There is no radiographic evidence fo r osteomyelitis. No soft tissue gas is identified. IMPRESSION: 1. No acute fracture within the left foot. 2. Marked dorsal soft tissue swelling of the left foot. 3. No radiographic evidence for osteomyelitis. ACT 112: Negative or not required by law. Electronically signed by: Asif Ballard M.D. 05/21/2020 12:16 PM
--- NOTE | 2020-05-21 12:18 | XRay Report ---
XR chest 1V portable HISTORY: 84 years-old Female weakness acute weakness COMPARISON: Chest CT 04/11/2020 TECHNIQUE: Portable AP view of the chest FINDINGS: Cardiac silhouette is enlarged. Unchanged mild interstitial coarsening. No pneumothorax, pleural effu jayro, overt pulmonary edema or airspace consolidation typical for pneumonia. Degenerative changes of the shoulders and spine. IMPRESSION: Cardiomegaly without acute process. ACT 112: Negative or not required by law. The above report was generated using voice recognition software. It may contain grammatical, syntax o r spelling errors. Electronically signed by: Fausto Hutson M.D. 05/21/2020 12:17 PM
[2020-05-21 12:46] LABS: Appearance Urine Clear (Clear); Bilirubin Urine Negative (Negative); Blood Urine Negative (Negative); Color Urine Yellow; Glucose Urine UA Negative (Negative); Ketones Urine Negative (Negative); Leukocyte Esterase Urine Negative (Negative); Nitrite Urine Negative (Negative); Protein Urine Negative (Negative); Specific Gravity Urine 1.014 (1.000-1.030); Urobilinogen Urine Negative (Negative)
[2020-05-21 13:08] LABS: Basophils # (auto) 0.01 K/uL (0-0.2); Basophils % (auto) 0.1 %; Eosinophils # (auto) 0.04 K/uL (0-0.5); Eosinophils % (auto) 0.4 %; Hematocrit (blood only) 32.8 % (37-47); Hemoglobin 10.5 g/dL (12.0-16.0); Immature Granulocytes # (auto) 0.05 K/uL (0.00-0.02); Immature Granulocytes % (auto) 0.5 %; Lymphocytes # (auto) 0.65 K/uL (1.2-3.4); Lymphocytes % (auto) 6.9 %; Mean Corpuscular Hemoglobin 28.6 pg (25-34); Mean Corpuscular Volume 89.4 fL (80-100); Mean Platelet Volume 11.1 fL (7.4-10.4); Monocytes # (auto) 0.91 K/uL (0.11-0.59); Monocytes % (auto) 9.6 %; Neutrophils # (auto) 7.79 K/uL (1.4-6.5); Neutrophils % (auto) 82.5 %; Platelet Count 156 K/uL (130-400); RDW Coefficient of Variation 18.3 % (11.5-14.5); RDW Standard Deviation 59.3 fL (36.4-46.3); Red Blood Count 3.67 M/uL (4.2-5.4); White Blood Count 9.45 K/uL (4.8-10.8)
[2020-05-21 13:37] LABS: Alanine Aminotransferase 27 U/L (12-78); Albumin Level 3.5 gm/dl (3.4-5.0); Aspartate Aminotransferase 23 U/L (15-37); BUN Creatinine Ratio 20.3 (10-20); Blood Urea Nitrogen 40 mg/dl (7-18); Calcium 8.3 mg/dl (8.5-10.1); Carbon Dioxide 27 mmol/L (21-32); Chloride 99 mmol/L (98-107); Creatinine Clr Calc Pharmacy 26.9 ml/min; Est GFR (African American) 26.4; Est GFR (Non-African American) 22.8; Glucose 126 mg/dl (70-99); Magnesium 1.3 mg/dl (1.8-2.4); Sodium 137 mmol/L (136-145)
[2020-05-21 13:40] LABS: Influenza A virus by PCR Negative (Neg); Influenza B virus by PCR Negative (Neg); RSV by PCR Negative (Neg); SARS CoV2 RNA(COVID-19) InHosp NEGATIVE (Negative)
[2020-05-21 13:44] LABS: Albumin Globulin Ratio 0.7 (0.9-2); Alkaline Phosphatase 90 U/L (45-117); Bilirubin,Total 1.3 mg/dl (0.2-1); Creatine Kinase 166 U/L (26-192); Globulin 4.7 gm/dl (2.5-4.0); NT Pro B Type Natriuretic Pept 5118 pg/ml (0-1800); Total Protein 8.2 gm/dl (6.4-8.2); Troponin I < 0.015 ng/ml (0-0.045)
[2020-05-21] MEDS: MAGNESIUM SULFATE / D5W 1 GM/100 ML BAG IV SCH ×2 (14:17→15:07)
--- NOTE | 2020-05-21 14:34 | History & Physical Report ---
Date of Service May 21, 2020 Assessment & Plan (1) Cellulitis of left foot: Patient will be admitted to med/surg tele Will be placed on vano and ceftriaxone. cultures were drawn reviewed labs. will monitor If no improvement, may need MRI of foot. Patient is claustrophobic. May need medicine (2) Uncontrolled type 2 diabetes mellitus: Place on sliding scale consult glycemic control (3) CKD (chronic kidney disease) stage 4, GFR 15-29 ml/min: Will monitor creatinine while here. appears close to baseline (4) Chronic diastolic (congestive) heart failure: Patient appears euvolemic. will monitor fluid status (5) DM (diabetes mellitus), type 2, uncontrolled w/neurologic complication: (6) Obesity: recommend lifestyle modifications as outpatient. (7) On anticoagulant therapy: Chronic Atrial fibrillation continue apixaban 2.5 mg PO BID. Due to elevated BMI may benefit from switching from DOAC, however, she does appear to be tolerating this medication. will continue for now. (8) Hypothyroidism: resume home meds Full code History of Present Illness Chief Complaint: left foot swollen Primary Care Provider: Uri Plascencia MD 84 yo female with a past medical history of type 2 diabetes, hypertension, hyperlipidemia, restless leg syndrome, chronic respiratory failure with hypoxia, chronic diastolic heart failure, CKD, JAMAL, spinal stenosis atrial fibrillation on Neryis reports feeling weak. She reports that her last day in which she felt well was Sunday, the day after she went to is[place]. She reports having chills, and getting weaker over the course of the past few days. She states she normally uses her wheelchair and is able to stand up and pivot to the toilet. However, she has not been able to do this for the past few days.. She lives by herself but her daughter visits her. She also has a caregiver, that noticed her left foot was swollen. This prompted her to seek medical care. She also reports having an episode of diarrhea this past week, but this has subsided. Allergies Allergy/AdvReac Type Severity Reaction Status Date / Time carbamazepine Allergy Intermediate HIVES Verified 05/21/20 12:57 Home Medications Medication Instructions Recorded Confirmed Type metoclopramide HCl [Reglan] 10 mg PO BID PRN #12 tab 02/15/18 05/21/20 Rx docusate sodium 100 mg capsule 100 mg PO BID PRN 02/18/19 05/21/20 History insulin degludec 100 unit/mL (3 95 units SQ HS ml 04/15/19 05/21/20 History mL) subcutaneous pen metoprolol succinate 200 mg 200 mg PO QAM #90 tab 06/10/19 05/21/20 Rx tablet,extended release 24 hr omeprazole 20 mg capsule,delayed 20 mg PO QAM #90 cap 07/21/19 05/21/20 Rx release metolazone 2.5 mg tablet 2.5 mg PO Q OTHER DAY #30 tab 08/08/19 05/14/20 Rx pramipexole 0.25 mg tablet 0.125 mg PO HS #45 tab 08/18/19 05/21/20 Rx Wheelchair (Manual or Powered) #2 ea 10/15/19 05/14/20 Rx zafirlukast 20 mg tablet 20 mg PO BID #180 tab 11/07/19 05/21/20 Rx Wheelchair (Manual or Powered) #1 ea 11/17/19 05/14/20 Rx pregabalin 100 mg capsule 100 mg PO BID #180 cap 12/23/19 05/21/20 Rx calcitriol 0.25 mcg capsule 0.25 mcg PO .COMPLEX #39 cap 01/23/20 05/21/20 Rx Wheelchair (Manual or Powered) 1 ea .ROUTE ONCE #1 ea 02/12/20 05/14/20 Rx ondansetron 4 mg disintegrating 4 mg PO Q6H PRN #30 tab 03/12/20 05/21/20 Rx tablet hydrocodone 5 mg-acetaminophen 325 1 tab PO Q6H PRN #30 tab 03/18/20 05/21/20 Rx mg tablet pen needle, diabetic 32 gauge x #400 ea 04/05/20 05/14/20 Rx 5/32" torsemide 20 mg tablet 80 mg PO BID #360 tab 04/06/20 05/21/20 Rx Novolog Flexpen U-100 Insulin 100 150 unit SUBCUT .COMPLEX 90 Days 04/08/20 05/21/20 Rx unit/mL (3 mL) subcutaneous #135 ml NS sertraline 50 mg tablet 50 mg PO QAM #90 tab 04/08/20 05/21/20 Rx potassium chloride 20 meq PO QAM 04/11/20 05/21/20 History cyclobenzaprine 5 mg tablet 5 mg PO TID PRN #30 tab 04/13/20 05/21/20 Rx apixaban [Eliquis] 2.5 mg PO QAM 05/21/20 05/21/20 History levothyroxine 75 mcg PO DAILYBB 05/21/20 05/21/20 History loperamide [Imodium] 2 mg PO Q4H PRN 05/21/20 05/21/20 History spironolactone 50 mg PO QAM 05/21/20 05/21/20 History Past Med/Surg History Medical History Acute on chronic diastolic heart failure Anemia Asthma stable Atrial fibrillation, chronic Benign hypertension Cellulitis of right foot Chronic back pain CKD (chronic kidney disease) stage 4, GFR 15-29 ml/min Depression Diabetes IDDM Diabetic foot ulcer Diabetic peripheral neuropathy Gastroparesis GERD (gastroesophageal reflux disease) Hiatal hernia History of blood transfusion remote years ago; unknown etiology per patient Hypothyroidism Mammogram abnormal Morbid obesity Nocturnal hypoxemia 2lpm via n/c at HS Osteomyelitis (06/06/12) Restless leg syndrome Sciatica Seizure 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 Lr Normal mucosa in entire colon, biopsied, diverticulosis in sigmoid, otherwise normal. Biopsy showed no inflammation. History of esophagogastroduodenoscopy (EGD) History of hemorrhoidectomy History of total abdominal hysterectomy History of total knee arthroplasty bilateral Family History Mother Breast cancer Father Congestive heart failure Other Diabetes Dyslipidemia Hypertension Denies family history of Crohn's disease Colorectal cancer Inflammatory bowel disease Social History Smoking Status: Never smoker Age Started Using Tobacco: 26; Age Quit Using Tobacco: 51; packs per day: 2; Years Smoked: 25; Second Hand Exposure: No; Do You Dip or Chew Tobacco: No; Tobacco Cessation Education Requested by Patient: No Hx Alcohol Use: No Hx Substance Use: No Preferred Language: Hungarian Communication Ability: Effective Visual Impairment: No Limitations Hearing Ability: Normal 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 Beliefs That Will Affect Care: None marital status: / Current Living Situation: Alone Current Living Situation Comment: with caregivers current occupational status: retired Other Information That Helps Us Care for You: No Feels Safe at Home: Yes Safety Concerns: Feels Safe At This Time caffeine: No Seatbelt Use: always Assistive Devices: Oxygen - at Night Assistive Devices Comment: 2L at night per patient Review of Systems Constitutional: no fever and no sweats Eyes: no diplopia Ear, Nose, Mouth, Throat: no tinnitus Respiratory: no cough and no dyspnea Cardiovascular: no chest pain Gastrointestinal: no abdominal pain and no early satiety Genitourinary: no dysuria and no urinary hesitancy Musculoskeletal: no back pain Integumentary: no acne and no rash Neurologic: no gait abnormality and no localized weakness Psychiatric: no behavioral changes Endocrine: no fatigue and no polydipsia Hematologic / Lymphatic: no easy bleeding Physical Exam Physical Exam: Constitutional: WD/WN, vitals as above + morbidly obese Eyes: PERRL, conjunctivae normal, anicteric sclerae ENMT: external ear and nose normal, oropharynx normal Neck: trachea midline, no thyromegaly, no lymphadenopathy Respiratory: normal respiratory effort; no respiratory distress and no cough Auscultation: + rales (bibasilar); no crackles, no rhonchi and no wheezes Cardiovascular: Rate/Rhythm: regular rate; + abnormal rhythm (irregular irregular) Heart Sounds: normal S1 and normal S2; no murmur Palpation: no thrill Vessels: normal peripheral pulses and normal carotid upstroke; no JVD Extremities: + edema (greater on the right side) Gastrointestinal (Abdomen): normal bowel sounds, soft, nontender, no hepatosplenomegaly Musculoskeletal: no cyanosis or clubbing, extremities motor strength 5/5 Skin: swelling on left foot delineated with mild erythema Neurologic: patellar DTR's 2+ bilat, sensation intact and PERRL, EOMI, accommodation nl, no face palsy, no dysarthria Psychiatric: A+Ox3, euthymic affect Lymphatic: no cervical or axillary lymphadenopathy Results & Data Results & Data ([facility]) Vital Signs (Past 12 Hours) Vital Signs Temp Pulse Resp BP Pulse Ox 05/21/20 14:01 93 H 19 135/75 96 05/21/20 13:29 92 H 18 130/73 96 05/21/20 11:36 96 H 20 93 05/21/20 11:23 90 16 139/100 93 05/21/20 11:20 36.6 C 96 H 20 139/100 93 PG Care Time/CCT Total # of Minutes Spent Total Time Spent with Patient: Total time spent is greater than 50% in c oordination of care (as documented) at patient's floor/unit and/or counseling patient: Coding Level of Care Code 42101 Initial Inpt Care Lvl 3 Diagnoses Cellulitis of left foot L03.116 Uncontrolled type 2 diabetes mellitus E11.65 CKD (chronic kidney disease) stage 4, GFR 15-29 ml/min N18.4 Chronic diastolic (congestive) heart failure I50.32 DM (diabetes mellitus), type 2, uncontrolled w/neurologic complication E11.49; E11.65 Obesity E66.9 On anticoagulant therapy Z79.01 Hypothyroidism E03.9 Hypothyroidism type: acquired Time Spent (min) 60 (1) Hypothyroidism Hypothyroidism type: acquired Qualified Code(s): E03.9 - Hypothyroidism, unspecified
--- NOTE | 2020-05-21 15:05 | Emergency Department Note ---
Impression & Plan Cellulitis of left foot, Hypomagnesemia, Generalized weakness, CKD (chronic kidney disease) ED Provider Note NAME: MAIKEL SHETTY AGE: 84 SEX: F ARRIVES VIA: Ambulance INFORMANT: Patient, ED PROVIDER(S): Elio Desouza MD CHIEF COMPLAINT: Weakness PLAN: Disposition: Admit MEDICAL DECISION MAKING: The patient is a pleasant 84-year-old woman with a past medical history of type 2 diabetes, hypertension, hyperlipidemia, restless leg syndrome, chronic respiratory failure with hypoxia, chronic diastolic heart failure, CKD, JAMAL, sp inal stenosis atrial fibrillation on Eliquis who presents to the emergency department with worsening generalized weakness since yesterday where she reported she felt so weak in the evening that she could not perform her normal transfer from her wheelchair to her bed and so stayed in her chair all night. She further reports realizing this morning that her left leg was swollen, red and painful. She denies any fevers, chills, new cough or congestion, GI or symptoms. On arrival the patient is chronically ill-appearing but no acute distress, afebrile stable vital signs. She has chronic edema bilateral lower extremities however with erythema warmth and tenderness and increased edema of the dorsum of the left foot and distal lower leg. There is no crepitus. EKG without overt acute ischemia. CXR negative for acute cardiopulmonary process. Plain films of the left foot negative for acute osseous involvement. WBC and platelets within normal limits. H/H similar to prior values. Chemistry without metabolic acidosis. Creatinine 1.9 similar to prior values in the setting of CKD. Lactate 1.7, within normal limits. Magnesium 1.3 with repletion provided and electrolytes otherwise unremarkable. LFTs without significant abnormalities. Troponin negative/undetectable. BNP 5K similar to prior range of values. CPK within normal limits. Procalcitonin is not significantly elevated. UA without convincing evidence of infection. COVID-19 PCR negative. Influenza and RSV PCR also negative. Given the patient's generalized weakness which likely is related to the patient's hypomagnesemia in the setting of cellulitis reasonable to meet the patient for further management. Treatment initiated with ceftriaxone and vancomycin at this time. Case was d/w Dr. Reddy, [facility] hospitalist who will evaluate the patient for admission. This patient was managed with the assistance of resident, Dr. Pappas. I discussed the case with the resident, examined the patient, and confirm the findings and plan as documented in this note. Triage Nursing notes reviewed and agree them. Prior medical records reviewed Vital Signs: reviewed and remarkable for no significant abnormalities Differential diagnosis: Infection, dehydration, metabolic abnormality, hypo/hyperglycemia, electrolyte disturbance, anemia, hypoxia, cardiac sources, intracerebral event, toxicologic, neurologic, as well as other pathologies. ER treatment provided: See below. Diagnostics interpreted by me: ECG: Atrial fibrillation, 86 bpm, no ectopy, no overt ST elevation or depression. Cardiac Monitoring: An order for continuous cardiac monitoring was placed and demonstrated atrial fibrillation, 86 bpm, no ectopy. Laboratory studies: See below Imaging studies: See below Consultation(s): Case was d/w Dr. Reddy, [facility] hospitalist who will evaluate the patient for ad mission. HPI: The patient is a pleasant 84-year-old woman with a past medical history of type 2 diabetes, hypertension, hyperlipidemia, restless leg syndrome, chronic respiratory failure with hypoxia, chronic diastolic heart failure, CKD, JMAAL, spinal stenosis atrial fibrillation on Eliquis who presents to the emergency department with worsening generalized weakness since yesterday where she reported she felt so weak in the evening that she could not perform her normal t ransfer from her wheelchair to her bed and so stayed in her chair all night. She further reports realizing this morning that her left leg was swollen, red and painful. She denies any fevers, chills, new cough or congestion, GI or symptoms. ROS: See above HPI for pertinent positives & negatives. A total of 10 systems reviewed and were otherwise negative. PAST MEDICAL HISTORY:See Below PAST SURGICAL HISTORY:See Below FAMILY HISTORY:See Below SOCIAL HISTORY:See Below HOME MEDICATIONS:See Below ALLERGIES:See Below VITALS:See Below PHYSICAL EXAMINATION: GENERAL: Awake, alert, chronically-ill, fatigued-appearing, in no distress, BMI 48.4. HENT: Normocephalic, atraumatic. Oropharynx unremarkable. EYES: Normal conjunctiva. Sclera non-icteric. NECK: Supple. No nuchal rigidity. FROM. No JVD. RESPIRATORY: Clear to auscultation. CARDIAC: Regular rate, irregular rhythm. Extremities warm and well perfused. Pulses equal. ABDOMEN: Soft, non-distended. No tenderness to palpation. No rebound or guarding. No masses. RECTAL: Deferred. MUSCULOSKELETAL: Chest examination reveals no tenderness. The back is symmetrical on inspection without obvious abnormality. There is no CVA tenderness to palpation. No joint edema. LOWER EXTREMITIES: Calves are equal size bilaterally and non-tender. Chronic BLE edema with increased edema and erythema mild tenderness. No crepitus. NEURO: No focal sensory or motor deficits noted. Generalized weakness with 4/5 and SILT strength x 4 extremities. SKIN: Warm/dry. No jaundice noted. Elio Desouza MD Past Med/Surg History Medical History Acute on chronic diastolic heart failure Anemia Asthma stable Atrial fibrillation, chronic Benign hypertension Cellulitis of right foot Chronic back pain CKD (chronic kidney disease) stage 4, GFR 15-29 ml/min Depression Diabetes IDDM Diabetic foot ulcer Diabetic peripheral neuropathy Gastroparesis GERD (gastroesophageal reflux disease) Hiatal hernia History of blood transfusion remote years ago; unknown etiology per patient Hypothyroidism Mammogram abnormal Morbid obesity Nocturnal hypoxemia 2lpm via n/c at HS Osteomyelitis (06/06/12) Restless leg syndrome Sciatica Seizure 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 Lr Normal mucosa in entire colon, biopsied, diverticulosis in sigmoid, otherwise normal. Biopsy showed no inflammation. History of esophagogastroduodenoscopy (EGD) History of hemorrhoidectomy History of total abdominal hysterectomy History of total knee arthroplasty bilateral Family History Mother Breast cancer Father Congestive heart failure Other Diabetes Dyslipidemia Hypertension Denies family history of Crohn's disease Colorectal cancer Inflammatory bowel disease Social History Smoking Status: Never smoker Age Started Using Tobacco: 26; Age Quit Using Tobacco: 51; packs per day: 2; Years Smoked: 25; Second Hand Exposure: No; Do You Dip or Chew Tobacco: No; Tobacco Cessation Education Requested by Patient: No Hx Alcohol Use: No Hx Substance Use: No Preferred Language: Mosotho Communication Ability: Effective Visual Impairment: No Limitations Hearing Ability: Normal 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 Beliefs That Will Affect Care: None marital status: / Current Living Situation: Alone Current Living Situation Comment: with caregivers current occupational status: retired Other Information That Helps Us Care for You: No Feels Safe at Home: Yes Safety Concerns: Feels Safe At This Time caffeine: No Seatbelt Use: always Assistive Devices: Oxygen - at Night Assistive Devices Comment: 2L at night per patient Allergies Allergies Allergy/AdvReac Type Severity Reaction Status Date / Time carbamazepine Allergy Intermediate HIVES Verified 05/21/20 12:57 Home Meds Home Medications Medication Instructions Recorded Confirmed docusate sodium 100 mg capsule 100 mg PO BID PRN 02/18/19 05/21/20 insulin degludec 100 unit/mL (3 95 units SQ HS ml 04/15/19 05/21/20 mL) subcutaneous pen potassium chloride 20 meq PO QAM 04/11/20 05/21/20 apixaban [Eliquis] 2.5 mg PO QAM 05/21/20 05/21/20 levothyroxine 75 mcg PO DAILYBB 05/21/20 05/21/20 loperamide [Imodium] 2 mg PO Q4H PRN 05/21/20 05/21/20 spironolactone 50 mg PO QAM 05/21/20 05/21/20 Previous Rx's Medication Instructions Recorded metoclopramide HCl [Reglan] 10 mg PO BID PRN #12 tab 02/15/18 metoprolol succinate 200 mg 200 mg PO QAM #90 tab 06/10/19 tablet,extended release 24 hr omeprazole 20 mg capsule,delayed 20 mg PO QAM #90 cap 07/21/19 release metolazone 2.5 mg tablet 2.5 mg PO Q OTHER DAY #30 tab 08/08/19 pramipexole 0.25 mg tablet 0.125 mg PO HS #45 tab 08/18/19 Wheelchair (Manual or Powered) #2 ea 10/15/19 zafirlukast 20 mg tablet 20 mg PO BID #180 tab 11/07/19 Wheelchair (Manual or Powered) #1 ea 11/17/19 pregabalin 100 mg capsule 100 mg PO BID #180 cap 12/23/19 calcitriol 0.25 mcg capsule 0.25 mcg PO .COMPLEX #39 cap 01/23/20 Wheelchair (Manual or Powered) 1 ea .ROUTE ONCE #1 ea 02/12/20 ondansetron 4 mg disintegrating 4 mg PO Q6H PRN #30 tab 03/12/20 tablet hydrocodone 5 mg-acetaminophen 325 1 tab PO Q6H PRN #30 tab 03/18/20 mg tablet pen needle, diabetic 32 gauge x #400 ea 04/05/20" torsemide 20 mg tablet 80 mg PO BID #360 tab 04/06/20 Novolog Flexpen U-100 Insulin 100 150 unit SUBCUT .COMPLEX 90 Days 04/08/20 unit/mL (3 mL) subcutaneous #135 ml NS sertraline 50 mg tablet 50 mg PO QAM #90 tab 04/08/20 cyclobenzaprine 5 mg tablet 5 mg PO TID PRN #30 tab 04/13/20 Results & Data (ED) Vital Signs Vital Signs - 24 hr 05/21/20 11:20 05/21/20 11:23 05/21/20 11:36 Temperature 36.6 C Temperature Source Oral Pulse Rate 96 H 90 96 H Pulse Rate from SpO2 Sensor 91 H Pulse Rhythm Regular Regular Pulse Strength Normal Respiratory Rate 20 16 20 Respiratory Effort / Characteristics Non-Labored Spontaneous Respiratory Depth Normal Respiratory Pattern Regular Blood Pressure 139/100 139/100 Blood Pressure Mean 113 113 Pulse Oximetry 93 93 93 Oxygen Delivery Method Room Air Room Air Sepsis Recent Fever Within 48 Hours No Sepsis New/Unexplained Change in Mental Status No Sepsis Action Taken by Nursing No Action Required 05/21/20 13:29 05/21/20 14:01 05/21/20 15:00 Temperature Temperature Source Pulse Rate 92 H 93 H 96 H Pulse Rate from SpO2 Sensor 92 H 94 H 91 H Pulse Rhythm Pulse Strength Respiratory Rate 18 19 21 Respiratory Effort / Characteristics Respiratory Depth Respiratory Pattern Blood Pressure 130/73 135/75 150/102 H Blood Pressure Mean 92 95 118 Pulse Oximetry 96 96 92 Oxygen Delivery Method Sepsis Recent Fever Within 48 Hours Sepsis New/Unexplained Change in Mental Status Sepsis Action Taken by Nursing Laboratory Data Attestation: I reviewed the patient's lab results. Result diagrams: 05/21/20 12:42 05/21/20 12:42 Lab Results 05/21/20 05/21/20 05/21/20 Range/Units 12:23 12:23 12:23 WBC (4.8-10.8) K/uL RBC (4.2-5.4) M/uL Hgb (12.0-16.0) g/dL Hct (37-47) % MCV (80-100) fL MCH (25-34) pg MCHC (32-36) g/dL RDW Std Deviation (36.4-46.3) fL RDW Coeff of Quirino (11.5-14.5) % Plt Count (130-400) K/uL MPV (7.4-10.4) fL Immature Gran % (Auto) % Neut % (Auto) % Lymph % (Auto) % [place] % (Auto) % Eos % (Auto) % Baso % (Auto) % Neut # (Auto) (1.4-6.5) K/uL Lymph # (Auto) (1.2-3.4) K/uL [place] # (Auto) (0.11-0.59) K/uL Eos # (Auto) (0-0.5) K/uL Baso # (Auto) (0-0.2) K/uL Immature Gran # (Auto) (0.00-0.02) K/uL Sodium (136-145) mmol/L Potassium (3.5-5.1) mmol/L Chloride (98-107) mmol/L Carbon Dioxide (21-32) mmol/L Anion Gap (3-11) BUN (7-18) mg/dl Creatinine (0.6-1.2) mg/dl Est Cr Clr Drug Dosing ml/min Est GFR ( Amer) Est GFR (Non-Af Amer) BUN/Creatinine Ratio (10-20) Glucose (70-99) mg/dl Lactate (0.4-2.0) mmol/L Calcium (8.5-10.1) mg/dl Magnesium (1.8-2.4) mg/dl Total Bilirubin (0.2-1) mg/dl AST (15-37) U/L ALT (12-78) U/L Alkaline Phosphatase (45-117) U/L Total Creatine Kinase (26-192) U/L Troponin I (0-0.045) ng/ml NT-Pro-B Natriuret Pep (0-1800) pg/ml Total Protein (6.4-8.2) gm/dl Albumin (3.4-5.0) gm/dl Globulin (2.5-4.0) gm/dl Albumin/Globulin Ratio (0.9-2) Procalcitonin (0-0.5) ng/ml TSH (0.300-4.500) uIu/ml Specimen Hemolysis Urine Color Yellow Urine Appearance Clear (Clear) Urine pH 5.0 (4.5-7.5) Ur Specific [place] 1.014 (1.000-1.030) Urine Protein Negative (Negative) Urine Glucose (UA) Negative (Negative) Urine Ketones Negative (Negative) Urine Blood Negative (Negative) Urine Nitrite Negative (Negative) Urine Bilirubin Negative (Negative) Urine Urobilinogen Negative (Negative) Ur Leukocyte Esterase Negative (Negative) COVID-19 Eval Order CovFluRsv at [facility] SARS-CoV-2 (PCR) NEGATIVE (Negative) Influenza Type A (PCR) Negative (Neg) Influenza Type B (PCR) Negative (Neg) RSV (RT-PCR) Negative (Neg) 05/21/20 05/21/20 05/21/20 Range/Units 12:42 12:42 12:42 WBC 9.45 (4.8-10.8) K/uL RBC 3.67 L (4.2-5.4) M/uL Hgb 10.5 L (12.0-16.0) g/dL Hct 32.8 L (37-47) % MCV 89.4 (80-100) fL MCH 28.6 (25-34) pg MCHC 32.0 (32-36) g/dL RDW Std Deviation 59.3 H (36.4-46.3) fL RDW Coeff of Quirino 18.3 H (11.5-14.5) % Plt Count 156 (130-400) K/uL MPV 11.1 H (7.4-10.4) fL Immature Gran % (Auto) 0.5 % Neut % (Auto) 82.5 % Lymph % (Auto) 6.9 % [place] % (Auto) 9.6 % Eos % (Auto) 0.4 % Baso % (Auto) 0.1 % Neut # (Auto) 7.79 H (1.4-6.5) K/uL Lymph # (Auto) 0.65 L (1.2-3.4) K/uL [place] # (Auto) 0.91 H (0.11-0.59) K/uL Eos # (Auto) 0.04 (0-0.5) K/uL Baso # (Auto) 0.01 (0-0.2) K/uL Immature Gran # (Auto) 0.05 H (0.00-0.02) K/uL Sodium 137 (136-145) mmol/L Potassium 4.0 (3.5-5.1) mmol/L Chloride 99 (98-107) mmol/L Carbon Dioxide 27 (21-32) mmol/L Anion Gap 11.0 (3-11) BUN 40 H (7-18) mg/dl Creatinine 1.99 H (0.6-1.2) mg/dl Est Cr Clr Drug Dosing 26.9 ml/min Est GFR ( Amer) 26.4 Est GFR (Non-Af Amer) 22.8 BUN/Creatinine Ratio 20.3 H (10-20) Glucose 126 H (70-99) mg/dl Lactate 1.7 (0.4-2.0) mmol/L Calcium 8.3 L (8.5-10.1) mg/dl Magnesium 1.3 L (1.8-2.4) mg/dl Total Bilirubin 1.3 H (0.2-1) mg/dl AST 23 (15-37) U/L ALT 27 (12-78) U/L Alkaline Phosphatase 90 (45-117) U/L Total Creatine Kinase 166 (26-192) U/L Troponin I < 0.015 (0-0.045) ng/ml NT-Pro-B Natriuret Pep 5118 H (0-1800) pg/ml Total Protein 8.2 (6.4-8.2) gm/dl Albumin 3.5 (3.4-5.0) gm/dl Globulin 4.7 H (2.5-4.0) gm/dl Albumin/Globulin Ratio 0.7 L (0.9-2) Procalcitonin (0-0.5) ng/ml TSH 2.690 (0.300-4.500) uIu/ml Specimen Hemolysis Urine Color Urine Appearance (Clear) Urine pH (4.5-7.5) Ur Specific [place] (1.000-1.030) Urine Protein (Negative) Urine Glucose (UA) (Negative) Urine Ketones (Negative) Urine Blood (Negative) Urine Nitrite (Negative) Urine Bilirubin (Negative) Urine Urobilinogen (Negative) Ur Leukocyte Esterase (Negative) COVID-19 Eval Order SARS-CoV-2 (PCR) (Negative) Influenza Type A (PCR) (Neg) Influenza Type B (PCR) (Neg) RSV (RT-PCR) (Neg) 05/21/20 Range/Units 12:42 WBC (4.8-10.8) K/uL RBC (4.2-5.4) M/uL Hgb (12.0-16.0) g/dL Hct (37-47) % MCV (80-100) fL MCH (25-34) pg MCHC (32-36) g/dL RDW Std Deviation (36.4-46.3) fL RDW Coeff of Quirino (11.5-14.5) % Plt Count (130-400) K/uL MPV (7.4-10.4) fL Immature Gran % (Auto) % Neut % (Auto) % Lymph % (Auto) % [place] % (Auto) % Eos % (Auto) % Baso % (Auto) % Neut # (Auto) (1.4-6.5) K/uL Lymph # (Auto) (1.2-3.4) K/uL [place] # (Auto) (0.11-0.59) K/uL Eos # (Auto) (0-0.5) K/uL Baso # (Auto) (0-0.2) K/uL Immature Gran # (Auto) (0.00-0.02) K/uL Sodium (136-145) mmol/L Potassium (3.5-5.1) mmol/L Chloride (98-107) mmol/L Carbon Dioxide (21-32) mmol/L Anion Gap (3-11) BUN (7-18) mg/dl Creatinine (0.6-1.2) mg/dl Est Cr Clr Drug Dosing ml/min Est GFR ( Amer) Est GFR (Non-Af Amer) BUN/Creatinine Ratio (10-20) Glucose (70-99) mg/dl Lactate (0.4-2.0) mmol/L Calcium (8.5-10.1) mg/dl Magnesium (1.8-2.4) mg/dl Total Bilirubin (0.2-1) mg/dl AST (15-37) U/L ALT (12-78) U/L Alkaline Phosphatase (45-117) U/L Total Creatine Kinase (26-192) U/L Troponin I (0-0.045) ng/ml NT-Pro-B Natriuret Pep (0-1800) pg/ml Total Protein (6.4-8.2) gm/dl Albumin (3.4-5.0) gm/dl Globulin (2.5-4.0) gm/dl Albumin/Globulin Ratio (0.9-2) Procalcitonin 0.27 (0-0.5) ng/ml TSH (0.300-4.500) uIu/ml Specimen Hemolysis Urine Color Urine Appearance (Clear) Urine pH (4.5-7.5) Ur Specific [place] (1.000-1.030) Urine Protein (Negative) Urine Glucose (UA) (Negative) Urine Ketones (Negative) Urine Blood (Negative) Urine Nitrite (Negative) Urine Bilirubin (Negative) Urine Urobilinogen (Negative) Ur Leukocyte Esterase (Negative) COVID-19 Eval Order SARS-CoV-2 (PCR) (Negative) Influenza Type A (PCR) (Neg) Influenza Type B (PCR) (Neg) RSV (RT-PCR) (Neg) Administered Medications Hydrocodone Bitart/Acetaminophen (Hydrocodone/Acetamophen 5/325mg Tab) 1 tab PO Q6H PRN PRN Reason: pain Stop: 06/04/20 15:15 Last Admin: 05/21/20 18:36 Dose: 1 tab Documented by: [id number] Apixaban (Apixaban 2.5 Mg Tab) 2.5 mg PO BID ANTONIO Stop: 06/20/20 20:59 Last Admin: 05/21/20 21:17 Dose: 2.5 mg Documented by: [id number] Docusate Sodium (Docusate Sodium 100 Mg Cap) 100 mg PO BID ANTONIO Stop: 06/20/20 20:59 Last Admin: 05/21/20 21:19 Dose: 100 mg Documented by: [id number] Insulin Aspart (Insulin Aspart 100 Units/Ml 3 Ml Pen) 0 units SC ACHS ANTONIO Stop: 06/20/20 17:29 Last Admin: 05/21/20 21:21 Dose: 2 units Documented by: [id number] Cosigned by: [id number] Admin: 05/21/20 18:20 Dose: 15 units Documented by: [id number] Cosigned by: [id number] Insulin Glargine (Insulin Glargine Solostar 100 Units/Ml 3 Ml Pen) 80 units SC ANTONIO Stop: 06/20/20 20:59 Last Admin: 05/21/20 21:20 Dose: 80 units Documented by: [id number] Cosigned by: [id number] Pramipexole Dihydrochloride (Pramipexole Dihydrochlo 0.25 Mg Tab) 0.125 mg PO HS [facility] Stop: 06/20/20 20:59 Last Admin: 05/21/20 21:17 Dose: 0.125 mg Documented by: [id number] Pregabalin (Pregabalin 100 Mg Cap) 100 mg PO BID ANTONIO Stop: 06/20/20 20:59 Last Admin: 05/21/20 21:17 Dose: 100 mg Documented by: [id number] Discontinued Medications Hydrocodone Bitart/Acetaminophen (Hydrocodone/Acetamophen 5/325mg Tab) 1 tab PO NOW STA Stop: 05/21/20 15:16 Last Admin: 05/21/20 15:20 Dose: 1 tab Documented by: [id number] Sodium Chloride (Nss 1000ml) 1,000 mls @ 999 mls/hr IV .Q1H1M ANTONIO Stop: 05/21/20 12:45 Last Infusion: 05/21/20 17:18 Dose: 0 mls/hr Documented by: [id number] Admin: 05/21/20 15:09 Dose: 999 mls/hr Documented by: [id number] Ceftriaxone Sodium (Rocephin) 2,000 mg in 70 mls @ 140 mls/hr IV NOW STA Stop: 05/21/20 12:10 Last Infusion: 05/21/20 14:17 Dose: 0 mls/hr Documented by: [id number] Admin: 05/21/20 13:32 Dose: 140 mls/hr Documented by: [id number] Vancomycin HCl 2,750 mg/ (Sodium Chloride) 555 mls @ 200 mls/hr IV NOW ONE Stop: 05/21/20 14:37 Last Infusion: 05/21/20 17:18 Dose: 0 mls/hr Documented by: [id number] Admin: 05/21/20 14:17 Dose: 200 mls/hr Documented by: [id number] Magnesium Sulfate/Dextrose (Magnesium Sulfate / D5w) 1 gm in 100 mls @ 100 mls/hr IV Q1H ANTONIO Stop: 05/21/20 15:47 Last Infusion: 05/21/20 16:07 Dose: 0 mls/hr Documented by: [id number] Admin: 05/21/20 15:07 Dose: 100 mls/hr Documented by: [id number] Infusion: 05/21/20 15:07 Dose: 0 mls/hr Documented by: [id number] Admin: 05/21/20 14:17 Dose: 100 mls/hr Documented by: [id number] Imaging Data Radiologist's Impression: Chest X-Ray 05/21/20 11:36 XR chest 1V portable HISTORY: 84 years-old Female weakness acute weakness COMPARISON: Chest CT 04/11/2020 TECHNIQUE: Portable AP view of the chest FINDINGS: Cardiac silhouette is enlarged. Unchanged mild interstitial coarsening. No pneumothorax, pleural effusion, overt pulmonary edema or airspace consolidation typical for pneumonia. Degenerative changes of the shoulders and spine. IMPRESSION: Cardiomegaly without acute process. ACT 112: Negative or not required by law. The above report was generated using voice recognition software. It may contain grammatical, syntax or spelling errors. Electronically signed by: Fausto Hutson M.D. 05/21/2020 12:17 PM Foot X-Ray 05/21/20 11:58 XR foot LT 2V CLINICAL HISTORY: pain, swelling, cellulitis COMPARISON: Left foot radiographs August 19, 2019. FINDINGS: Lateral view demonstrates marked dorsal soft tissue swelling of the left foot. No acute fracture is identified. Moderate mid foot osteoarthritis is noted. There is no radiographic evidence for osteomyelitis. No soft tissue gas is identified. IMPRESSION: 1. No acute fracture within the left foot. 2. Marked dorsal soft tissue swelling of the left foot. 3. No radiographic evidence for osteomyelitis. ACT 112: Negative or not required by law. Electronically signed by: Asif Ballard M.D. 05/21/2020 12:16 PM Discharge Plan Visit Data Chief Complaint: Weakness ED Provider: Elio Desouza ED Midlevel Provider: Edwin Pappas I. Discharge Problem: Cellulitis of left foot, Hypomagnesemia, Generalized weakness, CKD (chronic kidney disease) Patient Disposition: Admitted As Inpatient Discharge Instructions Interventions: ED Discharge Assessment Last Done: 05/21/20 18:35 Discharge Problem: CKD (chronic kidney disease) Qualifiers: Chronic kidney disease stage: unspecified stage Qualified Code(s): N18.9 - Chronic kidney disease, unspecified
[2020-05-21] MEDS ORDERED: HYDROCODONE/ACETAMOPHEN 5/325MG TAB PO STA (15:15)
[2020-05-21] MEDS ORDERED: METOCLOPRAMIDE HCL 10 MG TABLET PO PRN (15:16)
[2020-05-21] MEDS ORDERED: LOPERAMIDE HCL 2 MG CAP PO PRN (15:16)
[2020-05-21] MEDS ORDERED: ONDANSETRON INJ 2 MG/ML 2 ML VIAL IV PRN (15:28)
[2020-05-21] MEDS ORDERED: INSULIN ASPART 100 UNITS/ML 3 ML PEN SQ SCH (15:30)
[2020-05-21] MEDS ORDERED: PHARMACY GLYCEMIC MGMT CONSULT PRN (17:11)
[2020-05-21] MEDS ORDERED: ONDANSETRON 4 MG OD TAB PO PRN (17:16)
[2020-05-21] MEDS ORDERED: TORSEMIDE 20 MG TAB PO PRN (17:18)
[2020-05-21] MEDS ORDERED: GLUCAGON FOR INJ 1 MG VIAL IM PRN (17:30)
[2020-05-21] MEDS ORDERED: DEXTROSE 50% 50 ML SYRINGE IV PRN (17:30)
[2020-05-21] MEDS ORDERED: GLUCOSE 40% GEL 15 GM TUBE PO PRN (17:30)
[2020-05-21] MEDS ORDERED: GLUCOSE 10 TABS/TUBE PO PRN (17:30)
[2020-05-21] MEDS: INSULIN ASPART 100 UNITS/ML 3 ML PEN SC SCH ×2 (18:20→21:21)
[2020-05-21] MEDS: HYDROCODONE/ACETAMOPHEN 5/325MG TAB PO PRN (18:36)
--- NOTE | 2020-05-21 19:52 | Pharmacy Report ---
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 and inability to perform normal wheelchair transfer * Additionally, patient reports worsening of left leg swelling, redness, and pain * BSG on admission of 126 mg/dL * Given large outpatient doses of insulin, will be aggressive with Novolog * Receiving empiric vancomycin and ceftriaxone for treatment of left foot cell ulitis PLAN FOR INPATIENT GLYCEMIC CONTROL: * Basal insulin - empiric ~15% reduction of home basal * Lantus 80 units SC HS * Bolus insulin * NovoLog per scale ACHS or Q6hrs while NPO * Goal Range: Low 110 mg/dL - High 140 mg/dL * Correction Factor: 12 mg/dL/unit * Nutritional / Prandial insulin per carb ratio of 1 unit per 3 grams CHO consumed PLAN FOR DISCHARGE: * tbd
[2020-05-21] MEDS ORDERED: NON-FORMULARY MEDICATION (Insulin Degludec [Tresiba Flextouch U-100] 100 unit/mL (3 mL) in SQ SCH (21:00)
[2020-05-21] MEDS: PRAMIPEXOLE DIHYDROCHLO 0.25 MG TAB PO SCH (21:17)
[2020-05-21] MEDS: PREGABALIN 100 MG CAP PO SCH (21:17)
[2020-05-21] MEDS: APIXABAN 2.5 MG TAB PO SCH (21:17)
[2020-05-21] MEDS: DOCUSATE SODIUM 100 MG CAP PO SCH (21:19)
[2020-05-21] MEDS: INSULIN GLARGINE SOLOSTAR 100 UNITS/ML 3 ML PEN SC SCH (21:20)
[2020-05-22] MEDS ORDERED: INSULIN ASPART 100 UNITS/ML 3 ML PEN SC SCH (02:00)
[2020-05-22] MEDS: LEVOTHYROXINE SODIUM 75 MCG TABLET PO SCH (05:36)
[2020-05-22] MEDS: HYDROCODONE/ACETAMOPHEN 5/325MG TAB PO PRN ×2 (06:20→21:01)
--- NOTE | 2020-05-22 06:26 | Electrocardiogram Report ---
Test Reason : Blood Pressure : / mmHG Vent. Rate : 086 BPM Atrial Rate : 086 BPM P-R Int : 000 ms QRS Dur : 086 ms QT Int : 386 ms P-R-T Axes : 000 044 088 degrees QTc Int : 461 ms Atrial fibrillation Low voltage QRS Cannot rule out Anterior infarct (cited on or before 11-APR-2020) Nonspecific T wave abnormality Abnormal ECG When compared with ECG of 11-APR-2020 09:54, Nonspecific T wave abnormality is now more evident in anterior leads Confirmed by Elio Wiley ([id number]) on 05/22/2020 6:26:15 AM Referred By: REFERRED SELF Confirmed By:Elio Wiley
[2020-05-22 07:47] LABS: Basophils # (auto) 0.01 K/uL (0-0.2); Basophils % (auto) 0.1 %; Eosinophils # (auto) 0.12 K/uL (0-0.5); Eosinophils % (auto) 1.7 %; Hematocrit (blood only) 27.8 % (37-47); Hemoglobin 8.9 g/dL (12.0-16.0); Immature Granulocytes # (auto) 0.02 K/uL (0.00-0.02); Immature Granulocytes % (auto) 0.3 %; Lymphocytes % (auto) 5.5 %; Mean Corpuscular Hemoglobin 28.5 pg (25-34); Mean Corpuscular Volume 89.1 fL (80-100); Mean Platelet Volume 9.9 fL (7.4-10.4); Monocytes # (auto) 0.58 K/uL (0.11-0.59); Neutrophils # (auto) 6.14 K/uL (1.4-6.5); Neutrophils % (auto) 84.4 %; Platelet Count 128 K/uL (130-400); RDW Coefficient of Variation 18.4 % (11.5-14.5); RDW Standard Deviation 59.6 fL (36.4-46.3); Red Blood Count 3.12 M/uL (4.2-5.4); White Blood Count 7.27 K/uL (4.8-10.8)
[2020-05-22 08:04] LABS: Albumin Level 2.7 gm/dl (3.4-5.0); BUN Creatinine Ratio 21.2 (10-20); Creatinine Clr Calc Pharmacy 27.6 ml/min; Est GFR (African American) 27.3; Est GFR (Non-African American) 23.5; Potassium 3.6 mmol/L (3.5-5.1)
[2020-05-22 08:08] LABS: Albumin Globulin Ratio 0.7 (0.9-2); Bilirubin,Total 0.8 mg/dl (0.2-1); Globulin 4.1 gm/dl (2.5-4.0); Total Protein 6.8 gm/dl (6.4-8.2)
[2020-05-22] MEDS: METOPROLOL SUCC 50MG EXT REL TAB PO SCH (08:14)
[2020-05-22] MEDS: PANTOprazole 40 MG TAB PO SCH (08:14)
[2020-05-22] MEDS: SERTRALINE HCL 50 MG TABLET PO SCH (08:14)
[2020-05-22] MEDS: CYCLOBENZAPRINE HCL 5 MG TAB PO PRN (08:14)
[2020-05-22] MEDS: POTASSIUM CHLORIDE CRTAB 20 MEQ TABCR PO SCH (08:14)
[2020-05-22] MEDS: APIXABAN 2.5 MG TAB PO SCH ×2 (08:15→21:02)
[2020-05-22] MEDS: TORSEMIDE 20 MG TAB PO SCH (08:15)
[2020-05-22] MEDS: DOCUSATE SODIUM 100 MG CAP PO SCH ×2 (08:15→21:02)
--- NOTE | 2020-05-22 08:18 | Hospitalist Progress Note ---
Date of Service May 22, 2020 Assessment & Plan (1) Cellulitis of left foot: 84 yo female with a past medical history of type 2 diabetes, hypertension, hyperlipidemia, restless leg syndrome, chronic respiratory failure with hypoxia,chronic diastolic heart failure, CKD, JAMAL, spinal stenosis atrial fibrillation on Eliquis admitted for cellulitis of left foot and associated weakness. Cellulitis Left foot continues to have swelling and mild tenderness to palpation Continue vancomycin and ceftriaxone patient has prior history of MRSA infection Follow cultures Consider MRI of foot if no improvement patient is claustrophobic so may require mild sedation to tolerate Trend CBC in a.m. Chronic atrial fibrillation Continue home apixaban 2.5 mg p.o. twice daily Continue home metoprolol succinate 200 mg daily Chronic diastolic heart failure Patient appears euvolemic Continue home torsemide 80 mg daily Also has torsemide 80 mg p.o. as needed for weight above 250 pounds Diabetes mellitus type 2 with peripheral neuropathy Sliding scale insulin Pharmacy consulted for glycemic control continue home Lyrica 100 mg p.o. twice daily Continue home Zoloft CKD stage IV Continue to trend creatinine Appears to be at her baseline Hypothyroidism Continue home Synthroid GERD Pantoprazole 40 mg p.o. daily per hospital formulary Restless leg syndrome Continue home pramipexole DVT prophylaxis: Anticoagulated on Eliquis CODE STATUS: DNR/DNI FENGI: Carb consistent, low sodium, continue home potassium supplementation Dispo: MedSurg with telemetry (2) CKD (chronic kidney disease): (3) Generalized weakness: (4) Uncontrolled type 2 diabetes mellitus: (5) Atrial fibrillation, chronic: Admission and Anticipated Discharge Date Admission Date: May 21, 2020 Supervising Physician Co-Signing Physician Notes I personally examined the patient and verified all hernandez points of history and exam, discussed case, and agree with decision making with Dr De Oliveira feeling about the same foot hurts vitals noted nad heent nc at mmm L foot largely swollen and tender - all across dorsum of foot. no open lesions no exudate no crepitis and no clear fluctuance DM foot infection/foot cellulitis -nothing appearing overtly related to ulcer, nothing examining c/w abscess/osteo/etc -- but definitely will need close vigilance. continue current care for now, image w MRI if fails to improve/improvement plateaus/etc otherwise as above Subjective Patient reports this morning that the pain in her left foot is improved. Swelling remains. She does mention that she is feeling much better than when she initially came in. Review of Systems Review of Systems: All systems reviewed & are unremarkable except as noted in Subjective Physical Exam Constitutional: + obese, cooperative and comfortable Eyes: PERRL, conjunctivae normal, anicteric sclerae EOM intact bilaterally ENMT: external ear and nose normal, oropharynx normal Neck: normal visual inspection Respiratory: normal respiratory effort, lungs clear to auscultation Cardiovascular: RRR, no murmur, no edema Gastrointestinal (Abdomen): normal bowel sounds, soft, nontender, no hepatosplenomegaly Musculoskeletal: Right lower extremity with ulcer that is covered with clean, dry, intact dressings at superior aspect of foot. Left lower extremity with significant swelling at left foot, some redness, mild tenderness to palpation. Psychiatric: A+Ox3, euthymic affect Results & Data Results & Data ([facility]) Vital Signs (Past 12 Hours) Vital Signs Temp Pulse Resp BP Pulse Ox 05/22/20 06:34 36.8 C 113 H 20 113/64 91 05/22/20 04:15 36.6 C 116 H 18 116/71 94 05/21/20 23:20 36.9 C 101 H 20 119/69 93 Resident Activity Tracking Resident Involvement: Resident Care Provided Care Provided: Adult Hospital Medicine (1) CKD (chronic kidney disease) Chronic kidney disease stage: unspecified stage Qualified Code(s): N18.9 - Chronic kidney disease, unspecified
[2020-05-22] MEDS: INSULIN ASPART 100 UNITS/ML 3 ML PEN SC SCH ×4 (08:29→21:07)
[2020-05-22] MEDS: PREGABALIN 100 MG CAP PO SCH ×2 (08:29→21:01)
[2020-05-22] MEDS: cefTRIAXone SODIUM 2,000 MG in DEXTROSE 5% 50 ML IV SCH (12:12)
[2020-05-22] MEDS: ACETAMINOPHEN 325 MG TAB PO PRN (17:28)
--- NOTE | 2020-05-22 19:19 | Billing Data ---
Date of Service May 22, 2020 Coding Level of Care Code 00719 Subseq Hosp Care Lvl 3
[2020-05-22] MEDS: PRAMIPEXOLE DIHYDROCHLO 0.25 MG TAB PO SCH (21:03)
[2020-05-22] MEDS: INSULIN GLARGINE SOLOSTAR 100 UNITS/ML 3 ML PEN SC SCH (21:07)
[2020-05-22] MEDS: DAPTOmycin 325 MG in SYRINGE 0 ML IV SCH (22:27)
[2020-05-23] MEDS: LEVOTHYROXINE SODIUM 75 MCG TABLET PO SCH (06:04)
--- NOTE | 2020-05-23 07:15 | Hospitalist Progress Note ---
Date of Service May 23, 2020 Assessment & Plan (1) Cellulitis of left foot: 84 yo female with a past medical history of type 2 diabetes, hypertension, hyperlipidemia, restless leg syndrome, chronic respiratory failure with hypoxia,chronic diastolic heart failure, CKD, JAMAL, spinal stenosis atrial fibrillation on Eliquis admitted for cellulitis of left foot and associated weakness. Cellulitis of L Foot / Diabetic Foot Disease -- w/ history of MRSA cellulitis in the past Left foot continues to have swelling and mild tenderness to palpation -- this AM with +pain with passive ankle dorsiflexion - MRI for further evaluation of depth of infex, further planning - Consider ortho consult if c/f tenosynovitis, osteo Continue daptomycin and ceftriaxone patient has prior history of MRSA infection -BCX demonstrating [id number] Trend CBC Chronic atrial fibrillation -Rate controlled Continue home apixaban 2.5 mg p.o. twice daily Continue home metoprolol succinate 200 mg daily Chronic diastolic heart failure No overt signs of volume overload on exam from day-to-day Continue home torsemide 80 mg daily Also has torsemide 80 mg p.o. as needed for weight above 250 pounds Diabetes mellitus type 2 with peripheral neuropathy Sliding scale insulin Pharmacy consulted for glycemic control - continue home Lyrica 100 mg p.o. twice daily Continue home Zoloft CKD stage IV -Baseline Cr on chart review appears 1.9-2.3 Appears to be at her baseline -Continue to monitor on daily labs Hypothyroidism Continue home Synthroid GERD Pantoprazole 40 mg p.o. daily per hospital formulary Restless leg syndrome Continue home pramipexole DVT prophylaxis: Anticoagulated on Eliquis FENGI: Carb consistent, low sodium, continue home potassium supplementation Dispo: MedSurg with telemetry CODE STATUS: DNR/DNI (2) CKD (chronic kidney disease): (3) Generalized weakness: (4) Uncontrolled type 2 diabetes mellitus: (5) Atrial fibrillation, chronic: Admission and Anticipated Discharge Date Admission Date: May 21, 2020 Supervising Physician Co-Signing Physician Notes I personally examined the patient and verified all hernandez points of history and exam, discussed case, and agree with decision making with Dr Vaz feeling about the same foot hurts about the same vitals noted nad heent nc at mmm L foot largely swollen and tender - all across dorsum of foot. no open lesions no exudate no crepitis and no clear fluctuance but really about unchnaged from yestrday DM foot infection/foot cellulitis -nothing appearing overtly related to ulcer, nothing examining c/w abscess/osteo/etc -- but since hasn't improved at all - MRI to eval for underying abscess/tenosynovitis/osteo. pt unhappy about MRI - discussed that hopefully won't need to have head in the tube since it's a foot, also she worried about restless legs - notes that evenings are worse - discussed that since it's highly important to figure out underlying for definitive treatment but not "seconds count" urgency - will order as routine and specify that it can be delayed overnight into tomorrow if it is a time incompatible with getting good images as relates to her RLS otherwise as above Subjective NAEO. Feels well overall this morning, just kind of tired. Denies significant pain at rest. Feels improved compared to when she came into the hospital. Endorses a good appetite. Denies chills. No nausea. No shortness of breath, no chest pain. No other concerns this AM. Is in understanding of her current condition and the need for antibiotics. Education about cellulitis, MRSA provided Review of Systems Review of Systems: as per HPI Physical Exam Physical Exam: General: tired appearing 84yoF lying back in her hospital bed relaxed upon my arrival. NAD HEENT: MMM, no appreciable jugular venous distention Cardiac: Irregular rate, normal rhythm. S1/S2 present without m/r/g Abdominal: NABS. Abdomen is very mildly distended, nontender to palpation Extremities: 1+ pitting edema in the lower extremities b/l Dermatology: R and L lower extremities appear about equal in size with exception of the foot. There is appreciable, focalized edema that is erythematous and hot to the touch extending along the general area of the left foot along the anterior MTPs. She is able to wiggle her toes. Cap refill < 3s. Passive ext ension and flexion of the toes does not elicit pain, although passive dorsi/plantarflexion does quite significantly. On the right foot there is a bandage in place. Results & Data Results & Data ([facility]) Vital Signs (Past 12 Hours) Vital Signs Temp Pulse Pulse Resp BP BP Pulse Ox 05/23/20 03:53 36.6 C 88 18 106/58 L 94 05/22/20 23:41 96 H 05/22/20 23:06 36.7 C 96 H 18 101/58 L 94 05/22/20 19:19 37.4 C 99 H 20 115/57 L 94 Resident Activity Tracking Resident Involvement: Resident Care Provided Care Provided: Adult [facility] Medicine (1) CKD (chronic kidney disease) Chronic kidney disease stage: unspecified stage Qualified Code(s): N18.9 - Chronic kidney disease, unspecified
[2020-05-23 08:08] LABS: Basophils # (auto) 0.01 K/uL (0-0.2); Basophils % (auto) 0.1 %; Eosinophils # (auto) 0.07 K/uL (0-0.5); Eosinophils % (auto) 0.9 %; Hematocrit (blood only) 27.4 % (37-47); Hemoglobin 8.9 g/dL (12.0-16.0); Immature Granulocytes # (auto) 0.03 K/uL (0.00-0.02); Immature Granulocytes % (auto) 0.4 %; Lymphocytes # (auto) 0.32 K/uL (1.2-3.4); Mean Corpuscular Hgb Conc 32.5 g/dL (32-36); Mean Corpuscular Volume 89.3 fL (80-100); Mean Platelet Volume 11.7 fL (7.4-10.4); Monocytes # (auto) 0.73 K/uL (0.11-0.59); Monocytes % (auto) 9.1 %; Neutrophils # (auto) 6.88 K/uL (1.4-6.5); Neutrophils % (auto) 85.5 %; Platelet Count 154 K/uL (130-400); RDW Coefficient of Variation 18.2 % (11.5-14.5); RDW Standard Deviation 58.8 fL (36.4-46.3); Red Blood Count 3.07 M/uL (4.2-5.4); White Blood Count 8.04 K/uL (4.8-10.8)
[2020-05-23 08:25] LABS: BUN Creatinine Ratio 21.8 (10-20); Calcium 8.6 mg/dl (8.5-10.1); Creatinine Clr Calc Pharmacy 26.5 ml/min; Est GFR (Non-African American) 22.4; Potassium 3.8 mmol/L (3.5-5.1)
[2020-05-23] MEDS: POTASSIUM CHLORIDE CRTAB 20 MEQ TABCR PO SCH (08:53)
[2020-05-23] MEDS: SERTRALINE HCL 50 MG TABLET PO SCH (08:54)
[2020-05-23] MEDS: PANTOprazole 40 MG TAB PO SCH (08:54)
[2020-05-23] MEDS: TORSEMIDE 20 MG TAB PO SCH (08:54)
[2020-05-23] MEDS: METOPROLOL SUCC 50MG EXT REL TAB PO SCH (08:54)
[2020-05-23] MEDS: APIXABAN 2.5 MG TAB PO SCH ×2 (08:55→19:53)
[2020-05-23] MEDS: DOCUSATE SODIUM 100 MG CAP PO SCH ×2 (08:55→19:53)
[2020-05-23] MEDS: INSULIN ASPART 100 UNITS/ML 3 ML PEN SC SCH ×4 (08:57→20:18)
[2020-05-23] MEDS: PREGABALIN 100 MG CAP PO SCH ×2 (09:04→19:53)
[2020-05-23] MEDS: HYDROCODONE/ACETAMOPHEN 5/325MG TAB PO PRN ×2 (09:05→19:51)
--- NOTE | 2020-05-23 11:07 | Pharmacy Report ---
Pharmacy Glycemic Short Note 2 - Date of Service May 23, 2020 - Glycemic Short BSG Results (Last 24 hours): 05/22/20 05/22/20 05/22/20 11:38 16:35 19:50 Glucose POC Glucose 184 H 159 H 158 H 05/23/20 05/23/20 07:44 07:45 Glucose 75 POC Glucose 83 OUTPATIENT ANTIDIABETIC REGIMEN: * Tresiba 95 units SC HS * Novolog 33-35 units + sliding scale TIDM (up to 150 units/day) * HbA1c: 9.5% (01/08/20) ASSESSMENT: 05/23/20 * Pt has received 117 units of insulin over the past 24hrs * 80 units of basal with Lantus * 37 units of bolus with NovoLog * BSGs 531-783-468-158-83 mg/dl * AM fasting BSG below goal range at 83 mg/dl this AM. Will reduce basal insulin by ~ 15% * No change needed to CF/CR; post-prandial BSGs are in goal range. 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 * Additionally, patient reports worsening of left leg swelling, redness, and pain * BSG on admission of 126 mg/dL * Given large outpatient doses of insulin, will be aggressive with Novolog * Receiving empiric vancomycin and ceftriaxone for treatment of left foot cellulitis PLAN FOR INPATIENT GLYCEMIC CONTROL: * Basal insulin - ~15% further reduction in basal insulin * Lantus 70 units SC HS * Bolus insulin * NovoLog per scale ACHS or Q6hrs while NPO * Goal Range: Low 110 mg/dL - High 140 mg/dL * Correction Factor: 12 mg/dL/unit * Nutritional / Prandial insulin per carb ratio of 1 unit per 3 grams CHO consumed PLAN FOR DISCHARGE: * tbd
[2020-05-23] MEDS: cefTRIAXone SODIUM 2,000 MG in DEXTROSE 5% 50 ML IV SCH (12:29)
[2020-05-23] MEDS: ACETAMINOPHEN 325 MG TAB PO PRN ×2 (12:40→19:52)
--- NOTE | 2020-05-23 16:43 | Billing Data ---
Date of Service May 23, 2020 Coding Level of Care Code 69923 Subseq Hosp Care Lvl 3
[2020-05-23] MEDS: PRAMIPEXOLE DIHYDROCHLO 0.25 MG TAB PO SCH (19:53)
[2020-05-23] MEDS ORDERED: INSULIN GLARGINE SOLOSTAR 100 UNITS/ML 3 ML PEN SC SCH (21:00)
[2020-05-24] MEDS: LEVOTHYROXINE SODIUM 75 MCG TABLET PO SCH (06:03)
[2020-05-24 06:08] LABS: Estimated Average Glucose 203 mg/dl; Hemoglobin A1C 8.7 % (4.5-5.6)
[2020-05-24 07:53] LABS: Basophils # (auto) 0.01 K/uL (0-0.2); Basophils % (auto) 0.1 %; Eosinophils # (auto) 0.16 K/uL (0-0.5); Eosinophils % (auto) 2.1 %; Hemoglobin 8.7 g/dL (12.0-16.0); Immature Granulocytes # (auto) 0.03 K/uL (0.00-0.02); Immature Granulocytes % (auto) 0.4 %; Lymphocytes # (auto) 0.67 K/uL (1.2-3.4); Lymphocytes % (auto) 8.6 %; Mean Corpuscular Hemoglobin 28.7 pg (25-34); Mean Corpuscular Hgb Conc 32.2 g/dL (32-36); Mean Corpuscular Volume 89.1 fL (80-100); Mean Platelet Volume 11.1 fL (7.4-10.4); Monocytes # (auto) 0.36 K/uL (0.11-0.59); Monocytes % (auto) 4.6 %; Neutrophils # (auto) 6.57 K/uL (1.4-6.5); Neutrophils % (auto) 84.2 %; Platelet Count 148 K/uL (130-400); RDW Standard Deviation 58.6 fL (36.4-46.3); Red Blood Count 3.03 M/uL (4.2-5.4)
[2020-05-24] MEDS: APIXABAN 2.5 MG TAB PO SCH ×2 (08:05→21:09)
[2020-05-24] MEDS: SERTRALINE HCL 50 MG TABLET PO SCH (08:07)
[2020-05-24] MEDS: CALCITRIOL 0.25 MCG CAPSULE PO SCH (08:08)
[2020-05-24] MEDS: METOPROLOL SUCC 50MG EXT REL TAB PO SCH (08:08)
[2020-05-24] MEDS: TORSEMIDE 20 MG TAB PO SCH (08:08)
[2020-05-24] MEDS: PANTOprazole 40 MG TAB PO SCH (08:08)
[2020-05-24] MEDS: POTASSIUM CHLORIDE CRTAB 20 MEQ TABCR PO SCH (08:09)
[2020-05-24 08:27] LABS: Calcium 8.5 mg/dl (8.5-10.1); Creatinine Clr Calc Pharmacy 22.1 ml/min; Est GFR (African American) 20.9; Potassium 3.7 mmol/L (3.5-5.1)
--- NOTE | 2020-05-24 08:27 | Pharmacy Report ---
Pharmacy Glycemic Short Note 2 - Date of Service May 24, 2020 - Glycemic Short BSG Results (Last 24 hours): 05/23/20 05/23/20 05/23/20 07:44 11:02 16:36 Glucose 75 POC Glucose 172 H 193 H 05/23/20 05/24/20 20:09 07:38 Glucose POC Glucose 134 H 126 H OUTPATIENT ANTIDIABETIC REGIMEN: * Tresiba 95 units SC HS * Novolog 33-35 units + sliding scale TIDM (up to 150 units/day) * HbA1c: 9.5% (01/08/20) ASSESSMENT: 05/24/20 * BSGs yesterday reasonable well controlled at 83, 172, 193, and 134 mg/dL * Received 128 units of insulin (70 units of basal and 58 units of prandial/correctional bolus) * Fasting BSG of 126 mg/dL this morning -> will slightly increase Lantus this evening and tighten carb ratio starting with lunch * Remains on daptomycin and ceftriaxone for LLE cellulitis 05/23/20 * Pt has received 117 units of insulin over the past 24hrs * 80 units of basal with Lantus * 37 units of bolus with NovoLog * BSGs [phone] mg/dl * AM fasting BSG below goal range at 83 mg/dl this AM. Will reduce basal insulin by ~ 15% * No change needed to CF/CR; post-prandial BSGs are in goal range. 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 * Additionally, patient reports worsening of left leg swelling, redness, and pain * BSG on admission of 126 mg/dL * Given large outpatient doses of insulin, will be aggressive with Novolog * Receiving empiric vancomycin and ceftriaxone for treatment of left foot cellulitis PLAN FOR INPATIENT GLYCEMIC CONTROL: * Basal insulin - increase * Lantus 75 units SC HS * Bolus insulin - tighten carb ratio * NovoLog per scale ACHS or Q6hrs while NPO * Goal Range: Low 110 mg/dL - High 140 mg/dL * Correction Factor: 12 mg/dL/unit * Nutritional / Prandial insulin per carb ratio of 1 unit per 2.5 grams CHO consumed PLAN FOR DISCHARGE: * HbA1c of 9.5% is elevated (reasonable goal for this patient would be less than 8% given age and comorbidities) * Based on current inpatient insulin needs, it seems that outpatient regimen should be sufficient * This could point to non-compliance with currently ordered regimen vs. significant change in outpatient/inpatient diet * Patient follows with [facility] - would defer to their judgment, ensure prompt follow-up upon discharge * Support Patient Self-Management * Healthy Lifestyle (diet, exercise, and smoking cessation) * Disease self-management (SMBG) * Prevention of complications (BP, Lipid goals, Immunizations) * Consider outpatient Diabetes Self-Management Education & Support
[2020-05-24] MEDS: INSULIN ASPART 100 UNITS/ML 3 ML PEN SC SCH ×4 (08:45→21:14)
[2020-05-24] MEDS: HYDROCODONE/ACETAMOPHEN 5/325MG TAB PO PRN (08:53)
[2020-05-24] MEDS: PREGABALIN 100 MG CAP PO SCH ×2 (08:53→21:09)
[2020-05-24] MEDS: LACTATED RINGER'S 1,000 ML IV SCH ×2 (10:32→21:09)
--- NOTE | 2020-05-24 11:26 | Hospitalist Progress Note ---
Date of Service May 24, 2020 Assessment & Plan (1) Cellulitis of left foot: 84 yo female with a past medical history of type 2 diabetes, hypertension, hyperlipidemia, restless leg syndrome, chronic respiratory failure with hypoxia,chronic diastolic heart failure, CKD, JAMAL, spinal stenosis atrial fibrillation on Eliquis admitted for cellulitis of left foot and associated weakness. Left Foot Cellulitis Left foot continues to have swelling and mild tenderness to palpation -- this AM with +pain with passive ankle dorsiflexion - MRI to r/o tenosynovitis/abscess/osteomyelitis - pending Continue daptomycin and ceftriaxone - blood cx negative after 48 hours - continue to trend Trend CBC FLAVIO on CKD Stage IV Cr 2.02 --> 2.42 today, baseline Cr 1.9-2.3, suspect pre-renal injury 2/2 dehydration vs sepsis. - started full maintenance IVFs: LR @150cc/hr - cautiously replete due to h/o diastolic HF - trend BMP daily Lower Extremity Edema, Chronic diastolic heart failure Appears mildly hypervolemic on exam (LE edema) - cautious IVF repletion as mentioned above - TTE today showing EF 50-55%, normal LV size/function, mild-moderately reduced RV systolic function, RVSP 30-40mmHg - slightly worse in comparison to 07/2019 study - continue to follow clinically for signs of worsening hypervolemia - would stop IVFs at that time (+/- Lasix) - Continue home torsemide - strict I/Os, daily weights Chronic atrial fibrillation - Borderline rate-controlled Continue home apixaban/toprol XL Diabetes mellitus type 2 with peripheral neuropathy - Sliding scale insulin - Pharmacy consulted for glycemic control - continue home Lyrica Depression - continue home Sertraline Hypothyroidism - Continue home Synthroid GERD - Pantoprazole 40 mg p.o. daily per hospital formulary Restless leg syndrome - Continue home pramipexole DVT prophylaxis: [place] JOSE MARIACorrine: DM2, low sodium, LR @150cc/hr Dispo: Med/surg with tele CODE STATUS: DNR/DNI (2) CKD (chronic kidney disease): (3) Generalized weakness: (4) Uncontrolled type 2 diabetes mellitus: (5) Atrial fibrillation, chronic: Admission and Anticipated Discharge Date Admission Date: May 21, 2020 Supervising Physician Co-Signing Physician Notes Attending attestation Pt seen and examined in concert with Dr. Santamaria. In agreement with the documented findings as noted in the resident documentation with any exceptions or additions as noted here. Patient reports ongoing LLE pain which is unchanged from previous and worse with flexion/extension at ankle and toes. On examination, S1/S2 nl RRR no MCG. CTAB. Abd NT/ND BS+ve. LLE TTP diffusely with 2+ pitting edema to the midshin. Oriented only to self. Metabolic encephalopathy with ?h/o dementia - likely 2/2 infection. Will require imaging to clear for MRI as unable to answer questions, unable to reach family. Will continue to contact family re: POA and baseline mental status LLE cellulitis - concerning for underlying infection - patient will likely require sedation for MRI based on current mental status, continue present abx and monitor. F/U Cx FLAVIO on CKDIV - concerning increase in Cr likely pre-renal based on fevers and BP, which is now somewhat improved. Continue IVF with close monitoring - if continuing uptrend, nephrology c/s HFpEF - continue torsemide and monitor I/Os Else see resident documentation as noted. Subjective No acute events overnight. Reports persistent left foot pain with inability to flex or extend toes more than minimally. Tolerating full diet. Denies fever/chills, chest pain, SOB, N/V, abdominal pain. Review of Systems Review of Systems: Pertinent positives and negatives mentioned in HPI. Physical Exam Physical Exam: General: A&Ox3. NAD. Cooperative. Obese HEENT: Atraumatic, normocephalic. Pulm: CTAB A&P. -wheezes, -rales, -rhonchi. Symmetrical chest rise. No increase work of breathing. No respiratory distress. Cardiac: irregularly irregular rhythm, mildly tachycardic rate, -mrg. Radial pulses intact and symmetrical. Abdominal: soft, non-tender, non-distended, BS x 4 Left foot: forefoot and midfoot is markedly swollen with erythema extending from several toes to dorsal midfoot, warm, severe TTP of dorsal surface and especially at several of the tarsal/metatarsal joints, no red streaking or crepitus, severe pain on mild passive dorsiflexion/plantar flexion, minimal active dorsiflexion/plantar flexion Results & Data Results & Data ([facility]) Vital Signs (Past 12 Hours) Vital Signs Temp Pulse Pulse Resp BP BP Pulse Ox 04/19/21 08:29 37.1 C 95 H 18 142/75 H 95 05/24/20 03:49 36.9 C 93 H 20 105/58 L 93 05/24/20 00:19 102 H Resident Activity Tracking Resident Involvement: Resident Care Provided Care Provided: Adult [facility] Medicine (1) CKD (chronic kidney disease) Chronic kidney disease stage: unspecified stage Qualified Code(s): N18.9 - Chronic kidney disease, unspecified
[2020-05-24] MEDS: DOCUSATE SODIUM 100 MG CAP PO SCH ×2 (12:22→21:09)
[2020-05-24] MEDS: cefTRIAXone SODIUM 2,000 MG in DEXTROSE 5% 50 ML IV SCH (12:22)
--- NOTE | 2020-05-24 16:30 | XCELERA ---
[id number]
[2020-05-24] MEDS ORDERED: LORazepam 0.5 MG/1 ML VIAL IV STA (17:13)
--- NOTE | 2020-05-24 18:26 | XRay Report ---
ORBIT RADIOGRAPHS 3 VIEWS HISTORY: pre-MRI screening. COMPARISON: Head CT February 07, 2018. FINDINGS: There are no radiopaque foreign bodies identified within the orbits. IMPRESSION: No radiopaque foreign bodies identified within the orbits. ACT 112: Negative or not required by law. Electronically signed by: Asif Ballard M.D. 05/24/2020 6:25 PM
--- NOTE | 2020-05-24 18:27 | XRay Report ---
KUB CLINICAL HISTORY: Screening for foreign body - MRI COMPARISON STUDY: CT of the abdomen and pelvis January 23, 2020. FINDINGS: No unexpected radiopaque foreign bodies are identified. No contraindication to MRI is ident ified on this KUB. Severe right hip osteoarthritis is incidentally noted. There is no evidence for a bowel obstruction. A moderate amount stool is noted within the colon and rectum. IMPRESSION: No contraindication to MRI on this KUB. ACT 112: Negative or not required by law. Electronically signed by: Asif Ballard M.D. 05/24/2020 6:26 PM
--- NOTE | 2020-05-24 19:03 | Magnetic Resonance Report ---
MR foot LT w/o con CLINICAL HISTORY: dorsal swelling, ?abscesss/osteo/tenosynovitis? COMPARISON STUDY: Left foot radiographs May 21, 2020. TECHNIQUE: Utilizing a 1.5 Sonja magnet and dedicated coil, multiplanar, multiecho imaging of the lef t midfoot and forefoot was performed without intravenous contrast. FINDINGS: Extensive dorsal left foot subcutaneous edema is present. Sensitivity for detection of absc ess is diminished on this unenhanced exam but no well-defined fluid collection is identified. Alignme nt of the tarsometatarsal joints is anatomic. Abnormal appearance of multiple tarsometatarsal joints is noted. Specifically, there is increased fluid within the second, third and fourth tarsometatarsal joints with adjacent endplate edema and diminished marrow signal on the T1-weighted sequence adjacent to the second and third tarsometatarsal joints. Subchondral signal abnormality adjacent to the fourt h tarsometatarsal joint is likely degenerative. No acute fracture is present. No suspicious osseous l esions are noted. Visualized portions of the flexor, extensor and peroneal tendons are unremarkable. Amount of fluid within the tendon sheaths is within normal limits. IMPRESSION: 1. Increased fluid within the second, third and fourth tarsometatarsal joints with adjacent marrow si gnal abnormality, most pronounced within the second and third tarsometatarsal joints. The appearance is nonspecific and these findings could be degenerative however the appearance raises the possibility of septic arthritis with associated osteomyelitis. Correlation with clinical evidence for an infecti ous process is recommended. 2. Extensive dorsal subcutaneous edema of the left foot. ACT 112: Negative or not required by law. Electronically signed by: Asif Ballard M.D. 05/24/2020 7:01 PM
[2020-05-24] MEDS: PRAMIPEXOLE DIHYDROCHLO 0.25 MG TAB PO SCH (21:09)
[2020-05-24] MEDS: DAPTOmycin 325 MG in SYRINGE 0 ML IV SCH (21:09)
[2020-05-24] MEDS: INSULIN GLARGINE SOLOSTAR 100 UNITS/ML 3 ML PEN SC SCH (21:13)
[2020-05-25] MEDS: LACTATED RINGER'S 1,000 ML IV SCH ×4 (03:30→22:02)
[2020-05-25] MEDS: LEVOTHYROXINE SODIUM 75 MCG TABLET PO SCH (05:42)
[2020-05-25] MEDS ORDERED: Nursing to Pharmacy Communication SCH (06:00)
[2020-05-25 06:56] LABS: Basophils # (auto) 0.01 K/uL (0-0.2); Basophils % (auto) 0.1 %; Eosinophils # (auto) 0.08 K/uL (0-0.5); Eosinophils % (auto) 1.1 %; Hematocrit (blood only) 26.4 % (37-47); Hemoglobin 8.5 g/dL (12.0-16.0); Immature Granulocytes # (auto) 0.06 K/uL (0.00-0.02); Immature Granulocytes % (auto) 0.8 %; Lymphocytes # (auto) 0.41 K/uL (1.2-3.4); Lymphocytes % (auto) 5.6 %; Mean Corpuscular Hemoglobin 28.5 pg (25-34); Mean Corpuscular Hgb Conc 32.2 g/dL (32-36); Mean Corpuscular Volume 88.6 fL (80-100); Mean Platelet Volume 11.1 fL (7.4-10.4); Monocytes # (auto) 0.55 K/uL (0.11-0.59); Monocytes % (auto) 7.5 %; Neutrophils % (auto) 84.9 %; Platelet Count 167 K/uL (130-400); RDW Coefficient of Variation 17.9 % (11.5-14.5); RDW Standard Deviation 57.6 fL (36.4-46.3); Red Blood Count 2.98 M/uL (4.2-5.4); White Blood Count 7.31 K/uL (4.8-10.8)
[2020-05-25 07:34] LABS: BUN Creatinine Ratio 26.1 (10-20); Calcium 8.2 mg/dl (8.5-10.1); Creatinine Clr Calc Pharmacy 23.9 ml/min; Est GFR (African American) 22.8; Est GFR (Non-African American) 19.7; Magnesium 1.7 mg/dl (1.8-2.4); Phosphorus 3.9 mg/dl (2.5-4.9); Potassium 3.6 mmol/L (3.5-5.1)
[2020-05-25] MEDS ORDERED: POTASSIUM CHLORIDE CRTAB 20 MEQ TABCR PO STA (07:55)
[2020-05-25] MEDS: INSULIN ASPART 100 UNITS/ML 3 ML PEN SC SCH ×4 (08:21→21:37)
[2020-05-25] MEDS: MAGNESIUM SULFATE / D5W 1 GM/100 ML BAG IV SCH ×2 (09:14→11:12)
[2020-05-25] MEDS: TORSEMIDE 20 MG TAB PO SCH (11:14)
[2020-05-25] MEDS: POTASSIUM CHLORIDE CRTAB 20 MEQ TABCR PO SCH (11:15)
[2020-05-25] MEDS: DOCUSATE SODIUM 100 MG CAP PO SCH ×2 (11:15→20:21)
[2020-05-25] MEDS: APIXABAN 2.5 MG TAB PO SCH ×2 (11:15→20:22)
[2020-05-25] MEDS: PANTOprazole 40 MG TAB PO SCH (11:15)
[2020-05-25] MEDS: METOPROLOL SUCC 50MG EXT REL TAB PO SCH (11:16)
[2020-05-25] MEDS: SERTRALINE HCL 50 MG TABLET PO SCH (11:16)
[2020-05-25] MEDS: PREGABALIN 100 MG CAP PO SCH ×2 (11:21→20:22)
--- NOTE | 2020-05-25 12:37 | Hospitalist Progress Note ---
Date of Service May 25, 2020 Assessment & Plan (1) Cellulitis of left foot: 84 yo female with a past medical history of type 2 diabetes, hypertension, hyperlipidemia, restless leg syndrome, chronic respiratory failure with hypoxia,chronic diastolic heart failure, CKD, JAMAL, spinal stenosis atrial fibrillation on Eliquis admitted on 05/23/2020 for cellulitis of left foot and associated weakness. Left Foot Cellulitis Left foot continues to have swelling and mild tenderness to palpation as well as severe pain with passive dorsiflexion/plantar flexion. MRI showed increased fluid in 2nd/3rd/4th tarso-metatarsal joints with adjacent marrow signal abnormality --> concerning for possible septic arthritis and osteomyelitis. - Ortho consult placed for further eval/management - recs pending - Continue daptomycin and ceftriaxone - blood cx negative after 48 hours - continue to trend - Trend CBC FLAVIO on CKD Stage IV, FLAVIO resolving Cr 2.42 --> 2.25 today, baseline Cr 1.9-2.3, suspect pre-renal injury 2/2 dehydration vs sepsis. - continue full maintenance IVFs: LR @150cc/hr - cautiously replete due to h/o diastolic HF, currently appears near- euvolemic - trend BMP daily Lower Extremity Edema, Chronic diastolic heart failure Appears mildly hypervolemic on exam (LE edema). TTE on 05/24: EF 50-55%, slightly worse than previous study in 07/2019. - cautious IVF repletion as mentioned above - continue to follow clinically for signs of worsening hypervolemia - would stop IVFs at that time (+/- Lasix) - Continue home torsemide - strict I/Os, daily weights Chronic atrial fibrillation - Borderline rate-controlled - Continue home apixaban/toprol XL Diabetes mellitus type 2 with peripheral neuropathy - Sliding scale insulin - Pharmacy consulted for glycemic control - continue home Lyrica Depression - continue home Sertraline Hypothyroidism - Continue home Synthroid GERD - Pantoprazole 40 mg p.o. daily per hospital formulary Restless leg syndrome - Continue home pramipexole DVT prophylaxis: Lowell OBANDO: DM2, low sodium, LR @150cc/hr Dispo: Med/surg with tele CODE STATUS: DNR/DNI (2) CKD (chronic kidney disease): (3) Generalized weakness: (4) Uncontrolled type 2 diabetes mellitus: (5) Atrial fibrillation, chronic: Admission and Anticipated Discharge Date Admission Date: May 21, 2020 Supervising Physician Co-Signing Physician Notes Attending attestation Pt seen and examined in concert with Dr. Santamaria. In agreement with the documented findings as noted in the resident documentation with any exceptions or additions as noted here. Patient reports ongoing LLE pain which is unchanged from previous and worse with flexion/extension at ankle and toes. On examination, S1/S2 nl RRR no MCG. CTAB. Abd NT/ND BS+ve. LLE TTP diffusely with 2+ pitting edema to the midshin. Oriented only to self. LLE cellulitis - concerning for underlying infection - ortho consultation - MRI completed, final Cx pending, continue abx. Ortho recs appreciated Metabolic encephalopathy with ?h/o dementia - likely 2/2 infection, unchanged FLAVIO on CKDIV - Cr stabilized/improved with hydration, continue gentle hydration and trend HFpEF - continue torsemide and monitor I/Os Else see resident documentation as noted. Subjective No acute events overnight. Reports persistent left foot pain with inability to flex or extend toes more than minimally. Tolerating full diet. Denies fever/chills, chest pain, SOB, N/V, abdominal pain. Review of Systems Review of Systems: Pertinent positives and negatives mentioned in HPI. Physical Exam Physical Exam: General: A&Ox3. NAD. Cooperative. Obese HEENT: Atraumatic, normocephalic. Pulm: CTAB A&P. -wheezes, -rales, -rhonchi. Symmetrical chest rise. No increase work of breathing. No respiratory distress. Cardiac: irregularly irregular rhythm, mildly tachycardic rate, -mrg. Radial pulses intact and symmetrical. Abdominal: soft, non-tender, non-distended, BS x 4 Left foot: forefoot and midfoot is markedly swollen with erythema extending from several toes to dorsal midfoot, warm, severe TTP of dorsal surface and elisa ecially at several of the tarsal/metatarsal joints, no red streaking or crepitus, severe pain on mild passive dorsiflexion/plantar flexion, minimal active dorsiflexion/plantar flexion - exam stable from yesterday Results & Data Results & Data ([facility]) Vital Signs (Past 12 Hours) Vital Signs Temp Pulse Pulse Resp BP Pulse Ox 05/25/20 11:40 37.2 C 104 H 20 114/63 92 04/20/21 08:30 106 H 05/25/20 07:56 37.4 C 104 H 19 125/66 92 05/25/20 04:00 37.0 C 92 H 18 121/75 93 Resident Activity Tracking Resident Involvement: Resident Care Provided Care Provided: Adult Hospital Medicine (1) CKD (chronic kidney disease) Chronic kidney disease stage: unspecified stage Qualified Code(s): N18.9 - Chronic kidney disease, unspecified
[2020-05-25] MEDS: cefTRIAXone SODIUM 2,000 MG in DEXTROSE 5% 50 ML IV SCH (13:17)
--- NOTE | 2020-05-25 15:19 | Consultation Report ---
DATE OF CONSULTATION: 05/25/2020 HISTORY: The patient presents as an 84-year-old white female with cellulitis of her left foot over the third toe and dorsum of her foot. She is currently on ceftriaxone. The patient relates that the cellulitis is improving. In her opinion, she has no sign of any type of compartment syndrome. No areas of any pockets of abscess or purulence noted on clinical examination and MRI scan was of concern for fluid in the joint space with questionable septic joint. The patient has no significant pain with any type of passive or active range of motion of her 2nd, 3rd and 4th toes; the 3rd toe was the most involved with cellulitis and soft tissues. We will review this case with Dr. Hudson and discuss whether consideration for I and D is necessary.
[2020-05-25] MEDS: PRAMIPEXOLE DIHYDROCHLO 0.25 MG TAB PO SCH (20:22)
[2020-05-25] MEDS: INSULIN GLARGINE SOLOSTAR 100 UNITS/ML 3 ML PEN SC SCH (21:38)
[2020-05-26] MEDS: LACTATED RINGER'S 1,000 ML IV SCH (04:45)
[2020-05-26] MEDS: LEVOTHYROXINE SODIUM 75 MCG TABLET PO SCH (06:07)
--- NOTE | 2020-05-26 07:00 | Hospitalist Progress Note ---
Date of Service May 26, 2020 Assessment & Plan (1) Cellulitis of left foot: 84 yo female with a past medical history of type 2 diabetes, hypertension, hyperlipidemia, restless leg syndrome, chronic respiratory failure with hypoxia,chronic diastolic heart failure, CKD, JAMAL, spinal stenosis atrial fibrillation on Eliquis admitted on 05/23/2020 for cellulitis of left foot and associated weakness. Left Foot Cellulitis Left foot continues to have swelling and mild tenderness to palpation as well as severe pain with passive dorsiflexion/plantar flexion. MRI showed increased fluid in 2nd/3rd/4th tarso-metatarsal joints with adjacent marrow signal abnormality --> concerning for possible septic arthritis and osteomyelitis. - Ortho consult placed for further eval/management - recs pending - Continue daptomycin and ceftriaxone - blood cx negative after 48 hours - final cx pending - Trend CBC Metabolic Encephalopathy Intermittently confused, A+O 1-2 --> suspect delirium 2/2 cellulitis/infection and prolonged hospitalization. - continue frequent re-orientation per nursing FLAVIO on CKD Stage IV, FLAVIO resolved Cr 2.25 --> 1.73 today, baseline Cr 1.9-2.3, suspect pre-renal injury 2/2 dehydration vs sepsis. - d/c'd IVFs today, encourage PO intake - trend BMP daily Lower Extremity Edema, Chronic HFpEF Appears mildly hypervolemic on exam (LE edema). TTE on 05/24: EF 50-55%, slightly worse than previous study in 07/2019. - continue to follow clinically for signs of worsening hypervolemia - Continue home torsemide - strict I/Os, daily weights Chronic atrial fibrillation - rate-controlled - Continue home Eliquis/Toprol XL Diabetes mellitus type 2 with peripheral neuropathy - Sliding scale insulin - Pharmacy consulted for glycemic control - continue home Lyrica Depression - continue home Sertraline Hypothyroidism - Continue home Synthroid GERD - Pantoprazole 40 mg p.o. daily per hospital formulary Restless leg syndrome - Continue home pramipexole DVT prophylaxis: Lowell OBANDO: DM2, low sodium, LR @150cc/hr Dispo: Med/surg with tele CODE STATUS: DNR/DNI (2) CKD (chronic kidney disease): (3) Generalized weakness: (4) Uncontrolled type 2 diabetes mellitus: (5) Atrial fibrillation, chronic: Admission and Anticipated Discharge Date Admission Date: May 21, 2020 Supervising Physician Co-Signing Physician Notes Attending attestation Pt seen and examined in concert with Dr. Santamaria. In agreement with the documented findings as noted in the resident documentation with any exceptions or additions as noted here. Ongoing LLE pain which is unchanged from previous and worse with flexion/extension at ankle and toes. On examination, S1/S2 nl RRR no MCG. CTAB. Abd NT/ND BS+ve. Persistent LLE TTP without extension of erythema, ongoing 2+ pitting edema to the midshin. Oriented only to self. LLE cellulitis - concerning for underlying infection - ortho consultation - awaiting ortho recommendations Cx pending, continue abx Metabolic encephalopathy with ?h/o dementia - likely 2/2 infection, unchanged - ? underlying dementia with family FLAVIO on CKDIV - Cr stabilized/improved with hydration, continue gentle hydration and trend HFpEF - continue torsemide and monitor I/Os Else see resident documentation as noted. Subjective Intermittently confused overnight per nursing. Reports persistent left foot pain with inability to flex or extend toes more than minimally. Tolerating full diet. Denies fever/chills, chest pain, SOB, N/V, abdominal pain. Review of Systems Review of Systems: Pertinent positives and negatives mentioned in HPI. Physical Exam Physical Exam: General: A&Ox3. NAD. Cooperative. Obese HEENT: Atraumatic, normocephalic. Pulm: CTAB A&P. -wheezes, -rales, -rhonchi. Symmetrical chest rise. No increase work of breathing. No respiratory distress. Cardiac: irregularly irregular rhythm, regular rate, -mrg. Radial pulses intact and symmetrical. Abdominal: soft, non-tender, non-distended, BS x 4 Left foot: forefoot and midfoot is markedly swollen with erythema extending from several toes to dorsal midfoot, warm, severe TTP of dorsal surface and especially at several of the tarsal/metatarsal joints, no red streaking or crepitus, severe pain on mild passive dorsiflexion/plantar flexion, minimal active dorsiflexion/plantar flexion - exam continues to be stable from yesterday Results & Data Results & Data ([facility]) Vital Signs (Past 12 Hours) Vital Signs Temp Pulse Pulse Resp BP Pulse Ox 05/26/20 06:56 36.9 C 97 H 18 157/78 H 97 05/26/20 04:26 37.0 C 92 H 18 150/75 H 99 05/26/20 01:41 95 H 05/25/20 23:56 37.3 C 96 H 18 147/70 H 96 05/25/20 19:38 36.8 C 102 H 20 139/82 94 Resident Activity Tracking Resident Involvement: Resident Care Provided Care Provided: Adult Hospital Medicine (1) CKD (chronic kidney disease) Chronic kidney disease stage: unspecified stage Qualified Code(s): N18.9 - Chronic kidney disease, unspecified
[2020-05-26] MEDS: DOCUSATE SODIUM 100 MG CAP PO SCH ×2 (07:49→20:08)
[2020-05-26] MEDS: POTASSIUM CHLORIDE CRTAB 20 MEQ TABCR PO SCH (07:49)
[2020-05-26] MEDS: APIXABAN 2.5 MG TAB PO SCH ×2 (07:49→20:08)
[2020-05-26] MEDS: METOPROLOL SUCC 50MG EXT REL TAB PO SCH (07:49)
[2020-05-26] MEDS: PANTOprazole 40 MG TAB PO SCH (07:50)
[2020-05-26] MEDS: CALCITRIOL 0.25 MCG CAPSULE PO SCH (07:50)
[2020-05-26] MEDS: SERTRALINE HCL 50 MG TABLET PO SCH (07:50)
[2020-05-26] MEDS: TORSEMIDE 20 MG TAB PO SCH (07:50)
[2020-05-26 08:04] LABS: Basophils # (auto) 0.01 K/uL (0-0.2); Basophils % (auto) 0.2 %; Eosinophils # (auto) 0.19 K/uL (0-0.5); Eosinophils % (auto) 4.2 %; Hematocrit (blood only) 25.9 % (37-47); Hemoglobin 8.5 g/dL (12.0-16.0); Immature Granulocytes # (auto) 0.04 K/uL (0.00-0.02); Immature Granulocytes % (auto) 0.9 %; Lymphocytes # (auto) 0.49 K/uL (1.2-3.4); Lymphocytes % (auto) 10.8 %; Mean Corpuscular Hemoglobin 29.2 pg (25-34); Mean Corpuscular Hgb Conc 32.8 g/dL (32-36); Mean Platelet Volume 11.3 fL (7.4-10.4); Monocytes # (auto) 0.27 K/uL (0.11-0.59); Neutrophils # (auto) 3.53 K/uL (1.4-6.5); Neutrophils % (auto) 77.9 %; Platelet Count 169 K/uL (130-400); RDW Coefficient of Variation 18.1 % (11.5-14.5); Red Blood Count 2.91 M/uL (4.2-5.4); White Blood Count 4.53 K/uL (4.8-10.8)
[2020-05-26 08:45] LABS: BUN Creatinine Ratio 30.9 (10-20); Calcium 8.9 mg/dl (8.5-10.1); Creatinine Clr Calc Pharmacy 31.3 ml/min; Est GFR (African American) 31.3; Magnesium 1.9 mg/dl (1.8-2.4); Phosphorus 3.6 mg/dl (2.5-4.9); Potassium 3.3 mmol/L (3.5-5.1)
[2020-05-26] MEDS: INSULIN ASPART 100 UNITS/ML 3 ML PEN SC SCH ×4 (08:54→20:11)
[2020-05-26] MEDS ORDERED: POTASSIUM CHLORIDE PWD 20 MEQ PACK PO STA (08:54)
[2020-05-26] MEDS ORDERED: MAGNESIUM SULFATE / D5W 1 GM/100 ML BAG IV ONE (09:30)
[2020-05-26] MEDS: PREGABALIN 100 MG CAP PO SCH ×2 (10:32→20:11)
[2020-05-26] MEDS: cefTRIAXone SODIUM 2,000 MG in DEXTROSE 5% 50 ML IV SCH (12:27)
--- NOTE | 2020-05-26 15:16 | Orthopedic Progress Note ---
Date of Service May 26, 2020 Assessment & Plan (1) Cellulitis of left foot: Continue elevation of the left foot to help with swelling. Continue IV antibiotics. MRI showing increased fluid in the second third and fourth tarsometatarsal joints with question of being degenerative in nature versus septic arthritis. Without significant pain in these areas with range of motion, leaning towards possibly degenerative however,await Dr. Hudson's input. Admission and Anticipated Discharge Date Admission Date: May 21, 2020 Subjective Patient lying in bed sleeping. Easily awoken. Patient states that both feet hurt off and on at times. He states that the left foot hurt little bit more this morning but now she is unsure. She is unsure if it is feeling better today or not. Physical Exam Physical Exam: Left foot continues with edema and cellulitis. I can palpate the dorsum of the left foot which does not cause her any pain at this time. I can take her toes through passive extension without discomfort. I can do gentle range of motion of her left ankle without causing pain. Results & Data ([facility]) Vital Signs (Past 12 Hours) Vital Signs Temp Pulse Pulse Resp BP Pulse Ox 05/26/20 15:10 36.8 C 76 18 119/55 L 91 05/26/20 09:00 86 05/26/20 06:56 36.9 C 97 H 18 157/78 H 97 05/26/20 04:26 37.0 C 92 H 18 150/75 H 99
[2020-05-26] MEDS: DAPTOmycin 475 MG in SYRINGE 0 ML IV SCH (17:26)
[2020-05-26] MEDS: HYDROCODONE/ACETAMOPHEN 5/325MG TAB PO PRN (17:31)
[2020-05-26] MEDS: PRAMIPEXOLE DIHYDROCHLO 0.25 MG TAB PO SCH (20:07)
[2020-05-26] MEDS: CYCLOBENZAPRINE HCL 5 MG TAB PO PRN (20:18)
[2020-05-26] MEDS ORDERED: INSULIN GLARGINE SOLOSTAR 100 UNITS/ML 3 ML PEN SC SCH (21:00)
[2020-05-27] MEDS: LEVOTHYROXINE SODIUM 75 MCG TABLET PO SCH (05:42)
[2020-05-27 07:52] LABS: Basophils # (auto) 0.02 K/uL (0-0.2); Basophils % (auto) 0.4 %; Eosinophils # (auto) 0.25 K/uL (0-0.5); Hematocrit (blood only) 25.8 % (37-47); Hemoglobin 8.2 g/dL (12.0-16.0); Immature Granulocytes # (auto) 0.06 K/uL (0.00-0.02); Immature Granulocytes % (auto) 1.2 %; Lymphocytes # (auto) 0.57 K/uL (1.2-3.4); Lymphocytes % (auto) 11.3 %; Mean Corpuscular Hemoglobin 28.4 pg (25-34); Mean Corpuscular Hgb Conc 31.8 g/dL (32-36); Mean Corpuscular Volume 89.3 fL (80-100); Mean Platelet Volume 11.3 fL (7.4-10.4); Monocytes # (auto) 0.58 K/uL (0.11-0.59); Monocytes % (auto) 11.5 %; Neutrophils # (auto) 3.57 K/uL (1.4-6.5); Neutrophils % (auto) 70.6 %; Platelet Count 179 K/uL (130-400); RDW Coefficient of Variation 17.9 % (11.5-14.5); Red Blood Count 2.89 M/uL (4.2-5.4); White Blood Count 5.05 K/uL (4.8-10.8)
[2020-05-27 08:23] LABS: BUN Creatinine Ratio 34.3 (10-20); Calcium 8.8 mg/dl (8.5-10.1); Creatinine Clr Calc Pharmacy 33.9 ml/min; Est GFR (African American) 34.2; Est GFR (Non-African American) 29.5; Magnesium 1.8 mg/dl (1.8-2.4); Phosphorus 3.2 mg/dl (2.5-4.9); Potassium 3.4 mmol/L (3.5-5.1)
--- NOTE | 2020-05-27 08:45 | Pharmacy Report ---
Pharmacy Glycemic Short Note 2 - Date of Service May 27, 2020 - Glycemic Short BSG Results (Last 24 hours): 05/26/20 05/26/20 05/26/20 07:25 11:18 16:50 Glucose 74 POC Glucose 151 H 136 H 05/26/20 05/27/20 05/27/20 20:03 07:17 07:25 Glucose 75 POC Glucose 154 H 88 OUTPATIENT ANTIDIABETIC REGIMEN: * Tresiba 95 units SC HS * Novolog 33-35 units + sliding scale TIDM (up to 150 units/day) * HbA1c: 8.7% (05/23/20) ASSESSMENT: 05/27/20 * BSGs continue to be well controlled yesterday (78, 151, 136, and 154 mg/dL) * Received 132 units of insulin (70 units of basal and 62 units of prandia l/correctional) * Fasting BSG of 88 mg/dL this morning * Do not anticipate any changes today 05/24/20 * BSGs yesterday reasonable well controlled at 83, 172, 193, and 134 mg/dL * Received 128 units of insulin (70 units of basal and 58 units of prandial/correctional bolus) * Fasting BSG of 126 mg/dL this morning -> will slightly increase Lantus this evening and tighten carb ratio starting with lunch * Remains on daptomycin and ceftriaxone for LLE cellulitis 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 * Additionally, patient reports worsening of left leg swelling, redness, and pain * BSG on admission of 126 mg/dL * Given large outpatient doses of insulin, will be aggressive with Novolog * Receiving empiric vancomycin and ceftriaxone for treatment of left foot cellulitis PLAN FOR INPATIENT GLYCEMIC CONTROL: * Basal insulin - continue * Lantus 70 units SC HS * Bolus insulin - continue * NovoLog per scale ACHS or Q6hrs while NPO * Goal Range: Low 110 mg/dL - High 140 mg/dL * Correction Factor: 12 mg/dL/unit * Nutritional / Prandial insulin per carb ratio of 1 unit per 2.5 grams CHO consumed PLAN FOR DISCHARGE: * HbA1c of 8.7% is elevated, but improved from January (9.5%) * Reasonable goal for this patient would be less than 8% given age and comorbidities * Based on current inpatient insulin needs, it seems that outpatient regimen should be sufficient * This could point to non-compliance with currently ordered regimen vs. significant difference in outpatient/inpatient diet * Patient follows with [facility] - would defer to their judgment, ensure prompt follow-up upon discharge * Support Patient Self-Management * Healthy Lifestyle (diet, exercise, and smoking cessation) * Disease self-management (SMBG) * Prevention of complications (BP, Lipid goals, Immunizations) * Consider outpatient Diabetes Self-Management Education & Support
[2020-05-27] MEDS: PREGABALIN 100 MG CAP PO SCH ×2 (08:47→20:18)
[2020-05-27] MEDS: METOPROLOL SUCC 50MG EXT REL TAB PO SCH (08:47)
[2020-05-27] MEDS: TORSEMIDE 20 MG TAB PO SCH (08:47)
[2020-05-27] MEDS: INSULIN ASPART 100 UNITS/ML 3 ML PEN SC SCH ×4 (08:47→20:24)
[2020-05-27] MEDS: POTASSIUM CHLORIDE CRTAB 20 MEQ TABCR PO SCH (08:47)
[2020-05-27] MEDS: APIXABAN 2.5 MG TAB PO SCH ×2 (08:47→20:18)
[2020-05-27] MEDS: DOCUSATE SODIUM 100 MG CAP PO SCH ×2 (08:47→20:18)
[2020-05-27] MEDS: SERTRALINE HCL 50 MG TABLET PO SCH (08:47)
[2020-05-27] MEDS: PANTOprazole 40 MG TAB PO SCH (08:47)
[2020-05-27] MEDS ORDERED: POTASSIUM CHLORIDE PWD 20 MEQ PACK PO STA (09:10)
--- NOTE | 2020-05-27 09:49 | Hospitalist Progress Note ---
Date of Service May 27, 2020 Assessment & Plan (1) Cellulitis of left foot: 84 yo female with a past medical history of type 2 diabetes, hypertension, hyperlipidemia, restless leg syndrome, chronic respiratory failure with hypoxia,chronic diastolic heart failure, CKD, JAMAL, spinal stenosis atrial fibrillation on Eliquis admitted on 05/23/2020 for cellulitis of left foot and associated weakness. Left Foot Cellulitis Left foot continues to have swelling and mild tenderness to palpation as well as severe pain with passive dorsiflexion/plantar flexion. MRI showed increased fluid in 2nd/3rd/4th tarso-metatarsal joints with adjacent marrow signal abnormality --> concerning for possible septic arthritis and osteomyelitis. - Erythema appears to be slightly improved today although pain/edema still persistent - Ortho consult placed for further eval/management - I&D scheduled tomorrow morning - Continue daptomycin and ceftriaxone - final blood cx negative - Trend CBC Metabolic Encephalopathy Intermittently confused, A+O 1-2 --> suspect delirium 2/2 cellulitis/infection and prolonged hospitalization. - continue frequent re-orientation per nursing Chronic Normocytic Anemia Unclear baseline Hgb but appears to be 8-10. Currently 8.2. Suspect multifactorial due to anemia of chronic disease as well as hemodilution. No signs of active bleeding and hemodynamically stable. - iron/transferrin/TIBC low and ferritin high --> suspect acute phase reaction 2/2 cellulitis - folic acid/B12 WNL - trend CBC daily FLAVIO on CKD Stage IV, FLAVIO resolved Cr 1.73 --> 1.61 today, baseline Cr 1.9-2.3, suspect pre-renal injury 2/2 dehydration. - encourage PO intake - trend BMP daily Lower Extremity Edema, Chronic HFpEF Appears mildly hypervolemic on exam (LE edema). TTE on 05/24: EF 50-55%, slightly worse than previous study in 07/2019. - continue to follow clinically for signs of worsening hypervolemia - Continue home torsemide - strict I/Os, daily weights Chronic atrial fibrillation - rate-controlled - Continue home Eliquis/Toprol XL Diabetes mellitus type 2 with peripheral neuropathy - Sliding scale insulin - Pharmacy consulted for glycemic control - continue home Lyrica Depression - continue home Sertraline Hypothyroidism - Continue home Synthroid GERD - Pantoprazole 40 mg p.o. daily per hospital formulary Restless leg syndrome - Continue home pramipexole DVT prophylaxis: Lowell OBANDO: DM2, low sodium Dispo: Med/surg with tele CODE STATUS: DNR/DNI (2) CKD (chronic kidney disease): (3) Generalized weakness: (4) Uncontrolled type 2 diabetes mellitus: (5) Atrial fibrillation, chronic: Admission and Anticipated Discharge Date Admission Date: May 21, 2020 Supervising Physician Co-Signing Physician Notes Attending attestation Pt seen and examined in concert with Dr. Santamaria. In agreement with the documented findings as noted in the resident documentation with any exceptions or additions as noted here. Persistent LLE pain with marginal improvement from yesterday while at rest, not with activity. On examination, S1/S2 nl RRR no MCG. CTAB. Abd NT/ND BS+ve. Slight improvement in LLE erythema of the distal foot and decreased swelling, ongoing 2+ pitting edema to the midshin. LLE cellulitis - concerning for underlying infection - ortho consultation - on schedule for I&D considering limited improvement on IV abx, will continue for now until ortho with definitive underlying cause/assessment. Monitor for improvement Metabolic encephalopathy with ?h/o dementia - likely 2/2 infection/pain - improved today and AAOx3, pain control and abx as noted. FLAVIO on CKDIV - Cr continues to improve on IVF, monitor for fluid overload HFpEF - continue torsemide and monitor I/Os Else see resident documentation as noted. Subjective Remains intermittently confused/delirious overnight but can be re-oriented. Continues to report pain in left foot although says it is mildly improved today. Denies fever/chills, chest pain, SOB, N/V, abdominal pain. Review of Systems Review of Systems: Pertinent positives and negatives mentioned in HPI. Physical Exam Physical Exam: General: A&Ox3. NAD. Cooperative. Obese HEENT: Atraumatic, normocephalic. Pulm: CTAB A&P. -wheezes, -rales, -rhonchi. Symmetrical chest rise. No increase work of breathing. No respiratory distress. Cardiac: irregularly irregular rhythm, regular rate, -mrg. Radial pulses intact and symmetrical. Abdominal: soft, non-tender, non-distended, BS x 4 Left foot: forefoot and midfoot is markedly swollen although erythema only over tarsal/metatarsal joint regions which is improved, warm, severe TTP of dorsal surface and especially at several of the tarsal/metatarsal joints, no red streaking or crepitus, severe pain on mild passive dorsiflexion/plantar flexion of toes, minimal active dorsiflexion/plantar flexion - exam mildly improved from yesterday Results & Data Results & Data ([facility]) Vital Signs (Past 12 Hours) Vital Signs Temp Pulse Pulse Resp BP BP Pulse Ox 05/27/20 07:37 117 H 05/27/20 07:35 36.8 C 92 H 20 133/75 94 05/27/20 03:02 36.9 C 92 H 20 109/67 95 05/26/20 23:30 36.6 C 89 20 123/73 96 05/26/20 23:21 93 H Resident Activity Tracking Resident Involvement: Resident Care Provided Care Provided: Adult Hospital Medicine (1) CKD (chronic kidney disease) Chronic kidney disease stage: unspecified stage Qualified Code(s): N18.9 - Chronic kidney disease, unspecified
[2020-05-27] MEDS: MAGNESIUM SULFATE / D5W 1 GM/100 ML BAG IV SCH ×2 (10:06→11:59)
[2020-05-27 10:20] LABS: Ferritin 510.2 ng/ml (8-388)
[2020-05-27] MEDS: cefTRIAXone SODIUM 2,000 MG in DEXTROSE 5% 50 ML IV SCH (12:00)
--- NOTE | 2020-05-27 13:00 | Orthopedic Progress Note ---
Date of Service May 27, 2020 Assessment & Plan (1) Cellulitis of left foot: Continue elevation of the left foot to help with swelling. I stressed to the patient that she needs to continue to wear her waffle boots to help keep her heels off of the bed. She seems to understand this. Dr. Hudson has reviewed the MRI and feels that this fluid is more likely due to Charcot/degenerative changes rather than infection. Continue IV antibiotics at this time and consider walking boot to the left foot. With her current swelling, I feel a low tide walking boot would provide almost too much compression on the skin at this time. We will continue to follow. Admission and Anticipated Discharge Date Admission Date: May 21, 2020 Subjective Patient sitting up in bed. She appears comfortable at this time. She feels that her left foot is getting better. No other complaints at this time. Physical Exam Physical Exam: As I remove her sock on the left foot to examine the foot, the patient complains of pain in her left heel. Left heel is is soft on palpation and tender on palpation. In looking at her foot, she has some noticeable wrinkling of the dorsum of the foot with swelling going down. She still does have edema of the dorsum of the foot but it appears little bit better today. Her erythema is starting to lessen slightly over the dorsum of the foot and seems to be mainly concentrated at the toes. I can take her left ankle through gentle range of motion without pain. Palpation over the tarsometatarsal joint region does not elicit any pain. She has some mild pain on palpation of the first second third and fourth toes. Passive dorsiflexion of these toes does seem to increase the pain a little bit. She states that the pain is mainly located around the toes and does not seem to be traveling proximally. Sensation is intact. Results & Data ([facility]) Vital Signs (Past 12 Hours) Vital Signs Temp Pulse Pulse Resp BP BP Pulse Ox 05/27/20 10:39 36.9 C 94 H 18 98/62 L 90 05/27/20 07:37 117 H 05/27/20 07:35 36.8 C 92 H 20 133/75 94 05/27/20 03:02 36.9 C 92 H 20 109/67 95
--- NOTE | 2020-05-27 16:13 | Anesthesiology Consultation ---
Date of Service May 27, 2020 Assessment & Plan (1) Encounter for pre-operative examination: Chart Review Chart Review: Acceptable Risk for Surgery and Patient NOT seen in Pre Admission Testing Pt DNR/DNI Covid neg 05/21/20 Consults Requested none History Surgery Operation Date: 05/28/20 08:30 Proposed Procedures p Left Foot Incision and Drainage 2, 3, 4 Tarsometarsal Joint - Shekhar Hudson DO Height/Weight Height: 5 ft 2 in Weight: 124.1 kg Allergies Allergy/AdvReac Type Severity Reaction Status Date / Time carbamazepine Allergy Intermediate HIVES Verified 05/21/20 12:57 Medications Home Medications Medication Instructions Recorded Confirmed Last Taken metoclopramide HCl [Reglan] 10 mg PO BID PRN #12 tab 02/15/18 05/21/20 Unknown docusate sodium 100 mg capsule 100 mg PO BID PRN 02/18/19 05/21/20 Unknown insulin degludec 100 unit/mL (3 95 units SQ HS ml 04/15/19 05/21/20 05/20/20 mL) subcutaneous pen metoprolol succinate 200 mg 200 mg PO QAM #90 tab 06/10/19 05/21/20 05/19/20 tablet,extended release 24 hr omeprazole 20 mg capsule,delayed 20 mg PO QAM #90 cap 07/21/19 05/21/20 05/19/20 release metolazone 2.5 mg tablet 2.5 mg PO Q OTHER DAY #30 tab 08/08/19 05/14/20 Unknown pramipexole 0.25 mg tablet 0.125 mg PO HS #45 tab 08/18/19 05/21/20 05/19/20 Wheelchair (Manual or Powered) #2 ea 10/15/19 05/14/20 Unknown zafirlukast 20 mg tablet 20 mg PO BID #180 tab 11/07/19 05/21/20 05/19/20 Wheelchair (Manual or Powered) #1 ea 11/17/19 05/14/20 Unknown pregabalin 100 mg capsule 100 mg PO BID #180 cap 12/23/19 05/21/20 05/19/20 calcitriol 0.25 mcg capsule 0.25 mcg PO .COMPLEX #39 cap 01/23/20 05/21/20 05/18/20 Wheelchair (Manual or Powered) 1 ea .ROUTE ONCE #1 ea 02/12/20 05/14/20 Unknown ondansetron 4 mg disintegrating 4 mg PO Q6H PRN #30 tab 03/12/20 05/21/20 04/10/20 tablet hydrocodone 5 mg-acetaminophen 325 1 tab PO Q6H PRN #30 tab 03/18/20 05/21/20 05/19/20 mg tablet pen needle, diabetic 32 gauge x #400 ea 04/05/20 05/14/20 Unknown " torsemide 20 mg tablet 80 mg PO BID #360 tab 04/06/20 05/21/20 05/19/20 Novolog Flexpen U-100 Insulin 100 150 unit SUBCUT .COMPLEX 90 Days 04/08/20 05/21/20 05/20/20 14:00 unit/mL (3 mL) subcutaneous #135 ml NS 42 units sertraline 50 mg tablet 50 mg PO QAM #90 tab 04/08/20 05/21/20 05/19/20 potassium chloride 20 meq PO QAM 04/11/20 05/21/20 05/19/20 cyclobenzaprine 5 mg tablet 5 mg PO TID PRN #30 tab 04/13/20 05/21/20 05/19/20 apixaban [Eliquis] 2.5 mg PO QAM 05/21/20 05/21/20 05/19/20 levothyroxine 75 mcg PO DAILYBB 05/21/20 05/21/20 05/21/20 loperamide [Imodium] 2 mg PO Q4H PRN 05/21/20 05/21/20 05/19/20 spironolactone 50 mg PO QAM 05/21/20 05/21/20 05/19/20 Active Medications Generic Name Dose Route Start Last Admin Trade Name Freq PRN Reason Stop Dose Admin Acetaminophen 650 mg 05/21/20 15:28 05/23/20 19:52 Acetaminophen 325 Mg Tab PO 06/20/20 15:27 650 mg Q4H PRN Administration pain/fever Hydrocodone Bitart/Acetaminophen 1 tab 05/21/20 15:16 05/26/20 17:31 Hydrocodone/Acetamophen 5/325mg Tab PO 06/04/20 15:15 1 tab Q6H PRN Administration pain Apixaban 2.5 mg 05/21/20 21:00 05/27/20 08:47 Apixaban 2.5 Mg Tab PO 06/20/20 20:59 2.5 mg BID ANTONIO Administration Calcitriol 0.25 mcg 05/24/20 09:00 05/26/20 07:50 Calcitriol 0.25 Mcg Capsule PO 06/23/20 08:59 0.25 mcg [id number] ANTONIO Administration Cyclobenzaprine HCl 5 mg 05/21/20 15:16 05/26/20 20:18 Cyclobenzaprine Hcl 5 Mg Tab PO 06/20/20 15:15 5 mg TID PRN Administration muscle spasm Docusate Sodium 100 mg 05/21/20 21:00 05/27/20 08:47 Docusate Sodium 100 Mg Cap PO 06/20/20 20:59 100 mg BID ANTONIO Administration Ceftriaxone Sodium 2,000 mg/ 70 mls @ 100 mls/hr 05/22/20 12:00 05/27/20 12:49 Dextrose IV 05/29/20 11:59 Infused Q24H ANTONIO Infusion Protocol Daptomycin 475 mg/ Syringe 9.5 mls @ 4.75 mls/min 05/26/20 18:00 05/26/20 17:26 IV 06/02/20 17:59 4.75 mls/min Q24H ANTONIO Administration Protocol Insulin Aspart 0 units 05/21/20 17:30 05/27/20 12:00 Insulin Aspart 100 Units/Ml 3 Ml Pen SC 06/20/20 17:29 17 units ACHS ANTONIO Administration Insulin Glargine 70 units 05/26/20 21:00 05/26/20 20:13 Insulin Glargine Solostar 100 Units/Ml 3 Ml Pen SC 06/25/20 20:59 70 units HS ANTONIO Administration Levothyroxine Sodium 75 mcg 05/22/20 06:30 05/27/20 05:42 Levothyroxine Sodium 75 Mcg Tablet PO 06/21/20 06:29 75 mcg DAILYBB ANTONIO Administration Metoprolol Succinate 200 mg 05/22/20 09:00 05/27/20 08:47 Metoprolol Succ 50mg Ext Rel Tab PO 06/21/20 08:59 200 mg QAM ANTONIO Administration Pantoprazole Sodium 40 mg 05/22/20 09:00 05/27/20 08:47 Pantoprazole 40 Mg Tab PO 06/21/20 08:59 40 mg QAM ANTONIO Administration Protocol Potassium Chloride 20 meq 05/22/20 09:00 05/27/20 08:47 Potassium Chloride Crtab 20 Meq Tabcr PO 06/21/20 08:59 20 meq QAM ANTONIO Administration Pramipexole Dihydrochloride 0.125 mg 05/21/20 21:00 05/26/20 20:07 Pramipexole Dihydrochlo 0.25 Mg Tab PO 06/20/20 20:59 0.125 mg HS ANTONIO Administration Pregabalin 100 mg 05/21/20 21:00 05/27/20 08:47 Pregabalin 100 Mg Cap PO 06/20/20 20:59 100 mg BID ANTONIO Administration Sertraline HCl 50 mg 05/22/20 09:00 05/27/20 08:47 Sertraline Hcl 50 Mg Tablet PO 06/21/20 08:59 50 mg QAM ANTONIO Administration Torsemide 80 mg 05/22/20 09:00 05/27/20 08:47 Torsemide 20 Mg Tab PO 06/21/20 08:59 80 mg DAILY ANTONIO Administration Past Medical History Medical History (Updated 05/27/20 @ 16:12 by Hal Jimenez MD) Acute on chronic diastolic heart failure Anemia Asthma stable Atrial fibrillation, chronic Benign hypertension Cellulitis of right foot Chronic back pain CKD (chronic kidney disease) stage 4, GFR 15-29 ml/min Depression Diabetes IDDM Diabetic foot ulcer Diabetic peripheral neuropathy Gastroparesis GERD (gastroesophageal reflux disease) Hiatal hernia History of blood transfusion remote years ago; unknown etiology per patient Hypothyroidism Mammogram abnormal Morbid obesity Nocturnal hypoxemia 2lpm via n/c at HS Osteomyelitis (06/06/12) Restless leg syndrome Sciatica Seizure x2 grand-mal seizures with unknown etiology ~25 years ago- no anticonvulsants x 20 years/no further seizures Surgical wound, non healing Vaginal candidiasis Past Family History Family History Mother Breast cancer Father Congestive heart failure Other Diabetes Dyslipidemia Hypertension Denies family history of Crohn's disease Colorectal cancer Inflammatory bowel disease Past Surgical History Surgical History H/O hysterectomy for benign disease (06/06/12) Hemorrhoidectomy (06/06/12) History of cardioversion History of cataract surgery bilateral History of colonoscopy 01/25/2016 - Dr. Lr Normal mucosa in entire colon, biopsied, diverticulosis in sigmoid, otherwise normal. Biopsy showed no inflammation. History of esophagogastroduodenoscopy (EGD) History of hemorrhoidectomy History of total abdominal hysterectomy History of total knee arthroplasty bilateral Social History Smoking Status: Never smoker tobacco type: cigarettes Do You Dip or Chew Tobacco: No Hx Alcohol Use: No Alcohol type: other Hx Substance Use: No substance use type: does not use Physical Exam Vital Signs Last Vital Signs Temp 37.1 C 05/27/20 15:16 Pulse 98 H 05/27/20 15:16 Resp 20 05/27/20 15:16 BP 117/73 05/27/20 15:16 Pulse Ox 93 05/27/20 15:16 Testing Laboratory Results 05/27/20 07:17 05/27/20 07:17 Hemoglobin A1c 8.7 % (4.5-5.6) H 05/23/20 07:44 Urine Color Yellow 05/21/20 12:23 Urine Appearance Clear (Clear) 05/21/20 12:23 Urine pH 5.0 (4.5-7.5) 05/21/20 12:23 Ur Specific [place] 1.014 (1.000-1.030) 05/21/20 12:23 Urine Protein Negative (Negative) 05/21/20 12:23 Urine Glucose (UA) Negative (Negative) 05/21/20 12:23 Urine Ketones Negative (Negative) 05/21/20 12:23 Urine Nitrite Negative (Negative) 05/21/20 12:23 Ur Leukocyte Esterase Negative (Negative) 05/21/20 12:23 05/21/20 12:42 Aerobic Blood Culture - Final Blood No growth in Aerobic bottle after 5 days. Anaerobic Blood Culture - Final No growth in Anaerobic bottle after 5 days. 05/21/20 12:42 Aerobic Blood Culture - Final Blood No growth in Aerobic bottle after 5 days. Anaerobic Blood Culture - Final 05/21/20 12:23 Urine Culture - Final Urine,Random No growth - less than 1,000 colonies/mL. 05/27/20 05/27/20 11:31 07:25 POC Glucose 190 H 88 Electrocardiogram Date: 05/21/20 DICTATED BY: Elio Wiley MD Test Reason : Blood Pressure : / mmHG Vent. Rate : 086 BPM Atrial Rate : 086 BPM P-R Int : 000 ms QRS Dur : 086 ms QT Int : 386 ms P-R-T Axes : 000 044 088 degrees QTc Int : 461 ms Atrial fibrillation Low voltage QRS Cannot rule out Anterior infarct (cited on or before 11-APR-2020) Nonspecific T wave abnormality Abnormal ECG When compared with ECG of 11-APR-2020 09:54, Nonspecific T wave abnormality is now more evident in anterior leads Confirmed by Elio Wiley ([id number]) on 05/22/2020 6:26:15 AM Echocardiogram Date: 05/24/20 LV EF is normal RV mildly dilated RV systolic function is mild to moderately reduced No RV systolic pressure is elevated at 30-40mmHg.
[2020-05-27] MEDS: DAPTOmycin 475 MG in SYRINGE 0 ML IV SCH (17:05)
[2020-05-27] MEDS: CARBOHYDRATES FOR HYPOGLYCEMIA PO PRN (19:55)
[2020-05-27] MEDS: HYDROCODONE/ACETAMOPHEN 5/325MG TAB PO PRN (20:18)
[2020-05-27] MEDS: PRAMIPEXOLE DIHYDROCHLO 0.25 MG TAB PO SCH (20:19)
[2020-05-27] MEDS ORDERED: INSULIN GLARGINE SOLOSTAR 100 UNITS/ML 3 ML PEN SC SCH (21:00)
[2020-05-28] MEDS: INSULIN ASPART 100 UNITS/ML 3 ML PEN SC SCH ×6 (00:05→20:28)
[2020-05-28] MEDS: LEVOTHYROXINE SODIUM 75 MCG TABLET PO SCH (05:51)
[2020-05-28] MEDS: POTASSIUM CHLORIDE CRTAB 20 MEQ TABCR PO SCH (08:23)
[2020-05-28] MEDS: PANTOprazole 40 MG TAB PO SCH (08:23)
[2020-05-28] MEDS: DOCUSATE SODIUM 100 MG CAP PO SCH ×2 (08:23→20:26)
[2020-05-28] MEDS: CALCITRIOL 0.25 MCG CAPSULE PO SCH (08:23)
[2020-05-28] MEDS: PREGABALIN 100 MG CAP PO SCH ×2 (08:23→20:25)
[2020-05-28] MEDS: METOPROLOL SUCC 50MG EXT REL TAB PO SCH (08:23)
[2020-05-28] MEDS: SERTRALINE HCL 50 MG TABLET PO SCH (08:23)
[2020-05-28] MEDS: TORSEMIDE 20 MG TAB PO SCH (08:50)
--- NOTE | 2020-05-28 08:56 | Orthopedic Progress Note ---
Date of Service May 28, 2020 Assessment & Plan (1) Cellulitis of left foot: Maintain n.p.o. status. Continue to hold Eliquis. MRI is ordered for today to rule out any further question of abscess formation. Per Dr. Hudson, if abscess formation is present, plan for irrigation and debridement either later today or tomorrow morning. Continue elevation of the left foot to help with swelling. Continue IV antibiotics Admission and Anticipated Discharge Date Admission Date: May 21, 2020 Supervising Physician Co-Signing Physician Notes Patient was seen and examined while at bedside. Rex Adames PA-C present at the time. Patient states that her foot felt unchanged to possibly slightly improved compared to yesterday. Still has discomfort at certain times over the foot and ankle. No fevers or chills. Agree with physical exam as stated by Rex Adames PA-C. No discrete evidence of abscess or fluctuance upon palpatory exam. Edema 2-3 out of 4 over the dorsum of the forefoot/midfoot/medial and lateral malleoli. No skin breakdown, abrasions, rashes or fluctuance. Assessment: Cellulitis of the foot with significant edema. Charcot arthropathy. No clear evidence of drainable abscess or fluid collection upon palpatory exam. Recommendation: Repeat MRI with contrast if renal function is acceptable per medical service. Repeat MRI will help with comparison to prior MRI to make determination whether this is actually a Charcot arthropathy with local fluid collection versus abscess with associated osteomyelitis. Continue IV antibiotics. Maintain n.p.o. Will reassess later today. Subjective Patient seen with Dr. Hudson present this morning. Currently lying in bed awake and alert. States her foot feels about the same or maybe a little better. No new complaints. Physical Exam Physical Exam: Her sock is removed and reveals continued edema of the dorsum of the foot. She has less erythema in the toes albeit that the great toe does still have some residual erythema. Passive dorsiflexion does cause some slight discomfort. She has no pain with passive dorsiflexion of the second third or fourth or fifth toes. No pain in her ankle at this time with range of motion. No discrete fluctuance or fluid collection palpated on the dorsum of the midfoot, hindfoot, ankle joint, lateral malleolus or medial malleolus. She does have pain on palpation over the lateral malleolus today as well as some slight tenderness over the medial malleolus. Mild tenderness over the dorsum of the foot. Sensation is intact. Cap refill is less than 2 seconds. Results & Data ([facility]) Vital Signs (Past 12 Hours) Vital Signs Temp Pulse Pulse Resp BP Pulse Ox 05/28/20 07:46 36.6 C 82 18 114/70 97 05/28/20 07:13 78 05/28/20 04:37 36.6 C 85 18 109/67 97 05/27/20 22:44 36.8 C 88 20 110/66 94 05/27/20 22:19 87
[2020-05-28 09:13] LABS: Hematocrit (blood only) 26.3 % (37-47); Hemoglobin 8.3 g/dL (12.0-16.0); Mean Corpuscular Hemoglobin 28.2 pg (25-34); Mean Corpuscular Hgb Conc 31.6 g/dL (32-36); Mean Corpuscular Volume 89.5 fL (80-100); Mean Platelet Volume 11.1 fL (7.4-10.4); Platelet Count 182 K/uL (130-400); RDW Coefficient of Variation 18.2 % (11.5-14.5); RDW Standard Deviation 59.9 fL (36.4-46.3); Red Blood Count 2.94 M/uL (4.2-5.4); White Blood Count 5.02 K/uL (4.8-10.8)
[2020-05-28 09:39] LABS: BUN Creatinine Ratio 30.3 (10-20); Calcium 8.8 mg/dl (8.5-10.1); Creatinine Clr Calc Pharmacy 30.7 ml/min; Est GFR (African American) 30.5; Est GFR (Non-African American) 26.3; Magnesium 2.2 mg/dl (1.8-2.4); Phosphorus 3.4 mg/dl (2.5-4.9); Potassium 3.7 mmol/L (3.5-5.1)
[2020-05-28 10:09] LABS: ALC (manual) 0.83 K/uL (1.2-3.4); ANC (manual) 3.48 K/uL (1.4-6.5); Basophils # (manual) 0.05 K/uL (0-0.2); Basophils % (manual) 0.9 %; Eosinophils # (manual) 0.31 K/uL (0-0.5); Eosinophils % (manual) 6.1 %; Metamyelocytes # (manual) 0.05 K/uL (0-0); Metamyelocytes % (manual) 0.9 %; Monocytes # (manual) 0.22 K/uL (0.11-0.59); Monocytes % (manual) 4.4 %; Myelocytes # (manual) 0.09 K/uL (0-0); Myelocytes % (manual) 1.8 %; Neutrophils # (manual) 3.48 K/uL (1.4-6.5); Neutrophils % (manual) 69.3 %; Plasma Cells # (manual) 0.13 K/uL (0-0); Plasma Cells % (manual) 2.6 %
--- NOTE | 2020-05-28 13:41 | Magnetic Resonance Report ---
MR foot LT w/o con CLINICAL HISTORY: r/o abscess development. Left leg pain and swelling. COMPARISON STUDY: Left foot radiographs May 21, 2020. MRI of the left foot May 24, 2020. TECHNIQUE: Utilizing a 1.5 Sonja magnet and dedicated coil, multiplanar, multi echo imaging of the le ft mid and forefoot was performed without intravenous contrast. FINDINGS: There has been no significant change in marked dorsal subcutaneous edema of the left foot. This favors cellulitis. No fluid collection is identified within the soft tissues to suggest an absce ss. Note is again made of increased fluid within the second, third and fourth tarsometatarsal joints, greatest within the second tarsometatarsal joint. This is similar to MRI of May 24, 2020. Marked j oint space narrowing is noted. Multifocal marrow edema within the left midfoot is unchanged since pre vious MRI. Diminished T1 marrow signal is most pronounced adjacent to the second tarsometatarsal join t. The appearance is unchanged since previous MRI. Visualized portions of the flexor and extensor ten dons are intact. No new sites of marrow edema or present. No acute fracture is present. IMPRESSION: 1. No significant change in extensive dorsal subcutaneous edema of the left foot which favor cellulit is. No soft tissue fluid collection identified on unenhanced exam to suggest abscess. 2. No change in increased fluid within the second, third and fourth tarsometatarsal joints with adjac ent marrow signal abnormality, most pronounced within the second and third tarsometatarsal joints. Th is is nonspecific but a degenerative process such as neuropathic arthropathy is favored. However, sep tic arthritis with associated osteomyelitis could appear similar. ACT 112: Negative or not required by law. Electronically signed by: Asif Ballard M.D. 05/28/2020 1:39 PM
[2020-05-28] MEDS: cefTRIAXone SODIUM 2,000 MG in DEXTROSE 5% 50 ML IV SCH (13:48)
--- NOTE | 2020-05-28 15:03 | Pharmacy Report ---
Pharmacy Glycemic Short Note 2 - Date of Service May 28, 2020 - Glycemic Short BSG Results (Last 24 hours): 05/27/20 05/27/20 05/27/20 16:32 19:52 19:54 Glucose POC Glucose 112 H 57 L* 58 L* 05/27/20 05/28/20 05/28/20 20:10 00:00 05:49 Glucose POC Glucose 74 85 82 05/28/20 05/28/20 08:34 11:43 Glucose 69 L POC Glucose 80 OUTPATIENT ANTIDIABETIC REGIMEN: * Tresiba 95 units SC HS * Novolog 33-35 units + sliding scale TIDM (up to 150 units/day) * HbA1c: 8.7% (05/23/20) ASSESSMENT: 05/28/20 * Patient received total of 102 units of insulin yesterday, of which 50 units were basal insulin * BSGs yesterday had trending down last evening, plan on loosening CF/CR * Patient NPO today for I&D either today or tomorrow. Plan to scale back on evening Lantus ~50% 05/27/20 * BSGs continue to be well controlled yesterday (78, 151, 136, and 154 mg/dL) * Received 132 units of insulin (70 units of basal and 62 units of prandial/correctional) * Fasting BSG of 88 mg/dL this morning * Do not anticipate any changes today 05/24/20 * BSGs yesterday reasonable well controlled at 83, 172, 193, and 134 mg/dL * Received 128 units of insulin (70 units of basal and 58 units of prandial/correctional bolus) * Fasting BSG of 126 mg/dL this morning -> will slightly increase Lantus this evening and tighten carb ratio starting with lunch * Remains on daptomycin and ceftriaxone for LLE cellulitis 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 * Additionally, patient reports worsening of left leg swelling, redness, and pain * BSG on admission of 126 mg/dL * Given large outpatient doses of insulin, will be aggressive with Novolog * Receiving empiric vancomycin and ceftriaxone for treatment of left foot cellulitis PLAN FOR INPATIENT GLYCEMIC CONTROL: * Basal insulin * Lantus 20-25 units HS * Bolus insulin - continue * NovoLog per scale ACHS or Q6hrs while NPO * Goal Range: Low 110 mg/dL - High 140 mg/dL * Correction Factor: 15 mg/dL/unit * Nutritional / Prandial insulin per carb ratio of 1 unit per 4 grams CHO consumed PLAN FOR DISCHARGE: * HbA1c of 8.7% is elevated, but improved from January (9.5%) * Reasonable goal for this patient would be less than 8% given age and comorbidities * Based on current inpatient insulin needs, it seems that outpatient regimen should be sufficient * This could point to non-compliance with currently ordered regimen vs. significant difference in outpatient/inpatient diet * Patient follows with [facility] endocrinology - would defer to their judgment, ensure prompt follow-up upon discharge * Support Patient Self-Management * Healthy Lifestyle (diet, exercise, and smoking cessation) * Disease self-management (SMBG) * Prevention of complications (BP, Lipid goals, Immunizations) * Consider outpatient Diabetes Self-Management Education & Support
[2020-05-28] MEDS: CARBOHYDRATES FOR HYPOGLYCEMIA PO PRN (16:33)
[2020-05-28] MEDS ORDERED: Nursing to Pharmacy Communication SCH (17:00)
--- NOTE | 2020-05-28 17:20 | Hospitalist Progress Note ---
Date of Service May 28, 2020 Assessment & Plan (1) Cellulitis of left foot: 84 yo female with a past medical history of type 2 diabetes, hypertension, hyperlipidemia, restless leg syndrome, chronic respiratory failure with hypoxia,chronic diastolic heart failure, CKD, JAMAL, spinal stenosis atrial fibrillation on Eliquis admitted on 05/23/2020 for cellulitis of left foot and associated weakness. Left Foot Cellulitis Left foot continues to have swelling and mild tenderness to palpation as well as severe pain with passive dorsiflexion/plantar flexion. MRI showed increased fluid in 2nd/3rd/4th tarso-metatarsal joints with adjacent marrow signal abnormality --> concerning for possible septic arthritis and osteomyelitis. - Erythema appears to be slightly improved today although pain/edema still persistent - repeat MRI today showing no change in fluid within 2nd/3rd/4th T/MT joints, no sign of osteo or abscess - Ortho consulted - no plans for surgical intervention at this time - Continue daptomycin and ceftriaxone for today - transition to Doxycycline/Cefd inir tomorrow AM (today is day 09/18 abx) - final blood cx negative - Trend CBC Metabolic Encephalopathy Intermittently confused, A+O 1-2 --> suspect delirium 2/2 cellulitis/infection and prolonged hospitalization. - continue frequent re-orientation per nursing Chronic Normocytic Anemia Unclear baseline Hgb but appears to be 8-10. Currently 8.2. Suspect multifactorial due to anemia of chronic disease as well as hemodilution. No signs of active bleeding and hemodynamically stable. - iron/transferrin/TIBC low and ferritin high --> suspect acute phase reaction 2/2 cellulitis - folic acid/B12 WNL - trend CBC daily FLAVIO on CKD Stage IV, FLAVIO resolved Cr 1.73 --> 1.61 today, baseline Cr 1.9-2.3, suspect pre-renal injury 2/2 dehydration. - encourage PO intake - trend BMP daily Lower Extremity Edema, Chronic HFpEF Appears mildly hypervolemic on exam (LE edema). TTE on 05/24: EF 50-55%, slightly worse than previous study in 07/2019. - continue to follow clinically for signs of worsening hypervolemia - Continue home torsemide - strict I/Os, daily weights Chronic atrial fibrillation - rate-controlled - Continue home Eliquis/Toprol XL Diabetes mellitus type 2 with peripheral neuropathy - Sliding scale insulin - Pharmacy consulted for glycemic control - continue home Lyrica Depression - continue home Sertraline Hypothyroidism - Continue home Synthroid GERD - Pantoprazole 40 mg p.o. daily per hospital formulary Restless leg syndrome - Continue home pramipexole DVT prophylaxis: [place] JOSE MARIACorrine: DM2, low sodium Dispo: Med/surg with tele, tentative discharge to [facility] either tomorrow or Sunday, pending bed availability and medical stability of patient CODE STATUS: DNR/DNI (2) CKD (chronic kidney disease): (3) Generalized weakness: (4) Uncontrolled type 2 diabetes mellitus: (5) Atrial fibrillation, chronic: Admission and Anticipated Discharge Date Admission Date: May 21, 2020 Supervising Physician Co-Signing Physician Notes I also saw the patient and confirmed hernandez portions of the history and physical examination. I agree with the impression and plan as noted in the resident documentation. Upon our visit this morning, the patient was without complaints. At the time of our visit, the MRI was still pending. Exam 136/77, 73, 18, 36.4 C, 98% on room air She was without complaint. No acute distress appreciated. Data Hemoglobin 8.3, WBC 5.02, platelet count 182. BUN 54, creatinine 1.77 MRI of the left foot completed today shows no significant change in extensive dorsal subcutaneous edema of the left foot which favor cellulitis. No change in increased fluid within the second, third, and fourth tarsometatarsal joints with adjacent marrow signal abnormality; nonspecific but notes a degenerative process such as a neuropathic arthropathy is favored and a septic arthritis with associated osteomyelitis could appear similar. Impression and plan Cellulitis, left foot Chronic anemia CKD, stage IV Chronic atrial fibrillation Diabetes with peripheral neuropathy We will discuss MRI findings with orthopedics. Consider lower extremity arterial vascular studies. Continue current antibiotics Subjective No acute events overnight. Reports that foot pain is slightly improved today. Denies fever/chills, chest pain, SOB, N/V, abdominal pain. Review of Systems Review of Systems: Pertinent positives and negatives mentioned in HPI. Physical Exam Physical Exam: General: A&Ox3. NAD. Cooperative. Obese HEENT: Atraumatic, normocephalic. Pulm: CTAB A&P. -wheezes, -rales, -rhonchi. Symmetrical chest rise. No increase work of breathing. No respiratory distress. Cardiac: irregularly irregular rhythm, regular rate, -mrg. Radial pulses intact and symmetrical. Abdominal: soft, non-tender, non-distended, BS x 4 Left foot: forefoot and midfoot is markedly swollen although erythema only over tarsal/metatarsal joint regions which is improved, warm, moderate TTP of dorsal surface and especially at several of the tarsal/metatarsal joints, no red streaking or crepitus, moderate pain on mild passive dorsiflexion/plantar fl exion of toes, minimal active dorsiflexion/plantar flexion - exam improved from yesterday Results & Data Results & Data ([facility]) Vital Signs (Past 12 Hours) Vital Signs Temp Pulse Pulse Resp BP Pulse Ox 05/28/20 15:12 36.4 C L 73 18 136/77 98 05/28/20 14:40 36.4 C L 73 18 126/77 96 05/28/20 11:20 36.4 C L 79 20 143/69 H 98 05/28/20 07:46 36.6 C 82 18 114/70 97 05/28/20 07:13 78 Resident Activity Tracking Resident Involvement: Resident Care Provided Care Provided: Adult Hospital Medicine (1) CKD (chronic kidney disease) Chronic kidney disease stage: unspecified stage Qualified Code(s): N18.9 - Chronic kidney disease, unspecified
[2020-05-28] MEDS: DAPTOmycin 475 MG in SYRINGE 0 ML IV SCH (18:26)
--- NOTE | 2020-05-28 18:54 | Ultrasound Report ---
US arterial duplex LE BI CLINICAL HISTORY: slowly healing LLE cellulitis, PAD? COMPARISON STUDY: Right lower extremity arterial Doppler ultrasound March 31, 2014. TECHNIQUE: Bilateral ankle to brachial indices were obtained. Grayscale, color and duplex Doppler son ography of the arterial systems of both lower extremities was performed. FINDINGS: Right ankle to brachial index measured 0.98 when using posterior tibial artery. Evaluation of the dorsalis pedis could not be performed due to bandages. Left ankle brachial index measured 1.02 when using posterior tibial artery and 0.95 when using the dorsalis pedis. No elevated velocities we re identified within the right lower extremity. There was triphasic flow within the right common femo ral and superficial femoral arteries. There was biphasic flow within the right popliteal, posterior t ibial and peroneal arteries. There is monophasic flow within the right anterior tibial artery. There was triphasic flow within the left common femoral and superficial femoral arteries. Mildly elev ated peak systolic velocity of 215 cm/s within the left superficial femoral artery was noted. This zayas ggests less than 50% stenosis. There is biphasic flow within the left popliteal artery as well as the left anterior tibial and posterior tibial arteries. There is monophasic flow within the left peronea l artery. There is biphasic flow within the left dorsalis pedis. IMPRESSION: 1. Normal bilateral ankle to brachial indices. 2. Mildly elevated velocity within the left superficial femoral artery which suggests less than 50% s tenosis. 3. Patent bilateral calf vessels with biphasic and monophasic flow, as described above. ACT 112: Negative or not required by law. Electronically signed by: Asif Ballard M.D. 05/28/2020 6:52 PM
[2020-05-28] MEDS: PRAMIPEXOLE DIHYDROCHLO 0.25 MG TAB PO SCH (20:25)
[2020-05-28] MEDS: HYDROCODONE/ACETAMOPHEN 5/325MG TAB PO PRN (20:26)
[2020-05-28] MEDS ORDERED: INSULIN GLARGINE SOLOSTAR 100 UNITS/ML 3 ML PEN SC SCH (21:00)
[2020-05-29] MEDS: LEVOTHYROXINE SODIUM 75 MCG TABLET PO SCH (06:26)
[2020-05-29 07:42] LABS: Basophils # (auto) 0.01 K/uL (0-0.2); Basophils % (auto) 0.2 %; Eosinophils # (auto) 0.23 K/uL (0-0.5); Eosinophils % (auto) 4.2 %; Hematocrit (blood only) 27.8 % (37-47); Hemoglobin 8.6 g/dL (12.0-16.0); Immature Granulocytes # (auto) 0.09 K/uL (0.00-0.02); Immature Granulocytes % (auto) 1.7 %; Lymphocytes # (auto) 0.69 K/uL (1.2-3.4); Lymphocytes % (auto) 12.7 %; Mean Corpuscular Hemoglobin 28.1 pg (25-34); Mean Corpuscular Hgb Conc 30.9 g/dL (32-36); Mean Corpuscular Volume 90.8 fL (80-100); Mean Platelet Volume 11.1 fL (7.4-10.4); Monocytes % (auto) 7.4 %; Neutrophils # (auto) 4.02 K/uL (1.4-6.5); Neutrophils % (auto) 73.8 %; Nucleated RBC # (auto) 0.02 K/uL (0-0); Nucleated RBC % (auto) 0.3 %; Platelet Count 175 K/uL (130-400); RDW Standard Deviation 59.3 fL (36.4-46.3); Red Blood Count 3.06 M/uL (4.2-5.4); White Blood Count 5.44 K/uL (4.8-10.8)
[2020-05-29 08:11] LABS: BUN Creatinine Ratio 29.3 (10-20); Calcium 8.9 mg/dl (8.5-10.1); Creatinine Clr Calc Pharmacy 29.9 ml/min; Est GFR (African American) 29.9; Est GFR (Non-African American) 25.8; Potassium 3.6 mmol/L (3.5-5.1)
[2020-05-29 08:14] LABS: Phosphorus 3.7 mg/dl (2.5-4.9)
[2020-05-29] MEDS: SERTRALINE HCL 50 MG TABLET PO SCH (08:45)
[2020-05-29] MEDS: PANTOprazole 40 MG TAB PO SCH (08:45)
[2020-05-29] MEDS: POTASSIUM CHLORIDE CRTAB 20 MEQ TABCR PO SCH (08:46)
[2020-05-29] MEDS: DOCUSATE SODIUM 100 MG CAP PO SCH (08:46)
[2020-05-29] MEDS: METOPROLOL SUCC 50MG EXT REL TAB PO SCH (08:46)
[2020-05-29] MEDS: TORSEMIDE 20 MG TAB PO SCH (08:47)
[2020-05-29] MEDS: INSULIN ASPART 100 UNITS/ML 3 ML PEN SC SCH ×2 (08:49→12:51)
[2020-05-29] MEDS ORDERED: CEFDINIR 300 MG CAP PO SCH (09:00)
[2020-05-29] MEDS ORDERED: DOXYCYCLINE HYCLATE 100 MG CAP PO SCH (09:00)
[2020-05-29] MEDS: PREGABALIN 100 MG CAP PO SCH (10:27)
[2020-05-29] MEDS: HYDROCODONE/ACETAMOPHEN 5/325MG TAB PO PRN (11:29)
--- NOTE | 2020-05-29 12:44 | Discharge Summary ---
Date of Service May 29, 2020 Admission HPI Per Admitting Provider 84 yo female with a past medical history of type 2 diabetes, hypertension, hyperlipidemia, restless leg syndrome, chronic respiratory failure with hypoxia, chronic diastolic heart failure, CKD, JAMAL, spinal stenosis atrial fibrillation on Eliquis reports feeling weak. She reports that her last day in which she felt well was Sunday, the day after she went to adventism. She reports having chills, and getting weaker over the course of the past few days. She states she normally uses her wheelchair and is able to stand up and pivot to the toilet. However, she has not been able to do this for the past few days.. She lives by herself but her daughter visits her. She also has a caregiver, that noticed her left foot was swollen. This prompted her to seek medical care. She also reports having an episode of diarrhea this past week, but this has subsided. Admission Exam Per Admitting Provider Constitutional: WD/WN, vitals as above + morbidly obese Eyes: PERRL, conjunctivae normal, anicteric sclerae ENMT: external ear and nose normal, oropharynx normal Neck: trachea midline, no thyromegaly, no lymphadenopathy Respiratory: normal respiratory effort; no respiratory distress and no cough Auscultation: + rales (bibasilar); no crackles, no rhonchi and no wheezes Cardiovascular: Rate/Rhythm: regular rate; + abnormal rhythm (irregular ir regular) Heart Sounds: normal S1 and normal S2; no murmur Palpation: no thrill Vessels: normal peripheral pulses and normal carotid upstroke; no JVD Extremities: + edema (greater on the right side) Gastrointestinal (Abdomen): normal bowel sounds, soft, nontender, no hepatosplenomegaly Musculoskeletal: no cyanosis or clubbing, extremities motor strength 5/5 Skin: swelling on left foot delineated with mild erythema Neurologic: patellar DTR's 2+ bilat, sensation intact and PERRL, EOMI, accommodation nl, no face palsy, no dysarthria Psychiatric: A+Ox3, euthymic affect Lymphatic: no cervical or axillary lymphadenopathy Principal Diagnosis Cellulitis Discharge Exam Constitutional: well-appearing, no acute distress HEENT: MMM CV: irregularly irregular rhythm, no murmurs appreciated, extremities well- perfused Resp: CTABL, no wheezes, rales, or rhonchi appreciated, no increased work of breathing GI: soft, nontender, nondistended LLE: mild erythema over dorsal aspect of metatarsal joints, edema of the foot, trace edema of the ankle, mild tenderness to palpation, pain with active ROM Neuro: AOx4, no focal neurological deficits appreciated Discharge Data Allergies Allergy/AdvReac Type Severity Reaction Status Date / Time carbamazepine Allergy Intermediate HIVES Verified 05/21/20 12:57 Consultations 05/21/20 13:47 ED Decision to Admit Stat 05/25/20 11:18 Consult Orthopedic Surgery Routine Procedures Performed Operation Date: 05/28/20 08:30 <No data on this case meets the specified criteria> Ordered Studies 05/24/20 00:41 MR foot LT w/o con Routine 05/28/20 07:54 MR foot LT w/o con Urgent 05/28/20 14:09 [address] arterial [address] [facility] Urgent Hospital Course (1) Cellulitis of left foot: Left foot cellulitis Upon admission, patient was treated with IV antibiotics, IV fluids, and pain control. Patient developed pain with active and passive dorsiflexion, and imaging was concerning for deeper infection. Orthopedic surgery consult felt the infection did not require surgery, and recommended continued medical therapy and repeat imaging. Patient gradually clinically improved, and repeat imaging was without signs of osteomyelitis or abscess. Patient was discharged on hospital day 8 in stable condition with PO doxycycline and cefdinir to complete a total 14-day course. Blood cultures resulted negative. Patient was hemodynamically stable for the entirety of her hospitalization. Encephalopathy Patient developed brief moments of confusion during her hospitalization, suspected to be due to metabolic encephalopathy vs delirium secondary to infection and prolonged hospitalization. Patient was gently and frequently reoriented by nursing, and symptoms improved. Patient did not require physical restraints or pharmacological sedation during her stay. Chronic normocytic anemia Patient was noted to have a chronic normocytic anemia without signs of active bleeding. Iron studies were suggestive for anemia of chronic disease, possibly secondary to ongoing cellulitis. Folic acid and B12 were normal. Outpatient follow-up was recommended. CKD stage IV, FLAVIO Patient was noted with CKD stage IV on admission, and was found to have an FLAVIO on admission, suspected to be secondary to dehydration vs nephrotoxicity from medications. Patient's FLAVIO resolved with IVF, and later with encouraging PO intake. Lower extremity edema, HFpEF Patient's history of HFpEF was noted on admission, and clinical hypervolemia was appreciated. Patient's home diuretic was continued. TTE performed on 05/24/20 showed an EF of 50-55%, slightly worse than prior study in 07/25. Patient's volume status improved during her stay. Outpatient follow-up was recommended. Atrial fibrillation Patient's history of atrial fibrillation was noted on admission. Home dose eliquis and toprol XL were continued. Patient was rate controlled during her hospitalization. DM2 with peripheral neuropathy Patient's home DM2 regimen was held on admission and was given sliding-scale insulin. Patients home dose lyrica was continued during her stay. Upon discharge, continue patient's home dose DM2 regimen was restarted, with close outpatient follow-up recommended. Depression Patient's home sertraline was continued during her hospitalization. Hypothyroidism Patient's home synthroid was continued during her hospitalization. GERD Pantoprazole was substituted for patient's home omeprazole due to formulary availability. Home regimen was restarted upon discharge. Restless leg syndrome Patient's home pramipexole was continued during her hospitalization. (2) CKD (chronic kidney disease): (3) Generalized weakness: (4) Uncontrolled type 2 diabetes mellitus: (5) Atrial fibrillation, chronic: Total Time Total Time Spent Total Time Spent (In Minutes): 20 Discharge Plan Discharge Items Patient Disposition: Transfer Inpatient Rehab Fac Reason For Visit: CELLULITIS Discharge Diagnosis: cellulitis Activity: Resume your previous activity Non-emergency contact: Primary Care Provider Call non-emergency contact if: you have any medication questions and your symptoms worsen Follow-up/Referrals: Uri Plascencia III, MD [Primary Care Provider] - Diet: Carb Consistent or DM2 and Low Sodium (2gm) Addtl Attending Provider Instructions: 84yo female with atrial fibrillation (on eliquis) T2DM, HTN, HLD, chronic respiratory failure with hypoxia (home oxygen requirement 5L at night and as- needed), HFpEF, CKD4, JAMAL, and spinal stenosis who presented was admitted on 05/23/20 for cellulitis of the left foot with associated weakness. Left foot cellulitis -left foot pain, swelling, and redness continue to improve -repeat MRI 05/28 showed no change of the fluid in 2nd-4th T-MT joints, without sign of osteomyelitis or abscess -orthopedic surgery consult - no surgery indicated -daptomycin/ceftriaxone IV converted to doxycycline/cefdinir PO on 05/29 (day 8 of 14-day course); will continue doxycycline 100mg PO bid and cefdinir 300mg PO bid for 6 more days -final blood culture: negative Metabolic encephalopathy -patient had brief intermittent episodes of confusion - suspect delirium secondary to cellulitis +/- prolonged hospitalization - continue frequent re-orientation per nursing Chronic normocytic anemia -unclear baseline Hgb but appears to be 8.0-10.0; currently 8.6 -no signs of active bleeding; patient remains hemodynamically stable -low iron/transferrin/TIBC, high ferritin - suspect acute phase reaction 2/2 cellulitis -folic acid/B12 normal -trend CBC daily CKD stage IV, FLAVIO (resolved) -patient had FLAVIO on admission, improved with IVF - suspected 2/2 to dehydration -encourage PO intake, avoid nephrotoxic agents -BMP daily Lower extremity edema, HFpEF -patient with mild fluid overload on exam -TTE on 05/24: EF 50-55% - slightly worse than previous study in 07/2019 -home dose torsemide continued during stay; continue upon discharge -strict I/Os, daily weights Atrial fibrillation -rate-controlled -continue home eliquis/toprol XL DM2 with peripheral neuropathy -patient's home DM2 regimen was held on admission and was given sliding-scale insulin -patients home dose lyrica was continued during her stay -upon discharge, continue patient's home dose decludec 95u subcutaneous qhs Depression -continue home sertraline Hypothyroidism -continue home synthroid GERD -pantoprazole 40mg PO qd was substituted for patient's home dose omeprazole 20mg PO qAM -continue home omeprazole upon discharge Restless leg syndrome -continue home pramipexole Pending Studies at Discharge: No Stand-Alone Forms: My [facility] [employer] Skilled Items Patient informed of condition?: Yes DNR: Yes Discharge Level of Care: Skilled Communicable Disease: No Discharge Prognosis: Stable Lines: None Urinary Catheter: No Medications and DC Order Prescriptions: New doxycycline hyclate 100 mg Capsule 100 mg PO BID Qty: 0 RF: 0 cefdinir 300 mg Capsule 300 mg PO BID Qty: 0 RF: 0 Continued omeprazole 20 mg capsule,delayed release(DR/EC) 20 mg PO QAM Qty: 90 RF: 3 pramipexole [Mirapex] 0.25 mg tablet 0.125 mg PO HS Qty: 45 RF: 3 (DME) Manual Wheelchair Device See Rx Instructions .ROUTE .MEDSUPPLY Qty: 2 RF: 0 zafirlukast [Accolate] 20 mg tablet 20 mg PO BID Qty: 180 RF: 3 (DME) Wheelchair (Manual) Device See Dose Instructions .ROUTE .MEDSUPPLY Qty: 1 RF: 0 Lyrica 100 mg capsule 100 mg PO BID Qty: 180 RF: 1 calcitriol 0.25 mcg capsule 0.25 mcg PO .COMPLEX Qty: 39 RF: 3 Manual Wheelchair Device 1 ea .Route ONCE Qty: 1 RF: 0 ondansetron 4 mg tablet,disintegrating 4 mg PO Q6H PRN (Reason: nausea and vomiting) Qty: 30 RF: 1 (DME) pen needle, diabetic [BD Ultra-Fine Franc[place]sca Pen Needle] 32 gauge x 5/32" needle See Rx Instructions .ROUTE .MEDSUPPLY Qty: 400 RF: 3 sertraline [Zoloft] 50 mg tablet 50 mg PO QAM Qty: 90 RF: 3 Novolog Flexpen U-100 Insulin 100 unit/mL (3 mL) insulin pen 150 unit subcut .COMPLEX 90 Days Qty: 135 RF: 1 metoprolol succinate 200 mg tablet extended release 24 hr 200 mg PO QAM Qty: 90 RF: 3 metolazone 2.5 mg tablet 2.5 mg PO Q OTHER DAY Qty: 30 RF: 0 Hold Instructions: FLAVIO torsemide 20 mg tablet 80 mg PO BID Qty: 360 RF: 3 cyclobenzaprine 5 mg tablet 5 mg PO TID PRN (Reason: muscle spasm) Qty: 30 RF: 1 hydrocodone-acetaminophen 5-325 mg tablet 1 tab PO Q6H PRN (Reason: pain) Qty: 30 RF: 0 docusate sodium [Colace] 100 mg capsule 100 mg PO BID PRN (Reason: Constipation) RF: 0 metoclopramide HCl [Reglan] 10 mg tablet 10 mg PO BID PRN (Reason: Nausea) Qty: 12 RF: 0 Tresiba FlexTouch U-100 100 unit/mL (3 mL) insulin pen 95 units SQ HS RF: 0 potassium chloride 20 mEq tablet,ER particles/crystals 20 meq PO QAM RF: 0 levothyroxine 75 mcg tablet 75 mcg PO DAILYBB RF: 0 spironolactone 50 mg tablet 50 mg PO QAM RF: 0 apixaban 2.5 mg tablet 2.5 mg PO QAM RF: 0 loperamide 2 mg Capsule 2 mg PO Q4H PRN (Reason: Diarrhea) RF: 0 Discharge Orders: Discharge Order (Routine); Ordered 05/29/20 Ordered By: Huber Love Admission Data Admit Date/Time: 05/21/20 15:28 Attending Provider: Micky Tam Admit Provider: Demar Reddy Primary Care Provider: Uri Plascencia III Other Providers: Demar Reddy ; Jc Baumann ; [place] ; [facility] Other Interventions: Discharge Summary Assessment (RN) Last Done: 05/29/20 15:12 Supervising Physician Co-Signing Physician Notes I also saw the patient and confirmed hernandez portions of the history and physical examination. I agree with the impression and plan as noted in the resident documentation. At the time of my visit just before lunch, the patient was a little nervous but she told me she gets this way before any move. She really had no complaints otherwise. Exam 136/77, 73, 18, 36.4 C, 98% on room air She was without complaint. No acute distress appreciated. Data WBC 5.44, hemoglobin 8.6. BUN 53, creatinine 1.80 Arterial duplex of the lower extremity arterial system shows normal bilateral ankle-brachial indices, mildly elevated velocity within the left superficial femoral artery suggest a less than 50% stenosis, patent bilateral calf vessels with biphasic and monophasic flow. Impression and plan Cellulitis, left foot, improving Chronic anemia CKD, stage IV Chronic atrial fibrillation Diabetes with peripheral neuropathy Transfer for inpatient rehabilitation today Antibiotics are switched to doxycycline 100 mg p.o. twice daily and cefdinir 300 mg p.o. twice daily Else as noted in resident documentation Resident Activity Tracking Resident Involvement: Resident Care Provided Care Provided: Adult Hospital Medicine
== END 2020-05-29 16:30 | DRG 602 ==
LOC: ED 11:20 → SUATTDRO 15:28 → 2W 15:28

== ENCOUNTER 2020-07-16 07:33 | Inpatient (IN) ==
[2020-07-16] MEDS ORDERED: SODIUM CHLORIDE 0.9% 500 ML IV STA (07:53)
[2020-07-16] MEDS ORDERED: cefTRIAXone SODIUM 1,000 MG/50 ML BAG IV STA (07:53)
[2020-07-16 08:04] LABS: Basophils # (auto) 0.01 K/uL (0-0.2); Basophils % (auto) 0.1 %; Eosinophils # (auto) 0.02 K/uL (0-0.5); Eosinophils % (auto) 0.2 %; Hematocrit (blood only) 30.5 % (37-47); Hemoglobin 9.5 g/dL (12.0-16.0); Immature Granulocytes # (auto) 0.04 K/uL (0.00-0.02); Immature Granulocytes % (auto) 0.4 %; Lymphocytes # (auto) 0.16 K/uL (1.2-3.4); Lymphocytes % (auto) 1.4 %; Mean Corpuscular Hemoglobin 29.3 pg (25-34); Mean Corpuscular Hgb Conc 31.1 g/dL (32-36); Mean Corpuscular Volume 94.1 fL (80-100); Mean Platelet Volume 10.7 fL (7.4-10.4); Monocytes # (auto) 0.35 K/uL (0.11-0.59); Monocytes % (auto) 3.2 %; Neutrophils # (auto) 10.46 K/uL (1.4-6.5); Neutrophils % (auto) 94.7 %; Platelet Count 131 K/uL (130-400); RDW Coefficient of Variation 20.4 % (11.5-14.5); RDW Standard Deviation 70.9 fL (36.4-46.3); Red Blood Count 3.24 M/uL (4.2-5.4); White Blood Count 11.04 K/uL (4.8-10.8)
--- NOTE | 2020-07-16 08:20 | Emergency Department Note ---
History of Present Illness General Chief complaint: Urinary Symptoms Time Seen by Provider: 07/16/20 07:44 Source: patient Mode of arrival: EMS Limitations: physical limitation History of Present Illness Provider complaint: Weakness Presents to the ED with a chief complaint of weakness. The patient lives at [facility]. She was started on Bactrim yesterday evening for a UTI. The patient has had blood sugars that have been running up and down. She was a little more confused today than usual and this is the reason she was sent here. She does report generalized weakness. Denies any nausea, vomiting, chest pain, shortness of breath or headaches. No abdominal pains. Home Medications Medication Instructions Recorded Confirmed Type metoprolol succinate 200 mg 200 mg PO QAM #90 tab 06/10/19 06/28/20 Rx tablet,extended release 24 hr omeprazole 20 mg capsule,delayed 20 mg PO QAM #90 cap 07/21/19 06/28/20 Rx release metolazone 2.5 mg tablet 2.5 mg PO Q OTHER DAY #30 tab 08/08/19 06/28/20 Rx pramipexole 0.25 mg tablet 0.125 mg PO HS #45 tab 08/18/19 06/28/20 Rx Wheelchair (Manual or Powered) #2 ea 10/15/19 06/28/20 Rx pregabalin 100 mg capsule 100 mg PO BID #180 cap 12/23/19 06/28/20 Rx calcitriol 0.25 mcg capsule 0.25 mcg PO .COMPLEX #39 cap 01/23/20 06/28/20 Rx ondansetron 4 mg disintegrating 4 mg PO Q6H PRN #30 tab 03/12/20 06/28/20 Rx tablet pen needle, diabetic 32 gauge x #400 ea 04/05/20 06/28/20 Rx 5/32" sertraline 50 mg tablet 50 mg PO QAM #90 tab 04/08/20 06/28/20 Rx potassium chloride 20 meq PO QAM 04/11/20 06/28/20 History cyclobenzaprine 5 mg tablet 5 mg PO TID PRN #30 tab 04/13/20 06/28/20 Rx apixaban 2.5 mg PO QAM 05/21/20 06/28/20 History acetaminophen 325 mg capsule 650 mg PO QID cap 06/23/20 06/28/20 History levothyroxine 88 mcg capsule 88 mcg PO DAILY 06/23/20 06/28/20 History loperamide 2 mg capsule 2 mg PO Q6H PRN 06/23/20 06/28/20 History metoclopramide HCl 10 mg tablet 5 mg PO BID PRN tab 06/23/20 06/28/20 History montelukast 10 mg tablet 10 mg PO DAILY 06/23/20 06/28/20 History spironolactone 50 mg tablet 25 mg PO QAM tab 06/23/20 06/28/20 History torsemide 20 mg tablet 10 mg PO BID tab 06/23/20 06/28/20 History insulin aspart U-100 100 unit/mL 18 unit SUBCUT TID 30 Days #30 ml 06/29/20 06/29/20 Rx (3 mL) subcutaneous pen insulin degludec 100 unit/mL (3 50 unit SUBCUT DAILY #3 ml 07/12/20 Rx mL) subcutaneous pen Allergies Allergy/AdvReac Type Severity Reaction Status Date / Time carbamazepine Allergy Intermediate HIVES Verified 06/28/20 14:48 Past Med/Surg History Medical History (Updated 07/16/20 @ 10:48 by Chuck Felix DO) Acute on chronic diastolic heart failure Anemia Asthma stable Atrial fibrillation, chronic Benign hypertension Cellulitis of right foot Chronic back pain CKD (chronic kidney disease) stage 4, GFR 15-29 ml/min Depression Diabetes IDDM Diabetic foot ulcer Diabetic peripheral neuropathy Gastroparesis GERD (gastroesophageal reflux disease) Hiatal hernia History of blood transfusion remote years ago; unknown etiology per patient Hypothyroidism Mammogram abnormal Morbid obesity Nocturnal hypoxemia 2lpm via n/c at HS Osteomyelitis (06/06/12) Restless leg syndrome Sciatica Seizure 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 Lr Normal mucosa in entire colon, biopsied, diverticulosis in sigmoid, otherwise normal. Biopsy showed no inflammation. History of esophagogastroduodenoscopy (EGD) History of hemorrhoidectomy History of total abdominal hysterectomy History of total knee arthroplasty bilateral Family History Mother Breast cancer Father Congestive heart failure Other Diabetes Dyslipidemia Hypertension Denies family history of Crohn's disease Colorectal cancer Inflammatory bowel disease Social History Smoking Status: Unknown if ever smoked Age Started Using Tobacco: 26; Age Quit Using Tobacco: 51; packs per day: 2; Years Smoked: 25; Second Hand Exposure: No; Hx Alcohol Use: No Hx Substance Use: No Preferred Language: American Communication Ability: Effective Visual Impairment: No Limitations Hearing Ability: Normal Furnace Mechanic Required: No Beliefs That Will Affect Care: None marital status: / Current Living Situation: Alone Current Living Situation Comment: with caregivers current occupational status: retired Feels Safe at Home: Yes caffeine: No Seatbelt Use: always Assistive Devices: Glasses and Oxygen - Continuous Review of Systems A total of 10 systems reviewed and were otherwise negative Physical Exam Vital Signs Vital Signs - 24 hr 07/16/20 07:38 07/16/20 08:00 07/16/20 08:30 Temperature 37.5 C Temperature Source Oral Pulse Rate 108 H 103 H 108 H Pulse Rate from SpO2 Sensor 110 H 111 H Respiratory Rate 20 23 Respiratory Effort / Characteristics Non-Labored Respiratory Depth Normal Blood Pressure 111/65 130/77 107/63 Blood Pressure Mean 80 94 77 Blood Pressure Position Lying Pulse Oximetry 90 98 97 Oxygen Delivery Method Room Air Nasal Cannula Oxygen Flow Rate 3 Sepsis Recent Fever Within 48 Hours Yes Sepsis New/Unexplained Change in Mental Status No Sepsis Action Taken by Nursing No Action Required Oxygen Flow Rate - Titration 2 Pulse Oximetry Post Tiitration 96 07/16/20 09:00 07/16/20 09:30 07/16/20 10:01 Temperature Temperature Source Pulse Rate 109 H 104 H 100 H Pulse Rate from SpO2 Sensor 109 H 104 H 105 H Respiratory Rate 21 19 21 Respiratory Effort / Characteristics Respiratory Depth Blood Pressure 112/65 114/71 109/71 Blood Pressure Mean 80 85 83 Blood Pressure Position Pulse Oximetry 98 98 98 Oxygen Delivery Method Nasal Cannula Nasal Cannula Nasal Cannula Oxygen Flow Rate 2 2 2 Sepsis Recent Fever Within 48 Hours Sepsis New/Unexplained Change in Mental Status Sepsis Action Taken by Nursing Oxygen Flow Rate - Titration Pulse Oximetry Post Tiitration CONSTITUTIONAL/VITAL SIGNS: Reviewed / noted above. GENERAL: Non-toxic in appearance. Generalized weakness. INTEGUMENTARY: Warm, dry, and Moss[place]. HEAD: Normocephalic. EYES: without scleral icterus or trauma. ENT/OROPHARYNX: clear and dry. LYMPHADENOPATHY/NECK: Is supple without lymphadenopathy or meningismus. RESPIRATORY: Lungs clear and equal but diminished. CARDIOVASCULAR: Slightly rapid rate and irregular. History of A. fib. GI/ABDOMEN: Soft and nontender. No organomegaly or pulsatile mass. No rebound or guarding. Normal bowel sounds. EXTREMITIES: Warm and well perfused. NEUROLOGICAL: Intact without focal deficits. Seems a little drowsy and fatigued. Normally gets around in a wheelchair. Significant lower extremity weakness. PSYCHIATRIC: normal affect. MUSCULOSKELETAL: Normally developed with good muscle tone. TRIAGE NURSING DOCUMENTATION REVIEWED. Course Administered Medications Discontinued Medications Sodium Chloride (Nss) 500 mls @ 999 mls/hr IV .Q31M STA Stop: 07/16/20 08:23 Last Infusion: 07/16/20 10:12 Dose: 0 mls/hr Documented by: [id number] Admin: 07/16/20 09:14 Dose: 999 mls/hr Documented by: [id number] Ceftriaxone Sodium (Rocephin) 1,000 mg in 50 mls @ 100 mls/hr IV NOW STA Stop: 07/16/20 08:22 Last Infusion: 07/16/20 09:45 Dose: 0 mls/hr Documented by: [id number] Admin: 07/16/20 09:12 Dose: 100 mls/hr Documented by: [id number] Medical Decision Making Differential Diagnosis Differential includes acute coronary syndrome, myocardial infarction, CVA, TIA, anemia, infection, pneumonia, UTI, pyelonephritis, poor nutrition, dehydration, electrolyte disturbance,hypoglycemia. Medical Records Attestation: I reviewed the patient's medical records. Home Medications Current Medication List: was personally reviewed by me Laboratory Data Attestation: I reviewed the patient's lab results. Result diagrams: 07/16/20 08:00 07/16/20 08:00 Lab Results 07/16/20 07/16/20 07/16/20 Range/Units 08:00 08:00 08:00 WBC 11.04 H (4.8-10.8) K/uL RBC 3.24 L (4.2-5.4) M/uL Hgb 9.5 L (12.0-16.0) g/dL Hct 30.5 L (37-47) % MCV 94.1 (80-100) fL MCH 29.3 (25-34) pg MCHC 31.1 L (32-36) g/dL RDW Std Deviation 70.9 H (36.4-46.3) fL RDW Coeff of Quirino 20.4 H (11.5-14.5) % Plt Count 131 (130-400) K/uL MPV 10.7 H (7.4-10.4) fL Immature Gran % (Auto) 0.4 % Neut % (Auto) 94.7 % Lymph % (Auto) 1.4 % Grady % (Auto) 3.2 % Eos % (Auto) 0.2 % Baso % (Auto) 0.1 % Neut # (Auto) 10.46 H (1.4-6.5) K/uL Lymph # (Auto) 0.16 L (1.2-3.4) K/uL Grady # (Auto) 0.35 (0.11-0.59) K/uL Eos # (Auto) 0.02 (0-0.5) K/uL Baso # (Auto) 0.01 (0-0.2) K/uL Immature Gran # (Auto) 0.04 H (0.00-0.02) K/uL Polychromasia 1+ Anisocytosis Present Sodium 135 L (136-145) mmol/L Potassium (3.5-5.1) mmol/L Chloride 103 (98-107) mmol/L Carbon Dioxide 21 (21-32) mmol/L Anion Gap 11.0 (3-11) BUN 73 H (7-18) mg/dl Creatinine 2.34 H (0.6-1.2) mg/dl Est Cr Clr Drug Dosing Not Reportable Est GFR ( Amer) 21.7 ml/min Est GFR (Non-Af Amer) 18.8 ml/min BUN/Creatinine Ratio 31.4 H (10-20) Glucose 131 H (70-99) mg/dl Lactate (0.4-2.0) mmol/L Calcium 9.0 (8.5-10.1) mg/dl Total Bilirubin 1.0 (0.2-1) mg/dl AST TNP ALT 23 (12-78) U/L Alkaline Phosphatase 94 (45-117) U/L Troponin I < 0.015 (0-0.045) ng/ml Total Protein 7.7 (6.4-8.2) gm/dl Albumin 3.4 (3.4-5.0) gm/dl Globulin 4.3 H (2.5-4.0) gm/dl Albumin/Globulin Ratio 0.8 L (0.9-2) Procalcitonin 2.16 H (0-0.5) ng/ml Urine Color Urine Appearance (Clear) Urine pH (4.5-7.5) Ur Specific [place] (1.000-1.030) Urine Protein (Negative) Urine Glucose (UA) (Negative) Urine Ketones (Negative) Urine Blood (Negative) Urine Nitrite (Negative) Urine Bilirubin (Negative) Urine Urobilinogen (Negative) Ur Leukocyte Esterase (Negative) Urine WBC (Auto) (0-5) /hpf Urine RBC (Auto) (0-4) /hpf U Hyaline Cast (Auto) (0-5) /lpf U Epithel Cells (Auto) (0-5) /lpf Urine Bacteria (Auto) (Negative) Urine Yeast COVID-19 Eval Order 07/16/20 07/16/20 07/16/20 Range/Units 08:00 08:03 09:26 WBC (4.8-10.8) K/uL RBC (4.2-5.4) M/uL Hgb (12.0-16.0) g/dL Hct (37-47) % MCV (80-100) fL MCH (25-34) pg MCHC (32-36) g/dL RDW Std Deviation (36.4-46.3) fL RDW Coeff of Quirino (11.5-14.5) % Plt Count (130-400) K/uL MPV (7.4-10.4) fL Immature Gran % (Auto) % Neut % (Auto) % Lymph % (Auto) % Grady % (Auto) % Eos % (Auto) % Baso % (Auto) % Neut # (Auto) (1.4-6.5) K/uL Lymph # (Auto) (1.2-3.4) K/uL Grady # (Auto) (0.11-0.59) K/uL Eos # (Auto) (0-0.5) K/uL Baso # (Auto) (0-0.2) K/uL Immature Gran # (Auto) (0.00-0.02) K/uL Polychromasia Anisocytosis Sodium (136-145) mmol/L Potassium 4.6 (3.5-5.1) mmol/L Chloride (98-107) mmol/L Carbon Dioxide (21-32) mmol/L Anion Gap (3-11) BUN (7-18) mg/dl Creatinine (0.6-1.2) mg/dl Est Cr Clr Drug Dosing Est GFR ( Amer) ml/min Est GFR (Non-Af Amer) ml/min BUN/Creatinine Ratio (10-20) Glucose (70-99) mg/dl Lactate 2.0 (0.4-2.0) mmol/L Calcium (8.5-10.1) mg/dl Total Bilirubin (0.2-1) mg/dl AST 21 ALT (12-78) U/L Alkaline Phosphatase (45-117) U/L Troponin I (0-0.045) ng/ml Total Protein (6.4-8.2) gm/dl Albumin (3.4-5.0) gm/dl Globulin (2.5-4.0) gm/dl Albumin/Globulin Ratio (0.9-2) Procalcitonin (0-0.5) ng/ml Urine Color Yellow Urine Appearance Cloudy A (Clear) Urine pH 5.5 (4.5-7.5) Ur Specific [place] 1.014 (1.000-1.030) Urine Protein 2+ H (Negative) Urine Glucose (UA) Negative (Negative) Urine Ketones Negative (Negative) Urine Blood 3+ H (Negative) Urine Nitrite Negative (Negative) Urine Bilirubin Negative (Negative) Urine Urobilinogen Negative (Negative) Ur Leukocyte Esterase 3+ H (Negative) Urine WBC (Auto) >30 H (0-5) /hpf Urine RBC (Auto) >30 H (0-4) /hpf U Hyaline Cast (Auto) 0 (0-5) /lpf U Epithel Cells (Auto) 0-5 (0-5) /lpf Urine Bacteria (Auto) 2+ H (Negative) Urine Yeast Not Reportable COVID-19 Eval Order 07/16/20 Range/Units 10:22 WBC (4.8-10.8) K/uL RBC (4.2-5.4) M/uL Hgb (12.0-16.0) g/dL Hct (37-47) % MCV (80-100) fL MCH (25-34) pg MCHC (32-36) g/dL RDW Std Deviation (36.4-46.3) fL RDW Coeff of Quirino (11.5-14.5) % Plt Count (130-400) K/uL MPV (7.4-10.4) fL Immature Gran % (Auto) % Neut % (Auto) % Lymph % (Auto) % Grady % (Auto) % Eos % (Auto) % Baso % (Auto) % Neut # (Auto) (1.4-6.5) K/uL Lymph # (Auto) (1.2-3.4) K/uL Grady # (Auto) (0.11-0.59) K/uL Eos # (Auto) (0-0.5) K/uL Baso # (Auto) (0-0.2) K/uL Immature Gran # (Auto) (0.00-0.02) K/uL Polychromasia Anisocytosis Sodium (136-145) mmol/L Potassium (3.5-5.1) mmol/L Chloride (98-107) mmol/L Carbon Dioxide (21-32) mmol/L Anion Gap (3-11) BUN (7-18) mg/dl Creatinine (0.6-1.2) mg/dl Est Cr Clr Drug Dosing Est GFR ( Amer) ml/min Est GFR (Non-Af Amer) ml/min BUN/Creatinine Ratio (10-20) Glucose (70-99) mg/dl Lactate (0.4-2.0) mmol/L Calcium (8.5-10.1) mg/dl Total Bilirubin (0.2-1) mg/dl AST ALT (12-78) U/L Alkaline Phosphatase (45-117) U/L Troponin I (0-0.045) ng/ml Total Protein (6.4-8.2) gm/dl Albumin (3.4-5.0) gm/dl Globulin (2.5-4.0) gm/dl Albumin/Globulin Ratio (0.9-2) Procalcitonin (0-0.5) ng/ml Urine Color Urine Appearance (Clear) Urine pH (4.5-7.5) Ur Specific [place] (1.000-1.030) Urine Protein (Negative) Urine Glucose (UA) (Negative) Urine Ketones (Negative) Urine Blood (Negative) Urine Nitrite (Negative) Urine Bilirubin (Negative) Urine Urobilinogen (Negative) Ur Leukocyte Esterase (Negative) Urine WBC (Auto) (0-5) /hpf Urine RBC (Auto) (0-4) /hpf U Hyaline Cast (Auto) (0-5) /lpf U Epithel Cells (Auto) (0-5) /lpf Urine Bacteria (Auto) (Negative) Urine Yeast COVID-19 Eval Order Covid19 at [facility] Imaging Data Radiologist's Impression: Chest X-Ray 07/16/20 07:53 XR chest 1V portable CLINICAL HISTORY: Fever COMPARISON STUDY: 05/21/2020 FINDINGS: The heart is enlarged. There is no focal pulmonary consolidation. There are no significant pleural effusions. There is slight vascular prominence. Mild pulmonary venous hypertension is suspected.[ IMPRESSION: 1. Cardiomegaly with suspected mild pulmonary venous hypertension 2. No evidence of focal pulmonary consolidation ACT 112: Negative or not required by law. Electronically signed by: Steve Randall M.D. 07/16/2020 10:32 AM ECG Data Attestation: I personally reviewed and interpreted this ECG as follows: Indication: + weakness Rate (beats per minute): 108 Rhythm: + atrial fibrillation ECG Intervals/blocks: + Normal QT-c ECG ST segments: no ST elevation ECG Findings: no PVCs Change: no significant change (A. fib is chronic.) MDM Narrative Patient presents with generalized weakness and decreased activity. She was diagnosed with a UTI yesterday and started on Bactrim last evening. She is chronically on apixaban for A. fib. Her exam findings suggest that she is generally weak. She normally gets around in a wheelchair but she is weaker than usual. Her tongue is dry. No other significant exam findings. Vital signs are stable and she is afebrile. Chest x-ray reveals no acute disease. Urine appears infected. White blood cell count is 11.0. Hemoglobin is 9.5. This is about baseline. BUN is 73 and creatinine is 2.3. This is also about baseline. Troponin was negative, procalcitonin was 2.1. The patient was treated with IV fluids and IV Rocephin. She will be seen by the hospitalist for further evaluation and care. Impression & Plan Acute UTI, Weakness, Acute confusion Discharge Plan Visit Data Chief Complaint: Urinary Symptoms ED Provider: Chuck Felix Discharge Problem: Acute UTI, Weakness, Acute confusion Forms Stand Alone Forms: [facility] Prescriptions Prescriptions: No Action omeprazole 20 mg capsule,delayed release(DR/EC) 20 mg PO QAM Qty: 90 RF: 3 pramipexole [Mirapex] 0.25 mg tablet 0.125 mg PO HS Qty: 45 RF: 3 (DME) Manual Wheelchair Device See Rx Instructions .ROUTE .MEDSUPPLY Qty: 2 RF: 0 Lyrica 100 mg capsule 100 mg PO BID Qty: 180 RF: 1 calcitriol 0.25 mcg capsule 0.25 mcg PO .COMPLEX Qty: 39 RF: 3 ondansetron 4 mg tablet,disintegrating 4 mg PO Q6H PRN (Reason: nausea and vomiting) Qty: 30 RF: 1 (DME) pen needle, diabetic [BD Ultra-Fine [place]sca Pen Needle] 32 gauge x 5/32" needle See Rx Instructions .ROUTE .MEDSUPPLY Qty: 400 RF: 3 sertraline [Zoloft] 50 mg tablet 50 mg PO QAM Qty: 90 RF: 3 Tresiba FlexTouch U-100 100 unit/mL (3 mL) insulin pen 50 unit subcut DAILY Qty: 3 RF: 2 metoprolol succinate 200 mg tablet extended release 24 hr 200 mg PO QAM Qty: 90 RF: 3 metolazone 2.5 mg tablet 2.5 mg PO Q OTHER DAY Qty: 30 RF: 0 Hold Instructions: FLAVIO cyclobenzaprine 5 mg tablet 5 mg PO TID PRN (Reason: muscle spasm) Qty: 30 RF: 1 acetaminophen 325 mg capsule 650 mg PO QID RF: 0 levothyroxine 88 mcg capsule 88 mcg PO DAILY RF: 0 montelukast 10 mg tablet 10 mg PO DAILY RF: 0 torsemide 20 mg tablet 10 mg PO BID RF: 0 metoclopramide HCl [Reglan] 10 mg tablet 5 mg PO BID PRN (Reason: Nausea) RF: 0 loperamide [Anti-Diarrheal (loperamide)] 2 mg capsule 2 mg PO Q6H PRNRF: 0 insulin aspart U-100 [Novolog Flexpen U-100 Insulin] 100 unit/mL (3 mL) insulin pen 18 unit subcut TID 30 Days Qty: 30 RF: 5 potassium chloride 20 mEq tablet,ER particles/crystals 20 meq PO QAM RF: 0 apixaban 2.5 mg tablet 2.5 mg PO QAM RF: 0 spironolactone 50 mg tablet 25 mg PO QAM RF: 0
[2020-07-16 08:24] LABS: Anisocytosis Present; Polychromasia 1+
[2020-07-16 08:26] LABS: Alanine Aminotransferase 23 U/L (12-78); Albumin Globulin Ratio 0.8 (0.9-2); Albumin Level 3.4 gm/dl (3.4-5.0); Alkaline Phosphatase 94 U/L (45-117); BUN Creatinine Ratio 31.4 (10-20); Blood Urea Nitrogen 73 mg/dl (7-18); Carbon Dioxide 21 mmol/L (21-32); Chloride 103 mmol/L (98-107); Est GFR (African American) 21.7 ml/min; Est GFR (Non-African American) 18.8 ml/min; Globulin 4.3 gm/dl (2.5-4.0); Glucose 131 mg/dl (70-99); Sodium 135 mmol/L (136-145); Total Protein 7.7 gm/dl (6.4-8.2); Troponin I < 0.015 ng/ml (0-0.045)
[2020-07-16 08:44] LABS: Potassium 4.6 mmol/L (3.5-5.1)
[2020-07-16 09:38] LABS: Appearance Urine Cloudy (Clear); Bacteria Urine Automated 2+ (Negative); Bilirubin Urine Negative (Negative); Blood Urine 3+ (Negative); Cast Urine Automated 0 /lpf (0-5); Color Urine Yellow; Epithelial Cell Urine Auto 0-5 /lpf (0-5); Glucose Urine UA Negative (Negative); Ketones Urine Negative (Negative); Leukocyte Esterase Urine 3+ (Negative); Nitrite Urine Negative (Negative); Protein Urine 2+ (Negative); RBC Urine Automated >30 /hpf (0-4); Specific Gravity Urine 1.014 (1.000-1.030); Urobilinogen Urine Negative (Negative); WBC Urine Automated >30 /hpf (0-5); pH Urine 5.5 (4.5-7.5)
--- NOTE | 2020-07-16 10:33 | XRay Report ---
XR chest 1V portable CLINICAL HISTORY: Fever COMPARISON STUDY: 05/21/2020 FINDINGS: The heart is enlarged. There is no focal pulmonary consolidation. There are no significant pleural effusions. There is slight vascular prominence. Mild pulmonary venous hypertension is suspect ed.[ IMPRESSION: 1. Cardiomegaly with suspected mild pulmonary venous hypertension 2. No evidence of focal pulmonary consolidation ACT 112: Negative or not required by law. Electronically signed by: Steve Randall M.D. 07/16/2020 10:32 AM
--- NOTE | 2020-07-16 11:16 | History & Physical Report ---
Date of Service July 16, 2020 Assessment & Plan (1) Acute UTI: Mrs. Arnold is an 84 year old female with a history of Type 2 Diabetes Mellitus, Diabetic Neuropathy, Hypertension, Hyperlipidemia, Restless Leg Syndrome, Chronic Respiratory Failure with Hypoxia, Chronic Diastolic CHF, Stage IV CKD, JAMAL, Spinal Stenosis, Permanent Atrial Fibrillation, and PAD who was sent to [facility] ER today with an Acute UTI and Altered Mental Status. She's been experiencing urinary frequency, urgency, and dysuria over the past week, followed by the development of confusion this morning. She had received a single dose of Bactrim yesterday, but she continues to have the urinary symptoms. Patient denies any fevers, chills, nausea, vomiting, back pain, or flank pain. She denies any hematuria. Urine analysis urine, +2 urine protein, +3 urine blood, +3 leukocyte esterase, and +2 urine bacteria. No casts reported. CBC with diff shows an anemia with a hemoglobin of 9.5 g/dl. Elevated WBC count of 11.04. Procalcitonin is elevated at 2.16 ng/mL. BCx x 2 have been drawn. Urine culture and sensitivity ordered. -- Admit to Med-Surg for ongoing IV Ceftriaxone 2 g q 24 hours. -- Await blood and urine cultures. -- Monitor daily CBC with diff, BMP, serum Mg levels daily. (2) Altered mental status: Patient feels confused, but she recognized me when I went into her room, she knows that she is a resident at [facility] and that she has been a resident there for the past 5-6 weeks. She also knows that her blood sugars have been highly variable recently. No focal neurologic deficits are noted. Altered Mental Status likely secondary to acute UTI/illness. -- Continue to monitor mental status. (3) Uncontrolled type 2 diabetes mellitus: -- Continue usual Insulin regimen. -- BSG checks QAC and HS. -- Monitor daily labs. -- Type 2 diabetic diet. (4) CKD (chronic kidney disease) stage 4, GFR 15-29 ml/min: -- Current serum Creatinine 2.34 mg/dl. -- Calculated Creatinine Clearance is 35.87 mL/min. -- Renally dosed medications. -- Monitor daily labs. (5) Chronic diastolic (congestive) heart failure: Her proBNP is elevated, but she has pulmonary hypertension. No overt evidence of hypervolemia on examination, or on chest x-ray. -- Continue Toprol XL 200 mg daily. -- Continue Torsemide 10 mg b.i.d.. -- Continue Spironolactone 50 mg daily. -- Continue Metolazone as directed. -- Continue KCL 20 mEq daily. -- Monitor daily weights, I&O's. -- Two gram low sodium diet. (6) Chronic respiratory failure with hypoxia: -- Continue O2 for SpO2 > 92%. -- CPAP if needed. (7) Atrial fibrillation, permanent: -- Patient's ventricular response rate is acceptable at this time in the 90s to low 100s considering she is acutely ill. -- Continue Toprol XL 200 mg daily. -- Continue Eliquis 2.5 mg b.i.d.. History of Present Illness Chief Complaint: -- Acute UTI. -- Confusion. Primary Care Provider: [facility] Mrs. Arnold is an 84 year old female with a history of Type 2 Diabetes Mellitus, Diabetic Neuropathy, Hypertension, Hyperlipidemia, Restless Leg S yndrome, Chronic Respiratory Failure with Hypoxia, Chronic Diastolic CHF, Stage IV CKD, JAMAL, Spinal Stenosis, Permanent Atrial Fibrillation, and PAD who was sent to [facility] ER today after experiencing urinary frequency, urgency, and dysuria over the past week, followed by the development of confusion this morning. She had received a single dose of Bactrim yesterday, but she continues to have the urinary symptoms. Patient denies any fevers, chills, nausea, vomiting, back pain, or flank pain. She denies any hematuria. Patient feels confused, but she recognized me when I went into her room, she knows that she is a resident at [facility] and that she has been a resident there for the past 5-6 weeks. She also knows that her blood sugars have been highly variable recently. Patient denies any focal neurologic deficits. She denies any weakness, numbness, tingling, or paralysis of any extremities. She denies any visual disturbance, blind spots, black spots, loss of visual [place], or any blurred vision. She denies any slurred speech or difficulty swallowing. Patient states that her diet and fluid intake have been stable. She has not had any recent bouts of diarrhea. She has not had any recent medication changes other than the addition of a single dose of Bactrim yesterday. Patient states that her breathing is at baseline. She has not had any recent significant weight gain or fluid retention. She denies any chest pain, heaviness, tightness, pressure, or discomfort. She denies any orthopnea or PND. She wears oxygen at night for nocturnal hypoxemia. Patient has not noticed her heart racing. She is in atrial fibrillation but her ventricular response rate is controlled. In the ER, blood cultures were drawn, urine specimen was taken for culture, and multiple laboratories were drawn. Patient received a dose of IV Ceftriaxone 1000 mg. Allergies Allergy/AdvReac Type Severity Reaction Status Date / Time carbamazepine Allergy Intermediate HIVES Verified 07/16/20 11:44 Home Medications Medication Instructions Recorded Confirmed Type metoprolol succinate 200 mg 200 mg PO QAM #90 tab 06/10/19 07/16/20 Rx tablet,extended release 24 hr omeprazole 20 mg capsule,delayed 20 mg PO QAM #90 cap 07/21/19 07/16/20 Rx release metolazone 2.5 mg tablet 2.5 mg PO Q OTHER DAY #30 tab 08/08/19 07/16/20 Rx pramipexole 0.25 mg tablet 0.125 mg PO HS #45 tab 08/18/19 07/16/20 Rx Wheelchair (Manual or Powered) #2 ea 10/15/19 07/16/20 Rx pregabalin 100 mg capsule 100 mg PO BID #180 cap 12/23/19 07/16/20 Rx calcitriol 0.25 mcg capsule 0.25 mcg PO .COMPLEX #39 cap 01/23/20 07/16/20 Rx ondansetron 4 mg disintegrating 4 mg PO Q6H PRN #30 tab 03/12/20 07/16/20 Rx tablet pen needle, diabetic 32 gauge x #400 ea 04/05/20 07/16/20 Rx 5/32" sertraline 50 mg tablet 50 mg PO QAM #90 tab 04/08/20 07/16/20 Rx potassium chloride 20 meq PO QAM 04/11/20 07/16/20 History cyclobenzaprine 5 mg tablet 5 mg PO TID PRN #30 tab 04/13/20 07/16/20 Rx apixaban 2.5 mg PO QAM 05/21/20 07/16/20 History acetaminophen 325 mg capsule 650 mg PO QID cap 06/23/20 07/16/20 History levothyroxine 88 mcg capsule 88 mcg PO DAILY 06/23/20 07/16/20 History loperamide 2 mg capsule 2 mg PO Q6H PRN 06/23/20 07/16/20 History metoclopramide HCl 10 mg tablet 5 mg PO BID PRN tab 06/23/20 07/16/20 History montelukast 10 mg tablet 10 mg PO DAILY 06/23/20 07/16/20 History spironolactone 50 mg tablet 25 mg PO QAM tab 06/23/20 07/16/20 History torsemide 20 mg tablet 10 mg PO BID tab 06/23/20 07/16/20 History insulin aspart U-100 100 unit/mL 18 unit SUBCUT TID 30 Days #30 ml 06/29/20 07/16/20 Rx (3 mL) subcutaneous pen insulin degludec 100 unit/mL (3 50 unit SUBCUT DAILY #3 ml 07/12/20 07/16/20 Rx mL) subcutaneous pen Past Med/Surg History Medical History (Updated 07/16/20 @ 12:00 by Fede Torres PA-C) Acute on chronic diastolic heart failure Anemia Asthma stable Atrial fibrillation, chronic Benign hypertension Cellulitis of right foot Chronic back pain CKD (chronic kidney disease) stage 4, GFR 15-29 ml/min Depression Diabetes IDDM Diabetic foot ulcer Diabetic peripheral neuropathy Gastroparesis GERD (gastroesophageal reflux disease) Hiatal hernia History of blood transfusion remote years ago; unknown etiology per patient Hypothyroidism Mammogram abnormal Morbid obesity Nocturnal hypoxemia 2lpm via n/c at HS Osteomyelitis (06/06/12) Restless leg syndrome Sciatica Seizure 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 Lr Normal mucosa in entire colon, biopsied, diverticulosis in sigmoid, otherwise normal. Biopsy showed no inflammation. History of esophagogastroduodenoscopy (EGD) History of hemorrhoidectomy History of total abdominal hysterectomy History of total knee arthroplasty bilateral Family History Mother Breast cancer Father Congestive heart failure Other Diabetes Dyslipidemia Hypertension Denies family history of Crohn's disease Colorectal cancer Inflammatory bowel disease Social History Smoking Status: Unknown if ever smoked Age Started Using Tobacco: 26; Age Quit Using Tobacco: 51; packs per day: 2; Years Smoked: 25; Second Hand Exposure: No; Hx Alcohol Use: No Hx Substance Use: No Preferred Language: Nigerian Communication Ability: Effective Visual Impairment: No Limitations Hearing Ability: Normal Tubing Drier Required: No Beliefs That Will Affect Care: None marital status: / Current Living Situation: Alone Current Living Situation Comment: with caregivers current occupational status: retired Feels Safe at Home: Yes caffeine: No Seatbelt Use: always Assistive Devices: Glasses and Oxygen - Continuous Review of Systems Review of Systems: All systems reviewed & are unremarkable except as noted in Subjective Physical Exam Physical Exam: GENERAL: Patient in no acute distress. HEENT: Head is atraumatic, normocephalic. EOM's intact. Facies symmetric. No perioral cyanosis. NECK: No JVD. JVP does not appear to be grossly elevated. Carotid upstrokes are + 2 bilaterally without obvious bruits. CHEST/LUNGS: Clear to auscultation throughout all lung [place]. No wheezes, rales, or crackles. CVS: S1 and S2 are irregularly irregular, distant at 90 bpm without obvious murmurs, gallops, or rubs. PMI is nonpalpable. No lifts, heaves, or thrills. No abdominal aortic or renal bruits. ABDOMINAL EXAM: Bowel sounds are present. No masses, organomegaly, or tenderness. EXTREMITIES: No clubbing or cyanosis. +1 Bilateral pretibial edema. Intact radial pulses bilaterally. NEUROLOGIC EXAM: Patient is awake, alert, and interactive. Pleasant and cooperative. Answers questions appropriately but says "I'm just confused about how this happened, I've never had anything like this before". She recognized me when I went into her room, she knows that she is a resident at [facility] and that she has been a resident there for the past 5-6 weeks. She also knows that her blood sugars have been highly variable recently. Speech is clear. Normal movement in all 4 extremities. Gait pattern was not assessed. 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 Results & Data Results & Data ([facility]) Vital Signs (Past 12 Hours) Vital Signs Temp Pulse Pulse Resp BP BP Pulse Ox 07/16/20 11:09 100 H 16 120/62 98 07/16/20 10:30 95 H 17 103/65 100 07/16/20 10:01 100 H 21 109/71 98 07/16/20 09:30 104 H 19 114/71 98 07/16/20 09:00 109 H 21 112/65 98 07/16/20 08:30 108 H 23 107/63 97 07/16/20 08:00 103 H 130/77 98 07/16/20 07:38 37.5 C 108 H 20 111/65 90 Laboratory Results Laboratory Results - last 24 hr 07/16/20 07/16/20 07/16/20 08:00 08:00 08:00 WBC 11.04 H RBC 3.24 L Hgb 9.5 L Hct 30.5 L MCV 94.1 MCH 29.3 MCHC 31.1 L RDW Std Deviation 70.9 H RDW Coeff of Quirino 20.4 H Plt Count 131 MPV 10.7 H Immature Gran % (Auto) 0.4 Neut % (Auto) 94.7 Lymph % (Auto) 1.4 [place] % (Auto) 3.2 Eos % (Auto) 0.2 Baso % (Auto) 0.1 Neut # (Auto) 10.46 H Lymph # (Auto) 0.16 L [place] # (Auto) 0.35 Eos # (Auto) 0.02 Baso # (Auto) 0.01 Immature Gran # (Auto) 0.04 H Polychromasia 1+ Anisocytosis Present Sodium 135 L Potassium Chloride 103 Carbon Dioxide 21 Anion Gap 11.0 BUN 73 H Creatinine 2.34 H Est Cr Clr Drug Dosing Not Reportable Est GFR ( Amer) 21.7 Est GFR (Non-Af Amer) 18.8 BUN/Creatinine Ratio 31.4 H Glucose 131 H Lactate Calcium 9.0 Total Bilirubin 1.0 AST TNP ALT 23 Alkaline Phosphatase 94 Troponin I < 0.015 Total Protein 7.7 Albumin 3.4 Globulin 4.3 H Albumin/Globulin Ratio 0.8 L Procalcitonin 2.16 H Urine Color Urine Appearance Urine pH Ur Specific [place] Urine Protein Urine Glucose (UA) Urine Ketones Urine Blood Urine Nitrite Urine Bilirubin Urine Urobilinogen Ur Leukocyte Esterase Urine WBC (Auto) Urine RBC (Auto) U Hyaline Cast (Auto) U Epithel Cells (Auto) Urine Bacteria (Auto) Urine Yeast COVID-19 Eval Order SARS-CoV-2 (PCR) 07/16/20 07/16/20 07/16/20 08:00 08:03 09:26 WBC RBC Hgb Hct MCV MCH MCHC RDW Std Deviation RDW Coeff of Quirino Plt Count MPV Immature Gran % (Auto) Neut % (Auto) Lymph % (Auto) [place] % (Auto) Eos % (Auto) Baso % (Auto) Neut # (Auto) Lymph # (Auto) [place] # (Auto) Eos # (Auto) Baso # (Auto) Immature Gran # (Auto) Polychromasia Anisocytosis Sodium Potassium 4.6 Chloride Carbon Dioxide Anion Gap BUN Creatinine Est Cr Clr Drug Dosing Est GFR ( Amer) Est GFR (Non-Af Amer) BUN/Creatinine Ratio Glucose Lactate 2.0 Calcium Total Bilirubin AST 21 ALT Alkaline Phosphatase Troponin I Total Protein Albumin Globulin Albumin/Globulin Ratio Procalcitonin Urine Color Yellow Urine Appearance Cloudy A Urine pH 5.5 Ur Specific [place] 1.014 Urine Protein 2+ H Urine Glucose (UA) Negative Urine Ketones Negative Urine Blood 3+ H Urine Nitrite Negative Urine Bilirubin Negative Urine Urobilinogen Negative Ur Leukocyte Esterase 3+ H Urine WBC (Auto) >30 H Urine RBC (Auto) >30 H U Hyaline Cast (Auto) 0 U Epithel Cells (Auto) 0-5 Urine Bacteria (Auto) 2+ H Urine Yeast Not Reportable COVID-19 Eval Order SARS-CoV-2 (PCR) 07/16/20 07/16/20 10:22 10:22 WBC RBC Hgb Hct MCV MCH MCHC RDW Std Deviation RDW Coeff of Quirino Plt Count MPV Immature Gran % (Auto) Neut % (Auto) Lymph % (Auto) [place] % (Auto) Eos % (Auto) Baso % (Auto) Neut # (Auto) Lymph # (Auto) [place] # (Auto) Eos # (Auto) Baso # (Auto) Immature Gran # (Auto) Polychromasia Anisocytosis Sodium Potassium Chloride Carbon Dioxide Anion Gap BUN Creatinine Est Cr Clr Drug Dosing Est GFR ( Amer) Est GFR (Non-Af Amer) BUN/Creatinine Ratio Glucose Lactate Calcium Total Bilirubin AST ALT Alkaline Phosphatase Troponin I Total Protein Albumin Globulin Albumin/Globulin Ratio Procalcitonin Urine Color Urine Appearance Urine pH Ur Specific [place] Urine Protein Urine Glucose (UA) Urine Ketones Urine Blood Urine Nitrite Urine Bilirubin Urine Urobilinogen Ur Leukocyte Esterase Urine WBC (Auto) Urine RBC (Auto) U Hyaline Cast (Auto) U Epithel Cells (Auto) Urine Bacteria (Auto) Urine Yeast COVID-19 Eval Order Covid19 at [facility] SARS-CoV-2 (PCR) NEGATIVE Diagnostic Findings CXR 07/16/20: The heart is enlarged. There is no focal pulmonary consolidation. There are no significant pleural effusions. There is slight vascular prominence. Mild pulmonary venous hypertension is suspected.[ IMPRESSION: 1. Cardiomegaly with suspected mild pulmonary venous hypertension 2. No evidence of focal pulmonary consolidation Medications Administered Medications metoprolol succinate 200 mg tablet,extended release 24 hr 200 mg PO QAM #90 tab 06/10/19 [Rx Confirmed 06/28/20] omeprazole 20 mg capsule,delayed release 20 mg PO QAM #90 cap 07/21/19 [Rx Confirmed 06/28/20] metolazone 2.5 mg tablet 2.5 mg PO Q OTHER DAY #30 tab 08/08/19 [Rx Confirmed ] pramipexole 0.25 mg tablet 0.125 mg PO HS #45 tab 08/18/19 [Rx Confirmed 06/28/20] Wheelchair (Manual or Powered) #2 ea 10/15/19 [Rx Confirmed 06/28/20] pregabalin 100 mg capsule 100 mg PO BID #180 cap 12/23/19 [Rx Confirmed 06/28/20] calcitriol 0.25 mcg capsule 0.25 mcg PO .COMPLEX #39 cap 01/23/20 [Rx Confirmed 06/28/20] ondansetron 4 mg disintegrating tablet 4 mg PO Q6H PRN #30 tab 03/12/20 [Rx Confirmed 06/28/20] pen needle, diabetic 32 gauge x " #400 ea 04/05/20 [Rx Confirmed 06/28/20] sertraline 50 mg tablet 50 mg PO QAM #90 tab 04/08/20 [Rx Confirmed 06/28/20] potassium chloride 20 meq PO QAM 04/11/20 [History Confirmed 06/28/20] cyclobenzaprine 5 mg tablet 5 mg PO TID PRN #30 tab 04/13/20 [Rx Confirmed 06/28/20] apixaban 2.5 mg PO QAM 05/21/20 [History Confirmed 06/28/20] acetaminophen 325 mg capsule 650 mg PO QID cap 06/23/20 [History Confirmed 06/28/20] levothyroxine 88 mcg capsule 88 mcg PO DAILY 06/23/20 [History Confirmed 06/28/20] loperamide 2 mg capsule 2 mg PO Q6H PRN 06/23/20 [History Confirmed 06/28/20] metoclopramide HCl 10 mg tablet 5 mg PO BID PRN tab 06/23/20 [History Confirmed 06/28/20] montelukast 10 mg tablet 10 mg PO DAILY 06/23/20 [History Confirmed 06/28/20] spironolactone 50 mg tablet 25 mg PO QAM tab 06/23/20 [History Confirmed 06/28/20] torsemide 20 mg tablet 10 mg PO BID tab 06/23/20 [History Confirmed 06/28/20] insulin aspart U-100 100 unit/mL (3 mL) subcutaneous pen 18 unit SUBCUT TID 30 Days #30 ml 06/29/20 [Rx Confirmed 06/29/20] insulin degludec 100 unit/mL (3 mL) subcutaneous pen 50 unit SUBCUT DAILY #3 ml 07/12/20 [Rx] Code Status & VTE Plan Code Status DNR/DNI VTE Prophylaxis Plan VTE Prophylaxis will be ordered: Yes Supervising Physician Co-Signing Physician Notes Discussed with CARIN, agree with his note above. Patient is 84-year-old female recently diagnosed with a UTI that presents with confusion and mild hypotension with tachycardia. Patient received single dose of Bactrim prior to presentation yesterday evening. Staff at [facility] felt she was a little more lethargic which prompted her hospitalization. Patient had a mildly elevated white count along with a positive urinalysis. Plan will be to admit for mild dehydration along with urinary tract infection. Patient was given Rocephin which can be continued. IV hydration as tolerated. PT/OT prior to discharge. Eventual plan is to return to personal long-term when improved. PG Care Time/CCT Total # of Minutes Spent Total Time Spent with Patient: Total time spent is greater than 50% in coordination of care (as documented) at patient's floor/unit and/or counseling patient:40 Coding Level of Care Code 74743 Initial Inpt Care Lvl 3 Diagnoses Acute UTI N39.0 Altered mental status R41.0 Altered mental status type: delirium Uncontrolled type 2 diabetes mellitus E11.65 Glycemic state: with hyperglycemia CKD (chronic kidney disease) stage 4, GFR 15-29 ml/min N18.4 Chronic diastolic (congestive) heart failure I50.32 Chronic respiratory failure with hypoxia J96.11 Atrial fibrillation, permanent I48.21 Time Spent (min) 55 (1) Uncontrolled type 2 diabetes mellitus Glycemic state: with hyperglycemia Qualified Code(s): E11.65 - Type 2 diabetes mellitus with hyperglycemia (2) Altered mental status Altered mental status type: delirium Qualified Code(s): R41.0 - Disorientation, unspecified
[2020-07-16] MEDS ORDERED: SODIUM CHLORIDE 0.9% 1000ML 1,000 ML IV SCH (14:00)
[2020-07-16] MEDS ORDERED: metOLazone 2.5 MG TABLET PO PRN (18:22)
[2020-07-16] MEDS ORDERED: ONDANSETRON INJ 2 MG/ML 2 ML VIAL IV PRN (18:22)
[2020-07-16] MEDS ORDERED: LOPERAMIDE HCL 2 MG CAP PO PRN (18:22)
[2020-07-16] MEDS ORDERED: ALUMINUM/MAGNESIUM SUSP 30 ML UDC PO PRN (18:22)
[2020-07-16] MEDS ORDERED: ZOLPIDEM TARTRATE 5 MG TAB PO PRN (18:22)
[2020-07-16] MEDS ORDERED: MAGNESIUM HYDROXIDE SUSP 30 ML UDC PO PRN (18:22)
[2020-07-16] MEDS ORDERED: POLYETHYLENE (MIRALAX) 17 GM PACK PO PRN (18:22)
[2020-07-16] MEDS ORDERED: METOCLOPRAMIDE HCL 5 MG TABLET PO PRN (18:22)
[2020-07-16] MEDS ORDERED: ONDANSETRON 4 MG OD TAB PO PRN (18:22)
[2020-07-16] MEDS ORDERED: GLUCAGON FOR INJ 1 MG VIAL IM PRN (19:45)
[2020-07-16] MEDS ORDERED: CARBOHYDRATES FOR HYPOGLYCEMIA PO PRN (19:45)
[2020-07-16] MEDS ORDERED: DEXTROSE 50% 50 ML SYRINGE IV PRN (19:45)
[2020-07-16] MEDS ORDERED: GLUCOSE 40% GEL 15 GM TUBE PO PRN (19:45)
[2020-07-16] MEDS ORDERED: GLUCOSE 10 TABS/TUBE PO PRN (19:45)
[2020-07-16] MEDS ORDERED: cefTRIAXone SODIUM 1,000 MG in DEXTROSE 5% 50 ML IV STA (20:35)
[2020-07-16] MEDS: APIXABAN 2.5 MG TAB PO SCH (21:19)
[2020-07-16] MEDS: PRAMIPEXOLE DIHYDROCHLO 0.25 MG TAB PO SCH (21:20)
[2020-07-16] MEDS: CALCITRIOL 0.25 MCG CAPSULE PO SCH (21:20)
[2020-07-16] MEDS: INSULIN ASPART 100 UNITS/ML 3 ML PEN SQ SCH (21:22)
[2020-07-16] MEDS: PREGABALIN 100 MG CAP PO SCH (21:23)
[2020-07-17] MEDS: MICONAZOLE NITRATE POWDER 43 GM EXT SCH ×3 (01:39→20:55)
[2020-07-17] MEDS: LEVOTHYROXINE SODIUM 88 MCG TABLET PO SCH (06:30)
[2020-07-17] MEDS: PHENAZOPYRIDINE HCL 200 MG TAB PO PRN ×2 (06:30→08:15)
[2020-07-17 07:00] LABS: Basophils # (auto) 0.01 K/uL (0-0.2); Basophils % (auto) 0.1 %; Eosinophils # (auto) 0.14 K/uL (0-0.5); Eosinophils % (auto) 1.8 %; Hematocrit (blood only) 27.3 % (37-47); Hemoglobin 8.4 g/dL (12.0-16.0); Immature Granulocytes # (auto) 0.01 K/uL (0.00-0.02); Immature Granulocytes % (auto) 0.1 %; Lymphocytes # (auto) 0.36 K/uL (1.2-3.4); Lymphocytes % (auto) 4.6 %; Mean Corpuscular Hemoglobin 29.3 pg (25-34); Mean Corpuscular Hgb Conc 30.8 g/dL (32-36); Mean Corpuscular Volume 95.1 fL (80-100); Mean Platelet Volume 10.1 fL (7.4-10.4); Monocytes # (auto) 0.86 K/uL (0.11-0.59); Neutrophils # (auto) 6.45 K/uL (1.4-6.5); Neutrophils % (auto) 82.4 %; Platelet Count 102 K/uL (130-400); RDW Standard Deviation 69.4 fL (36.4-46.3); Red Blood Count 2.87 M/uL (4.2-5.4); White Blood Count 7.83 K/uL (4.8-10.8)
[2020-07-17 07:19] LABS: Anisocytosis Present; Tear Drop Cells Occasional
[2020-07-17 07:26] LABS: BUN Creatinine Ratio 31.9 (10-20); Calcium 7.6 mg/dl (8.5-10.1); Creatinine Clr Calc Pharmacy 25.9 ml/min; Est GFR (African American) 24.4 ml/min; Magnesium 1.6 mg/dl (1.8-2.4)
--- NOTE | 2020-07-17 07:56 | Electrocardiogram Report ---
Test Reason : Blood Pressure : / mmHG Vent. Rate : 108 BPM Atrial Rate : 086 BPM P-R Int : 000 ms QRS Dur : 078 ms QT Int : 318 ms P-R-T Axes : 000 053 047 degrees QTc Int : 426 ms Atrial fibrillation with rapid ventricular response Low voltage QRS Cannot rule out Anterior infarct , age undetermined Nonspecific T wave abnormality Abnormal ECG When compared with ECG of 08-JUL-2020 05:28, Nonspecific T wave abnormality, improved in Anterolateral leads Confirmed by Elio Wiley ([id number]) on 07/17/2020 7:56:25 AM Referred By: [facility] Confirmed By:Elio Wiley
[2020-07-17] MEDS: APIXABAN 2.5 MG TAB PO SCH ×2 (08:15→20:54)
[2020-07-17] MEDS: SPIRONOLACTONE 25 MG TAB PO SCH (08:15)
[2020-07-17] MEDS: PANTOprazole 40 MG TAB PO SCH (08:15)
[2020-07-17] MEDS: POTASSIUM CHLORIDE CRTAB 20 MEQ TABCR PO SCH (08:16)
[2020-07-17] MEDS: SERTRALINE HCL 50 MG TABLET PO SCH (08:16)
[2020-07-17] MEDS: METOPROLOL SUCC 50MG EXT REL TAB PO SCH (08:16)
[2020-07-17] MEDS: TORSEMIDE 10 MG TAB PO SCH ×2 (08:16→17:56)
[2020-07-17] MEDS: MONTELUKAST SODIUM 10 MG TABLET PO SCH (08:16)
[2020-07-17] MEDS: PREGABALIN 100 MG CAP PO SCH ×2 (08:19→20:54)
[2020-07-17] MEDS ORDERED: INSULIN GLARGINE SOLOSTAR 100 UNITS/ML 3 ML PEN SC ONE (09:00)
[2020-07-17] MEDS: INSULIN ASPART 100 UNITS/ML 3 ML PEN SQ SCH ×4 (09:34→20:55)
[2020-07-17] MEDS: cefTRIAXone SODIUM 2,000 MG in DEXTROSE 5% 50 ML IV SCH (09:45)
[2020-07-17] MEDS: PRAMIPEXOLE DIHYDROCHLO 0.25 MG TAB PO SCH (20:54)
[2020-07-18] MEDS: LEVOTHYROXINE SODIUM 88 MCG TABLET PO SCH (05:57)
[2020-07-18 06:27] LABS: Basophils # (auto) 0.01 K/uL (0-0.2); Basophils % (auto) 0.1 %; Eosinophils # (auto) 0.26 K/uL (0-0.5); Eosinophils % (auto) 3.7 %; Hematocrit (blood only) 27.1 % (37-47); Hemoglobin 8.3 g/dL (12.0-16.0); Immature Granulocytes # (auto) 0.02 K/uL (0.00-0.02); Immature Granulocytes % (auto) 0.3 %; Lymphocytes # (auto) 0.63 K/uL (1.2-3.4); Mean Corpuscular Hemoglobin 28.6 pg (25-34); Mean Corpuscular Hgb Conc 30.6 g/dL (32-36); Mean Corpuscular Volume 93.4 fL (80-100); Mean Platelet Volume 10.5 fL (7.4-10.4); Monocytes % (auto) 7.1 %; Neutrophils % (auto) 79.8 %; Platelet Count 116 K/uL (130-400); RDW Coefficient of Variation 19.7 % (11.5-14.5); RDW Standard Deviation 68.2 fL (36.4-46.3); White Blood Count 7.02 K/uL (4.8-10.8)
[2020-07-18 06:45] LABS: Calcium 8.3 mg/dl (8.5-10.1); Creatinine Clr Calc Pharmacy 23.2 ml/min; Est GFR (African American) 21.3 ml/min; Est GFR (Non-African American) 18.4 ml/min; Magnesium 1.8 mg/dl (1.8-2.4); Potassium 4.3 mmol/L (3.5-5.1)
[2020-07-18] MEDS: INSULIN GLARGINE SOLOSTAR 100 UNITS/ML 3 ML PEN SC SCH (09:23)
[2020-07-18] MEDS: INSULIN ASPART 100 UNITS/ML 3 ML PEN SQ SCH ×4 (09:23→21:01)
[2020-07-18] MEDS: METOPROLOL SUCC 50MG EXT REL TAB PO SCH (09:58)
[2020-07-18] MEDS: PANTOprazole 40 MG TAB PO SCH (10:14)
[2020-07-18] MEDS: SERTRALINE HCL 50 MG TABLET PO SCH (10:14)
[2020-07-18] MEDS: APIXABAN 2.5 MG TAB PO SCH ×2 (10:14→20:59)
[2020-07-18] MEDS: MONTELUKAST SODIUM 10 MG TABLET PO SCH (10:14)
[2020-07-18] MEDS: MICONAZOLE NITRATE POWDER 43 GM EXT SCH ×2 (10:14→20:59)
[2020-07-18] MEDS: POTASSIUM CHLORIDE CRTAB 20 MEQ TABCR PO SCH (10:14)
[2020-07-18] MEDS: SPIRONOLACTONE 25 MG TAB PO SCH (10:14)
[2020-07-18] MEDS: TORSEMIDE 10 MG TAB PO SCH (10:15)
[2020-07-18] MEDS: cefTRIAXone SODIUM 2,000 MG in DEXTROSE 5% 50 ML IV SCH (10:56)
[2020-07-18] MEDS: PREGABALIN 100 MG CAP PO SCH ×2 (10:56→20:59)
--- NOTE | 2020-07-18 15:02 | Hospitalist Progress Note ---
Date of Service July 17, 2020 Assessment & Plan (1) Gram-negative bacteremia: Suspect urine is the source Continue IV ceftriaxone pending sensitivities Avoid Bactrim in the future due to elevated Cr (2) Acute UTI: As above (3) Altered mental status: Reports improved from admission. At baseline per patient. (4) Uncontrolled type 2 diabetes mellitus: -- Continue usual Insulin regimen. Lantus 50 units daily. -- BSG checks ACHS. -- Monitor daily labs. -- Type 2 diabetic diet. - HbA1C 8.7 in May (5) CKD (chronic kidney disease) stage 4, GFR 15-29 ml/min: -- Current serum Creatinine 2.13 mg/dl. Around baseline. -- Renally dosed medications. -- Monitor daily labs. -- Continue fluid management with torsemide and spironolactone (6) Chronic diastolic (congestive) heart failure: Her proBNP is elevated, but she has pulmonary hypertension. No overt evidence of hypervolemia on examination, or on chest x-ray. -- Continue Toprol XL 200 mg daily. -- Continue Torsemide 10 mg b.i.d.. -- Continue Spironolactone 50 mg daily. -- Stop metolazone -- Continue KCL 20 mEq daily. -- Monitor daily weights, I&O's. -- Two gram low sodium diet. (7) Chronic respiratory failure with hypoxia: On baseline O2 -- Continue O2 for SpO2 > 92%. -- CPAP if needed. (8) Atrial fibrillation, permanent: -- Patient's ventricular response rate is acceptable at this time in the 90s to low 100s considering she is acutely ill. -- Continue Toprol XL 200 mg daily. -- Continue Eliquis 2.5 mg b.i.d.. Admission and Anticipated Discharge Date Admission Date: July 16, 2020 Subjective Ongoing dysuria and urinary frequency. She reports feeling at her baseline mental status currently. No fever, chills, flank pain. Confirmed history with patient and reports given Bactrim yesterday. GNR in blood today. Review of Systems Review of Systems: All systems reviewed & are unremarkable except as noted in HPI & below Physical Exam Constitutional: well developed and + morbidly obese; + not well nourished and no acute distress Eyes: PERRL, conjunctivae normal, anicteric sclerae ENMT: external ear and nose normal, oropharynx normal Mouth: oral mucous membranes not dry Respiratory: normal respiratory effort, lungs clear to auscultation Cardiovascular: Rate/Rhythm: regular rate and + irregularly irregular Heart Sounds: no murmur Extremities: normal capillary refill and + pedal edema (1+ ankle b/l equal); no calf tenderness Gastrointestinal (Abdomen): normal bowel sounds, soft, nontender, no hepatosplenomegaly Musculoskeletal: no cyanosis or clubbing, extremities motor strength 5/5 Skin: no rashes, warm and dry (no areas of cellulitis) Neurologic: moves all extremities and awake; not confused Psychiatric: A+Ox3, euthymic affect Genitourinary: no CVA tenderness Results & Data Results & Data ([facility]) Vital Signs (Past 12 Hours) Vital Signs Temp Pulse Resp BP Pulse Ox 07/18/20 14:39 37.0 C 95 H 16 107/64 94 07/18/20 07:46 36.7 C 104 H 16 91/58 L 92 PG Care Time/CCT Total # of Minutes Spent Total Time Spent with Patient: Total time spent is greater than 50% in coordination of care (as documented) at patient's floor/unit and/or counseling patient: Coding Level of Care Code 99078 Subseq Hosp Care Lvl 2 Diagnoses Gram-negative bacteremia R78.81 Acute UTI N39.0 Altered mental status R41.0 Altered mental status type: delirium Uncontrolled type 2 diabetes mellitus E11.65 Glycemic state: with hyperglycemia CKD (chronic kidney disease) stage 4, GFR 15-29 ml/min N18.4 Chronic diastolic (congestive) heart failure I50.32 Chronic respiratory failure with hypoxia J96.11 Atrial fibrillation, permanent I48.21 (1) Altered mental status Altered mental status type: delirium Qualified Code(s): R41.0 - Disorientation, unspecified (2) Uncontrolled type 2 diabetes mellitus Glycemic state: with hyperglycemia Qualified Code(s): E11.65 - Type 2 diabetes mellitus with hyperglycemia
--- NOTE | 2020-07-18 15:15 | Hospitalist Progress Note ---
Date of Service July 18, 2020 Assessment & Plan (1) Gram-negative bacteremia: E. Coli bacteremia Continue IV ceftriaxone. Can be switched to cefdinir or ciprofloxacin on d/c Avoid Bactrim in the future due to elevated Cr (2) Acute UTI: As above (3) Altered mental status: Reports improved from admission. At baseline per patient. (4) Uncontrolled type 2 diabetes mellitus: -- Continue usual Insulin regimen. Lantus 50 units daily. -- BSG checks ACHS. -- Monitor daily labs. -- Type 2 diabetic diet. - HbA1C 8.7 in May, will repeat with AM labs (5) CKD (chronic kidney disease) stage 4, GFR 15-29 ml/min: -- Current serum Creatinine 2.38 mg/dl. Around baseline but given worsening today with increasing BUN and hypotensive episode yesterday will cut back on torsemide to once daily. -- Renally dosed medications. -- Monitor daily labs. -- Continue fluid management with torsemide (reduced dose as above) and spirono lactone (6) Chronic diastolic (congestive) heart failure: Her proBNP is elevated, but she has pulmonary hypertension. No overt evidence of hypervolemia on examination, or on chest x-ray. -- Continue Toprol XL 200 mg daily. -- Continue Torsemide 10 mg (switched to daily) -- Continue Spironolactone 50 mg daily. -- Stop metolazone -- Continue KCL 20 mEq daily. -- Monitor daily weights, I&O's. -- Two gram low sodium diet. (7) Chronic respiratory failure with hypoxia: On baseline O2 -- Continue O2 for SpO2 > 92%. -- CPAP if needed. (8) Atrial fibrillation, permanent: -- Patient's ventricular response rate is acceptable at this time in the 90s to low 100s considering she is acutely ill, possible some element of dehydration which should correct on lower torsemide dose. -- Continue Toprol XL 200 mg daily. -- Continue Eliquis 2.5 mg b.i.d. Will need PT/OT evals prior to discharge Admission and Anticipated Discharge Date Admission Date: July 16, 2020 Anticipated date of discharge: 07/19/20 Subjective No acute events overnight. Continues with some confusion although says she is always confused. No questions or concerns today. No further dysuria. No fever or chills. Review of Systems Review of Systems: All systems reviewed & are unremarkable except as noted in HPI & below Physical Exam Constitutional: well developed and + morbidly obese; + not well nourished and no acute distress ENMT: external ear and nose normal, oropharynx normal Mouth: oral mucous membranes not dry Respiratory: normal respiratory effort, lungs clear to auscultation Cardiovascular: Rate/Rhythm: + tachycardic and + irregularly irregular Heart Sounds: no murmur Extremities: normal capillary refill and + pedal edema (1+ ankle b/l equal); no calf tenderness Gastrointestinal (Abdomen): normal bowel sounds, soft, nontender, no hepatosplenomegaly Musculoskeletal: no cyanosis or clubbing, extremities motor strength 5/5 Skin: no rashes, warm and dry (no areas of cellulitis) Neurologic: moves all extremities and awake; not confused Psychiatric: A+Ox3, euthymic affect Results & Data Results & Data ([facility]) Vital Signs (Past 12 Hours) Vital Signs Temp Pulse Resp BP Pulse Ox 07/18/20 14:39 37.0 C 95 H 16 107/64 94 07/18/20 07:46 36.7 C 104 H 16 91/58 L 92 PG Care Time/CCT Total # of Minutes Spent Total Time Spent with Patient: Total time spent is greater than 50% in coordination of care (as documented) at patient's floor/unit and/or counseling patient: Coding Level of Care Code 77001 Subseq Hosp Care Lvl 2 Diagnoses Gram-negative bacteremia R78.81 Acute UTI N39.0 Altered mental status R41.0 Altered mental status type: delirium Uncontrolled type 2 diabetes mellitus E11.65 Glycemic state: with hyperglycemia CKD (chronic kidney disease) stage 4, GFR 15-29 ml/min N18.4 Chronic diastolic (congestive) heart failure I50.32 Chronic respiratory failure with hypoxia J96.11 Atrial fibrillation, permanent I48.21 (1) Uncontrolled type 2 diabetes mellitus Glycemic state: with hyperglycemia Qualified Code(s): E11.65 - Type 2 diabetes mellitus with hyperglycemia (2) Altered mental status Altered mental status type: delirium Qualified Code(s): R41.0 - Disorienta tion, unspecified
[2020-07-18] MEDS: ACETAMINOPHEN 325 MG TAB PO PRN (20:59)
[2020-07-18] MEDS: PRAMIPEXOLE DIHYDROCHLO 0.25 MG TAB PO SCH (20:59)
[2020-07-19] MEDS: LEVOTHYROXINE SODIUM 88 MCG TABLET PO SCH (05:53)
[2020-07-19] MEDS: ACETAMINOPHEN 325 MG TAB PO PRN (05:54)
[2020-07-19] MEDS ORDERED: traMADol HCL 50 MG TABLET PO PRN (06:57)
[2020-07-19 07:54] LABS: Estimated Average Glucose 151 mg/dl; Hemoglobin A1C 6.9 % (4.5-5.6)
[2020-07-19] MEDS: METOPROLOL SUCC 50MG EXT REL TAB PO SCH (08:21)
[2020-07-19] MEDS: POTASSIUM CHLORIDE CRTAB 20 MEQ TABCR PO SCH (08:22)
[2020-07-19] MEDS: APIXABAN 2.5 MG TAB PO SCH (08:22)
[2020-07-19] MEDS: MONTELUKAST SODIUM 10 MG TABLET PO SCH (08:22)
[2020-07-19] MEDS: SPIRONOLACTONE 25 MG TAB PO SCH (08:23)
[2020-07-19] MEDS: SERTRALINE HCL 50 MG TABLET PO SCH (08:23)
[2020-07-19] MEDS: MICONAZOLE NITRATE POWDER 43 GM EXT SCH (08:24)
[2020-07-19] MEDS: CALCITRIOL 0.25 MCG CAPSULE PO SCH (08:24)
[2020-07-19] MEDS: PANTOprazole 40 MG TAB PO SCH (08:24)
[2020-07-19] MEDS: INSULIN GLARGINE SOLOSTAR 100 UNITS/ML 3 ML PEN SC SCH (08:25)
[2020-07-19] MEDS: INSULIN ASPART 100 UNITS/ML 3 ML PEN SQ SCH ×2 (08:26→12:38)
[2020-07-19 08:35] LABS: Eosinophils # (auto) 0.23 K/uL (0-0.5); Eosinophils % (auto) 3.6 %; Hematocrit (blood only) 26.2 % (37-47); Hemoglobin 8.1 g/dL (12.0-16.0); Immature Granulocytes # (auto) 0.02 K/uL (0.00-0.02); Immature Granulocytes % (auto) 0.3 %; Lymphocytes # (auto) 0.37 K/uL (1.2-3.4); Lymphocytes % (auto) 5.7 %; Mean Corpuscular Hgb Conc 30.9 g/dL (32-36); Mean Corpuscular Volume 93.9 fL (80-100); Mean Platelet Volume 10.5 fL (7.4-10.4); Monocytes # (auto) 0.91 K/uL (0.11-0.59); Monocytes % (auto) 14.1 %; Neutrophils # (auto) 4.94 K/uL (1.4-6.5); Neutrophils % (auto) 76.3 %; Platelet Count 119 K/uL (130-400); RDW Coefficient of Variation 19.2 % (11.5-14.5); RDW Standard Deviation 66.7 fL (36.4-46.3); Red Blood Count 2.79 M/uL (4.2-5.4); White Blood Count 6.47 K/uL (4.8-10.8)
[2020-07-19] MEDS ORDERED: TORSEMIDE 10 MG TAB PO SCH (09:00)
[2020-07-19 09:10] LABS: BUN Creatinine Ratio 32.3 (10-20); Calcium 8.5 mg/dl (8.5-10.1); Creatinine Clr Calc Pharmacy 24.6 ml/min; Est GFR (African American) 22.9 ml/min; Est GFR (Non-African American) 19.8 ml/min
[2020-07-19] MEDS: PREGABALIN 100 MG CAP PO SCH (09:14)
--- NOTE | 2020-07-19 09:24 | Hospitalist Progress Note ---
Date of Service July 19, 2020 Assessment & Plan (1) Gram-negative bacteremia: E. Coli bacteremia Continue IV ceftriaxone. Can be switched to cefdinir or ciprofloxacin on d/c Avoid Bactrim in the future due to elevated Cr (2) Acute UTI: As above. sepsis poa has been ruled out (3) Altered mental status: metabolic encephalopathy, improved Reports improved from admission. At baseline per patient. (4) Uncontrolled type 2 diabetes mellitus: -- Continue usual Insulin regimen. Lantus 50 units daily. -- BSG checks ACHS. -- Monitor daily labs. -- Type 2 diabetic diet. - HbA1C 8.7 in May, will repeat with AM labs (5) CKD (chronic kidney disease) stage 4, GFR 15-29 ml/min: acute kidney injury may have reached a new set point, did reduce torsemide at discharge -- Current serum Creatinine 2.38 mg/dl. Around baseline but given worsening today with increasing BUN and hypotensive episode yesterday will cut back on torsemide to once daily. -- Renally dosed medications. -- Monitor daily labs. -- Continue fluid management with torsemide (reduced dose as above) and spironolactone (6) Anemia: suspect both anemia of chronic disease and iron deficiency, 05/26 did have low iron, will recheck and consider iron infusion (7) Chronic diastolic (congestive) heart failure: Her proBNP is elevated, but she has pulmonary hypertension. No overt evidence of hypervolemia on examination, or on chest x-ray. -- Continue Toprol XL 200 mg daily. -- Continue Torsemide 10 mg (switched to daily) -- Continue Spironolactone 50 mg daily. -- Stop metolazone -- Continue KCL 20 mEq daily. -- Monitor daily weights, I&O's. -- Two gram low sodium diet. (8) Chronic respiratory failure with hypoxia: On baseline O2 -- Continue O2 for SpO2 > 92%. -- CPAP if needed. (9) Atrial fibrillation, permanent: -- Patient's ventricular response rate is acceptable at this time in the 90s to low 100s considering she is acutely ill, possible some element of dehydration which should correct on lower torsemide dose. -- Continue Toprol XL 200 mg daily. -- Continue Eliquis 2.5 mg b.i.d. Will need PT/OT evals prior to discharge Admission and Anticipated Discharge Date Admission Date: July 16, 2020 Results & Data Results & Data ([facility]) Vital Signs (Past 12 Hours) Vital Signs Temp Pulse Resp BP Pulse Ox 07/19/20 07:29 98.4 F 108 H 16 105/63 94 07/18/20 22:42 97.9 F 117 H 20 110/72 96 PG Care Time/CCT Total # of Minutes Spent Total Time Spent with Patient: Total time spent is greater than 50% in coordination of care (as documented) at patient's floor/unit and/or counseling patient: Coding Diagnoses Gram-negative bacteremia R78.81 Acute UTI N39.0 Altered mental status R41.0 Altered mental status type: delirium Uncontrolled type 2 diabetes mellitus E11.65 Glycemic state: with hyperglycemia CKD (chronic kidney disease) stage 4, GFR 15-29 ml/min N18.4 Anemia D64.9 Chronic diastolic (congestive) heart failure I50.32 Chronic respiratory failure with hypoxia J96.11 Atrial fibrillation, permanent I48.21 (1) Uncontrolled type 2 diabetes mellitus Glycemic state: with hyperglycemia Qualified Code(s): E11.65 - Type 2 diabetes mellitus with hyperglycemia (2) Altered mental status Altered mental status type: delirium Qualified Code(s): R41.0 - Disorientation, unspecified
[2020-07-19] MEDS: cefTRIAXone SODIUM 2,000 MG in DEXTROSE 5% 50 ML IV SCH (10:10)
--- NOTE | 2020-07-19 18:57 | Discharge Summary ---
Date of Service July 19, 2020 Admission HPI Per Admitting Provider Mrs. Arnold is an 84 year old female with a history of Type 2 Diabetes Mellitus, Diabetic Neuropathy, Hypertension, Hyperlipidemia, Restless Leg Syndrome, Chronic Respiratory Failure with Hypoxia, Chronic Diastolic CHF, Stage IV CKD, JAMAL, Spinal Stenosis, Permanent Atrial Fibrillation, and PAD who was sent to [facility] ER today after experiencing urinary frequency, urgency, and dysuria over the past week, followed by the development of confusion this morning. She had received a single dose of Bactrim yesterday, but she continues to have the urinary symptoms. Patient denies any fevers, chills, nausea, vomiting, back pain, or flank pain. She denies any hematuria. Patient feels confused, but she recognized me when I went into her room, she knows that she is a resident at [facility] and that she has been a resident there for the past 5-6 weeks. She also knows that her blood sugars have been highly variable recently. Patient denies any focal neurologic deficits. She denies any weakness, numbness, tingling, or paralysis of any extremities. She denies any visual disturbance, blind spots, black spots, loss of visual [place], or any blurred vision. She denies any slurred speech or difficulty swallowing. Patient states that her diet and fluid intake have been stable. She has not had any recent bouts of diarrhea. She has not had any recent medication changes other than the addition of a single dose of Bactrim yesterday. Patient states that her breathing is at baseline. She has not had any recent significant weight gain or fluid retention. She denies any chest pain, heaviness, tightness, pressure, or discomfort. She denies any orthopnea or PND. She wears oxygen at night for nocturnal hypoxemia. Patient has not noticed her heart racing. She is in atrial fibrillation but her ventricular response rate is controlled. In the ER, blood cultures were drawn, urine specimen was taken for culture, and multiple laboratories were drawn. Patient received a dose of IV Ceftriaxone 1000 mg. Principal Diagnosis E coli uti poa with bacteremia Discharge Exam The patient appeared well Vital signs as documented. Lungs are clear to auscultation and appear unlabored Cardiac exam, Rhythm is regular.. No murmurs, rubs or gallops. Abdominal exam reveals normal bowel sounds, soft non tender, no masses Extremities are 1+edematous and both pedal pulses are normal. Neurologic exam is alert and oriented, no focal loss of strength or sensation Skin is without bruises or rashes Psychologically is without concerns for anxiety or depression. Discharge Data Allergies Allergy/AdvReac Type Severity Reaction Status Date / Time carbamazepine Allergy Intermediate HIVES Verified 07/16/20 11:44 Consultations 07/16/20 10:38 ED Decision to Admit Stat Hospital Course (1) Gram-negative bacteremia: E. Coli bacteremia Continue IV ceftriaxone. will be switched to cefdinir on d/c Avoid Bactrim in the future due to elevated Cr (2) Acute UTI: As above. sepsis poa has been ruled out (3) Altered mental status: metabolic encephalopathy, resolved (4) Uncontrolled type 2 diabetes mellitus: -- Continue usual Insulin regimen. Lantus 50 units daily. -- Type 2 diabetic diet. - HbA1C 8.7 in May, repeat 6.9 (5) CKD (chronic kidney disease) stage 4, GFR 15-29 ml/min: acute kidney injury may have reached a new set point, did reduce torsemide at discharge -- Current serum Creatinine 2.38 mg/dl. Around baseline but given worsening today with increasing BUN and hypotensive episode yesterday will cut back on torsemide to once daily. at discharge (6) Anemia: suspect both anemia of chronic disease and iron deficiency, 05/26 did have low iron, will recommend outpt follow up (7) Chronic diastolic (congestive) heart failure: Her proBNP is elevated, but she has pulmonary hypertension. No overt evidence of hypervolemia on examination, or on chest x-ray. -- Continue Toprol XL 200 mg daily. -- Continue Torsemide 10 mg (switched to daily) -- Continue Spironolactone 50 mg daily. -- Stop metolazone unless significant weight gain -- Monitor daily weights, I&O's. (8) Chronic respiratory failure with hypoxia: On baseline O2 -- Continue O2 for SpO2 > 92%. -- CPAP if needed. (9) Atrial fibrillation, permanent: -- Patient's ventricular response rate is acceptable at this time in the 90s to low 100s considering she is acutely ill, possible some element of dehydration which should correct on lower torsemide dose. -- Continue Toprol XL 200 mg daily. -- Continue Eliquis 2.5 mg b.i.d. Total Time Total Time Spent Total Time Spent (In Minutes): It required greater than 30 minutes to prepare this patient for discharge Discharge Plan Discharge Items Patient Disposition: Personal Nursing Home Reason For Visit: CONFUSION,UTI Discharge Diagnosis: E coli bacteria in blood stream from urinary tract infection Activity: Resume your previous activity Activity Comment: you have mentioned that you typically reside in a wheel chair Non-emergency contact: Primary Care Provider Call non-emergency contact if: you have any medication questions and you have a fever Follow-up/Referrals: STATE ANA ROSA SOUZA [Primary Care Provider] - Diet: Carb Consistent or DM2 Addtl Attending Provider Instructions: Please try to drink liquids in moderation to help clear your urinary tract infection but not to excess to place too much fluid in your body Please complete your antibiotic With regard to your fluid retention WEIGHT * Weigh yourself every morning after using the bathroom. * Use the same scale. * Wear the same amount of clothing. * Write your weight down on your chart. * Call your doctor if you gain more than 2-3 pounds in 1-2 days. You have a Rx for metolozone that you could use if you gain weight rapidly because it would be thought that this is from fluid retention , if you do take an additional dose please call your doctor to inform them MEDICATIONS * Use this discharge instruction sheet for instructions. * Take your medications at the time your doctor ordered. * Do not skip a dose of your medicines. * If you miss a dose of medicine, take as soon as possible, but DO NOT DOUBLE A DOSE. * Read your medicine information when you get home. * Know all of the side effects of your medicine. * Call your doctor's office if you have any side effects. * Be sure all of your doctors know what medicine and herbs you take (including cold, flu, and herbal medicine). Take the following with you to your follow-up doctor appointments: * Weight Chart * Medication List * List of questions Do not drink excessive alcohol, beer or wine. Pending Studies at Discharge: No Stand-Alone Forms: My [employer], Smoking Cessation Skilled Items Patient informed of condition?: Yes DNR: Yes Discharge Level of Care: Other Communicable Disease: No Discharge Prognosis: Stable Lines: None Urinary Catheter: No Medications and DC Order Prescriptions: New cefdinir 300 mg capsule 300 mg PO BID 7 Days Qty: 14 RF: 0 Continued omeprazole 20 mg capsule,delayed release(DR/EC) 20 mg PO QAM Qty: 90 RF: 3 pramipexole [Mirapex] 0.25 mg tablet 0.125 mg PO HS Qty: 45 RF: 3 (DME) Manual Wheelchair Device See Rx Instructions .ROUTE .MEDSUPPLY Qty: 2 RF: 0 Lyrica 100 mg capsule 100 mg PO BID Qty: 180 RF: 1 calcitriol 0.25 mcg capsule 0.25 mcg PO .COMPLEX Qty: 39 RF: 3 ondansetron 4 mg tablet,disintegrating 4 mg PO Q6H PRN (Reason: nausea and vomiting) Qty: 30 RF: 1 (DME) pen needle, diabetic [BD Ultra-Fine Franc[place]sca Pen Needle] 32 gauge x 5/32" needle See Rx Instructions .ROUTE .MEDSUPPLY Qty: 400 RF: 3 sertraline [Zoloft] 50 mg tablet 50 mg PO QAM Qty: 90 RF: 3 Tresiba FlexTouch U-100 100 unit/mL (3 mL) insulin pen 50 unit subcut DAILY Qty: 3 RF: 2 metoprolol succinate 200 mg tablet extended release 24 hr 200 mg PO QAM Qty: 90 RF: 3 metolazone 2.5 mg tablet 2.5 mg PO Q OTHER DAY Qty: 30 RF: 0 Hold Instructions: FLAVIO cyclobenzaprine 5 mg tablet 5 mg PO TID PRN (Reason: muscle spasm) Qty: 30 RF: 1 acetaminophen 325 mg capsule 650 mg PO QID RF: 0 levothyroxine 88 mcg capsule 88 mcg PO DAILY RF: 0 montelukast 10 mg tablet 10 mg PO DAILY RF: 0 metoclopramide HCl [Reglan] 10 mg tablet 5 mg PO BID PRN (Reason: Nausea) RF: 0 loperamide [Anti-Diarrheal (loperamide)] 2 mg capsule 2 mg PO Q6H PRN (Reason: Diarrhea) RF: 0 insulin aspart U-100 [Novolog Flexpen U-100 Insulin] 100 unit/mL (3 mL) insulin pen 18 unit subcut TID 30 Days Qty: 30 RF: 5 potassium chloride 20 mEq tablet,ER particles/crystals 20 meq PO QAM RF: 0 apixaban 2.5 mg tablet 2.5 mg PO QAM RF: 0 spironolactone 50 mg tablet 25 mg PO QAM RF: 0 Changed torsemide 20 mg tablet 10 mg PO DAILY Qty: 0 RF: 0 Discharge Orders: Discharge Order (Routine); Ordered 07/19/20 Ordered By: Last Renner/Other Patient Handouts: Managing Type 2 Diabetes, A1C Admission Data Admit Date/Time: 07/16/20 11:42 Attending Provider: Last Michael Admit Provider: Fede Torres Primary Care Provider: STATE ANA ROSA SOUZA Other Providers: Nick Tavares Other Interventions: Discharge Summary Assessment (RN) Last Done: 07/19/20 13:06 Coding Level of Care Code D/C Day Management >30 mins Diagnoses Gram-negative bacteremia R78.81 Acute UTI N39.0 Altered mental status R41.0 Altered mental status type: delirium Uncontrolled type 2 diabetes mellitus E11.65 Glycemic state: with hyperglycemia CKD (chronic kidney disease) stage 4, GFR 15-29 ml/min N18.4 Anemia D64.9 Chronic diastolic (congestive) heart failure I50.32 Chronic respiratory failure with hypoxia J96.11 Atrial fibrillation, permanent I48.21
== END 2020-07-19 13:54 | disposition home or self-care (01) | DRG 689 ==
LOC: ED 07:33 → SUATTDRO 11:42 → EDINP 11:42 → 3N 18:39

== ENCOUNTER 2020-08-02 13:28 | Inpatient (IN) ==
[2020-08-02] MEDS ORDERED: ONDANSETRON INJ 2 MG/ML 2 ML VIAL IV STA (14:25)
[2020-08-02 14:48] LABS: Basophils # (auto) 0.02 K/uL (0-0.2); Basophils % (auto) 0.3 %; Eosinophils # (auto) 0.09 K/uL (0-0.5); Eosinophils % (auto) 1.4 %; Hematocrit (blood only) 28.7 % (37-47); Hemoglobin 8.5 g/dL (12.0-16.0); Immature Granulocytes # (auto) 0.05 K/uL (0.00-0.02); Immature Granulocytes % (auto) 0.8 %; Lymphocytes # (auto) 0.68 K/uL (1.2-3.4); Lymphocytes % (auto) 10.4 %; Mean Corpuscular Hemoglobin 28.9 pg (25-34); Mean Corpuscular Hgb Conc 29.6 g/dL (32-36); Mean Corpuscular Volume 97.6 fL (80-100); Mean Platelet Volume 10.5 fL (7.4-10.4); Monocytes # (auto) 0.67 K/uL (0.11-0.59); Monocytes % (auto) 10.2 %; Neutrophils # (auto) 5.05 K/uL (1.4-6.5); Neutrophils % (auto) 76.9 %; Platelet Count 165 K/uL (130-400); RDW Coefficient of Variation 20.5 % (11.5-14.5); RDW Standard Deviation 72.4 fL (36.4-46.3); Red Blood Count 2.94 M/uL (4.2-5.4); White Blood Count 6.56 K/uL (4.8-10.8)
[2020-08-02 15:02] LABS: Base Excess VBG -4.7 mEq/L; HCO3 VBG 23 mmol/L; PCO2 VBG 55 mmHg (38-50); PO2 VBG 28 mmHg; pH VBG 7.24 (7.36-7.41)
[2020-08-02 15:05] LABS: Albumin Level 3.1 gm/dl (3.4-5.0); Aspartate Aminotransferase 26 U/L (15-37); BUN Creatinine Ratio 29.8 (10-20); Blood Urea Nitrogen 79 mg/dl (7-18); Carbon Dioxide 24 mmol/L (21-32); Chloride 107 mmol/L (98-107); Creatinine Clr Calc Pharmacy 21.9 ml/min; Est GFR (African American) 18.7 ml/min; Est GFR (Non-African American) 16.1 ml/min; Glucose 110 mg/dl (70-99); Lipase 58 U/L (73-393); Magnesium 1.9 mg/dl (1.8-2.4); Potassium 5.7 mmol/L (3.5-5.1); Sodium 137 mmol/L (136-145)
[2020-08-02 15:10] LABS: Alanine Aminotransferase 23 U/L (12-78); Albumin Globulin Ratio 0.7 (0.9-2); Alkaline Phosphatase 89 U/L (45-117); Bilirubin,Total 0.5 mg/dl (0.2-1); Globulin 4.3 gm/dl (2.5-4.0); NT Pro B Type Natriuretic Pept 8018 pg/ml (0-1800); Total Protein 7.4 gm/dl (6.4-8.2); Troponin I < 0.015 ng/ml (0-0.045)
[2020-08-02 15:14] LABS: Anisocytosis Present; Hypochromasia Present; Polychromasia 1+
--- NOTE | 2020-08-02 15:19 | Emergency Department Note ---
Impression & Plan Chronic diastolic (congestive) heart failure, CKD (chronic kidney disease) stage 4, GFR 15-29 ml/min, Diverticulitis ED Provider Note Provider: Adryan Mccoy MD DATE OF SERVICE: 08/02/2020 CHIEF COMPLAINT: Nausea, fatigue, urinary symptoms HISTORY OF PRESENT ILLNESS: Patient is a 84-year-old female history of type 2 diabetes, diabetic neuropathy, hypertension, RLS, chronic respiratory failure with nightly oxygen, CHF, CKD, A. fib on Eliquis presenting here today sent from [place] with concerns for being very shortness of breath and requiring increased assistance walking. They reported she seems somewhat ramirez in color and very lethargic. Patient herself states that time she is little short of breath but mainly complains of some nausea. Reports she still having some urinary symptoms of the completed antibiotics for recent UTI. Patient states she may have fallen a day or 2 ago has been able to give her a clear history on this. She denies chest pain. Patient does report some increased swelling of her lower legs. Patient's records indicate she is not currently on antibiotics but was recently here admitted to the hospital with E. coli bacteremia from UTI. No fevers have been reported. Patient does report some chills. REVIEW OF SYSTEMS: A total of 10 review of systems was obtained and negative except as stated above in the HPI. PAST MEDICAL HISTORY: As noted above MEDICATIONS: Reviewed medication listing from the facility, patient is on torsemide and spironolactone SOCIAL HISTORY: Distant former smoker, currently residing at [facility] PHYSICAL EXAM: GENERAL: alert and oriented initially resting with eyes closed alert to verbal stimuli in no acute distress on stretcher laying flat but seems somewhat fatigued Head: normocephalic and atraumatic EYES: No injection, discharge or icterus. PERRL NECK: Trachea midline. Supple. ENT: Mucous membranes pink and moist. LUNGS: Airway patent. No retractions. Breath sounds diminished in the bases HEART: Regular rate and rhythm. No chest wall tenderness ABDOMEN: Soft and non-tender, without guarding or rebound. SKIN: Acyanotic, warm, dry, without rashes EXTREMITIES: Without swelling, tenderness or deformity NEUROLOGICAL: No focal deficits moving all extremities but seems somewhat fatigued on exam. No aphasia. No facial droop or slurred speech. EK bpm in atrial fibrillation. No acute ST segment elevation or depression. QTC 448. Nonspecific T wave changes. CONTINUOUS CARDIAC MONITORING: was ordered and showed a heart rate of 80-90s bpm in atrial fibrillation GCS 15. Patient's laboratory studies and imaging reviewed. Differential includes Infection, dehydration, metabolic abnormality, h ypo/hyperglycemia, gastrointestinal, traumatic, electrolyte disturbance, anemia, hypoxia, cardiac sources, intracerebral event, toxicologic, neurologic, as well as other pathologies. IMPRESSION/MEDICAL DECISION MAKING: Patient presents with a ports from facility has been more short of breath fati gued ramirez in color and still with urinary symptoms. She reports nausea and continued urinary symptoms. States he is up and eating the best but it reporting increased leg swelling. Patient is able to converse with me but seems fatigued on exam. No fevers reported and afebrile upon arrival here. Patient without leukocytosis and stable anemia. Blood work does show some hyperkalemia as well as some elevated BUN but chronic CKD. Troponin is undetectable and EKG without ischemic changes. Ammonia not elevated. proBNP is elevated and with some lower extremity swelling question component of CHF. With recent UTI continued symptoms concern for possible recurrent bacteremia, infection, UTI. C ultures and lactate obtained. Do not want to pursue aggressive fluid therapy given some concerns of fluid overload. CT the head is without acute pathology per radiology. CT abdomen pelvis will be obtained. Chest x-ray was obtained of the lungs. Patient is anticoagulated. Evidence of fluid overload on imaging. Outpatient nephrology no noted with concerns for this and the patient previously declined dialysis. We will try a small dose of Lasix to see if this promotes increased diuresis but cautious given her renal dysfunction. Evidence on the CT of the abdomen pelvis acute sigmoid diverticulitis. Given a dose of Rocephin and Flagyl for diverticulitis coverage. Patient's nausea is resolved. Daughter later present at bedside and updated. Patient has not tolerate CPAP before per her report and they are hesitant at this time to proceed with BiPAP. Will need to monitor closely as a believe some hypercarbia is affecting her and causing her fatigue. Hospitalist will be contacted. DIAGNOSIS: CHF exacerbation, diverticulitis, hypercarbia DISPOSITION: Hospitalist will evaluate Past Med/Surg History Medical History (Updated 08/02/20 @ 22:54 by Adryan Mccoy M.D.) Acute on chronic diastolic heart failure Anemia Asthma stable Atrial fibrillation, chronic Benign hypertension Cellulitis of left foot Cellulitis of right foot Chronic back pain CKD (chronic kidney disease) stage 4, GFR 15-29 ml/min Depression Diabetes IDDM Diabetic foot ulcer Diabetic peripheral neuropathy Gastroparesis GERD (gastroesophageal reflux disease) Gram-negative bacteremia Hiatal hernia History of blood transfusion remote years ago; unknown etiology per patient Hypothyroidism Mammogram abnormal Morbid obesity MRSA infection Nocturnal hypoxemia 2lpm via n/c at HS Osteomyelitis (06/06/12) Osteomyelitis, chronic, ankle or foot Restless leg syndrome Sciatica Seizure x2 grand-mal seizures with unknown etiology ~25 years ago- no anticonvulsants x 20 years/no further seizures Vaginal candidiasis Surgical History H/O hysterectomy for benign disease (06/06/12) Hemorrhoidectomy (06/06/12) History of cardioversion History of cataract surgery bilateral History of colonoscopy 01/25/2016 - Dr. Lr Normal mucosa in entire colon, biopsied, diverticulosis in sigmoid, otherwise normal. Biopsy showed no inflammation. History of esophagogastroduodenoscopy (EGD) History of hemorrhoidectomy History of total abdominal hysterectomy History of total knee arthroplasty bilateral Family History Mother Breast cancer Father Congestive heart failure Other Diabetes Dyslipidemia Hypertension Denies family history of Crohn's disease Colorectal cancer Inflammatory bowel disease Social History Smoking Status: Never smoker Age Started Using Tobacco: 26; Age Quit Using Tobacco: 51; packs per day: 2; Years Smoked: 25; Second Hand Exposure: No; Hx Alcohol Use: No Hx Substance Use: No Preferred Language: Samoan Communication Ability: Effective Visual Impairment: No Limitations Hearing Ability: Normal Belt Line Feeder Required: No Beliefs That Will Affect Care: None marital status: / Current Living Situation: Alone Current Living Situation Comment: with caregivers current occupational status: retired Other Information That Helps Us Care for You: No Feels Safe at Home: Yes Safety Concerns: Feels Safe At This Time caffeine: No Seatbelt Use: always Assistive Devices: Glasses Allergies Allergies Allergy/AdvReac Type Severity Reaction Status Date / Time carbamazepine Allergy Intermediate HIVES Verified 07/26/20 15:04 Home Meds Home Medications Medication Instructions Recorded Confirmed potassium chloride 20 meq PO QAM 04/11/20 08/02/20 acetaminophen 325 mg capsule 650 mg PO QID cap 06/23/20 08/02/20 levothyroxine 88 mcg capsule 88 mcg PO DAILY 06/23/20 08/02/20 loperamide 2 mg capsule 2 mg PO Q6H PRN 06/23/20 08/02/20 metoclopramide HCl 10 mg tablet 5 mg PO BID PRN tab 06/23/20 08/02/20 montelukast 10 mg tablet 10 mg PO DAILY 06/23/20 08/02/20 Tresiba FlexTouch U-100 70 unit SUBCUT QAM 08/02/20 08/02/20 apixaban [Eliquis] 2.5 mg PO BID 08/02/20 08/02/20 ferrous sulfate 325 mg PO BID 08/02/20 08/02/20 melatonin 3 mg PO HS 08/02/20 08/02/20 metolazone 2.5 mg PO Q OTHER DAY 08/02/20 08/02/20 nystatin 2 applic TOPICAL Q12 08/02/20 08/02/20 omeprazole 20 mg PO DAILYBB 08/02/20 08/02/20 pramipexole 0.125 mg PO HS 08/02/20 08/02/20 spironolactone 25 mg PO DAILY 08/02/20 08/02/20 torsemide 40 mg PO DAILY 08/02/20 08/02/20 torsemide 80 mg PO QPM PRN 08/02/20 08/02/20 Previous Rx's Medication Instructions Recorded metoprolol succinate 200 mg 200 mg PO QAM #90 tab 06/10/19 tablet,extended release 24 hr pramipexole 0.25 mg tablet 0.125 mg PO HS #45 tab 08/18/19 Wheelchair (Manual or Powered) #2 ea 10/15/19 pregabalin 100 mg capsule 100 mg PO BID #180 cap 12/23/19 calcitriol 0.25 mcg capsule 0.25 mcg PO .COMPLEX #39 cap 01/23/20 ondansetron 4 mg disintegrating 4 mg PO Q6H PRN #30 tab 03/12/20 tablet pen needle, diabetic 32 gauge x #400 ea 04/05/20" sertraline 50 mg tablet 50 mg PO QAM #90 tab 04/08/20 cyclobenzaprine 5 mg tablet 5 mg PO TID PRN #30 tab 04/13/20 insulin aspart U-100 100 unit/mL 18 unit SUBCUT TID 30 Days #30 ml 06/29/20 (3 mL) subcutaneous pen Results & Data (ED) Vital Signs Vital Signs - 24 hr 08/02/20 13:28 08/02/20 14:20 08/02/20 14:37 Temperature 36.5 C Temperature Source Oral Pulse Rate 93 H 83 93 H Pulse Rate from SpO2 Sensor Pulse Rhythm Regular Regular Respiratory Rate 18 24 18 Respiratory Effort / Characteristics Non-Labored Spontaneous Respiratory Depth Normal Respiratory Pattern Regular Blood Pressure 106/69 98/58 L Blood Pressure Mean 81 71 Pulse Oximetry 98 98 Oxygen Delivery Method Nasal Cannula Nasal Cannula Oxygen Flow Rate 2 2 Sepsis Recent Fever Within 48 Hours No Sepsis New/Unexplained Change in Mental Status No Sepsis Action Taken by Nursing No Action Required 08/02/20 15:00 08/02/20 15:30 08/02/20 16:01 Temperature Temperature Source Pulse Rate 84 91 H 92 H Pulse Rate from SpO2 Sensor 86 Pulse Rhythm Respiratory Rate 19 18 19 Respiratory Effort / Characteristics Respiratory Depth Respiratory Pattern Blood Pressure 112/77 116/79 109/86 Blood Pressure Mean 88 91 93 Pulse Oximetry 100 Oxygen Delivery Method Oxygen Flow Rate Sepsis Recent Fever Within 48 Hours Sepsis New/Unexplained Change in Mental Status Sepsis Action Taken by Nursing 08/02/20 16:30 08/02/20 17:00 08/02/20 17:01 Temperature Temperature Source Pulse Rate 87 91 H 83 Pulse Rate from SpO2 Sensor 85 77 Pulse Rhythm Respiratory Rate 19 15 19 Respiratory Effort / Characteristics Respiratory Depth Respiratory Pattern Blood Pressure 111/70 126/80 Blood Pressure Mean 83 95 Pulse Oximetry 95 97 Oxygen Delivery Method Oxygen Flow Rate Sepsis Recent Fever Within 48 Hours Sepsis New/Unexplained Change in Mental Status Sepsis Action Taken by Nursing 08/02/20 17:30 Temperature Temperature Source Pulse Rate 84 Pulse Rate from SpO2 Sensor Pulse Rhythm Respiratory Rate 12 Respiratory Effort / Characteristics Respiratory Depth Respiratory Pattern Blood Pressure 125/83 Blood Pressure Mean 97 Pulse Oximetry Oxygen Delivery Method Oxygen Flow Rate Sepsis Recent Fever Within 48 Hours Sepsis New/Unexplained Change in Mental Status Sepsis Action Taken by Nursing Laboratory Data Result diagrams: 08/02/20 14:39 08/02/20 14:39 Lab Results 08/02/20 08/02/20 08/02/20 Range/Units 14:39 14:39 14:39 WBC 6.56 (4.8-10.8) K/uL RBC 2.94 L (4.2-5.4) M/uL Hgb 8.5 L (12.0-16.0) g/dL Hct 28.7 L (37-47) % MCV 97.6 (80-100) fL MCH 28.9 (25-34) pg MCHC 29.6 L (32-36) g/dL RDW Std Deviation 72.4 H (36.4-46.3) fL RDW Coeff of Quirino 20.5 H (11.5-14.5) % Plt Count 165 (130-400) K/uL MPV 10.5 H (7.4-10.4) fL Immature Gran % (Auto) 0.8 % Neut % (Auto) 76.9 % Lymph % (Auto) 10.4 % [place] % (Auto) 10.2 % Eos % (Auto) 1.4 % Baso % (Auto) 0.3 % Neut # (Auto) 5.05 (1.4-6.5) K/uL Lymph # (Auto) 0.68 L (1.2-3.4) K/uL [place] # (Auto) 0.67 H (0.11-0.59) K/uL Eos # (Auto) 0.09 (0-0.5) K/uL Baso # (Auto) 0.02 (0-0.2) K/uL Immature Gran # (Auto) 0.05 H (0.00-0.02) K/uL Polychromasia 1+ Hypochromasia Present Anisocytosis Present VBG pH (7.36-7.41) VBG pCO2 (38-50) mmHg VBG pO2 mmHg VBG HCO3 mmol/L VBG O2 Saturation % VBG Base Excess mEq/L Barometric Pressure mm/Hg Sodium 137 (136-145) mmol/L Potassium 5.7 H (3.5-5.1) mmol/L Chloride 107 (98-107) mmol/L Carbon Dioxide 24 (21-32) mmol/L Anion Gap 6.0 (3-11) BUN 79 H (7-18) mg/dl Creatinine 2.65 H (0.6-1.2) mg/dl Est Cr Clr Drug Dosing 21.9 ml/min Est GFR ( Amer) 18.7 ml/min Est GFR (Non-Af Amer) 16.1 ml/min BUN/Creatinine Ratio 29.8 H (10-20) Glucose 110 H (70-99) mg/dl Lactate 1.4 (0.4-2.0) mmol/L Calcium 8.0 L (8.5-10.1) mg/dl Magnesium 1.9 (1.8-2.4) mg/dl Total Bilirubin 0.5 (0.2-1) mg/dl AST 26 (15-37) U/L ALT 23 (12-78) U/L Alkaline Phosphatase 89 (45-117) U/L Ammonia (11-32) umol/L Troponin I < 0.015 (0-0.045) ng/ml NT-Pro-B Natriuret Pep 8018 H (0-1800) pg/ml Total Protein 7.4 (6.4-8.2) gm/dl Albumin 3.1 L (3.4-5.0) gm/dl Globulin 4.3 H (2.5-4.0) gm/dl Albumin/Globulin Ratio 0.7 L (0.9-2) Lipase 58 L (73-393) U/L Urine Color Urine Appearance (Clear) Urine pH (4.5-7.5) Ur Specific [place] (1.000-1.030) Urine Protein (Negative) Urine Glucose (UA) (Negative) Urine Ketones (Negative) Urine Blood (Negative) Urine Nitrite (Negative) Urine Bilirubin (Negative) Urine Urobilinogen (Negative) Ur Leukocyte Esterase (Negative) COVID-19 Eval Order SARS-CoV-2 (PCR) (Negative) 08/02/20 08/02/20 08/02/20 Range/Units 14:39 14:49 16:45 WBC (4.8-10.8) K/uL RBC (4.2-5.4) M/uL Hgb (12.0-16.0) g/dL Hct (37-47) % MCV (80-100) fL MCH (25-34) pg MCHC (32-36) g/dL RDW Std Deviation (36.4-46.3) fL RDW Coeff of Quirino (11.5-14.5) % Plt Count (130-400) K/uL MPV (7.4-10.4) fL Immature Gran % (Auto) % Neut % (Auto) % Lymph % (Auto) % [place] % (Auto) % Eos % (Auto) % Baso % (Auto) % Neut # (Auto) (1.4-6.5) K/uL Lymph # (Auto) (1.2-3.4) K/uL [place] # (Auto) (0.11-0.59) K/uL Eos # (Auto) (0-0.5) K/uL Baso # (Auto) (0-0.2) K/uL Immature Gran # (Auto) (0.00-0.02) K/uL Polychromasia Hypochromasia Anisocytosis VBG pH 7.24 L (7.36-7.41) VBG pCO2 55 H (38-50) mmHg VBG pO2 28 mmHg VBG HCO3 23 mmol/L VBG O2 Saturation < 60.0 % VBG Base Excess -4.7 mEq/L Barometric Pressure 737.3 mm/Hg Sodium (136-145) mmol/L Potassium (3.5-5.1) mmol/L Chloride (98-107) mmol/L Carbon Dioxide (21-32) mmol/L Anion Gap (3-11) BUN (7-18) mg/dl Creatinine (0.6-1.2) mg/dl Est Cr Clr Drug Dosing ml/min Est GFR ( Amer) ml/min Est GFR (Non-Af Amer) ml/min BUN/Creatinine Ratio (10-20) Glucose (70-99) mg/dl Lactate (0.4-2.0) mmol/L Calcium (8.5-10.1) mg/dl Magnesium (1.8-2.4) mg/dl Total Bilirubin (0.2-1) mg/dl AST (15-37) U/L ALT (12-78) U/L Alkaline Phosphatase (45-117) U/L Ammonia 20.0 (11-32) umol/L Troponin I (0-0.045) ng/ml NT-Pro-B Natriuret Pep (0-1800) pg/ml Total Protein (6.4-8.2) gm/dl Albumin (3.4-5.0) gm/dl Globulin (2.5-4.0) gm/dl Albumin/Globulin Ratio (0.9-2) Lipase (73-393) U/L Urine Color Yellow Urine Appearance Clear (Clear) Urine pH 5.0 (4.5-7.5) Ur Specific [place] 1.014 (1.000-1.030) Urine Protein Negative (Negative) Urine Glucose (UA) Negative (Negative) Urine Ketones Negative (Negative) Urine Blood Negative (Negative) Urine Nitrite Negative (Negative) Urine Bilirubin Negative (Negative) Urine Urobilinogen Negative (Negative) Ur Leukocyte Esterase Negative (Negative) COVID-19 Eval Order SARS-CoV-2 (PCR) (Negative) 08/02/20 08/02/20 Range/Units 17:00 17:00 WBC (4.8-10.8) K/uL RBC (4.2-5.4) M/uL Hgb (12.0-16.0) g/dL Hct (37-47) % MCV (80-100) fL MCH (25-34) pg MCHC (32-36) g/dL RDW Std Deviation (36.4-46.3) fL RDW Coeff of Quirino (11.5-14.5) % Plt Count (130-400) K/uL MPV (7.4-10.4) fL Immature Gran % (Auto) % Neut % (Auto) % Lymph % (Auto) % [place] % (Auto) % Eos % (Auto) % Baso % (Auto) % Neut # (Auto) (1.4-6.5) K/uL Lymph # (Auto) (1.2-3.4) K/uL [place] # (Auto) (0.11-0.59) K/uL Eos # (Auto) (0-0.5) K/uL Baso # (Auto) (0-0.2) K/uL Immature Gran # (Auto) (0.00-0.02) K/uL Polychromasia Hypochromasia Anisocytosis VBG pH (7.36-7.41) VBG pCO2 (38-50) mmHg VBG pO2 mmHg VBG HCO3 mmol/L VBG O2 Saturation % VBG Base Excess mEq/L Barometric Pressure mm/Hg Sodium (136-145) mmol/L Potassium (3.5-5.1) mmol/L Chloride (98-107) mmol/L Carbon Dioxide (21-32) mmol/L Anion Gap (3-11) BUN (7-18) mg/dl Creatinine (0.6-1.2) mg/dl Est Cr Clr Drug Dosing ml/min Est GFR ( Amer) ml/min Est GFR (Non-Af Amer) ml/min BUN/Creatinine Ratio (10-20) Glucose (70-99) mg/dl Lactate (0.4-2.0) mmol/L Calcium (8.5-10.1) mg/dl Magnesium (1.8-2.4) mg/dl Total Bilirubin (0.2-1) mg/dl AST (15-37) U/L ALT (12-78) U/L Alkaline Phosphatase (45-117) U/L Ammonia (11-32) umol/L Troponin I (0-0.045) ng/ml NT-Pro-B Natriuret Pep (0-1800) pg/ml Total Protein (6.4-8.2) gm/dl Albumin (3.4-5.0) gm/dl Globulin (2.5-4.0) gm/dl Albumin/Globulin Ratio (0.9-2) Lipase (73-393) U/L Urine Color Urine Appearance (Clear) Urine pH (4.5-7.5) Ur Specific [place] (1.000-1.030) Urine Protein (Negative) Urine Glucose (UA) (Negative) Urine Ketones (Negative) Urine Blood (Negative) Urine Nitrite (Negative) Urine Bilirubin (Negative) Urine Urobilinogen (Negative) Ur Leukocyte Esterase (Negative) COVID-19 Eval Order Covid19 at [facility] SARS-CoV-2 (PCR) NEGATIVE (Negative) Administered Medications Piperacillin Sod/Tazobactam (Sod 4.5 gm/ Dextrose) 120 mls @ 30 mls/hr IV Q8H ANTONIO; Protocol Stop: 08/12/20 21:59 Last Admin: 08/02/20 21:40 Dose: 30 mls/hr Documented by: [id number] Insulin Aspart (Insulin Aspart 100 Units/Ml 3 Ml Pen) 0 units SC ACHS ANTONIO Stop: 09/01/20 20:59 Last Admin: 08/02/20 21:41 Dose: Not Given Documented by: [id number] Nystatin (Nystatin Powder 15gm Btl) 1 appln EXT Q12 ANTONIO Stop: 09/01/20 20:59 Last Admin: 08/02/20 21:39 Dose: 1 appln Documented by: [id number] Pramipexole Dihydrochloride (Pramipexole Dihydrochlo 0.25 Mg Tab) 0.125 mg PO HS ANTONIO Stop: 09/01/20 20:59 Last Admin: 08/02/20 21:40 Dose: 0.125 mg Documented by: [id number] Discontinued Medications Dextrose (Dextrose 50% 50 Ml Syringe) Confirm Administered Dose 50 ml IV .STK- MED ONE Stop: 08/02/20 20:28 Last Admin: 08/02/20 20:30 Dose: 50 ml Documented by: [id number] Furosemide (Furosemide 40 Mg/4 Ml Vial) 40 mg IV NOW STA Stop: 08/02/20 16:27 Last Admin: 08/02/20 17:01 Dose: 40 mg Documented by: [id number] Ceftriaxone Sodium (Rocephin) 2,000 mg in 70 mls @ 140 mls/hr IV NOW STA Stop: 08/02/20 16:52 Last Infusion: 08/02/20 17:47 Dose: 0 mls/hr Documented by: [id number] Admin: 08/02/20 17:01 Dose: 140 mls/hr Documented by: [id number] Metronidazole (Flagyl) 500 mg in 100 mls @ 100 mls/hr IV NOW STA Stop: 08/02/20 17:22 Last Infusion: 08/02/20 18:38 Dose: 0 mls/hr Documented by: [id number] Admin: 08/02/20 17:47 Dose: 100 mls/hr Documented by: [id number] Ondansetron HCl (Ondansetron Inj 2 Mg/Ml 2 Ml Vial) 4 mg IV NOW STA Stop: 08/02/20 14:26 Last Admin: 08/02/20 14:47 Dose: 4 mg Documented by: [id number] Imaging Data Radiologist's Impression: Chest X-Ray 08/02/20 14:13 XR chest 1V portable HISTORY: Dyspnea COMPARISON: Chest 07/16/2020. FINDINGS: No pneumothorax. The heart is enlarged. Suspect trace bilateral pleural effusions. There is progressive perihilar interstitial/vascular thickening consistent with developing pulmonary edema. No new focal lung consolidations. IMPRESSION: Cardiomegaly with developing mild pulmonary edema. ACT 112: Negative or not required by law. Electronically signed by: Ramón Ledesma M.D. 08/02/2020 3:51 PM Abdomen/Pelvis CT 08/02/20 14:[address] WITHOUT CONTRAST CT DOSE: HISTORY: nausea, urinary pain, lethargy TECHNIQUE: Multiaxial CT images of the abdomen and pelvis were performed without contrast. A dose lowering technique was utilized adhering to the principles of ALARA. COMPARISON STUDY: Abdomen and pelvis CT 01/23/2020. FINDINGS: Trace right pleural effusion. The cardiac silhouette is mildly enlarged. Mild interstitial thickening at the lung bases which is likely chroni c. Stable 9 mm nodule within the left lower lobe on image 41. This appears to contain fat and favors a hamartoma. There is also a stable 4 mm nodule within the right lower lobe on image 43. No pneumoperitoneum. No pneumatosis. Severe osteoarthritis within the right hip, unchanged. There is also an old, healed right subcapital femoral neck fracture. Small fat-containing hiatal hernia. Moderate diffuse body wall edema. Trace ascites. Nodular contour to the liver consistent with cirrhosis. No hepatic or splenic masses. The spleen is normal in size. The unenhanced adrenal glands and pancreas unremarkable. Bilateral perinephric edema is noted. Bilateral cortical renal scarring persists. No renal stones or hydronephrosis. 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 Normal caliber abdominal aorta. No retroperitoneal lymphadenopathy. Mild gallbladder wall thickening with adjacent pericholecystic fluid. This is nonspecific but likely due to the patient's edematous state/cirrhosis. Acute cholecystitis is considered less likely but not entirely excluded. The bladder is unremarkable. The uterus is surgically absent. Mild pelvic floor collapse. Multiple colonic diverticula. There appears to be an inflamed diverticulum within the sigmoid colon on image 337 with minimal adjacent fat stranding. This likely represents a mild acute diverticulitis. No perforation or abscess. No evidence for bowel obstruction. IMPRESSION: 1. Mild acute sigmoid diverticulitis. No perforation or abscess. 2. Diffuse body wall edema. 3. Cirrhosis with trace ascites. 4. Gallbladder wall thickening with a small amount of pericholecystic fluid. This is nonspecific but favors the patient's diffuse edematous state. An acute cholecystitis is considered less likely but not entirely excluded. 5. Additional findings as described above. ACT 112: Negative or not required by law. Electronically signed by: Ramón Ledesma M.D. 08/02/2020 4:[address] 08/02/20 14:23 CT head/brain wo con CLINICAL HISTORY: nausea, urinary pain, lethargy COMPARISON STUDY: 07/08/2020 TECHNIQUE: Axial CT of the brain is performed from the vertex to the skull base. IV contrast was not administered for this examination. A dose lowering technique was utilized adhering to the principles of ALARA. CT DOSE: 3495.00 mGy.cm FINDINGS: No intra or extra-axial mass lesions are visualized. There is no CT evidence of acute cortical infarction. There is no evidence of midline shift. There is no acute hemorrhage. No calvarial fractures are visualized. There are moderate white matter hypodensities likely on a small vessel basis. There is no evidence of pathologic ventricular dilatation. There is no evidence of acute sinusitis IMPRESSION: No acute intracranial findings ACT 112: Negative or not required by law. Electronically signed by: Steve Randall M.D. 08/02/2020 3:54 PM Discharge Plan Visit Data Chief Complaint: Shortness of Breath/Dyspnea ED Provider: Adryan Mccoy Discharge Problem: Chronic diastolic (congestive) heart failure, CKD (chronic kidney disease) stage 4, GFR 15-29 ml/min, Diverticulitis Patient Disposition: Admitted As Inpatient Discharge Instructions Interventions: ED Discharge Assessment Last Done: 08/02/20 19:33
[2020-08-02 15:38] LABS: Oxygen Saturation VBG < 60.0 %
--- NOTE | 2020-08-02 15:53 | XRay Report ---
XR chest 1V portable HISTORY: Dyspnea COMPARISON: Chest 07/16/2020. FINDINGS: No pneumothorax. The heart is enlarged. Suspect trace bilateral pleural effusions. There is progressive perihilar interstitial/vascular thickening consistent with developing pulmonary edema. N o new focal lung consolidations. IMPRESSION: Cardiomegaly with developing mild pulmonary edema. ACT 112: Negative or not required by law. Electronically signed by: Ramón Ledesma M.D. 08/02/2020 3:51 PM
--- NOTE | 2020-08-02 15:56 | CT Scan Report ---
CT head/brain wo con CLINICAL HISTORY: nausea, urinary pain, lethargy COMPARISON STUDY: 07/08/2020 TECHNIQUE: Axial CT of the brain is performed from the vertex to the skull base. IV contrast was not administered for this examination. A dose lowering technique was utilized adhering to the principles of ALARA. CT DOSE: 3495.00 mGy.cm FINDINGS: No intra or extra-axial mass lesions are visualized. There is no CT evidence of acute cortical infarc tion. There is no evidence of midline shift. There is no acute hemorrhage. No calvarial fractures ar e visualized. There are moderate white matter hypodensities likely on a small vessel basis. There is no evidence of pathologic ventricular dilatation. There is no evidence of acute sinusitis IMPRESSION: No acute intracranial findings ACT 112: Negative or not required by law. Electronically signed by: Steve Randall M.D. 08/02/2020 3:54 PM
--- NOTE | 2020-08-02 16:13 | CT Scan Report ---
ABDOMEN AND PELVIS CT WITHOUT CONTRAST CT DOSE: HISTORY: nausea, urinary pain, lethargy TECHNIQUE: Multiaxial CT images of the abdomen and pelvis were performed without contrast. A dose lo wering technique was utilized adhering to the principles of ALARA. COMPARISON STUDY: Abdomen and pelvis CT 01/23/2020. FINDINGS: Trace right pleural effusion. The cardiac silhouette is mildly enlarged. Mild interstitial thickening at the lung bases which is likely chronic. Stable 9 mm nodule within the left lower lobe o n image 41. This appears to contain fat and favors a hamartoma. There is also a stable 4 mm nodule wi thin the right lower lobe on image 43. No pneumoperitoneum. No pneumatosis. Severe osteoarthritis wit hin the right hip, unchanged. There is also an old, healed right subcapital femoral neck fracture. Sm all fat-containing hiatal hernia. Moderate diffuse body wall edema. Trace ascites. Nodular contour to the liver consistent with cirrhosis. No hepatic or splenic masses. The spleen is normal in size. The unenhanced adrenal glands and pancreas unremarkable. Bilateral perinephric edema is noted. Bilateral cortical renal scarring persists. No renal stones or hydronephrosis. 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 Normal caliber abdominal aorta. No retroperitoneal lymphadenopathy. Mild gallbladder wa ll thickening with adjacent pericholecystic fluid. This is nonspecific but likely due to the patient' s edematous state/cirrhosis. Acute cholecystitis is considered less likely but not entirely excluded. The bladder is unremarkable. The uterus is surgically absent. Mild pelvic floor collapse. Multiple c olonic diverticula. There appears to be an inflamed diverticulum within the sigmoid colon on image 33 7 with minimal adjacent fat stranding. This likely represents a mild acute diverticulitis. No perfora tion or abscess. No evidence for bowel obstruction. IMPRESSION: 1. Mild acute sigmoid diverticulitis. No perforation or abscess. 2. Diffuse body wall edema. 3. Cirrhosis with trace ascites. 4. Gallbladder wall thickening with a small amount of pericholecystic fluid. This is nonspecific but favors the patient's diffuse edematous state. An acute cholecystitis is considered less likely but no t entirely excluded. 5. Additional findings as described above. ACT 112: Negative or not required by law. Electronically signed by: Ramón Ledesma M.D. 08/02/2020 4:11 PM
[2020-08-02] MEDS ORDERED: metroNIDAZOLE 500 MG/100 ML BAG IV STA (16:23)
[2020-08-02] MEDS ORDERED: cefTRIAXone SODIUM 2,000 MG/70 ML BAG IV STA (16:23)
[2020-08-02] MEDS ORDERED: FUROSEMIDE 40 MG/4 ML VIAL IV STA (16:26)
[2020-08-02 17:00] LABS: Appearance Urine Clear (Clear); Bilirubin Urine Negative (Negative); Blood Urine Negative (Negative); Color Urine Yellow; Glucose Urine UA Negative (Negative); Ketones Urine Negative (Negative); Leukocyte Esterase Urine Negative (Negative); Nitrite Urine Negative (Negative); Protein Urine Negative (Negative); Specific Gravity Urine 1.014 (1.000-1.030); Urobilinogen Urine Negative (Negative)
--- NOTE | 2020-08-02 17:31 | History & Physical Report ---
Date of Service August 02, 2020 Assessment & Plan (1) Acute on chronic diastolic heart failure: Patient presents with significant volume overload, reportedly refusing to wear her noninvasive positive pressure ventilation. Respiratory acidosis seen on VBG on presentation. Worsening renal failure on top of her typical baseline chronic kidney disease with elevation of BUN and creatinine however clinically she is excess fluid subsequently we will proceed with diuresis despite her renal failure. We will have oversight with nephrology. At her last hospital discharge there was some concern that her BUN and creatinine were rising subsequently her toes torsemide was reduced at discharge to once a day continuing spironolactone and holding as needed metolazone. She is seen 4 days after discharge by nephrology who increased her total torsemide to 40 mg a day due to already accumulating volume status. (2) Diverticulitis: Patient has acute diverticulitis seen on CT scan abdomen pelvis she was given Rocephin and metronidazole in the emergency department subsequently we will place her on Zosyn therapy renal dose adjusted. Should be on a clear liquid diet diabetic (3) Atrial fibrillation, permanent: Atrial fibrillation with controlled ventricular ventricular response typically on Toprol-XL 200 and Eliquis 2.5 twice daily (4) CKD (chronic kidney disease) stage 4, GFR 15-29 ml/min: Patient seeing nephrology has been educated on possible dialysis BUN/creatinine are elevated over baseline (5) Moderate obstructive sleep apnea: Her sleep apnea and morbid obesity likely play a role in her volume retention and pulmonary hypertension. Encouraging her to wear her CPAP mask would be beneficial (6) DM (diabetes mellitus), type 2, uncontrolled w/neurologic complication: During her last hospital stay her A1c was 6.9 she is typically is on Lantus 50 units a day which may be somewhat retained with her renal failure subsequently should be on basal bolus insulin with diabetic pharmacy oversight (7) On anticoagulant therapy: Patient jennifer on Eliquis 2.5 twice daily for atrial fibrillation which also serve as DVT prevention (8) Anemia: Patient typically is anemia of chronic disease likely from her renal dysfunction, her iron was last checked July 26 and found to be 43 and her TIBC was low transferrin saturation was 14% History of Present Illness Primary Care Provider: [facility] 84-year-old female history of type 2 diabetes, diabetic neuropathy, hypertension, RLS, chronic respiratory failure with nightly oxygen, CHF, CKD, A. fib on Eliquis presenting here today sent from [facility] with concerns for being very shortness of breath and requiring increased assistance walking. They reported she seems somewhat ramriez in color and very lethargic. Patient herself states that time she is little short of breath but mainly complains of some nausea. Reports she still having some urinary symptoms of the completed antibiotics for recent UTI. Patient states she may have fallen a day or 2 ago has been able to give her a clear history on this. Since her last discharge were her diuretics were reduced because of escalating or worsening renal failure the patient saw nephrology which once again reincreased her diuretics. Despite this fact she continues to have fluid retention and worsening renal failure. She denies chest pain. Patient does report some increased swelling of her lower legs. Patient's records indicate she is not currently on antibiotics but was recently here admitted to the hospital with E. coli gram-negative bacteremia from UTI. She completed cefdinir after discharge. No fevers have been reported. Patient does report some chills. In the ER she looks ill volume overload and lethargic her daughter was at the bedside who confirms she is a full code at this time. The daughter also states that they did previously toward dialysis facilities and they are unclear whether they proceed with dialysis if recommended Allergies Allergy/AdvReac Type Severity Reaction Status Date / Time carbamazepine Allergy Intermediate HIVES Verified 07/26/20 15:04 Home Medications Medication Instructions Recorded Confirmed Type metoprolol succinate 200 mg 200 mg PO QAM #90 tab 06/10/19 08/02/20 Rx tablet,extended release 24 hr pramipexole 0.25 mg tablet 0.125 mg PO HS #45 tab 08/18/19 08/02/20 Rx Wheelchair (Manual or Powered) #2 ea 10/15/19 07/16/20 Rx pregabalin 100 mg capsule 100 mg PO BID #180 cap 12/23/19 08/02/20 Rx calcitriol 0.25 mcg capsule 0.25 mcg PO .COMPLEX #39 cap 01/23/20 08/02/20 Rx ondansetron 4 mg disintegrating 4 mg PO Q6H PRN #30 tab 03/12/20 08/02/20 Rx tablet pen needle, diabetic 32 gauge x #400 ea 04/05/20 07/26/20 Rx " sertraline 50 mg tablet 50 mg PO QAM #90 tab 04/08/20 08/02/20 Rx potassium chloride 20 meq PO QAM 04/11/20 08/02/20 History cyclobenzaprine 5 mg tablet 5 mg PO TID PRN #30 tab 04/13/20 08/02/20 Rx apixaban 2.5 mg PO QAM 05/21/20 08/02/20 History acetaminophen 325 mg capsule 650 mg PO QID cap 06/23/20 08/02/20 History levothyroxine 88 mcg capsule 88 mcg PO DAILY 06/23/20 08/02/20 History loperamide 2 mg capsule 2 mg PO Q6H PRN 06/23/20 08/02/20 History metoclopramide HCl 10 mg tablet 5 mg PO BID PRN tab 06/23/20 08/02/20 History montelukast 10 mg tablet 10 mg PO DAILY 06/23/20 08/02/20 History insulin aspart U-100 100 unit/mL 18 unit SUBCUT TID 30 Days #30 ml 06/29/20 08/02/20 Rx (3 mL) subcutaneous pen Tresiba FlexTouch U-100 70 unit SUBCUT QAM 08/02/20 08/02/20 History ferrous sulfate 325 mg PO BID 08/02/20 08/02/20 History melatonin 3 mg PO HS 08/02/20 08/02/20 History metolazone 2.5 mg PO Q OTHER DAY 08/02/20 08/02/20 History nystatin 2 applic TOPICAL Q12 08/02/20 08/02/20 History omeprazole 20 mg PO DAILYBB 08/02/20 08/02/20 History pramipexole 0.125 mg PO HS 08/02/20 08/02/20 History spironolactone 25 mg PO DAILY 08/02/20 08/02/20 History torsemide 40 mg PO DAILY 08/02/20 08/02/20 History torsemide 80 mg PO QPM PRN 08/02/20 08/02/20 History Past Med/Surg History Medical History (Updated 08/02/20 @ 17:31 by Last Michael MD) Acute on chronic diastolic heart failure Anemia Asthma stable Atrial fibrillation, chronic Benign hypertension Cellulitis of left foot Cellulitis of right foot Chronic back pain CKD (chronic kidney disease) stage 4, GFR 15-29 ml/min Depression Diabetes IDDM Diabetic foot ulcer Diabetic peripheral neuropathy Gastroparesis GERD (gastroesophageal reflux disease) Gram-negative bacteremia Hiatal hernia History of blood transfusion remote years ago; unknown etiology per patient Hypothyroidism Mammogram abnormal Morbid obesity MRSA infection Nocturnal hypoxemia 2lpm via n/c at HS Osteomyelitis (06/06/12) Osteomyelitis, chronic, ankle or foot Restless leg syndrome Sciatica Seizure x2 grand-mal seizures with unknown etiology ~25 years ago- no anticonvulsants x 20 years/no further seizures Vaginal candidiasis Surgical History H/O hysterectomy for benign disease (06/06/12) Hemorrhoidectomy (06/06/12) History of cardioversion History of cataract surgery bilateral History of colonoscopy 01/25/2016 - Dr. Lr Normal mucosa in entire colon, biopsied, diverticulosis in sigmoid, otherwise normal. Biopsy showed no inflammation. History of esophagogastroduodenoscopy (EGD) History of hemorrhoidectomy History of total abdominal hysterectomy History of total knee arthroplasty bilateral Family History Mother Breast cancer Father Congestive heart failure Other Diabetes Dyslipidemia Hypertension Denies family history of Crohn's disease Colorectal cancer Inflammatory bowel disease Social History Smoking Status: Former smoker Age Started Using Tobacco: 26; Age Quit Using Tobacco: 51; packs per day: 2; Years Smoked: 25; Second Hand Exposure: No; Hx Alcohol Use: No Hx Substance Use: No Preferred Language: Lithuanian Communication Ability: Impaired Visual Impairment: No Limitations Hearing Ability: Normal Brand Inspector Required: No Beliefs That Will Affect Care: None marital status: / Current Living Situation: Care Home Current Living Situation Comment: with caregivers current occupational status: retired Feels Safe at Home: Yes caffeine: No Seatbelt Use: always Assistive Devices: Glasses and Oxygen - Continuous Review of Systems Review of Systems: Moderate distress and lethargy no headache, no visual changes no speech or swallowing issues no chest pain, pressure or palpitations shortness of breath at rest, cough or wheezes no abdominal pain, nausea or vomiting, diarrhea or constipation no dysuria, hematuria or frequency no focal joint pain significant peripheral swelling no back pain, CVA tenderness or radicular pain no bruising, bleeding or rashes no focal signs of weakness or numbness or altered sensation Lethargic and in and out of wakefulness Physical Exam Physical Exam: The patient appeared ill and fatigued and lethargic. Vital signs as documented. Head exam is normocephalic atraumatic Neck is with difficult to assess for JVD due to body habitus, thyromegaly, or carotid bruits. Lungs are diminished at the bases with little air movement at times Cardiac exam, Rhythm is regular.. Faint systolic murmur, rubs or gallops. Abdominal exam reveals normal bowel sounds, soft non tender, no masses Of note there is no significant point tenderness in the left lower quadrant although due to her morbid obesity with a BMI of 52 her abdominal exam is less reliable Extremities are 2+ edematous and both arms and legs are swollen, pedal pulses are present Neurologic exam is alert and oriented but falls asleep easily, no focal loss of strength or sensation Skin is without bruises or rashes Results & Data Results & Data ([facility]) Vital Signs (Past 12 Hours) Vital Signs Temp Pulse Resp BP Pulse Ox 08/02/20 17:01 83 19 126/80 97 08/02/20 17:00 91 H 15 95 08/02/20 16:30 87 19 111/70 08/02/20 16:01 92 H 19 109/86 100 08/02/20 15:30 91 H 18 116/79 08/02/20 15:00 84 19 112/77 08/02/20 14:37 93 H 18 98 08/02/20 14:20 83 24 98/58 L 08/02/20 13:28 97.7 F 93 H 18 106/69 98 Chest X-Ray 08/02/20 14:13 XR chest 1V portable HISTORY: Dyspnea COMPARISON: Chest 07/16/2020. FINDINGS: No pneumothorax. The heart is enlarged. Suspect trace bilateral pleural effusions. There is progressive perihilar interstitial/vascular thickening consistent with developing pulmonary edema. No new focal lung consolidations. IMPRESSION: Cardiomegaly with developing mild pulmonary edema. ACT 112: Negative or not required by law. Electronically signed by: Ramón Ledesma M.D. 08/02/2020 3:51 PM Abdomen/Pelvis CT 08/02/20 14:[address] WITHOUT CONTRAST CT DOSE: HISTORY: nausea, urinary pain, lethargy TECHNIQUE: Multiaxial CT images of the abdomen and pelvis were performed without contrast. A dose lowering technique was utilized adhering to the principles of ALARA. COMPARISON STUDY: Abdomen and pelvis CT 01/23/2020. FINDINGS: Trace right pleural effusion. The cardiac silhouette is mildly enlarged. Mild interstitial thickening at the lung bases which is likely chronic. Stable 9 mm nodule within the left lower lobe on image 41. This appears to contain fat and favors a hamartoma. There is also a stable 4 mm nodule within the right lower lobe on image 43. No pneumoperitoneum. No pneumatosis. Severe osteoarthritis within the right hip, unchanged. There is also an old, healed right subcapital femoral neck fracture. Small fat-containing hiatal hernia. Moderate diffuse body wall edema. Trace ascites. Nodular contour to the liver consistent with cirrhosis. No hepatic or splenic masses. The spleen is normal in size. The unenhanced adrenal glands and pancreas unremarkable. Bilateral perinephric edema is noted. Bilateral cortical renal scarring persists. No renal stones or hydronephrosis. 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 Normal caliber abdominal aorta. No retroperitoneal lymphadenopathy. Mild gallbladder wall thickening with adjacent pericholecystic fluid. This is nonspecific but likely due to the patient's edematous state/cirrhosis. Acute cholecystitis is considered less likely but not entirely excluded. The bladder is unremarkable. The uterus is surgically absent. Mild pelvic floor collapse. Multiple colonic diverticula. There appears to be an inflamed diverticulum within the sigmoid colon on image 337 with minimal adjacent fat stranding. This likely represents a mild acute diverticulitis. No perforation or abscess. No evidence for bowel obstruction. IMPRESSION: 1. Mild acute sigmoid diverticulitis. No perforation or abscess. 2. Diffuse body wall edema. 3. Cirrhosis with trace ascites. 4. Gallbladder wall thickening with a small amount of pericholecystic fluid. Th is is nonspecific but favors the patient's diffuse edematous state. An acute cholecystitis is considered less likely but not entirely excluded. 5. Additional findings as described above. Electronically signed by: Ramón Ledesma M.D. 08/02/2020 4:[address] 08/02/20 14:23 CT head/brain wo con CLINICAL HISTORY: nausea, urinary pain, lethargy COMPARISON STUDY: 07/08/2020 TECHNIQUE: Axial CT of the brain is performed from the vertex to the skull base. IV contrast was not administered for this examination. A dose lowering technique was utilized adhering to the principles of ALARA. CT DOSE: 3495.00 mGy.cm FINDINGS: No intra or extra-axial mass lesions are visualized. There is no CT evidence of acute cortical infarction. There is no evidence of midline shift. There is no acute hemorrhage. No calvarial fractures are visualized. There are moderate white matter hypodensities likely on a small vessel basis. There is no evidence of pathologic ventricular dilatation. There is no evidence of acute sinusitis IMPRESSION: No acute intracranial findings Electronically signed by: Steve Randall M.D. 08/02/2020 3:54 PM PG Care Time/CCT Total # of Minutes Spent Total Time Spent with Patient: Total time spent is greater than 50% in coor dination of care (as documented) at patient's floor/unit and/or counseling patient: Coding Level of Care Code 63701 Initial Inpt Care Lvl 3 Diagnoses Acute on chronic diastolic heart failure I50.33 Diverticulitis K57.92 Atrial fibrillation, permanent I48.21 CKD (chronic kidney disease) stage 4, GFR 15-29 ml/min N18.4 Moderate obstructive sleep apnea G47.33 DM (diabetes mellitus), type 2, uncontrolled w/neurologic complication E11.49; E11.65 On anticoagulant therapy Z79.01 Anemia D64.9
[2020-08-02] MEDS ORDERED: DEXTROSE 50% 50 ML SYRINGE IV ONE (20:27)
[2020-08-02] MEDS ORDERED: GLUCAGON FOR INJ 1 MG VIAL SQ PRN (20:46)
[2020-08-02] MEDS ORDERED: GLUCOSE 10 TABS/TUBE PO PRN (20:46)
[2020-08-02] MEDS ORDERED: PIPERACILL/TAZOBAC CONSULT ACTIVE PRN (20:46)
[2020-08-02] MEDS ORDERED: ONDANSETRON INJ 2 MG/ML 2 ML VIAL IV PRN (20:46)
[2020-08-02] MEDS ORDERED: LOPERAMIDE HCL 2 MG CAP PO PRN (20:46)
[2020-08-02] MEDS ORDERED: GLUCOSE 40% GEL 15 GM TUBE PO PRN (20:46)
[2020-08-02] MEDS ORDERED: PHARMACY GLYCEMIC MGMT CONSULT SCH (20:52)
[2020-08-02] MEDS ORDERED: PRAMIPEXOLE DIHYDROCHLO 0.25 MG TAB PO SCH (21:00)
[2020-08-02] MEDS ORDERED: FUROSEMIDE 40 MG/4 ML VIAL IV SCH (21:00)
[2020-08-02] MEDS ORDERED: INSULIN GLARGINE SOLOSTAR 100 UNITS/ML 3 ML PEN SC SCH (21:00)
[2020-08-02] MEDS ORDERED: NYSTATIN POWDER 15GM BTL EXT PRN (21:31)
[2020-08-02] MEDS: NYSTATIN POWDER 15GM BTL EXT SCH (21:39)
[2020-08-02] MEDS: PIPERACILLIN/TAZOBACTAM 4.5 GM in DEXTROSE 5% 100 ML IV SCH (21:40)
[2020-08-02] MEDS: PRAMIPEXOLE DIHYDROCHLO 0.25 MG TAB PO SCH (21:40)
[2020-08-02] MEDS: INSULIN ASPART 100 UNITS/ML 3 ML PEN SC SCH (21:41)
[2020-08-03] MEDS: DEXTROSE 50% 50 ML SYRINGE IV PRN ×2 (00:32→02:54)
[2020-08-03] MEDS ORDERED: INSULIN ASPART 100 UNITS/ML 3 ML PEN SC ONE (02:00)
[2020-08-03] MEDS: PIPERACILLIN/TAZOBACTAM 4.5 GM in DEXTROSE 5% 100 ML IV SCH ×3 (05:12→21:04)
[2020-08-03] MEDS: LEVOTHYROXINE SODIUM 88 MCG TABLET PO SCH (06:16)
[2020-08-03 07:55] LABS: BUN Creatinine Ratio 29.8 (10-20); Calcium 8.1 mg/dl (8.5-10.1); Creatinine Clr Calc Pharmacy 20.8 ml/min; Est GFR (African American) 18.6 ml/min; Est GFR (Non-African American) 16.1 ml/min; Potassium 5.4 mmol/L (3.5-5.1)
[2020-08-03] MEDS: NYSTATIN POWDER 15GM BTL EXT SCH ×2 (08:08→20:46)
[2020-08-03] MEDS: METOPROLOL SUCC 50MG EXT REL TAB PO SCH (08:08)
[2020-08-03] MEDS: APIXABAN 2.5 MG TAB PO SCH ×2 (08:08→20:45)
[2020-08-03] MEDS: SERTRALINE HCL 50 MG TABLET PO SCH (08:08)
[2020-08-03] MEDS: MONTELUKAST SODIUM 10 MG TABLET PO SCH (08:08)
[2020-08-03] MEDS: INSULIN ASPART 100 UNITS/ML 3 ML PEN SC SCH ×4 (08:09→21:05)
[2020-08-03] MEDS ORDERED: FUROSEMIDE 40 MG in SYRINGE 0 ML IV SCH (09:00)
--- NOTE | 2020-08-03 09:35 | Nephrology Consultation ---
Date of Consultation August 03, 2020 Assessment & Plan (1) CKD (chronic kidney disease) stage 4, GFR 15-29 ml/min: * Advanced CKD on the basis of CRS, microvascular disease * Baseline Cr 2.4 w/ EGFR 18 cc/min * Patient has declined AMBULANCE PARAMEDIC due to age, obestity and frailty. She desires only medical therapy * Monitor PRP (2) Acute on chronic diastolic heart failure: * Will change Torsemide to 40 mg po BID * Monitor UO, kidney function (3) Anemia: * Evidence of iron deficiency * Start Venofer 200 mg IV daily x 5 doses, then stop * Will provide Epogen 20,000 units SQ x 1 this am (4) Diverticulitis: * On Zosyn. Dose adjustment for CKD as per pharmacy History of Present Illness Reason for Consultation: CKD, volume overload, anemia Attending Physician: Last Michael MD History of Present Illness Ms. Arnold is an 84 year old white female who is seen at the request of Dr. Michael for evaluation of CKD, volume overload and anemia. Medical records in the EMR were reviewed today and are summarized as follows: Ms. Arnold is a resident of [facility]. Her medial history is significant for stage IV CKD w/ baseline Cr 2.4 (EGFR 18 cc/min). Her Mold Forms Builder is Dr. Mcdermott. Prior evaluation revealed acellular urine sediment, abdominal CT w/ evidence of renal cortical scarring. Her renal impairment has been attributed to microvascular disease and CRS. Ms. Arnold has valvular heart disease and chronic R sided heart failure. Recently she was found to have worsening fluid retention. Torsemide dose was increased from 10 to 40 mg daily. Indications/benefits to AMBULANCE PARAMEDIC were discussed w/ the patient and her daughter. Ms. Arnold indicated that she does not want HD and her daughter indicated that her advanced directive confirms this as well. Ms. Arnold's medical history is significant for obesity (BMI 51), R heart failure (05/26 echo: LVEF 55%, mild MR, mod TR, RVSP 30-45 mmHg, dilated IVC), cardiac cirrhosis (07/[address]), chronic a. fib, anemia, AODM, hypothyroidism, JAMAL intolerant of NIPPV, RLS. She presented to the ED last evening for evaluation of dyspnea and weakness. CXR revealed mild CHF, noncontrast abdominal CT revealed nutmeg liver, mild ascites/abdominal wall edema and diverticulitis. BNP > 8,000. Allergies Allergy/AdvReac Type Severity Reaction Status Date / Time carbamazepine Allergy Intermediate HIVES Verified 07/26/20 15:04 Home Medications Medication Instructions Recorded Confirmed Type metoprolol succinate 200 mg 200 mg PO QAM #90 tab 06/10/19 08/02/20 Rx tablet,extended release 24 hr pramipexole 0.25 mg tablet 0.125 mg PO HS #45 tab 08/18/19 08/02/20 Rx Wheelchair (Manual or Powered) #2 ea 10/15/19 07/16/20 Rx pregabalin 100 mg capsule 100 mg PO BID #180 cap 12/23/19 08/02/20 Rx calcitriol 0.25 mcg capsule 0.25 mcg PO .COMPLEX #39 cap 01/23/20 08/02/20 Rx ondansetron 4 mg disintegrating 4 mg PO Q6H PRN #30 tab 03/12/20 08/02/20 Rx tablet pen needle, diabetic 32 gauge x #400 ea 04/05/20 07/26/20 Rx 5/32" sertraline 50 mg tablet 50 mg PO QAM #90 tab 04/08/20 08/02/20 Rx potassium chloride 20 meq PO QAM 04/11/20 08/02/20 History cyclobenzaprine 5 mg tablet 5 mg PO TID PRN #30 tab 04/13/20 08/02/20 Rx acetaminophen 325 mg capsule 650 mg PO QID cap 06/23/20 08/02/20 History levothyroxine 88 mcg capsule 88 mcg PO DAILY 06/23/20 08/02/20 History loperamide 2 mg capsule 2 mg PO Q6H PRN 06/23/20 08/02/20 History metoclopramide HCl 10 mg tablet 5 mg PO BID PRN tab 06/23/20 08/02/20 History montelukast 10 mg tablet 10 mg PO DAILY 06/23/20 08/02/20 History insulin aspart U-100 100 unit/mL 18 unit SUBCUT TID 30 Days #30 ml 06/29/20 08/02/20 Rx (3 mL) subcutaneous pen Tresiba FlexTouch U-100 70 unit SUBCUT QAM 08/02/20 08/02/20 History apixaban [Eliquis] 2.5 mg PO BID 08/02/20 08/02/20 History ferrous sulfate 325 mg PO BID 08/02/20 08/02/20 History melatonin 3 mg PO HS 08/02/20 08/02/20 History metolazone 2.5 mg PO Q OTHER DAY 08/02/20 08/02/20 History nystatin 2 applic TOPICAL Q12 08/02/20 08/02/20 History omeprazole 20 mg PO DAILYBB 08/02/20 08/02/20 History pramipexole 0.125 mg PO HS 08/02/20 08/02/20 History spironolactone 25 mg PO DAILY 08/02/20 08/02/20 History torsemide 40 mg PO DAILY 08/02/20 08/02/20 History torsemide 80 mg PO QPM PRN 08/02/20 08/02/20 History Patient History Medical History Acute on chronic diastolic heart failure Anemia Asthma stable Atrial fibrillation, chronic Benign hypertension Cellulitis of left foot Cellulitis of right foot Chronic back pain CKD (chronic kidney disease) stage 4, GFR 15-29 ml/min Depression Diabetes IDDM Diabetic foot ulcer Diabetic peripheral neuropathy Gastroparesis GERD (gastroesophageal reflux disease) Gram-negative bacteremia Hiatal hernia History of blood transfusion remote years ago; unknown etiology per patient Hypothyroidism Mammogram abnormal Morbid obesity MRSA infection Nocturnal hypoxemia 2lpm via n/c at Osteomyelitis (06/06/12) Osteomyelitis, chronic, ankle or foot Restless leg syndrome Sciatica Seizure x2 grand-mal seizures with unknown etiology ~25 years ago- no anticonvulsants x 20 years/no further seizures Vaginal candidiasis Surgical History H/O hysterectomy for benign disease (06/06/12) Hemorrhoidectomy (06/06/12) History of cardioversion History of cataract surgery bilateral History of colonoscopy 01/25/2016 - Dr. Lr Normal mucosa in entire colon, biopsied, diverticulosis in sigmoid, otherwise normal. Biopsy showed no inflammation. History of esophagogastroduodenoscopy (EGD) History of hemorrhoidectomy History of total abdominal hysterectomy History of total knee arthroplasty bilateral Family History Mother Breast cancer Father Congestive heart failure Other Diabetes Dyslipidemia Hypertension Denies family history of Crohn's disease Colorectal cancer Inflammatory bowel disease Social History Smoking Status: Never smoker Age Started Using Tobacco: 26; Age Quit Using Tobacco: 51; packs per day: 2; Years Smoked: 25; Second Hand Exposure: No; Hx Alcohol Use: No Hx Substance Use: No Preferred Language: Azerbaijani Communication Ability: Effective Visual Impairment: No Limitations Hearing Ability: Normal Production Director Required: No Beliefs That Will Affect Care: None marital status: / Current Living Situation: Alone Current Living Situation Comment: with caregivers current occupational status: retired Other Information That Helps Us Care for You: No Feels Safe at Home: Yes Safety Concerns: Feels Safe At This Time caffeine: No Seatbelt Use: always Assistive Devices: CPAP and Oxygen - Continuous Review of Systems Constitutional: no fever Eyes: no problem reported Respiratory: + dyspnea Cardiovascular: no chest pain Gastrointestinal: no abdominal pain Physical Exam Constitutional: no acute distress Eyes: PERRL, conjunctivae normal, anicteric sclerae ENMT: external ear and nose normal, oropharynx normal Neck: short, thick, no appreciable JVD Respiratory: + audible wheezes; no respiratory distress Cardiovascular: Extremities: + edema (3+ pretibial pitting edema) irregular rhythm Gastrointestinal (Abdomen): Percussion/Palpation: abdomen soft; abdomen nontender and no guarding Results & Data ([facility]) Vital Signs (Past 12 Hours) Vital Signs Temp Pulse Pulse Resp BP Pulse Ox 08/03/20 07:14 36.6 C 93 H 22 119/81 100 08/03/20 03:00 36.4 C L 75 18 108/75 93 08/03/20 02:17 80 18 95 08/02/20 22:46 36.3 C L 93 H 18 136/88 94 Laboratory Tests 07/26/20 08/02/20 08/02/20 14:32 14:39 16:45 WBC 6.56 Hgb 8.5 L Hct 28.7 L Plt Count 165 Sodium Potassium Chloride Carbon Dioxide BUN Creatinine Glucose Calcium Magnesium Iron 43 Transferrin % Sat 14 L Ferritin 131.9 Urine Color Yellow Urine Appearance Clear Urine pH 5.0 Ur Specific [place] 1.014 Urine Protein Negative Urine Glucose (UA) Negative Urine Blood Negative Urine Nitrite Negative Ur Leukocyte Esterase Negative 08/03/20 07:01 WBC Hgb Hct Plt Count Sodium 138 Potassium 5.4 H Chloride 109 H Carbon Dioxide 23 BUN 79 H Creatinine 2.66 H Glucose 76 Calcium 8.1 L Magnesium 2.0 Iron Transferrin % Sat Ferritin Urine Color Urine Appearance Urine pH Ur Specific [place] Urine Protein Urine Glucose (UA) Urine Blood Urine Nitrite Ur Leukocyte Esterase Laboratory Tests 08/02/20 14:39 NT-Pro-B Natriuret Pep 8018 H Albumin 3.1 L CXR 08/02/20: mild CHF Abdominal CT 08/02/20: cirrhosis, mild ascites, moderate body wall edema, diverticulitis Echocardiogram 05/26: LVEF 55%, mild MR, mod TR, RVSP 30-45 mmHg, dilated IVC PG Care Time/CCT Total # of Minutes Spent Total Time Spent with Patient: Total time spent is greater than 50% in coordination of care (as documented) at patient's floor/unit and/or counseling patient: Coding Level of Care Code 68937 Inpt Consult Level 5 Diagnoses CKD (chronic kidney disease) stage 4, GFR 15-29 ml/min N18.4 Acute on chronic diastolic heart failure I50.33 Anemia D64.9 Diverticulitis K57.92
[2020-08-03] MEDS ORDERED: TORSEMIDE 10 MG TAB PO SCH (09:45)
[2020-08-03] MEDS ORDERED: EPOETIN ALFA 20,000 UNITS/ML VIAL SQ ONE (10:00)
--- NOTE | 2020-08-03 10:12 | Pharmacy Report ---
Pharmacy Glycemic Short Note 2 - Date of Service August 03, 2020 - Glycemic Short BSG Results (Last 24 hours): 08/02/20 08/02/20 08/02/20 14:39 20:25 20:25 Glucose 110 H POC Glucose 36 L* 39 L* 08/02/20 08/02/20 08/03/20 20:45 21:38 00:26 Glucose POC Glucose 140 H 80 51 L* 08/03/20 08/03/20 08/03/20 00:48 01:59 02:47 Glucose POC Glucose 138 H 84 69 L* 08/03/20 08/03/20 08/03/20 03:14 04:30 05:25 Glucose POC Glucose 111 H 87 99 08/03/20 08/03/20 07:01 07:14 Glucose 76 POC Glucose 76 OUTPATIENT ANTIDIABETIC REGIMEN: * Tresiba 70 units SC qAM * Novolog 18 units SC TIDM * HbA1c: 6.9% (07/18/20) ASSESSMENT: * 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) due to worsening volume overload and acute diverticulitis * Multiple instances of hypoglycemia overnight, 36, 51, and 69 mg/dL * Treated with 2 amps of D50W * BSG of 76 mg/dL this morning * Ordered clear liquid diet * Will hold off on basal insulin at this time until upward BSG trend noted or diet advanced (will utilize q4h checks overnight) * BSG of 41 mg/dL at lunchtime -> discussed with hospitalist and will add D5W @80 mL/hr, as patient has been treated for multiple hypoglycemic episodes PLAN FOR INPATIENT GLYCEMIC CONTROL: * Basal insulin * hold * Bolus insulin * NovoLog per scale ACHS or Q6hrs while NPO * Goal Range: Low 110 mg/dL - High 150 mg/dL * Correction Factor: 15 mg/dL/unit * Nutritional / Prandial insulin per carb ratio of 1 unit per 5 grams CHO consumed * , checks with same parameters PLAN FOR DISCHARGE: * HbA1c of 6.9% is at goal for this patient, as it is less than 8% * Patient follows with [facility] endocrinology - last seen on 07/26/20 * Recs at that time were Tresiba 70 units SC qAM and Novolog 18 units SC before meals * These recs will likely remain reasonable, provided patient's appetite is near baseline at time of discharge * Will follow an adjust accordingly
[2020-08-03] MEDS: IRON SUCROSE 200 MG in 0.9 % SODIUM CHLORIDE 100 ML IV SCH (10:29)
[2020-08-03] MEDS: CARBOHYDRATES FOR HYPOGLYCEMIA PO PRN (11:30)
[2020-08-03] MEDS: DEXTROSE 5% 1,000 ML IV SCH (12:00)
--- NOTE | 2020-08-03 15:59 | Electrocardiogram Report ---
Test Reason : Blood Pressure : / mmHG Vent. Rate : 083 BPM Atrial Rate : 187 BPM P-R Int : 000 ms QRS Dur : 084 ms QT Int : 382 ms P-R-T Axes : 000 056 080 degrees QTc Int : 448 ms Atrial fibrillation Low voltage QRS Nonspecific T wave abnormality Abnormal ECG When compared with ECG of 16-JUL-2020 07:41, No significant change Confirmed by Juventino Hernandez ([id number]) on 08/03/2020 3:59:11 PM Referred By: REFERRED SELF Confirmed By:Juventino Hernandez
[2020-08-03] MEDS: TORSEMIDE 20 MG TAB PO SCH (16:47)
[2020-08-03] MEDS ORDERED: LORazepam 0.5 MG/1 ML VIAL IV PRN (18:18)
[2020-08-03] MEDS ORDERED: ONDANSETRON 4 MG OD TAB SL PRN (18:18)
[2020-08-03] MEDS ORDERED: ONDANSETRON INJ 2 MG/ML 2 ML VIAL IV PRN (18:18)
--- NOTE | 2020-08-03 18:25 | Hospitalist Progress Note ---
Date of Service August 03, 2020 Assessment & Plan (1) Acute on chronic diastolic heart failure: Patient presents with significant volume overload, reportedly refusing to wear her noninvasive positive pressure ventilation. Respiratory acidosis seen on VBG on presentation. Pt seems euvolemic but overall her outlook remains poor. rotating readmissions lately Son Jc is considering if palliative care would be the best course, he is a PA and request consultation nephrology did see and convert to torsemide, feeling she is at euvolemia will have on torsemide 40 mg bid (2) Diverticulitis: Patient has acute diverticulitis seen on CT scan abdomen pelvis she was given Rocephin and metronidazole in the emergency department subsequently we will place her on Zosyn therapy renal dose adjusted. Should remains on a clear liquid diet diabetic (3) Atrial fibrillation, permanent: Atrial fibrillation with controlled ventricular ventricular response typically on Toprol-XL 200 and Eliquis 2.5 twice daily (4) CKD (chronic kidney disease) stage 4, GFR 15-29 ml/min: Patient seeing nephrology has been educated on possible dialysis pt spoke to nephrology and does not want to have CRAPS MANAGER (5) Moderate obstructive sleep apnea: Her sleep apnea and morbid obesity likely play a role in her volume retention and pulmonary hypertension. continue Encouraging her to wear her CPAP mask would be beneficial (6) DM (diabetes mellitus), type 2, uncontrolled w/neurologic complication: During her last hospital stay her A1c was 6.9 she is typically is on Lantus 50 units a day which may be somewhat retained with her renal failure subsequently should be on basal bolus insulin with diabetic pharmacy oversight (7) On anticoagulant therapy: Patient jennifer on Eliquis 2.5 twice daily for atrial fibrillation which also serve as DVT prevention (8) Anemia: Patient typically is anemia of chronic disease likely from her renal dysfunction, her iron was last checked July 26 and found to be 43 and her TIBC was low transferrin saturation was 14% Admission and Anticipated Discharge Date Admission Date: August 02, 2020 Subjective pt looks somewhat better. discussed with nephrology and does not want to have dialysis, diuretics changed to torsemide po, continue to reinforce cpap. Review of Systems Review of Systems: Mild distress and lethargy no headache, no visual changes no speech or swallowing issues no chest pain, pressure or palpitations shortness of breath at rest, cough or wheezes still no abdominal pain, nausea or vomiting, diarrhea or constipation no dysuria, hematuria or frequency no focal joint pain significant peripheral swelling no back pain, CVA tenderness or radicular pain no bruising, bleeding or rashes no focal signs of weakness or numbness or altered sensation Lethargic and in and out of wakefulness Physical Exam Physical Exam: The patient appeared less ill and fatigued and lethargic. Vital signs as documented. Head exam is normocephalic atraumatic Neck is with difficult to assess for JVD due to body habitus, thyromegaly, or carotid bruits. Lungs are diminished at the bases with little air movement at times Cardiac exam, Rhythm is regular.. Faint systolic murmur, rubs or gallops. Abdominal exam reveals normal bowel sounds, soft non tender, no masses no significant point tenderness in the left lower quadrant although due to her morbid obesity with a BMI of 52 her abdominal exam is less reliable Extremities are 2+ edematous and both arms and legs are swollen, pedal pulses are present Neurologic exam is alert and oriented but falls asleep easily, no focal loss of strength or sensation Skin is without bruises or rashes Results & Data Results & Data ([facility]) Vital Signs (Past 12 Hours) Vital Signs Temp Pulse Pulse Resp BP Pulse Ox 08/03/20 15:23 97.7 F 79 18 101/68 98 08/03/20 10:35 98.4 F 88 20 105/66 97 08/03/20 08:00 80 08/03/20 07:14 97.9 F 93 H 22 119/81 100 PG Care Time/CCT Total # of Minutes Spent Total Time Spent with Patient: Total time spent is greater than 50% in coordination of care (as documented) at patient's floor/unit and/or counseling patient: Coding Level of Care Code 77908 Subseq Hosp Care Lvl 3 Diagnoses Acute on chronic diastolic heart failure I50.33 Diverticulitis K57.92 Atrial fibrillation, permanent I48.21 CKD (chronic kidney disease) stage 4, GFR 15-29 ml/min N18.4 Moderate obstructive sleep apnea G47.33 DM (diabetes mellitus), type 2, uncontrolled w/neurologic complication E11.49; E11.65 On anticoagulant therapy Z79.01 Anemia D64.9
[2020-08-03] MEDS: PRAMIPEXOLE DIHYDROCHLO 0.25 MG TAB PO SCH (20:45)
[2020-08-04] MEDS: INSULIN ASPART 100 UNITS/ML 3 ML PEN SC SCH ×6 (00:03→22:08)
[2020-08-04] MEDS: DEXTROSE 5% 1,000 ML IV SCH (01:36)
[2020-08-04] MEDS: LEVOTHYROXINE SODIUM 88 MCG TABLET PO SCH (05:30)
[2020-08-04] MEDS: PIPERACILLIN/TAZOBACTAM 4.5 GM in DEXTROSE 5% 100 ML IV SCH (05:30)
[2020-08-04 07:22] LABS: Hematocrit (blood only) 29.5 % (37-47); Hemoglobin 8.9 g/dL (12.0-16.0); Mean Corpuscular Hemoglobin 29.5 pg (25-34); Mean Corpuscular Hgb Conc 30.2 g/dL (32-36); Mean Corpuscular Volume 97.7 fL (80-100); Mean Platelet Volume 11.2 fL (7.4-10.4); Nucleated RBC # (auto) 0.06 K/uL (0-0); Nucleated RBC % (auto) 0.8 %; Platelet Count 170 K/uL (130-400); RDW Coefficient of Variation 20.8 % (11.5-14.5); RDW Standard Deviation 73.4 fL (36.4-46.3); Red Blood Count 3.02 M/uL (4.2-5.4); White Blood Count 6.97 K/uL (4.8-10.8)
[2020-08-04 07:52] LABS: BUN Creatinine Ratio 28.8 (10-20); Calcium 7.6 mg/dl (8.5-10.1); Creatinine Clr Calc Pharmacy 20.7 ml/min; Est GFR (African American) 19.2 ml/min; Est GFR (Non-African American) 16.6 ml/min; Magnesium 1.9 mg/dl (1.8-2.4); Potassium 4.9 mmol/L (3.5-5.1)
[2020-08-04] MEDS: IRON SUCROSE 200 MG in 0.9 % SODIUM CHLORIDE 100 ML IV SCH (08:23)
[2020-08-04] MEDS: TORSEMIDE 20 MG TAB PO SCH (08:24)
[2020-08-04] MEDS: MONTELUKAST SODIUM 10 MG TABLET PO SCH (08:24)
[2020-08-04] MEDS: CALCITRIOL 0.25 MCG CAPSULE PO SCH (08:24)
[2020-08-04] MEDS: SERTRALINE HCL 50 MG TABLET PO SCH (08:24)
[2020-08-04] MEDS: APIXABAN 2.5 MG TAB PO SCH ×2 (08:24→22:08)
[2020-08-04] MEDS: METOPROLOL SUCC 50MG EXT REL TAB PO SCH (08:24)
[2020-08-04] MEDS: NYSTATIN POWDER 15GM BTL EXT SCH ×2 (08:25→22:08)
[2020-08-04] MEDS ORDERED: Nursing to Pharmacy Communication SCH (09:00)
--- NOTE | 2020-08-04 09:46 | Pharmacy Report ---
Pharmacy Glycemic Short Note 2 - Date of Service August 04, 2020 - Glycemic Short BSG Results (Last 24 hours): 08/03/20 08/03/20 08/03/20 11:19 11:21 11:45 Glucose POC Glucose 41 L* 41 L* 49 L* 08/03/20 08/03/20 08/03/20 11:46 12:10 16:06 Glucose POC Glucose 50 L* 113 H 112 H 08/03/20 08/03/20 08/03/20 18:53 19:37 20:26 Glucose POC Glucose 144 H 119 H 112 H 08/03/20 08/04/20 08/04/20 23:14 03:15 07:07 Glucose 89 POC Glucose 106 H 91 08/04/20 07:11 Glucose POC Glucose 106 H OUTPATIENT ANTIDIABETIC REGIMEN: * Tresiba 70 units SC qAM * Novolog 18 units SC TIDM * HbA1c: 6.9% (07/18/20) ASSESSMENT: 08/04 * Pt has received 5 units of insulin over the past 24hrs * 0 units of basal * 5 units of bolus with NovoLog * Pt with sustained hypo yesterday; started on D5W. Hypo now resolved today. * Pt still only ordered a clear liquid diet. Will hold off on resuming basal until BSG > 140 mg/dl * Na+ LOW today. May be a combination of diuretics plus D5W. D/W hospitalist and will stop D5W. 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 worsening volume overload and acute diverticulitis * Multiple instances of hypoglycemia overnight, 36, 51, and 69 mg/dL * Treated with 2 amps of D50W * BSG of 76 mg/dL this morning * Ordered clear liquid diet * Will hold off on basal insulin at this time until upward BSG trend noted or diet advanced (will utilize q4h checks overnight) * BSG of 41 mg/dL at lunchtime -> discussed with hospitalist and will add D5W @80 mL/hr, as patient has been treated for multiple hypoglycemic episodes PLAN FOR INPATIENT GLYCEMIC CONTROL: * Basal insulin * hold- may consider resuming reduced dose once BSG > 140 * Bolus insulin * NovoLog per scale ACHS or Q6hrs while NPO * Goal Range: Low 110 mg/dL - High 140 mg/dL * Correction Factor: 15 mg/dL/unit * Nutritional / Prandial insulin per carb ratio of 1 unit per 5 grams CHO consumed PLAN FOR DISCHARGE: * HbA1c of 6.9% is at goal for this patient, as it is less than 8% * Patient follows with [facility] - last seen on 07/26/20 * Recs at that time were Tresiba 70 units SC qAM and Novolog 18 units SC before meals * These recs will likely remain reasonable, provided patient's appetite is near baseline at time of discharge * Will follow an adjust accordingly
--- NOTE | 2020-08-04 10:03 | Nephrology Progress Note ---
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 She desires only medical therapy * Monitor PRP (2) Acute on chronic diastolic heart failure: * I&O's matched last 24 hours. Patient may not be absorbing enteral diuretic well * Will change to Bumex 2 mg IV BID * Monitor UO, kidney function (3) Anemia: * Evidence of iron deficiency * Day #2 of 5 IV Venofer * Epogen 20,000 units SQ x 1 provided 08/03 (4) Diverticulitis: * On Zosyn. Dose adjustment for CKD as per pharmacy (5) Goals of care, counseling/discussion: * Palliative Care consult pending Admission and Anticipated Discharge Date Admission Date: August 02, 2020 Subjective Ms. Arnold reports confusion overnight. This morning she is oriented x3. She is breathing comfortably on O2 at 2L/min NC but c/o weakness and LE swelling Review of Systems Constitutional: no fever Eyes: no problem reported Respiratory: + dyspnea Cardiovascular: no chest pain Gastrointestinal: no abdominal pain Physical Exam Constitutional: no acute distress Eyes: PERRL, conjunctivae normal, anicteric sclerae ENMT: external ear and nose normal, oropharynx normal Respiratory: + audible wheezes; no respiratory distress Cardiovascular: Extremities: + edema (3+ pretibial pitting edema) Gastrointestinal (Abdomen): Percussion/Palpation: abdomen soft; abdomen nontender and no guarding Results & Data ([facility]) Vital Signs (Past 12 Hours) Vital Signs Temp Pulse Pulse Pulse Resp BP Pulse Ox 08/04/20 07:31 87 08/04/20 07:13 36.5 C 94 H 19 97/63 L 97 08/04/20 03:10 36.7 C 96 H 16 123/69 98 08/03/20 23:53 91 H 08/03/20 23:05 37.1 C 72 18 134/53 L 98 08/03/20 22:21 70 19 98 Laboratory Tests 08/02/20 08/04/20 08/04/20 14:39 07:07 07:07 WBC 6.97 Hgb 8.9 L Hct 29.5 L Plt Count 170 Sodium 133 L Potassium 4.9 Chloride 103 Carbon Dioxide 23 BUN 75 H Creatinine 2.59 H Calcium 7.6 L Magnesium 1.9 Albumin 3.1 L PG Care Time/CCT Total # of Minutes Spent Total Time Spent with Patient: Total time spent is greater than 50% in coordination of care (as documented) at patient's floor/unit and/or counseling patient: Coding Level of Care Code 81561 Subseq Hosp Care Lvl 3 Diagnoses CKD (chronic kidney disease) stage 4, GFR 15-29 ml/min N18.4 Acute on chronic diastolic heart failure I50.33 Anemia D64.9 Diverticulitis K57.92 Goals of care, counseling/discussion Z71.89
--- NOTE | 2020-08-04 16:46 | Palliative Care Consultation ---
Date of Consultation August 04, 2020 Assessment & Plan (1) Palliative care encounter: I met with Mrs. Arnold at bedside. She understands that her kidneys are not working and that she may need dialysis. She has declined this. She tells me that she doesn't feel like she wants to waste her time sitting around in dialysis all the time. We discussed the need for dialysis to balance her fluid volume and without that, she would likely in a short period of time. We also discussed that even with dialysis, if she were not willing to have positive pressure airway support, this would increase the demand on her heart and further impact her prognosis. She is adamant about not being able to do this and describes a very frightening scenario when she was a child that made her feel like she was suffocating. She has tried multiple times and consistently has that feeling when wearing the mask. She tells me that she's accepting of that. She has strong chang and is not afraid to . Her children and grandchildren bring meaning to her life and are her greatest teo. We talked about what having good quality of life would be for her and how she would feel if this were as good as her condition got. She tells me that she does not consider that to be a good quality of life. She has an advance directive but does not recall what it says. Her daughter, Demetrice, is retrieving that. Ultimately, Mrs. Arnold feels that she would need to have a discussion with her children before deciding how she would like to proceed with her care. I have arranged a zoom meeting with all of her children through Demetrice, which will be at 9am on Sunday. (2) Acute on chronic diastolic heart failure: (3) Atrial fibrillation, permanent: (4) Uncontrolled type 2 diabetes mellitus: Glycemic state: with hyperglycemia Qualified Code(s): E11.65 - Type 2 diabetes mellitus with hyperglycemia (5) CKD (chronic kidney disease) stage 4, GFR 15-29 ml/min: (6) Moderate obstructive sleep apnea: History of Present Illness Reason for Consultation: goals of care Requesting Physician: Dr. Michael Attending Physician: Last Michael MD History of Present Illness 84 yo lady with history of heart failure, CKD, afib, diabetes with neuropathy and chronic respiratory failure. She had been at [facility] and was admitted with increased shortness of breath with heart failure exacerbation. She has had three hospitalizations and an ER visit in the last two months. She has been refusing positive airway pressure support and has had progression of her renal failure. She has indicated that she would not want dialysis and we have been consulted to assist with goals of care. Allergies Allergy/AdvReac Type Severity Reaction Status Date / Time carbamazepine Allergy Intermediate HIVES Verified 07/26/20 15:04 Home Medications Medication Instructions Recorded Confirmed Type metoprolol succinate 200 mg 200 mg PO QAM #90 tab 06/10/19 08/02/20 Rx tablet,extended release 24 hr pramipexole 0.25 mg tablet 0.125 mg PO HS #45 tab 08/18/19 08/02/20 Rx Wheelchair (Manual or Powered) #2 ea 10/15/19 07/16/20 Rx pregabalin 100 mg capsule 100 mg PO BID #180 cap 12/23/19 08/02/20 Rx calcitriol 0.25 mcg capsule 0.25 mcg PO .COMPLEX #39 cap 01/23/20 08/02/20 Rx ondansetron 4 mg disintegrating 4 mg PO Q6H PRN #30 tab 03/12/20 08/02/20 Rx tablet pen needle, diabetic 32 gauge x #400 ea 04/05/20 07/26/20 Rx 5/32" sertraline 50 mg tablet 50 mg PO QAM #90 tab 04/08/20 08/02/20 Rx potassium chloride 20 meq PO QAM 04/11/20 08/02/20 History cyclobenzaprine 5 mg tablet 5 mg PO TID PRN #30 tab 04/13/20 08/02/20 Rx acetaminophen 325 mg capsule 650 mg PO QID cap 06/23/20 08/02/20 History levothyroxine 88 mcg capsule 88 mcg PO DAILY 06/23/20 08/02/20 History loperamide 2 mg capsule 2 mg PO Q6H PRN 06/23/20 08/02/20 History metoclopramide HCl 10 mg tablet 5 mg PO BID PRN tab 06/23/20 08/02/20 History montelukast 10 mg tablet 10 mg PO DAILY 06/23/20 08/02/20 History insulin aspart U-100 100 unit/mL 18 unit SUBCUT TID 30 Days #30 ml 06/29/20 08/02/20 Rx (3 mL) subcutaneous pen Tresiba FlexTouch U-100 70 unit SUBCUT QAM 08/02/20 08/02/20 History apixaban [Eliquis] 2.5 mg PO BID 08/02/20 08/02/20 History ferrous sulfate 325 mg PO BID 08/02/20 08/02/20 History melatonin 3 mg PO HS 08/02/20 08/02/20 History metolazone 2.5 mg PO Q OTHER DAY 08/02/20 08/02/20 History nystatin 2 applic TOPICAL Q12 08/02/20 08/02/20 History omeprazole 20 mg PO DAILYBB 08/02/20 08/02/20 History pramipexole 0.125 mg PO HS 08/02/20 08/02/20 History spironolactone 25 mg PO DAILY 08/02/20 08/02/20 History torsemide 40 mg PO DAILY 08/02/20 08/02/20 History torsemide 80 mg PO QPM PRN 08/02/20 08/02/20 History Patient History Medical History Acute on chronic diastolic heart failure Anemia Asthma stable Atrial fibrillation, chronic Benign hypertension Cellulitis of left foot Cellulitis of right foot Chronic back pain CKD (chronic kidney disease) stage 4, GFR 15-29 ml/min Depression Diabetes IDDM Diabetic foot ulcer Diabetic peripheral neuropathy Gastroparesis GERD (gastroesophageal reflux disease) Gram-negative bacteremia Hiatal hernia History of blood transfusion remote years ago; unknown etiology per patient Hypothyroidism Mammogram abnormal Morbid obesity MRSA infection Nocturnal hypoxemia 2lpm via n/c at HS Osteomyelitis (06/06/12) Osteomyelitis, chronic, ankle or foot Restless leg syndrome Sciatica Seizure x2 grand-mal seizures with unknown etiology ~25 years ago- no anticonvulsants x 20 years/no further seizures Vaginal candidiasis Surgical History H/O hysterectomy for benign disease (06/06/12) Hemorrhoidectomy (06/06/12) History of cardioversion History of cataract surgery bilateral History of colonoscopy 01/25/2016 - Dr. Lr Normal mucosa in entire colon, biopsied, diverticulosis in sigmoid, otherwise normal. Biopsy showed no inflammation. History of esophagogastroduodenoscopy (EGD) History of hemorrhoidectomy History of total abdominal hysterectomy History of total knee arthroplasty bilateral Family History Mother Breast cancer Father Congestive heart failure Other Diabetes Dyslipidemia Hypertension Denies family history of Crohn's disease Colorectal cancer Inflammatory bowel disease Social History Smoking Status: Never smoker Age Started Using Tobacco: 26; Age Quit Using Tobacco: 51; packs per day: 2; Years Smoked: 25; Second Hand Exposure: No; Hx Alcohol Use: No Hx Substance Use: No Preferred Language: Hebrew Communication Ability: Effective Visual Impairment: No Limitations Hearing Ability: Normal Tmr Teacher Required: No Beliefs That Will Affect Care: None marital status: / Current Living Situation: Alone Current Living Situation Comment: with caregivers current occupational status: retired Other Information That Helps Us Care for You: No Feels Safe at Home: Yes Safety Concerns: Feels Safe At This Time caffeine: No Seatbelt Use: always Assistive Devices: Oxygen - Continuous Review of Systems Review of Systems: [place] Symptom Assessment Scale Pain 1/3 Dyspnea 1/3 Nausea 0/3 Anxiety 2/3 Fatigue 2/3 Drowsiness 0/3 Palliative Performance Score 40% Physical Exam Constitutional: + morbidly obese; no acute distress Respiratory: normal respiratory effort; no labored breathing O2 NC Cardiovascular: Rate/Rhythm: + irregularly irregular Gastrointestinal (Abdomen): Inspection/Auscultation: + significant pannus Skin: warm and dry Neurologic: awake; not confused Psychiatric: Orientation: alert and oriented x 3 Affect: euthymic affect Results & Data ([facility]) Vital Signs (Past 12 Hours) Vital Signs Temp Pulse Pulse Resp BP Pulse Ox 08/04/20 15:35 85 08/04/20 15:32 97.9 F 88 19 103/65 100 08/04/20 11:24 97.5 F L 92 H 19 117/63 98 08/04/20 07:31 87 08/04/20 07:13 97.7 F 94 H 19 97/63 L 97 PG Care Time/CCT Total # of Minutes Spent Total Time Spent with Patient: Total time spent is greater than 50% in coordination of care (as documented) at patient's floor/unit and/or counseling patient: total time spent 70 minutes with more than 50% of time spent on goals of care, prognosis, patient education. Coding Level of Care Code 26911 Inpt Consult Level 3 Diagnoses Palliative care encounter Z51.5 Acute on chronic diastolic heart failure I50.33 Atrial fibrillation, permanent I48.21 Uncontrolled type 2 diabetes mellitus E11.65 Glycemic state: with hyperglycemia CKD (chronic kidney disease) stage 4, GFR 15-29 ml/min N18.4 Moderate obstructive sleep apnea G47.33
[2020-08-04] MEDS: BUMETANIDE 2 MG in SYRINGE 0 ML IV SCH (17:11)
[2020-08-04] MEDS: AMOXICILLIN/CLAVULANATE 500 MG TAB PO SCH (17:11)
--- NOTE | 2020-08-04 17:26 | Hospitalist Progress Note ---
Date of Service August 04, 2020 Assessment & Plan (1) Acute on chronic diastolic heart failure: Patient presents with significant volume overload, reportedly refusing to wear her noninvasive positive pressure ventilation. Respiratory acidosis seen on VBG on presentation. Pt seems euvolemic but overall her outlook remains poor. rotating readmissions lately Son Jc is considering if palliative care would be the best course, palliative care did see and will have family meeting this week, living will also states DNR but family wants to re address this on sunday nephrology did see and convert to torsemide, however with poor response did now have iv bumex bid and follow (2) Diverticulitis: Patient has acute diverticulitis seen on CT scan abdomen pelvis she was given Rocephin and metronidazole in the emergency department subsequently we wi ll place her on Zosyn therapy renal dose adjusted. Should remains on a clear liquid diet diabetic (3) Atrial fibrillation, permanent: Atrial fibrillation with controlled ventricular ventricular response typically on Toprol-XL 200 and Eliquis 2.5 twice daily (4) CKD (chronic kidney disease) stage 4, GFR 15-29 ml/min: Patient seeing nephrology has been educated on possible dialysis pt spoke to nephrology and does not want to have MENTAL HEALTH SPECIALIST (5) Moderate obstructive sleep apnea: Her sleep apnea and morbid obesity likely play a role in her volume retention and pulmonary hypertension. continue Encouraging her to wear her CPAP mask would be beneficial (6) DM (diabetes mellitus), type 2, uncontrolled w/neurologic complication: During her last hospital stay her A1c was 6.9 she is typically is on Lantus 50 units a day which may be somewhat retained with her renal failure subsequently should be on basal bolus insulin with diabetic pharmacy oversight (7) On anticoagulant therapy: Patient jennifer on Eliquis 2.5 twice daily for atrial fibrillation which also serve as DVT prevention (8) Anemia: Patient typically is anemia of chronic disease likely from her renal dysfunction, her iron was last checked July 26 and found to be 43 and her TIBC was low transferrin saturation was 14% iron repleted by nephrology Admission and Anticipated Discharge Date Admission Date: August 02, 2020 Subjective pt is sligltly more awake but thinks she was in [facility] yesterday, did meet with palliative care, neurology changing to iv bumex and is repleteing iron deficiency Review of Systems Review of Systems: moderate distress and fatigue no headache, no visual changes no speech or swallowing issues no chest pain, pressure or palpitations continues with shortness of breath, cough or wheezes no abdominal pain, nausea or vomiting, diarrhea or constipation no dysuria, hematuria or frequency no focal joint pain persistent swelling le no back pain, CVA tenderness or radicular pain no bruising, bleeding or rashes no focal signs of weakness or numbness or altered sensation no complaints of anxiety or depression.. Physical Exam Physical Exam: The patient appeared chronically ill and weakened Vital signs as documented. Head exam is normocephalic atraumatic Neck is with JVD, thyromegaly, or carotid bruits. Lungs are diminshed bases Cardiac exam, Rhythm is regular.. No murmurs, rubs or gallops. Abdominal exam reveals normal bowel sounds, soft non tender, no masses Extremities are 1+ edematous and both pedal pulses are present Neurologic exam is alert and oriented x 2 , no focal loss of strength or sensation Skin is with changes of chronic venous stasis issues Psychologically is without concerns for anxiety or depression Results & Data Results & Data ([facility]) Vital Signs (Past 12 Hours) Vital Signs Temp Pulse Pulse Resp BP Pulse Ox 08/04/20 15:35 85 08/04/20 15:32 97.9 F 88 19 103/65 100 08/04/20 11:24 97.5 F L 92 H 19 117/63 98 08/04/20 07:31 87 08/04/20 07:13 97.7 F 94 H 19 97/63 L 97 PG Care Time/CCT Total # of Minutes Spent Total Time Spent with Patient: Total time spent is greater than 50% in coordination of care (as documented) at patient's floor/unit and/or counseling patient: Coding Level of Care Code 78977 Subseq Hosp Care Lvl 3 Diagnoses Acute on chronic diastolic heart failure I50.33 Diverticulitis K57.92 Atrial fibrillation, permanent I48.21 CKD (chronic kidney disease) stage 4, GFR 15-29 ml/min N18.4 Moderate obstructive sleep apnea G47.33 DM (diabetes mellitus), type 2, uncontrolled w/neurologic complication E11.49; E11.65 On anticoagulant therapy Z79.01 Anemia D64.9
[2020-08-04] MEDS: PRAMIPEXOLE DIHYDROCHLO 0.25 MG TAB PO SCH (22:07)
[2020-08-05] MEDS: LEVOTHYROXINE SODIUM 88 MCG TABLET PO SCH (06:34)
[2020-08-05 07:52] LABS: BUN Creatinine Ratio 28.9 (10-20); Calcium 7.7 mg/dl (8.5-10.1); Creatinine Clr Calc Pharmacy 21.4 ml/min; Est GFR (Non-African American) 18.1 ml/min; Magnesium 1.8 mg/dl (1.8-2.4); Potassium 4.2 mmol/L (3.5-5.1)
[2020-08-05] MEDS: SERTRALINE HCL 50 MG TABLET PO SCH (08:39)
[2020-08-05] MEDS: BUMETANIDE 2 MG in SYRINGE 0 ML IV SCH ×2 (08:39→17:33)
[2020-08-05] MEDS: APIXABAN 2.5 MG TAB PO SCH ×2 (08:40→20:03)
[2020-08-05] MEDS: NYSTATIN POWDER 15GM BTL EXT SCH ×2 (08:40→20:05)
[2020-08-05] MEDS: AMOXICILLIN/CLAVULANATE 500 MG TAB PO SCH ×2 (08:40→17:33)
[2020-08-05] MEDS: METOPROLOL SUCC 50MG EXT REL TAB PO SCH (08:40)
[2020-08-05] MEDS: INSULIN ASPART 100 UNITS/ML 3 ML PEN SC SCH ×4 (08:40→21:33)
[2020-08-05] MEDS: MONTELUKAST SODIUM 10 MG TABLET PO SCH (08:40)
[2020-08-05] MEDS: IRON SUCROSE 200 MG in 0.9 % SODIUM CHLORIDE 100 ML IV SCH (08:43)
--- NOTE | 2020-08-05 10:23 | Nephrology Progress Note ---
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 She desires only medical therapy * Net 1 L diuresis last 24 hours. Continue current medical regimen * Monitor PRP (2) Acute on chronic diastolic heart failure: * Net 1 L diuresis last 24 hours. * Continue Bumex 2 mg IV BID * Monitor UO, kidney function (3) Anemia: * Evidence of iron deficiency * Day #3 of 5 IV Venofer * Epogen 20,000 units SQ x 1 provided 08/03 (4) Diverticulitis: * On Zosyn. Dose adjustment for CKD as per pharmacy (5) Goals of care, counseling/discussion: * Palliative Care consult reviewed. Family meeting scheduled for 9 am tomorrow Admission and Anticipated Discharge Date Admission Date: August 02, 2020 Subjective Ms. Arnold awakens to voice. She is oriented to self, place and month. She is breathing comfortably on O2 at 2L/min NC but c/o weakness and LE swelling Review of Systems Constitutional: no fever Eyes: no problem reported Respiratory: + dyspnea Cardiovascular: no chest pain Gastrointestinal: no abdominal pain Physical Exam Constitutional: no acute distress Eyes: PERRL, conjunctivae normal, anicteric sclerae ENMT: external ear and nose normal, oropharynx normal Respiratory: + audible wheezes; no respiratory distress Cardiovascular: Extremities: + edema (3+ pretibial pitting edema) Gastrointestinal (Abdomen): Percussion/Palpation: abdomen soft; abdomen nontender and no guarding Results & Data ([facility]) Vital Signs (Past 12 Hours) Vital Signs Temp Pulse Pulse Resp BP Pulse Ox 08/05/20 09:11 91 H 08/05/20 07:20 36.5 C 100 H 17 123/71 97 08/05/20 03:26 36.7 C 95 H 18 109/67 98 08/04/20 23:59 36.5 C 88 20 123/76 99 Laboratory Tests 08/05/20 06:50 Sodium 136 Potassium 4.2 Chloride 104 Carbon Dioxide 26 BUN 70 H Creatinine 2.41 H Glucose 78 Calcium 7.7 L PG Care Time/CCT Total # of Minutes Spent Total Time Spent with Patient: Total time spent is greater than 50% in coordination of care (as documented) at patient's floor/unit and/or counseling patient: Coding Level of Care Code 72428 Subseq Hosp Care Lvl 3 Diagnoses CKD (chronic kidney disease) stage 4, GFR 15-29 ml/min N18.4 Acute on chronic diastolic heart failure I50.33 Anemia D64.9 Diverticulitis K57.92 Goals of care, counseling/discussion Z71.89
--- NOTE | 2020-08-05 18:35 | Hospitalist Progress Note ---
Date of Service August 05, 2020 Assessment & Plan (1) Acute on chronic diastolic heart failure: Patient presented with significant volume overload, reportedly refusing to wear her noninvasive positive pressure ventilation. Respiratory acidosis seen on VBG on presentation. now seems euvolemic but overall her outlook remains in question due to frequent readmissions lately Son Jc is considering if palliative care would be the best course, palliative care did see and will have family meeting this week, living will also states DNR but family wants to re address this on sunday 08/06 nephrology did see and convert to torsemide, however with poor response, continues on iv bumex bid and follow (2) Diverticulitis: Patient has acute diverticulitis seen on CT scan abdomen pelvis she was given Rocephin and metronidazole in the emergency department subsequently we will place her on Zosyn therapy renal dose adjusted. transitioned to augmentin (3) Atrial fibrillation, permanent: Atrial fibrillation with controlled ventricular ventricular response typically on Toprol-XL 200 and Eliquis 2.5 twice daily (4) CKD (chronic kidney disease) stage 4, GFR 15-29 ml/min: Patient seeing nephrology has been educated on possible dialysis pt spoke to nephrology and does not want to have REHAB DIRECTOR (5) Moderate obstructive sleep apnea: Her sleep apnea and morbid obesity likely play a role in her volume retention and pulmonary hypertension. continue Encouraging her to wear her CPAP mask would be beneficial (6) DM (diabetes mellitus), type 2, uncontrolled w/neurologic complication: During her last hospital stay her A1c was 6.9 she is typically is on Lantus 50 units a day which may be somewhat retained with her renal failure subsequently should be on basal bolus insulin with diabetic pharmacy oversight (7) On anticoagulant therapy: Patient jennifer on Eliquis 2.5 twice daily for atrial fibrillation which also serve as DVT prevention (8) Anemia: Patient typically is anemia of chronic disease likely from her renal dysfunction, her iron was last checked July 26 and found to be 43 and her TIBC was low transferrin saturation was 14% iron repleted by nephrology Admission and Anticipated Discharge Date Admission Date: August 02, 2020 Subjective the pt states she had a good night, she feels like she is breathing better, no chest pain, typically is non ambulatory but did get out to chair Review of Systems Review of Systems: moderate distress and fatigue no headache, no visual changes no speech or swallowing issues no chest pain, pressure or palpitations improving shortness of breath, cough or wheezes no abdominal pain, nausea or vomiting, diarrhea or constipation no dysuria, hematuria or frequency no focal joint pain persistent swelling le no back pain, CVA tenderness or radicular pain no bruising, bleeding or rashes no focal signs of weakness or numbness or altered sensation no complaints of anxiety or depression.. Physical Exam Physical Exam: The patient appeared chronically ill and weakened Vital signs as documented. Head exam is normocephalic atraumatic Neck is with JVD, thyromegaly, or carotid bruits. Lungs continue to be diminshed bases Cardiac exam, Rhythm is regular.. No murmurs, rubs or gallops. Abdominal exam reveals normal bowel sounds, soft non tender, no masses Extremities are 1+ edematous and both pedal pulses are present Neurologic exam is alert and oriented x 2 , no focal loss of strength or sensation Skin is with changes of chronic venous stasis issues Psychologically is without concerns for anxiety or depression Results & Data Results & Data ([facility]) Vital Signs (Past 12 Hours) Vital Signs Temp Pulse Pulse Resp BP BP Pulse Ox 08/05/20 16:51 97.9 F 84 18 86/55 L 84/49 L 92 08/05/20 13:47 97.5 F L 87 18 87/57 L 97/57 L 90 08/05/20 11:52 97.7 F 95 H 19 109/63 92 08/05/20 09:11 91 H 08/05/20 07:20 97.7 F 100 H 17 123/71 97 PG Care Time/CCT Total # of Minutes Spent Total Time Spent with Patient: Total time spent is greater than 50% in coordination of care (as documented) at patient's floor/unit and/or counseling patient: Coding Level of Care Code 35288 Subseq Hosp Care Lvl 2 Diagnoses Acute on chronic diastolic heart failure I50.33 Diverticulitis K57.92 Atrial fibrillation, permanent I48.21 CKD (chronic kidney disease) stage 4, GFR 15-29 ml/min N18.4 Moderate obstructive sleep apnea G47.33 DM (diabetes mellitus), type 2, uncontrolled w/neurologic complication E11.49; E11.65 On anticoagulant therapy Z79.01 Anemia D64.9
[2020-08-05] MEDS: PRAMIPEXOLE DIHYDROCHLO 0.25 MG TAB PO SCH (20:03)
[2020-08-05] MEDS: ACETAMINOPHEN 325 MG TAB PO PRN (20:03)
[2020-08-05] MEDS: LORazepam 0.5 MG TAB PO PRN (23:57)
[2020-08-06] MEDS ORDERED: SODIUM CHLORIDE 0.65% NA SOLN 45 ML (OCEAN) PRN (01:47)
[2020-08-06] MEDS ORDERED: SODIUM CHLORIDE 0.65% NA SOLN 45 ML (OCEAN) ONE (01:49)
[2020-08-06] MEDS: LEVOTHYROXINE SODIUM 88 MCG TABLET PO SCH (05:34)
[2020-08-06] MEDS: ACETAMINOPHEN 325 MG TAB PO PRN (05:34)
[2020-08-06] MEDS: INSULIN ASPART 100 UNITS/ML 3 ML PEN SC SCH ×4 (08:00→21:44)
[2020-08-06] MEDS: CARBOHYDRATES FOR HYPOGLYCEMIA PO PRN (08:16)
[2020-08-06 08:27] LABS: Hematocrit (blood only) 28.8 % (37-47); Hemoglobin 8.6 g/dL (12.0-16.0); Mean Corpuscular Hemoglobin 29.2 pg (25-34); Mean Corpuscular Hgb Conc 29.9 g/dL (32-36); Mean Corpuscular Volume 97.6 fL (80-100); Mean Platelet Volume 10.9 fL (7.4-10.4); Nucleated RBC # (auto) 0.04 K/uL (0-0); Nucleated RBC % (auto) 0.6 %; Platelet Count 151 K/uL (130-400); RDW Coefficient of Variation 20.8 % (11.5-14.5); RDW Standard Deviation 73.2 fL (36.4-46.3); Red Blood Count 2.95 M/uL (4.2-5.4)
[2020-08-06] MEDS: MONTELUKAST SODIUM 10 MG TABLET PO SCH (08:28)
[2020-08-06] MEDS: SERTRALINE HCL 50 MG TABLET PO SCH (08:28)
[2020-08-06] MEDS: APIXABAN 2.5 MG TAB PO SCH ×2 (08:28→21:42)
[2020-08-06] MEDS: AMOXICILLIN/CLAVULANATE 500 MG TAB PO SCH ×2 (08:28→19:00)
[2020-08-06] MEDS: CALCITRIOL 0.25 MCG CAPSULE PO SCH (08:28)
[2020-08-06] MEDS: METOPROLOL SUCC 50MG EXT REL TAB PO SCH (08:28)
[2020-08-06] MEDS: NYSTATIN POWDER 15GM BTL EXT SCH ×2 (08:29→21:42)
[2020-08-06] MEDS: BUMETANIDE 2 MG in SYRINGE 0 ML IV SCH (08:31)
[2020-08-06] MEDS: IRON SUCROSE 200 MG in 0.9 % SODIUM CHLORIDE 100 ML IV SCH (08:37)
[2020-08-06 09:11] LABS: BUN Creatinine Ratio 30.2 (10-20); Calcium 8.2 mg/dl (8.5-10.1); Creatinine Clr Calc Pharmacy 23.4 ml/min; Est GFR (African American) 23.4 ml/min; Est GFR (Non-African American) 20.2 ml/min; Potassium 3.7 mmol/L (3.5-5.1)
--- NOTE | 2020-08-06 09:21 | Palliative Care Progress Note ---
Date of Service August 06, 2020 Assessment & Plan (1) Palliative care encounter: I met with family via conference call and reviewed my conversation with Eunice. We also reviewed labs and her current status. We discussed options for care moving forward. They confirmed that per her living will her code status is DNR/DNI and she would not want dialysis. This is also consistent with multiple conversations that she has had with her family and they are in agreement with no dialysis. Her son, Jc, expressed that he would prefer to see her return to [facility] with focus on comfort and not return to the hospital. Demetrice is hoping that she would be able to be treated and "get better". That would mean to her that Eunice would be able to get stronger and return home. We discussed that this is likely not a reasonable expectation with her current medical condition. We discussed hospice care with focus strictly on comfort vs return to [facility] with medical management of her heart failure but not returning to the hospital. Ultimately family agreed on comfort directed care. There were some concerns about hospice hastening her and we discussed hospice approach to care and what is provided in the medicare hospice benefit. They would like to pursue hospice care for her at [facility]. We reviewed POLST form and it was completed for DNR/DNI, comfort measures only, no artificial nutrition or hydration, antibiotics as determined at the time, per our discussion. Jc will sign this when he visits her today. Discussed with case management. (2) Acute on chronic diastolic heart failure: (3) Atrial fibrillation, permanent: (4) Uncontrolled type 2 diabetes mellitus: (5) Moderate obstructive sleep apnea: (6) CKD (chronic kidney disease) stage 4, GFR 15-29 ml/min: Admission and Anticipated Discharge Date Admission Date: August 02, 2020 Subjective Sleeping but arousable. "I don't feel good". Denies pain or shortness of breath. I reminded her that we had zoom visit with her family this morning. "I don't want to talk". She tells me that she would prefer that they make the decisions about her care. Review of Systems Review of Systems: [place] Symptom Assessment Scale Pain 0/3 Dyspnea 0/3 Drowsiness 1/3 Palliative Performance Score 30% Physical Exam Constitutional: no acute distress Respiratory: normal respiratory effort; no labored breathing Neurologic: moves all extremities; not confused Results & Data ([facility]) Vital Signs (Past 12 Hours) Vital Signs Temp Pulse Resp BP BP Pulse Ox 08/06/20 07:40 97.5 F L 70 18 112/64 91 08/05/20 22:58 97.9 F 91 H 18 109/63 98 PG Care Time/CCT Total # of Minutes Spent Total Time Spent with Patient: Total time spent is greater than 50% in coordination of care (as documented) at patient's floor/unit and/or counseling patient: total time spent is 65 minutes with more than 50% of time spent on goals of care, code status, hospice, family education, POLST completion Coding Level of Care Code 14215 Subseq Hosp Care Lvl 3 Diagnoses Palliative care encounter Z51.5 Acute on chronic diastolic heart failure I50.33 Atrial fibrillation, permanent I48.21 Uncontrolled type 2 diabetes mellitus E11.65 Glycemic state: with hyperglycemia Moderate obstructive sleep apnea G47.33 CKD (chronic kidney disease) stage 4, GFR 15-29 ml/min N18.4 Time Spent (min) 65 (1) Uncontrolled type 2 diabetes mellitus Glycemic state: with hyperglycemia Qualified Code(s): E11.65 - Type 2 diabetes mellitus with hyperglycemia
--- NOTE | 2020-08-06 10:27 | Hospitalist Progress Note ---
Date of Service August 06, 2020 Assessment & Plan (1) Acute on chronic diastolic heart failure: Patient presented with significant volume overload, reportedly refusing to wear her noninvasive positive pressure ventilation. Respiratory acidosis seen on VBG on presentation. now seems euvolemic but overall her outlook remains in question due to frequent readmissions lately Family is supportive of hospice/ palliative care consider returning to [facility] on hospice palliative care did see and will have family meeting this week, living will also states DNR but family wants to re address this on sunday 08/06 nephrology did see and convert to torsemide, however with poor response, contin ues on bumex bid convert to po and follow (2) Diverticulitis: Patient has acute diverticulitis seen on CT scan abdomen pelvis she was given Rocephin and metronidazole in the emergency department subsequently we will place her on Zosyn therapy renal dose adjusted. transitioned to augmentin (3) Atrial fibrillation, permanent: Atrial fibrillation with controlled ventricular ventricular response typically on Toprol-XL 200 and Eliquis 2.5 twice daily (4) CKD (chronic kidney disease) stage 4, GFR 15-29 ml/min: Patient seeing nephrology has been educated on possible dialysis pt spoke to nephrology and does not want to have DOORPERSON (5) Moderate obstructive sleep apnea: Her sleep apnea and morbid obesity likely play a role in her volume retention and pulmonary hypertension. continue Encouraging her to wear her CPAP mask would be beneficial (6) DM (diabetes mellitus), type 2, uncontrolled w/neurologic complication: During her last hospital stay her A1c was 6.9 she is typically is on Lantus 50 units a day which may be somewhat retained with her renal failure subsequently should be on basal bolus insulin with diabetic pharmacy oversight (7) On anticoagulant therapy: Patient jennifer on Eliquis 2.5 twice daily for atrial fibrillation which also serve as DVT prevention (8) Anemia: Patient typically is anemia of chronic disease likely from her renal dysfunction, her iron was last checked July 26 and found to be 43 and her TIBC was low transferrin saturation was 14% iron repleted by nephrology (9) Acute and chronic respiratory failure with hypoxia: Admission and Anticipated Discharge Date Admission Date: August 02, 2020 Subjective pt was slightly sedate was not short of breath, seems euvolemic . Family has decided on hospice care and will look to transition to [facility] soon. Review of Systems Review of Systems: mild distress and fatigue no headache, no visual changes no speech or swallowing issues no chest pain, pressure or palpitations seems to be baseline shortness of breath, cough or wheezes no abdominal pain, nausea or vomiting, diarrhea or constipation no dysuria, hematuria or frequency no focal joint pain persistent swelling le no back pain, CVA tenderness or radicular pain no bruising, bleeding or rashes no focal signs of weakness or numbness or altered sensation no complaints of anxiety or depression.. Physical Exam Physical Exam: The patient appeared chronically ill and weakened Vital signs as documented. Head exam is normocephalic atraumatic Neck is with JVD, thyromegaly, or carotid bruits. Lungs continue to be diminshed bases Cardiac exam, Rhythm is regular.. No murmurs, rubs or gallops. Abdominal exam reveals normal bowel sounds, soft non tender, no masses Extremities are 1+ edematous and both pedal pulses are present Neurologic exam is alert and oriented x 2 , no focal loss of strength or sensation Skin is with changes of chronic venous stasis issues Psychologically is without concerns for anxiety or depression Results & Data Results & Data ([facility]) Vital Signs (Past 12 Hours) Vital Signs Temp Pulse Resp BP BP Pulse Ox 08/06/20 07:40 97.5 F L 70 18 112/64 91 08/05/20 22:58 97.9 F 91 H 18 109/63 98 PG Care Time/CCT Total # of Minutes Spent Total Time Spent with Patient: Total time spent is greater than 50% in coordination of care (as documented) at patient's floor/unit and/or counseling patient: Coding Level of Care Code 88179 Subseq Hosp Care Lvl 2 Diagnoses Acute on chronic diastolic heart failure I50.33 Diverticulitis K57.92 Atrial fibrillation, permanent I48.21 CKD (chronic kidney disease) stage 4, GFR 15-29 ml/min N18.4 Moderate obstructive sleep apnea G47.33 DM (diabetes mellitus), type 2, uncontrolled w/neurologic complication E11.49; E11.65 On anticoagulant therapy Z79.01 Anemia D64.9 Acute and chronic respiratory failure with hypoxia J96.21
--- NOTE | 2020-08-06 11:19 | Nephrology Progress Note ---
Date of Service August 06, 2020 Assessment & Plan (1) CKD (chronic kidney disease) stage 4, GFR 15-29 ml/min: * Kidney function remains stable at this time * Baseline Cr 2.4 w/ EGFR 18 cc/min * Advanced CKD on the basis of CRS, microvascular disease * Patient has declined RECRUITER COORDINATOR due to age, obesity and frailty. She desires only medical therapy * Net 2.6 L diuresis since admission. Continue current medical regimen * Monitor PRP (2) Acute on chronic diastolic heart failure: * Continue Bumex 2 mg IV BI * Monitor UO, kidney function (3) Anemia: * Evidence of iron deficiency * Day #4 of 5 IV Venofer * Epogen 20,000 units SQ x 1 provided 08/03 (4) Diverticulitis: * On Zosyn. Dose adjustment for CKD as per pharmacy (5) Goals of care, counseling/discussion: * Palliative Care consult reviewed. Family meeting was conducted at 9 am. Await recommendations Admission and Anticipated Discharge Date Admission Date: August 02, 2020 Subjective Ms. Arnold was seen and examined in her hospital room this morning. She was lethargic but would awaken to voice. She did not follow commands and resisted physical evaluation. Review of Systems Review of Systems: Unobtainable due to cognitive status Physical Exam Constitutional: Refused physical exam Results & Data ([facility]) Vital Signs (Past 12 Hours) Vital Signs Temp Pulse Resp BP Pulse Ox 08/06/20 07:40 36.4 C L 70 18 112/64 91 Laboratory Tests 08/06/20 08:03 WBC 6.60 Hgb 8.6 L Hct 28.8 L Plt Count 151 Laboratory Tests 08/06/20 08:03 Sodium 138 Potassium 3.7 Chloride 104 Carbon Dioxide 26 BUN 66 H Creatinine 2.20 H Glucose 58 L Calcium 8.2 L PG Care Time/CCT Total # of Minutes Spent Total Time Spent with Patient: Total time spent is greater than 50% in coordination of care (as documented) at patient's floor/unit and/or counseling patient: Coding Level of Care Code 60580 Subseq Hosp Care Lvl 3 Diagnoses CKD (chronic kidney disease) stage 4, GFR 15-29 ml/min N18.4 Acute on chronic diastolic heart failure I50.33 Anemia D64.9 Diverticulitis K57.92 Goals of care, counseling/discussion Z71.89
--- NOTE | 2020-08-06 14:24 | Pharmacy Report ---
Pharmacy Glycemic Short Note 2 - Date of Service August 06, 2020 - Glycemic Short BSG Results (Last 24 hours): 08/05/20 08/05/20 08/06/20 17:05 20:29 08:03 Glucose 58 L POC Glucose 139 H 108 H 08/06/20 08/06/20 08/06/20 08:05 08:06 08:29 Glucose POC Glucose 69 L* 65 L* 81 08/06/20 12:17 Glucose POC Glucose 75 OUTPATIENT ANTIDIABETIC REGIMEN: * Tresiba 70 units SC qAM * Novolog 18 units SC TIDM * HbA1c: 6.9% (07/18/20) ASSESSMENT: 08/06 * BSGs remain on the low side, treated for hypoglycemia (65 mg/dL) this morning with 15 g of carbs * Received 4 units of bolus insulin only yesterday * May need to consider reintroduction of dextrose-containing fluids if patient continues to be hypoglycemic * Palliative care encounter today - family considering Hospice care at [facility] 08/04 * Pt has received 5 units of insulin over the past 24hrs * 0 units of basal * 5 units of bolus with NovoLog * Pt with sustained hypo yesterday; started on D5W. Hypo now resolved today. * Pt still only ordered a clear liquid diet. Will hold off on resuming basal until BSG > 140 mg/dl * Na+ LOW today. May be a combination of diuretics plus D5W. D/W hospitalist and will stop D5W. 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 worsening volume overload and acute diverticulitis * Multiple instances of hypoglycemia overnight, 36, 51, and 69 mg/dL * Treated with 2 amps of D50W * BSG of 76 mg/dL this morning * Ordered clear liquid diet * Will hold off on basal insulin at this time until upward BSG trend noted or diet advanced (will utilize q4h checks overnight) * BSG of 41 mg/dL at lunchtime -> discussed with hospitalist and will add D5W @80 mL/hr, as patient has been treated for multiple hypoglycemic episodes PLAN FOR INPATIENT GLYCEMIC CONTROL: * Basal insulin * hold * Bolus insulin - loosen * NovoLog per scale ACHS or Q6hrs while NPO * Goal Range: Low 110 mg/dL - High 140 mg/dL * Correction Factor: 25 mg/dL/unit * Nutritional / Prandial insulin per carb ratio of 1 unit per 8 grams CHO consumed PLAN FOR DISCHARGE: * HbA1c of 6.9% is at goal for this patient, as it is less than 8% * Patient follows with [facility] endocrinology - last seen on 07/26/20 * Recs at that time were Tresiba 70 units SC qAM and Novolog 18 units SC before meals * These recs are likely no longer appropriate based on current insulin needs and current appetite * Discharge recs will depend on goals of care at time of discharge * Will continue to follow
[2020-08-06] MEDS: BUMETANIDE 1 MG TAB PO SCH (21:42)
[2020-08-06] MEDS: PRAMIPEXOLE DIHYDROCHLO 0.25 MG TAB PO SCH (21:43)
[2020-08-06] MEDS: LORazepam 0.5 MG TAB PO PRN (21:43)
[2020-08-07] MEDS: LEVOTHYROXINE SODIUM 88 MCG TABLET PO SCH ×2 (06:24→06:27)
[2020-08-07] MEDS: MONTELUKAST SODIUM 10 MG TABLET PO SCH (08:51)
[2020-08-07] MEDS: NYSTATIN POWDER 15GM BTL EXT SCH (08:51)
[2020-08-07] MEDS: SERTRALINE HCL 50 MG TABLET PO SCH (08:51)
[2020-08-07] MEDS: APIXABAN 2.5 MG TAB PO SCH (08:51)
[2020-08-07] MEDS: METOPROLOL SUCC 50MG EXT REL TAB PO SCH (08:51)
[2020-08-07] MEDS: BUMETANIDE 1 MG TAB PO SCH (08:51)
[2020-08-07] MEDS: IRON SUCROSE 200 MG in 0.9 % SODIUM CHLORIDE 100 ML IV SCH (08:59)
[2020-08-07] MEDS: INSULIN ASPART 100 UNITS/ML 3 ML PEN SC SCH (09:16)
--- NOTE | 2020-08-07 15:12 | Hospitalist Progress Note ---
Date of Service August 06, 2020 Assessment & Plan (1) Acute on chronic diastolic heart failure: Patient presented with significant volume overload, reportedly refusing to wear her noninvasive positive pressure ventilation. Respiratory acidosis seen on VBG on presentation. now seems euvolemic but overall her outlook remains in question due to frequent readmissions lately Family is supportive of hospice/ palliative care consider returning to [facility] on hospice palliative care did see and will have family meeting this week, living will also states DNR but family wants to re address this on sunday 08/06 nephrology did see and convert to torsemide, however with poor response, contin ues on bumex bid convert to po and follow (2) Diverticulitis: Patient has acute diverticulitis seen on CT scan abdomen pelvis she was given Rocephin and metronidazole in the emergency department subsequently we will place her on Zosyn therapy renal dose adjusted. 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 continue Encouraging her to wear her CPAP mask would be beneficial (6) DM (diabetes mellitus), type 2, uncontrolled w/neurologic complication: During her last hospital stay her A1c was 6.9 she is typically is on Lantus 50 units a day which may be somewhat retained with her renal failure subsequently should be on basal bolus insulin with diabetic pharmacy oversight (7) On anticoagulant therapy: Patient jennifer on Eliquis 2.5 twice daily for atrial fibrillation which also serve as DVT prevention (8) Anemia: Patient typically is anemia of chronic disease likely from her renal dysfunction, her iron was last checked July 26 and found to be 43 and her TIBC was low transferrin saturation was 14% iron repleted by nephrology (9) Acute and chronic respiratory failure with hypoxia: Admission and Anticipated Discharge Date Admission Date: August 02, 2020 Subjective pt was slightly sedate was not short of breath, seems euvolemic . Family has decided on hospice care and will look to transition to [facility] soon. Review of Systems Review of Systems: mild distress and fatigue no headache, no visual changes no speech or swallowing issues no chest pain, pressure or palpitations seems to be baseline shortness of breath, cough or wheezes no abdominal pain, nausea or vomiting, diarrhea or constipation no dysuria, hematuria or frequency no focal joint pain persistent swelling le no back pain, CVA tenderness or radicular pain no bruising, bleeding or rashes no focal signs of weakness or numbness or altered sensation no complaints of anxiety or depression.. Physical Exam Physical Exam: The patient appeared chronically ill and weakened Vital signs as documented. Head exam is normocephalic atraumatic Neck is with JVD, thyromegaly, or carotid bruits. Lungs continue to be diminshed bases Cardiac exam, Rhythm is regular.. No murmurs, rubs or gallops. Abdominal exam reveals normal bowel sounds, soft non tender, no masses Extremities are 1+ edematous and both pedal pulses are present Neurologic exam is alert and oriented x 2 , no focal loss of strength or sensation Skin is with changes of chronic venous stasis issues Psychologically is without concerns for anxiety or depression Results & Data Results & Data ([facility]) Vital Signs (Past 12 Hours) Vital Signs Temp Pulse Resp BP Pulse Ox 08/06/20 15:09 97.5 F L 86 16 112/75 100 08/06/20 07:40 97.5 F L 70 18 112/64 91 PG Care Time/CCT Total # of Minutes Spent Total Time Spent with Patient: Total time spent is greater than 50% in coordination of care (as documented) at patient's floor/unit and/or counseling patient: Coding Level of Care Code 76163 Subseq Hosp Care Lvl 2 Diagnoses Acute on chronic diastolic heart failure I50.33 Diverticulitis K57.92 Atrial fibrillation, permanent I48.21 CKD (chronic kidney disease) stage 4, GFR 15-29 ml/min N18.4 Moderate obstructive sleep apnea G47.33 DM (diabetes mellitus), type 2, uncontrolled w/neurologic complication E11.49; E11.65 On anticoagulant therapy Z79.01 Anemia D64.9 Acute and chronic respiratory failure with hypoxia J96.21
--- NOTE | 2020-08-07 15:16 | Discharge Summary ---
Date of Service August 07, 2020 Admission HPI Per Admitting Provider 84-year-old female history of type 2 diabetes, diabetic neuropathy, hypertension, RLS, chronic respiratory failure with nightly oxygen, CHF, CKD, A. fib on Eliquis presenting here today sent from [facility] with concerns for being very shortness of breath and requiring increased assistance walking. They reported she seems somewhat ramirez in color and very lethargic. Patient herself states that time she is little short of breath but mainly complains of some nausea. Reports she still having some urinary symptoms of the completed antibiotics for recent UTI. Patient states she may have fallen a day or 2 ago has been able to give her a clear history on this. Since her last discharge were her diuretics were reduced because of escalating or worsening renal failure the patient saw nephrology which once again reincre ased her diuretics. Despite this fact she continues to have fluid retention and worsening renal failure. She denies chest pain. Patient does report some increased swelling of her lower legs. Patient's records indicate she is not currently on antibiotics but was recently here admitted to the hospital with E. coli gram-negative bacteremia from UTI. She completed cefdinir after discharge. No fevers have been reported. Patient does report some chills. In the ER she looks ill volume overload and lethargic her daughter was at the bedside who confirms she is a full code at this time. The daughter also states that they did previously toward dialysis facilities and they are unclear whether they proceed with dialysis if recommended Principal Diagnosis Acute on chronic diastolic heart failure Conversion to comfort care palliative care Chronic kidney disease stage III Anemia of chronic disease Discharge Exam The patient appeared morbidly obese intermittently conscious but in no acute distress Vital signs as documented. Lungs are diminished with poor effort Cardiac exam, Rhythm is regular.. No murmurs, rubs or gallops. Abdominal exam reveals normal bowel sounds, soft non tender, no masses Extremities are 1+ edematous and both pedal pulses are normal. Neurologic exam is alert and oriented x2, she is weak but no focal loss of strength or sensation Discharge Data Allergies Allergy/AdvReac Type Severity Reaction Status Date / Time carbamazepine Allergy Intermediate HIVES Verified 07/26/20 15:04 Consultations 08/02/20 17:50 ED Decision to Admit Stat 08/02/20 20:46 Consult Nephrology Routine 08/03/20 18:18 Consult Palliative Care Routine Ordered Studies 08/02/20 14:23 CT abd pelvis wo con Stat CT head/brain wo con Stat Hospital Course (1) Acute on chronic diastolic heart failure: Patient presented with significant volume overload, reportedly refusing to wear her noninvasive positive pressure ventilation. Respiratory acidosis seen on VBG on presentation. now seems euvolemic but overall her outlook remains in question due to frequent readmissions lately Family is supportive of hospice/ palliative care consider returning to [facility] on hospice palliative care did see and will have family meeting this week, living will also states DNR but family wants to re address this on sunday 08/06 nephrology did see and convert to torsemide, however with poor response, contin ues on bumex bid convert to po and will continue p.o. Bumex after transition to comfort care (2) Diverticulitis: Patient has acute diverticulitis seen on CT scan abdomen pelvis she was given Rocephin and metronidazole in the emergency department subsequently we will place her on Zosyn therapy renal dose adjusted. 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 Patient did not wear her CPAP mask (6) DM (diabetes mellitus), type 2, uncontrolled w/neurologic complication: During her last hospital stay her A1c was 6.9 she is typically is on Lantus 50 units a day patient's oral intake has been variable will recommend using a sliding scale insulin at this time unless with transition to palliative hospice care fingerstick glucoses and subcu insulin may be deemed to be uncomfortable and not be needed at that point time would recommend not checking her glucose. Her oral intake has been variable and therefore she may be self restricting her carbohydrates which will help control her glucose (7) On anticoagulant therapy: Patient jennifer on Eliquis 2.5 twice daily for atrial fibrillation which also serve as DVT prevention (8) Anemia: Patient typically is anemia of chronic disease likely from her renal dysfunction, iron repleted by nephrology (9) Acute and chronic respiratory failure with hypoxia: Total Time Total Time Spent Total Time Spent (In Minutes): It required greater than 30 minutes to prepare this patient for discharge Discharge Plan Discharge Items Patient Disposition: Hospice - Medical Facility Reason For Visit: DIVERTICULITIS, ACUTE DIASTOLIC HEART FAILURE, ACU Discharge Diagnosis: acute on chronic diastolic heart failure diverticulitis permanent afib yash-refusal of wearing cpap ckd 3 Diabetes Activity: Per Instructions section Activity Comment: per hospice care plan Non-emergency contact: Primary Care Provider Call non-emergency contact if: you have any medication questions, your symptoms worsen and you have a fever Follow-up/Referrals: STATE ANA ROSA SOUZA [Primary Care Provider] - Diet: Carb Consistent or DM2 and Low Sodium (2gm) Addtl Attending Provider Instructions: we will continue treatment of your chronic problems, continue on a low carbohydrate and low salt diet complete course of antibiotics for diverticulitis enroll in hospice care once return to prior living situation in regard to her diabetes we have just been covering sliding scale as her po intake has been variable, if decided hospice may choose to not cover diabetes as finger sticks and sc insulin may cause pain Pending Studies at Discharge: No Stand-Alone Forms: My [facility] Lydia Skilled Items Patient informed of condition?: Yes DNR: Yes Discharge Level of Care: Other Communicable Disease: No Discharge Prognosis: Stable Lines: None Urinary Catheter: No Medications and DC Order Prescriptions: New oxycodone 20 mg/mL concentrate 5 mg PO Q6H PRN (Reason: pain) Qty: 30 RF: 0 lorazepam [Ativan] 0.5 mg tablet 0.5 mg sublingual TID Qty: 20 RF: 0 bumetanide 1 mg Tablet 2 mg PO BID Qty: 60 RF: 0 amoxicillin-pot clavulanate [Augmentin] 875-125 mg tablet 1 tab PO BID Qty: 18 RF: 0 Continued calcitriol 0.25 mcg capsule 0.25 mcg PO .COMPLEX Qty: 39 RF: 3 ondansetron 4 mg tablet,disintegrating 4 mg PO Q6H PRN (Reason: nausea and vomiting) Qty: 30 RF: 1 sertraline [Zoloft] 50 mg tablet 50 mg PO QAM Qty: 90 RF: 3 metoprolol succinate 200 mg tablet extended release 24 hr 200 mg PO QAM Qty: 90 RF: 3 acetaminophen 325 mg capsule 650 mg PO QID RF: 0 levothyroxine 88 mcg capsule 88 mcg PO DAILY RF: 0 montelukast 10 mg tablet 10 mg PO DAILY RF: 0 loperamide [Anti-Diarrheal (loperamide)] 2 mg capsule 2 mg PO Q6H PRN (Reason: Diarrhea) RF: 0 potassium chloride 20 mEq tablet,ER particles/crystals 20 meq PO QAM RF: 0 omeprazole 20 mg capsule,delayed release(DR/EC) 20 mg PO DAILYBB RF: 0 torsemide 10 mg tablet 40 mg PO DAILY RF: 0 pramipexole 0.125 mg tablet 0.125 mg PO HS RF: 0 ferrous sulfate 325 mg (65 mg iron) Tablet 325 mg PO BID RF: 0 nystatin 100,000 unit/gram powder 2 applic TOPICAL Q12 RF: 0 melatonin 3 mg Tablet,Disintegrating 3 mg PO HS RF: 0 metolazone 2.5 mg tablet 2.5 mg PO Q OTHER DAY RF: 0 Eliquis 2.5 mg tablet 2.5 mg PO BID RF: 0 Changed insulin aspart U-100 [Novolog Flexpen U-100 Insulin] 100 unit/mL (3 mL) insulin pen 1 unit subcut UD 30 Days Qty: 0.3 RF: 5 Discontinued pramipexole [Mirapex] 0.25 mg tablet 0.125 mg PO HS Qty: 45 RF: 3 Lyrica 100 mg capsule 100 mg PO BID Qty: 180 RF: 1 cyclobenzaprine 5 mg tablet 5 mg PO TID PRN (Reason: muscle spasm) Qty: 30 RF: 1 metoclopramide HCl [Reglan] 10 mg tablet 5 mg PO BID PRN (Reason: Nausea) RF: 0 spironolactone 25 mg tablet 25 mg PO DAILY RF: 0 Tresiba FlexTouch U-100 100 unit/mL (3 mL) insulin pen 70 unit subcut QAM RF: 0 torsemide 20 mg tablet 80 mg PO QPM PRN (Reason: weight gain > 250lb) RF: 0 No Action (DME) Manual Wheelchair Device See Rx Instructions .ROUTE .MEDSUPPLY Qty: 2 RF: 0 (DME) pen needle, diabetic [BD Ultra-Fine Franchesca Pen Needle] 32 gauge x 5/32" needle See Rx Instructions .ROUTE .MEDSUPPLY Qty: 400 RF: 3 Discharge Orders: Discharge Order (Routine); Ordered 08/07/20 Ordered By: Last Renner/Other Patient Handouts: Diverticulosis Diverticulitis, Anatomy of the Digestive System, Discharge Instructions for ..., ED Diverticulitis Admission Data Admit Date/Time: 08/02/20 17:42 Attending Provider: Last Michael Admit Provider: Last Michael Primary Care Provider: [facility] Other Providers: Last Michael ; Chuck Mcdermott ; Denise Howell ; [facility] Other Interventions: Discharge Summary Assessment (RN) Last Done: 08/07/20 12:54 Coding Level of Care Code D/C Day Management >30 mins Diagnoses Acute on chronic diastolic heart failure I50.33 Diverticulitis K57.92 Atrial fibrillation, permanent I48.21 CKD (chronic kidney disease) stage 4, GFR 15-29 ml/min N18.4 Moderate obstructive sleep apnea G47.33 DM (diabetes mellitus), type 2, uncontrolled w/neurologic complication E11.49; E11.65 On anticoagulant therapy Z79.01 Anemia D64.9 Acute and chronic respiratory failure with hypoxia J96.21
== END 2020-08-07 13:13 | disposition hospice, inpatient (51) | DRG 291 ==
LOC: ED 13:28 → 2S 17:42 → 3N 08-05 10:29